=== PATIENT | male | born 1970 | race Caucasian/White ===

== ENCOUNTER 2016-05-03 09:39 | Emergency (ER) | payer MEDICARE, MEDICAID ==
[2016-05-03] MEDS ORDERED: PERCOCET 5MG/325MG TAB As Ordered ONE (10:23)
--- NOTE | 2016-05-03 11:33 | REP ---
Lumbar spine series: Five views. History: Trauma. Findings: Five views of the lumbar spine are compared with prior study from October 16, 2014 done at [facility]. There is a bilateral L5 spondylolysis and a grade 1, 9 mm L5-S1 spondylolisthesis again seen unchanged. There is degenerative disc disease at L5-S1 and osteoarthritic facet sclerosis is seen bilaterally at L5-S1. There is a spina bifida occulta at the L5 level unchanged. Pedicles and posterior elements are otherwise intact. No traumatic fracture or collapse is seen. There is discogenic spurring anteriorly at L3-4 and L4-5 unchanged. Impression: 1. No fracture or acute traumatic abnormality seen. 2. Degenerative disc and osteoarthritic facet changes most pronounced at L5-S1. 3. Bilateral L5 spondylolysis and a grade 1, 9 mm L5-S1 spondylolisthesis again noted. No acute bony abnormality. Signed by Stanislav Cartagena MD 05/03/2016 01:42 P
--- NOTE | 2016-05-03 11:34 | REP ---
PELVIS LEFT HIP: Three views. HISTORY: Trauma. FINDINGS: Bony pelvic ring is intact. No pelvic or sacral fracture is seen. Femoral heads are smooth and rounded and hip joint spaces are preserved. No hip fracture is seen. AP and frog-leg views of the left hip demonstrate smooth intact hip joint space. Periarticular soft tissues are unremarkable. IMPRESSION: No fracture seen. Signed by Stanislav Cartagena MD 05/03/2016 01:42 P
--- NOTE | 2016-05-03 11:57 | EDDOCDS ---
Physician Documentation [facility] Name: Ever Sloan Age: 45 yrs Sex: Male : 1970 Arrival Date: 05/03/2016 Time: 09:39 Bed TR2 Private MD: Juan M Lema Disposition: 05/03/16 11:44 Discharged to Home/Self Care. Impression: Low back pain - Acute, Pain in left hip, Spondylolisthesis - L5-S1, Spondylolysis - Bilateral, Other intervertebral disc disorders, lumbosacral region, Osteoarthritis, unspecified site - L5-S1. - Condition is Stable. - Discharge Instructions: Degenerative Disk Disease, Back Pain, Adult, Nnxc-zk-Jmny, Arthritis, Nonspecific, Qtfj-vj-Iwvf. - Prescriptions for Mobic 7.5 mg Oral Tablet - take 1 tablet by ORAL route once daily take with food; 20 tablet. Percocet 5- 325 mg Oral Tablet - take 1 tablet by ORAL route every 6 hours As needed MDD: 4 tabs; 10 tablet. Zanaflex 4 mg Oral Tablet - take 1 tablet by ORAL route At bedtime As needed Will cause drowsiness, do not take while driving/operating heavy machinery.; 20 tablet. - Medication Reconciliation, Local Pharmacy Hours form. - Follow up: Juan M Lema; When: 1 - 2 days; Reason: Recheck today's complaints, Continuance of care. Follow up: Emergency Department; Reason: Worsening of conditions. Follow up: [facility]; When: Call to arrange an appointment; Reason: Further diagnostic work-up, Recheck today's complaints, Continuance of care. - Problem is new. - Symptoms have improved. Historical: - Allergies: no known allergies; - Home Meds: 1. lisinopril 20 mg Oral tab 1 tab once daily 2. bupropion HCl 150 mg Oral TbER 1 tab 2 times per day 3. omeprazole 40 mg Oral cpDR 1 cap once daily - PMHx: GERD; Hypertension; Anxiety; Depression; - PSHx: Vasectomy; - Social history: Smoking status: Chewing Tobacco No barriers to communication noted, The patient speaks fluent Mongolian, Speaks appropriately for age. - Family history: Not pertinent. - : The pt / caregiver states he / she is not on anticoagulants. Home medication list is obtained from the patient. - Exposure Risk Screening:: None identified. Vital Signs: 05/03 09:41 BP 147 / 90; Pulse 81; Resp 18; Temp 97.7(O); Pulse Ox 99% on R/A; Weight 107.5 kg / jrd 237 lbs (R); Height 5 ft. 7 in. (170.18 cm) (R); Pain 8/; 11:44 BP 141 / 77 RA Sitting (auto/lg); Pulse 68; Resp 22; Temp 98.5; Pulse Ox 97% on R/A; ar3 Pain 04/20; 11:52 Pain 04/20; js13 09:41 Body Mass Index 37.12 (107.50 kg, 170.18 cm) jrd MDM: 10:02 Ice Pack ordered. ef1 10:02 oxyCODONE-acetaminophen 5 mg-325 mg 1 tabs PO once ordered. ef1 10:03 Spine. Lumbosacral, Complete Ordered. EDMS 10:03 Hip,AP,LAT to include Pelvis Ordered. EDMS 10:56 Financial registration complete. lg Administered Medications: 10:24 Drug: oxyCODONE-acetaminophen 1 tabs [oxycodone-acetaminophen 5 mg-325 mg tablet (1 hs1 tabs)] Route: PO; 11:52 Follow up: Pain 04/20 Adult; Response: Confirmed pt not driving.; Pain is decreased js13 Signatures: Dispatcher [employer] EDJosephine Monae, Reg Reg lg Xiomara Cosme PA-C PA-C ef1 Ashlie Rutherford RN RN hs1 Abbey Mulligan RN RN js13 MTDD
--- NOTE | 2016-05-03 11:57 | EDDOCDS ---
Nurse's Notes [facility] Name: Ever Sloan Age: 45 yrs Sex: Male : 1970 Arrival Date: 05/03/2016 Time: 09:39 Bed TR2 Private MD: Juan M Lema Diagnosis: Low back pain-Acute;Pain in left hip;[id number];Spondylolysis-Bilateral;Other intervertebral disc disorders, lumbosacral region;Osteoarthritis, unspecified site-L5-S1 Presentation: 05/03 09:44 Presenting complaint: Patient states: left hip started last night hurting around 830pm hs1 due to holding having heavy bags in left hand. Patient felt uneven and feels shifted. Patient states pain started to then creep towards back and across lumbar area. Patient reports previous injury (fell in shower) approx 3 weeks ago. Acute neurological deficits are not present. Mechanism of Injury: No Mechanism of Injury. Adult Sepsis Screening: The patient does not have new or worsening altered mentation. Patient's respiratory rate is less than 22. Systolic blood pressure is greater than 100. Patient has a qSOFA score of 0- Negative Sepsis Screen. Suicide/Homicide risk assessment- the patient denies having any suicidal and/or homicidal ideations and does not present with any other emotional, behavioral or mental health complaints. Status: Patient is not a ancillary services manager therapy or dependent. Transition of care: patient was not received from another setting of care. 09:44 Acuity: REX Level 4 hs1 09:44 Method Of Arrival: Walkin/Carried/Asstd hs1 Triage Assessment: 09:48 General: Appears uncomfortable, Behavior is appropriate for age, cooperative. Pain: hs1 Location: back Pain currently is 9 out of 10 on a pain scale. Pt Declines HIV testing. Musculoskeletal: No deficits noted. Reports Pain is 9 out of 10 on a pain scale. Historical: - Allergies: no known allergies; - Home Meds: 1. lisinopril 20 mg Oral tab 1 tab once daily 2. bupropion HCl 150 mg Oral TbER 1 tab 2 times per day 3. omeprazole 40 mg Oral cpDR 1 cap once daily - PMHx: GERD; Hypertension; Anxiety; Depression; - PSHx: Vasectomy; - Social history: Smoking status: Chewing Tobacco No barriers to communication noted, The patient speaks fluent Rwandan, Speaks appropriately for age. - Family history: Not pertinent. - : The pt / caregiver states he / she is not on anticoagulants. Home medication list is obtained from the patient. - Exposure Risk Screening:: None identified. Screenin:50 Screening information is obtained from the patient. Fall risk: No risks identified. js13 Assistance ADL's: requires no assistance with activities of daily living. Abuse/DV Screen: The patient / caregiver reports he/she is: not in a situation that causes fear, pain or injury. Nutritional screening: No deficits noted. Advance Directives: There is no active DNR order. home support is adequate. Assessment: 11:50 General: Appears in no apparent distress, Behavior is appropriate for age, cooperative. js13 Pain: Pain currently is 3 out of 10 on a pain scale. Neurological: Level of Consciousness is awake, alert. Respiratory: Airway is patent Respiratory effort is even, unlabored, Respiratory pattern is regular, symmetrical. Derm: Skin is pink, warm & dry. Vital Signs: 09:41 BP 147 / 90; Pulse 81; Resp 18; Temp 97.7(O); Pulse Ox 99% on R/A; Weight 107.5 kg (R); jrd Height 5 ft. 7 in. (170.18 cm) (R); Pain 8/10; 11:44 BP 141 / 77 RA Sitting (auto/lg); Pulse 68; Resp 22; Temp 98.5; Pulse Ox 97% on R/A; ar3 Pain 1/10; 11:52 Pain 1/10; js13 09:41 Body Mass Index 37.12 (107.50 kg, 170.18 cm) [facility] Vitals: 09:41 Log In Time: May 03, 2016 at 09:30. [facility] ED Course: 09:41 Patient visited by Trell Kam PCA. jrd 09:41 Juan M Lema is Private Physician. jrd 09:41 Patient moved to Waiting jrd 09:42 Patient visited by Trell Kam PCA. jrd 09:42 Patient moved to Pre RCE jrd 09:46 Xiomara Cosme PA-C is PHCP. ef1 09:46 Akin Villagomez MD is Attending Physician. ef1 09:46 Triage Initiated hs1 09:49 Patient moved to Triage 2 hs1 09:53 Patient visited by Xiomara Cosme PA-C. ef1 10:24 Patient moved to TR2 hs1 10:29 Patient name changed from Ever\S\\S\Nathalia\S\ to Ever\S\ \S\Sloan. EDMS 10:44 Patient visited by Xiomara Cosme PA-C. ef1 11:25 Patient visited by Xiomara Cosme PA-C. ef1 11:43 Juan M Lema is Referral Physician. ef1 11:[facility]. ef1 11:44 Patient visited by Meghan Nobles PCA. ar3 11:50 The patient / caregiver is instructed regarding the plan of care and ED course. js13 11:50 No IV's were initiated during this patient's visit. No procedures done that require js13 assistance. 11:52 Spine. Lumbosacral, Complete Returned. EDMS 11:52 Hip,AP,LAT to include Pelvis Returned. EDMS Administered Medications: 10:24 Drug: oxyCODONE-acetaminophen 1 tabs [oxycodone-acetaminophen 5 mg-325 mg tablet (1 hs1 tabs)] Route: PO; 11:52 Follow up: Pain 1/10 Adult; Response: Confirmed pt not driving.; Pain is decreased js13 Order Results: Radiology Order: Spine. Lumbosacral, Complete Test: Spine. Lumbosacral, Complete REASON FOR EXAMINATION: Trauma; Lumbar spine series: Five views.; ; History: Trauma.; ; Findings: Five views of the lumbar spine are compared with prior study from [address] [facility]. There is a bilateral L5 spondylolysis; and a grade 1, 9 mm L5-S1 spondylolisthesis again seen unchanged. There is; degenerative disc disease at L5-S1 and osteoarthritic facet sclerosis is seen; bilaterally at L5-S1. There is a spina bifida occulta at the L5 level unchanged.; Pedicles and posterior elements are otherwise intact. No traumatic fracture or; collapse is seen. There is discogenic spurring anteriorly at L3-4 and L4-5; unchanged.; ; Impression:; ; 1. No fracture or acute traumatic abnormality seen.; 2. Degenerative disc and osteoarthritic facet changes most pronounced at L5-S1.; 3. Bilateral L5 spondylolysis and a grade 1, 9 mm L5-S1 spondylolisthesis again; noted. No acute bony abnormality.; ; Unreviewed; Radiology Order: Hip,AP,LAT to include Pelvis Test: Hip,AP,LAT to include Pelvis REASON FOR EXAMINATION: Trauma; PELVIS LEFT HIP:; ; Three views.; ; HISTORY: Trauma.; ; FINDINGS: Bony pelvic ring is intact. No pelvic or sacral fracture is seen.; Femoral heads are smooth and rounded and hip joint spaces are preserved. No hip; fracture is seen. AP and frog-leg views of the left hip demonstrate smooth; intact hip joint space. Periarticular soft tissues are unremarkable.; ; IMPRESSION:; No fracture seen.; ; ; ; ; Unreviewed; Outcome: 11:44 Discharge ordered by Provider. ef1 11:50 Discharge Assessment: Patient awake, alert and oriented x 3. No cognitive and/or js13 functional deficits noted. Patient verbalized understanding of disposition instructions. patient administered narcotics - yes. Pt provided with safe discharge. The following High Risk Discharge criteria are identified: None. Discharged to home ambulatory, with friend. Condition: stable. Discharge instructions given to patient, Instructed on discharge instructions, follow up and referral plans. medication usage, Demonstrated understanding of instructions, medications, Pt was receptive of discharge instructions/ teaching. Prescriptions given X 3. No special radiology studies were completed. Property :Personal belongings accompany Pt. 11:56 Patient left the ED. js13 Signatures: Dispatcher [employer] EDMS Xiomara Cosme, SUMIT ARANA ef1 Meghan Nobles, APPLICATIONS INTERN APPLICATIONS INTERN ar3 Ashlie Rutherford RN RN hs1 Abbey Mulligan RN RN js13 Trell Kam, APPLICATIONS INTERN APPLICATIONS INTERN jrd [facility]
--- NOTE | 2016-05-05 12:57 | EDDOCDS ---
Physician Documentation [facility] Name: Ever Sloan Age: 45 yrs Sex: Male : 1970 Arrival Date: 05/03/2016 Time: 09:39 Bed TR2 Private MD: Juan M Lema Disposition: 05/03/16 11:44 Discharged to Home/Self Care. Impression: Low back pain - Acute, Pain in left hip, Spondylolisthesis - L5-S1, Spondylolysis - Bilateral, Other intervertebral disc disorders, lumbosacral region, Osteoarthritis, unspecified site - L5-S1. - Condition is Stable. - Discharge Instructions: Degenerative Disk Disease, Back Pain, Adult, Sirt-cp-Zkgp, Arthritis, Nonspecific, Gpld-wp-Oeug. - Prescriptions for Mobic 7.5 mg Oral Tablet - take 1 tablet by ORAL route once daily take with food; 20 tablet. Percocet 5- 325 mg Oral Tablet - take 1 tablet by ORAL route every 6 hours As needed MDD: 4 tabs; 10 tablet. Zanaflex 4 mg Oral Tablet - take 1 tablet by ORAL route At bedtime As needed Will cause drowsiness, do not take while driving/operating heavy machinery.; 20 tablet. - Medication Reconciliation, Local Pharmacy Hours form. - Follow up: Juan M Lema; When: 1 - 2 days; Reason: Recheck today's complaints, Continuance of care. Follow up: Emergency Department; Reason: Worsening of conditions. Follow up: [facility]; When: Call to arrange an appointment; Reason: Further diagnostic work-up, Recheck today's complaints, Continuance of care. - Problem is new. - Symptoms have improved. Historical: - Allergies: no known allergies; - Home Meds: 1. lisinopril 20 mg Oral tab 1 tab once daily 2. bupropion HCl 150 mg Oral TbER 1 tab 2 times per day 3. omeprazole 40 mg Oral cpDR 1 cap once daily - PMHx: GERD; Hypertension; Anxiety; Depression; - PSHx: Vasectomy; - Social history: Smoking status: Chewing Tobacco No barriers to communication noted, The patient speaks fluent Grenadian, Speaks appropriately for age. - Family history: Not pertinent. - : The pt / caregiver states he / she is not on anticoagulants. Home medication list is obtained from the patient. - Exposure Risk Screening:: None identified. Vital Signs: 05/03 09:41 BP 147 / 90; Pulse 81; Resp 18; Temp 97.7(O); Pulse Ox 99% on R/A; Weight 107.5 kg / jrd 237 lbs (R); Height 5 ft. 7 in. (170.18 cm) (R); Pain 8/10; 11:44 BP 141 / 77 RA Sitting (auto/lg); Pulse 68; Resp 22; Temp 98.5; Pulse Ox 97% on R/A; ar3 Pain 1/10; 11:52 Pain 1/10; js13 09:41 Body Mass Index 37.12 (107.50 kg, 170.18 cm) jrd MDM: 10:02 Ice Pack ordered. ef1 10:02 oxyCODONE-acetaminophen 5 mg-325 mg 1 tabs PO once ordered. ef1 10:03 Spine. Lumbosacral, Complete Ordered. EDMS 10:03 Hip,AP,LAT to include Pelvis Ordered. EDMS 10:56 Financial registration complete. lg 12:56 [facility] Payment Agreement was scanned into [employer] and attached to record. lg 14:15 T-Sheet-- Draft Copy was scanned into [employer] and attached to record. gb 14:15 Radiology Report was scanned into [employer] and attached to record. gb Administered Medications: 10:24 Drug: oxyCODONE-acetaminophen 1 tabs [oxycodone-acetaminophen 5 mg-325 mg tablet (1 hs1 tabs)] Route: PO; 11:52 Follow up: Pain 04/20 Adult; Response: Confirmed pt not driving.; Pain is decreased js13 Signatures: Dispatcher [employer] EDMS Olimpia Merino, Reg Reg gb Josephine Spicer, Reg Reg lg Xiomara Cosme, PA-C PASelinaC ef1 Ashlie Rutherford, RN RN hs1 Abbey Mulligan RN RN js13 The chart was reviewed and I authenticate all verbal orders and agree with the evaluation and treatment provided.Attachments: 12:56 [facility] Payment Agreement lg 14:15 T-Sheet-- Draft Copy gb Chart Complete MTDD
--- NOTE | 2016-05-05 12:57 | EDDOCDS ---
Physician Documentation [facility] Name: Ever Sloan Age: 45 yrs Sex: Male : 1970 Arrival Date: 05/03/2016 Time: 09:39 Bed TR2 Private MD: Juan M Lema Disposition: 05/03/16 11:44 Discharged to Home/Self Care. Impression: Low back pain - Acute, Pain in left hip, Spondylolisthesis - L5-S1, Spondylolysis - Bilateral, Other intervertebral disc disorders, lumbosacral region, Osteoarthritis, unspecified site - L5-S1. - Condition is Stable. - Discharge Instructions: Degenerative Disk Disease, Back Pain, Adult, Czas-ep-Xjdx, Arthritis, Nonspecific, Ozah-qg-Envz. - Prescriptions for Mobic 7.5 mg Oral Tablet - take 1 tablet by ORAL route once daily take with food; 20 tablet. Percocet 5- 325 mg Oral Tablet - take 1 tablet by ORAL route every 6 hours As needed MDD: 4 tabs; 10 tablet. Zanaflex 4 mg Oral Tablet - take 1 tablet by ORAL route At bedtime As needed Will cause drowsiness, do not take while driving/operating heavy machinery.; 20 tablet. - Medication Reconciliation, Local Pharmacy Hours form. - Follow up: Juan M Lema; When: 1 - 2 days; Reason: Recheck today's complaints, Continuance of care. Follow up: Emergency Department; Reason: Worsening of conditions. Follow up: [facility]; When: Call to arrange an appointment; Reason: Further diagnostic work-up, Recheck today's complaints, Continuance of care. - Problem is new. - Symptoms have improved. Historical: - Allergies: no known allergies; - Home Meds: 1. lisinopril 20 mg Oral tab 1 tab once daily 2. bupropion HCl 150 mg Oral TbER 1 tab 2 times per day 3. omeprazole 40 mg Oral cpDR 1 cap once daily - PMHx: GERD; Hypertension; Anxiety; Depression; - PSHx: Vasectomy; - Social history: Smoking status: Chewing Tobacco No barriers to communication noted, The patient speaks fluent Emirati, Speaks appropriately for age. - Family history: Not pertinent. - : The pt / caregiver states he / she is not on anticoagulants. Home medication list is obtained from the patient. - Exposure Risk Screening:: None identified. Vital Signs: 05/03 09:41 BP 147 / 90; Pulse 81; Resp 18; Temp 97.7(O); Pulse Ox 99% on R/A; Weight 107.5 kg / jrd 237 lbs (R); Height 5 ft. 7 in. (170.18 cm) (R); Pain 8/10; 11:44 BP 141 / 77 RA Sitting (auto/lg); Pulse 68; Resp 22; Temp 98.5; Pulse Ox 97% on R/A; ar3 Pain 1/10; 11:52 Pain 1/10; js13 09:41 Body Mass Index 37.12 (107.50 kg, 170.18 cm) jrd MDM: 10:02 Ice Pack ordered. ef1 10:02 oxyCODONE-acetaminophen 5 mg-325 mg 1 tabs PO once ordered. ef1 10:03 Spine. Lumbosacral, Complete Ordered. EDMS 10:03 Hip,AP,LAT to include Pelvis Ordered. EDMS 10:56 Financial registration complete. lg 12:56 [facility] Payment Agreement was scanned into [employer] and attached to record. lg 14:15 T-Sheet-- Draft Copy was scanned into [employer] and attached to record. gb 14:15 Radiology Report was scanned into [employer] and attached to record. gb Administered Medications: 10:24 Drug: oxyCODONE-acetaminophen 1 tabs [oxycodone-acetaminophen 5 mg-325 mg tablet (1 hs1 tabs)] Route: PO; 11:52 Follow up: Pain 04/20 Adult; Response: Confirmed pt not driving.; Pain is decreased js13 Signatures: Dispatcher [employer] EDMS Olimpia Merino, Reg Reg gb Josephine Spicer, Reg Reg lg Xiomara Cosme, PA-C PASelinaC ef1 Ashlie Rutherford, RN RN hs1 Abbey Mulligan RN RN js13 The chart was reviewed and I authenticate all verbal orders and agree with the evaluation and treatment provided.Attachments: 12:56 [facility] Payment Agreement lg 14:15 T-Sheet-- Draft Copy gb Chart Complete MTDD
--- NOTE | 2016-05-05 12:57 | EDDOCDS ---
Nurse's Notes [facility] Name: Ever Sloan Age: 45 yrs Sex: Male : 1970 Arrival Date: 05/03/2016 Time: 09:39 Bed TR2 Private MD: Juan M Lema Diagnosis: Low back pain-Acute;Pain in left hip;[id number];Spondylolysis-Bilateral;Other intervertebral disc disorders, lumbosacral region;Osteoarthritis, unspecified site-L5-S1 Presentation: 05/03 09:44 Presenting complaint: Patient states: left hip started last night hurting around 830pm hs1 due to holding having heavy bags in left hand. Patient felt uneven and feels shifted. Patient states pain started to then creep towards back and across lumbar area. Patient reports previous injury (fell in shower) approx 3 weeks ago. Acute neurological deficits are not present. Mechanism of Injury: No Mechanism of Injury. Adult Sepsis Screening: The patient does not have new or worsening altered mentation. Patient's respiratory rate is less than 22. Systolic blood pressure is greater than 100. Patient has a qSOFA score of 0- Negative Sepsis Screen. Suicide/Homicide risk assessment- the patient denies having any suicidal and/or homicidal ideations and does not present with any other emotional, behavioral or mental health complaints. Status: Patient is not a business services manager or dependent. Transition of care: patient was not received from another setting of care. 09:44 Acuity: REX Level 4 hs1 09:44 Method Of Arrival: Walkin/Carried/Asstd hs1 Triage Assessment: 09:48 General: Appears uncomfortable, Behavior is appropriate for age, cooperative. Pain: hs1 Location: back Pain currently is 9 out of 10 on a pain scale. Pt Declines HIV testing. Musculoskeletal: No deficits noted. Reports Pain is 9 out of 10 on a pain scale. Historical: - Allergies: no known allergies; - Home Meds: 1. lisinopril 20 mg Oral tab 1 tab once daily 2. bupropion HCl 150 mg Oral TbER 1 tab 2 times per day 3. omeprazole 40 mg Oral cpDR 1 cap once daily - PMHx: GERD; Hypertension; Anxiety; Depression; - PSHx: Vasectomy; - Social history: Smoking status: Chewing Tobacco No barriers to communication noted, The patient speaks fluent Greek, Speaks appropriately for age. - Family history: Not pertinent. - : The pt / caregiver states he / she is not on anticoagulants. Home medication list is obtained from the patient. - Exposure Risk Screening:: None identified. Screenin:50 Screening information is obtained from the patient. Fall risk: No risks identified. js13 Assistance ADL's: requires no assistance with activities of daily living. Abuse/DV Screen: The patient / caregiver reports he/she is: not in a situation that causes fear, pain or injury. Nutritional screening: No deficits noted. Advance Directives: There is no active DNR order. home support is adequate. Assessment: 11:50 General: Appears in no apparent distress, Behavior is appropriate for age, cooperative. js13 Pain: Pain currently is 3 out of 10 on a pain scale. Neurological: Level of Consciousness is awake, alert. Respiratory: Airway is patent Respiratory effort is even, unlabored, Respiratory pattern is regular, symmetrical. Derm: Skin is pink, warm & dry. Vital Signs: 09:41 BP 147 / 90; Pulse 81; Resp 18; Temp 97.7(O); Pulse Ox 99% on R/A; Weight 107.5 kg (R); jrd Height 5 ft. 7 in. (170.18 cm) (R); Pain 8/10; 11:44 BP 141 / 77 RA Sitting (auto/lg); Pulse 68; Resp 22; Temp 98.5; Pulse Ox 97% on R/A; ar3 Pain 1/10; 11:52 Pain 1/10; js13 09:41 Body Mass Index 37.12 (107.50 kg, 170.18 cm) [facility] Vitals: 09:41 Log In Time: May 03, 2016 at 09:30. [facility] ED Course: 09:41 Patient visited by Trell Kam PCA. jrd 09:41 Juan M Lema is Private Physician. jrd 09:41 Patient moved to Waiting jrd 09:42 Patient visited by Trell Kam PCA. jrd 09:42 Patient moved to Pre RCE jrd 09:46 Xiomara Cosme PA-C is PHCP. ef1 09:46 Akin Villagomez MD is Attending Physician. ef1 09:46 Triage Initiated hs1 09:49 Patient moved to Triage 2 hs1 09:53 Patient visited by Xiomara Cosme PA-C. ef1 10:24 Patient moved to TR2 hs1 10:29 Patient name changed from Ever\S\\S\Nathalia\S\ to Ever\S\ \S\Nathalia. EDMS 10:44 Patient visited by Xiomara Cosme PA-C. ef1 11:25 Patient visited by Xiomara Cosme PA-C. ef1 11:43 Juan M Lema is Referral Physician. ef1 11:43 [facility]. ef1 11:44 Patient visited by Meghan Nobles PCA. ar3 11:50 The patient / caregiver is instructed regarding the plan of care and ED course. js13 11:50 No IV's were initiated during this patient's visit. No procedures done that require js13 assistance. 11:52 Spine. Lumbosacral, Complete Returned. EDMS 11:52 Hip,AP,LAT to include Pelvis Returned. EDMS 12:56 [facility] was scanned into [employer] and attached to record. lg 14:15 T-Sheet-- Draft Copy was scanned into [employer] and attached to record. gb 14:15 Radiology Report was scanned into [employer] and attached to record. gb Administered Medications: 10:24 Drug: oxyCODONE-acetaminophen 1 tabs [oxycodone-acetaminophen 5 mg-325 mg tablet (1 hs1 tabs)] Route: PO; 11:52 Follow up: Pain 1/10 Adult; Response: Confirmed pt not driving.; Pain is decreased js13 Order Results: Radiology Order: Spine. Lumbosacral, Complete Test: Spine. Lumbosacral, Complete REASON FOR EXAMINATION: Trauma; Lumbar spine series: Five views.; ; History: Trauma.; ; Findings: Five views of the lumbar spine are compared with prior study from 2014 done at [facility]. There is a bilateral L5 spondylolysis; and a grade 1, 9 mm L5-S1 spondylolisthesis again seen unchanged. There is; degenerative disc disease at L5-S1 and osteoarthritic facet sclerosis is seen; bilaterally at L5-S1. There is a spina bifida occulta at the L5 level unchanged.; Pedicles and posterior elements are otherwise intact. No traumatic fracture or; collapse is seen. There is discogenic spurring anteriorly at L3-4 and L4-5; unchanged.; ; Impression:; ; 1. No fracture or acute traumatic abnormality seen.; ; 2. Degenerative disc and osteoarthritic facet changes most pronounced at L5-S1.; ; 3. Bilateral L5 spondylolysis and a grade 1, 9 mm L5-S1 spondylolisthesis again; noted. No acute bony abnormality.; ; ; Signed by; Stanislav Cartagena MD 05/03/2016 01:42 P; Radiology Order: Hip,AP,LAT to include Pelvis Test: Hip,AP,LAT to include Pelvis REASON FOR EXAMINATION: Trauma; PELVIS LEFT HIP:; ; Three views.; ; HISTORY: Trauma.; ; FINDINGS: Bony pelvic ring is intact. No pelvic or sacral fracture is seen.; Femoral heads are smooth and rounded and hip joint spaces are preserved. No hip; fracture is seen. AP and frog-leg views of the left hip demonstrate smooth; intact hip joint space. Periarticular soft tissues are unremarkable.; ; IMPRESSION: No fracture seen.; ; ; Signed by; Stanislav Cartagena MD 05/03/2016 01:42 P; Outcome: 11:44 Discharge ordered by Provider. ef1 11:50 Discharge Assessment: Patient awake, alert and oriented x 3. No cognitive and/or js13 functional deficits noted. Patient verbalized understanding of disposition instructions. patient administered narcotics - yes. Pt provided with safe discharge. The following High Risk Discharge criteria are identified: None. Discharged to home ambulatory, with friend. Condition: stable. Discharge instructions given to patient, Instructed on discharge instructions, follow up and referral plans. medication usage, Demonstrated understanding of instructions, medications, Pt was receptive of discharge instructions/ teaching. Prescriptions given X 3. No special radiology studies were completed. Property :Personal belongings accompany Pt. 11:56 Patient left the ED. js13 Signatures: Dispatcher [employer] EDMS Olimpia Merino, Reg Reg gb Josephine Spicer, Reg Reg lg Xiomara Cosme, SUMIT PAArminda ef1 Meghan Nobles, VACUUM SYSTEM TESTER VACUUM SYSTEM TESTER ar3 Ashlie Rutherford RN RN hs1 Abbey Mulligan RN RN js13 Trell Kam, VACUUM SYSTEM TESTER VACUUM SYSTEM TESTER jrd Chart Complete MTDD
== END 2016-05-03 11:56 | disposition home or self-care (01) ==
LOC: M ED 09:39
DX: M25.552 Pain in left hip (principal); M47.816 Spondylosis without myelopathy or radiculopathy, lumbar region; M51.36 Other intervertebral disc degeneration, lumbar region; M43.17 Spondylolisthesis, lumbosacral region; I10 Essential (primary) hypertension; K21.9 Gastro-esophageal reflux disease without esophagitis; F41.9 Anxiety disorder, unspecified; F32.9 Major depressive disorder, single episode, unspecified; F17.228 Nicotine dependence, chewing tobacco, with other nicotine-induced disorders; Z79.899 Other long term (current) drug therapy

== ENCOUNTER 2016-05-07 12:29 | Emergency (ER) | payer MEDICARE, MEDICAID ==
[2016-05-07] MEDS ORDERED: KETOROLAC 30 MG/ML VIAL (J1885) As Ordered ONE (13:22)
--- NOTE | 2016-05-07 14:15 | EDDOCDS ---
Physician Documentation [facility] Name: Ever Sloan Age: 45 yrs Sex: Male : 1970 Arrival Date: 05/07/2016 Time: 12:29 Bed PD Private MD: Juan M Lema Disposition: 05/07/16 14:03 Discharged to Home/Self Care. Impression: Low back pain, Radiculopathy, lumbar region. - Condition is Stable. - Discharge Instructions: Back Pain, Adult. - Prescriptions for Valium 5 mg Oral Tablet - take 1 tablet by ORAL route at bedtime As needed; 15 tablet. Naprosyn 500 mg Oral Tablet - take 1 tablet by ORAL route every 12 hours As needed take with food; 30 tablet. - Medication Reconciliation, Local Pharmacy Hours form. - Follow up: Emergency Department; When: As needed; Reason: Worsening of conditions. Follow up: [facility]; When: Call to arrange an appointment; Reason: Wound/Symptom Recheck, Recheck today's complaints, Continuance of care, To establish care. - Problem is new. - Symptoms have improved. Historical: - Allergies: No known drug Allergies; - Home Meds: 1. bupropion HCl 150 mg Oral TbER 1 tab 2 times per day 2. lisinopril 20 mg Oral tab 1 tab once daily 3. omeprazole 40 mg Oral cpDR 1 cap once daily - PMHx: Anxiety; Depression; GERD; Hypertension; - PSHx: Vasectomy; - Social history: Smoking status: Chewing Tobacco No barriers to communication noted, The patient speaks fluent Solomon Islander, Speaks appropriately for age. - Family history: Not pertinent. - : The pt / caregiver states he / she is not on anticoagulants. Home medication list is obtained from the patient. - Exposure Risk Screening:: None identified. Vital Signs: 05/07 12:31 BP 153 / 99; Pulse 68; Resp 18 S; Temp 96.5(O); Pulse Ox 99% on R/A; Weight 121.11 kg / dd6 267 lbs (R); Height 5 ft. 7 in. (170.18 cm) (R); 14:06 BP 130 / 91; Pulse 67; Resp 18; Temp 97.0(O); Pulse Ox 97% on R/A; Pain 2/10; jb5 12:31 Body Mass Index 41.82 (121.11 kg, 170.18 cm) dd6 MDM: 13:18 Financial registration complete. lg 13:20 Diazepam 5 mg IM once ordered. dt4 13:20 ketorolac 60 mg IM once ordered. dt4 13:21 Hip,AP,LAT to include Pelvis Ordered. EDMS 13:36 [facility] Payment Agreement was scanned into [employer] and attached to record. lg Administered Medications: 13:27 Drug: Diazepam 5 mg [diazepam 5 mg/mL injection syringe (1 mL)] Route: IM; Site: left ttb gluteus; 14:00 Follow up: Response: Confirmed pt not driving.; No Adverse Reaction; Pain is decreased ttb 13:27 Drug: ketorolac 60 mg [ketorolac 30 mg/mL (1 mL) injection solution (2 mL)] Route: IM; ttb Site: right gluteus; 14:00 Follow up: Response: Confirmed pt not driving.; No Adverse Reaction; Pain is decreased ttb Signatures: Dispatcher [employer] EDWY Josephine Spicer, Reg Reg lg Abbey Torres,RN RN Kate Bradley RN RN ttb Lula Alas PA-C PA-C dt4 The chart was reviewed and I authenticate all verbal orders and agree with the evaluation and treatment provided.Attachments: 13:36 [facility] Payment Agreement lg MTDD
--- NOTE | 2016-05-07 14:15 | EDDOCDS ---
Nurse's Notes [facility] Name: Ever Sloan Age: 45 yrs Sex: Male : 1970 Arrival Date: 05/07/2016 Time: 12:29 Bed PD Private MD: Juan M Lema Diagnosis: Low back pain;Radiculopathy, lumbar region Presentation: 05/07 12:34 Presenting complaint: Patient states: History of right hip pain. "Been getting worse jo3 and worse and worse". Has had pain for 4-5 years. No definitive point of injury. Adult Sepsis Screening: The patient does not have new or worsening altered mentation. Patient's respiratory rate is less than 22. Systolic blood pressure is greater than 100. Patient has a qSOFA score of 0- Negative Sepsis Screen. Suicide/Homicide risk assessment- the patient denies having any suicidal and/or homicidal ideations and does not present with any other emotional, behavioral or mental health complaints. Status: Patient is not a director of medical staff services or dependent. Transition of care: patient was not received from another setting of care. 12:34 Acuity: REX Level 4 jo3 12:34 Method Of Arrival: Walkin/Carried/Asstd jo3 12:37 Presenting complaint: Patient states: Pt adds that he was given Percocet on last visit jo3 and still has some left and "So I won't be needing any more of those today". Triage Assessment: 12:36 General: Appears in no apparent distress, Behavior is appropriate for age, cooperative. jo3 HIV screening NA for this visit Offered previously. Neurological: Level of Consciousness is awake, alert, Oriented to person, place, time. Derm: Skin is pink, warm & dry. Historical: - Allergies: No known drug Allergies; - Home Meds: 1. bupropion HCl 150 mg Oral TbER 1 tab 2 times per day 2. lisinopril 20 mg Oral tab 1 tab once daily 3. omeprazole 40 mg Oral cpDR 1 cap once daily - PMHx: Anxiety; Depression; GERD; Hypertension; - PSHx: Vasectomy; - Social history: Smoking status: Chewing Tobacco No barriers to communication noted, The patient speaks fluent Kyrgyz, Speaks appropriately for age. - Family history: Not pertinent. - : The pt / caregiver states he / she is not on anticoagulants. Home medication list is obtained from the patient. - Exposure Risk Screening:: None identified. Screenin:27 Screening information is obtained from the patient. Fall risk: No risks identified. ttb Assistance ADL's: requires no assistance with activities of daily living. Abuse/DV Screen: The patient / caregiver reports he/she is: not in a situation that causes fear, pain or injury. Nutritional screening: No deficits noted. Advance Directives: Currently, there is no health care proxy. home support is adequate. Assessment: 13:27 General: Appears in no apparent distress, uncomfortable, well nourished, well groomed, ttb Behavior is appropriate for age, cooperative, pleasant. Pain: Location: right hip pain 9/10. Neurological: Level of Consciousness is awake, alert. Cardiovascular: Chest pain is denied. Respiratory: No deficits noted. Derm: Skin is normal. Musculoskeletal: Range of motion intact in all extremities. 14:12 Reassessment: Patient appears in no apparent distress at this time. Patient states ttb feeling better. Patient states symptoms have improved. pt ready for DC after meds. . Neurological: Level of Consciousness is awake, alert. Respiratory: No deficits noted. 14:13 General: medicaid cab requested and secured. ttb Vital Signs: 12:31 BP 153 / 99; Pulse 68; Resp 18 S; Temp 96.5(O); Pulse Ox 99% on R/A; Weight 121.11 kg dd6 (R); Height 5 ft. 7 in. (170.18 cm) (R); 14:06 BP 130 / 91; Pulse 67; Resp 18; Temp 97.0(O); Pulse Ox 97% on R/A; Pain 2/10; jb5 12:31 Body Mass Index 41.82 (121.11 kg, 170.18 cm) dd6 Vitals: 12:31 Log In Time: May 07, 2016 at 12:29. dd6 ED Course: 12:31 Patient visited by Eddie Gabriel PCA. dd6 12:31 Juan M Lema is Private Physician. dd6 12:31 Patient moved to Waiting dd6 12:32 Patient moved to Pre RCE dd6 12:36 Triage Initiated jo3 12:38 Patient visited by Abbey Torres RN. jo3 12:44 Patient moved to Triage 3 jo3 13:08 [facility] dt4 13:08 Justina Pinto MD is Attending Physician. dt4 13:08 Patient visited by Lula Alas PA-C. dt4 13:19 Patient moved to PD jb5 13:27 The patient / caregiver is instructed regarding the plan of care and ED course. ttb Accompanied by Significant Other, Patient has correct armband on for positive identification. 13:28 Patient visited by Kate Bird RN. ttb 13:35 Patient name changed from Ever\\S\\\\S\\Sloan\\S\\ to Ever\\S\\ \\S\\Sloan. EDMS 13:36 [facility] Payment Agreement was scanned into [employer] and attached to record. lg 14:00 Patient visited by Lula Alas PA-C. dt4 14:02 [facility] is Referral Physician. dt4 14:07 Patient visited by Paula Page PCA. jb5 14:12 No IV's were initiated during this patient's visit. No procedures done that require ttb assistance. Administered Medications: 13:27 Drug: Diazepam 5 mg [diazepam 5 mg/mL injection syringe (1 mL)] Route: IM; Site: left ttb gluteus; 14:00 Follow up: Response: Confirmed pt not driving.; No Adverse Reaction; Pain is decreased ttb 13:27 Drug: ketorolac 60 mg [ketorolac 30 mg/mL (1 mL) injection solution (2 mL)] Route: IM; ttb Site: right gluteus; 14:00 Follow up: Response: Confirmed pt not driving.; No Adverse Reaction; Pain is decreased ttb Order Results: There are currently no results for this order. Outcome: 14:03 Discharge ordered by Provider. dt4 14:12 Discharge Assessment: Patient awake, alert and oriented x 3. No cognitive and/or ttb functional deficits noted. Patient verbalized understanding of disposition instructions. Patient awake and alert. patient administered narcotics - yes. Pt provided with safe discharge. The following High Risk Discharge criteria are identified: None. Discharged to home ambulatory, with significant other. Condition: good Condition: stable Condition: improved. Discharge instructions given to patient, significant other, Instructed on discharge instructions, follow up and referral plans. medication usage, no driving heavy equipment, Rest, Ice, Compression and Elevation. no drinking with medication, Demonstrated understanding of instructions, medications, RICE, no d/d with meds Pt was receptive of discharge instructions/ teaching. Prescriptions given X 1, 2. No special radiology studies were completed. Property :Personal belongings accompany Pt. 14:14 Patient left the ED. ttb Signatures: Dispatcher [employer] EDMS Josephine Spicer, Reg Reg lg Paula Page, RN OUTPATIENT SURGERY RN OUTPATIENT SURGERY jb5 Abbey Torres RN RN jo3 Eddie Gabriel, RN OUTPATIENT SURGERY RN OUTPATIENT SURGERY dd6 Kate Bird RN RN ttb Lula Alas, SUMIT PAArminda dt4 MTDD
--- NOTE | 2016-05-09 15:15 | EDDOCDS ---
Physician Documentation [facility] Name: Ever Sloan Age: 45 yrs Sex: Male : 1970 Arrival Date: 05/07/2016 Time: 12:29 Bed PD Private MD: Juan M Lema Disposition: 05/07/16 14:03 Discharged to Home/Self Care. Impression: Low back pain, Radiculopathy, lumbar region. - Condition is Stable. - Discharge Instructions: Back Pain, Adult. - Prescriptions for Valium 5 mg Oral Tablet - take 1 tablet by ORAL route at bedtime As needed; 15 tablet. Naprosyn 500 mg Oral Tablet - take 1 tablet by ORAL route every 12 hours As needed take with food; 30 tablet. - Medication Reconciliation, Local Pharmacy Hours form. - Follow up: Emergency Department; When: As needed; Reason: Worsening of conditions. Follow up: [facility]; When: Call to arrange an appointment; Reason: Wound/Symptom Recheck, Recheck today's complaints, Continuance of care, To establish care. - Problem is new. - Symptoms have improved. Historical: - Allergies: No known drug Allergies; - Home Meds: 1. bupropion HCl 150 mg Oral TbER 1 tab 2 times per day 2. lisinopril 20 mg Oral tab 1 tab once daily 3. omeprazole 40 mg Oral cpDR 1 cap once daily - PMHx: Anxiety; Depression; GERD; Hypertension; - PSHx: Vasectomy; - Social history: Smoking status: Chewing Tobacco No barriers to communication noted, The patient speaks fluent Ukrainian, Speaks appropriately for age. - Family history: Not pertinent. - : The pt / caregiver states he / she is not on anticoagulants. Home medication list is obtained from the patient. - Exposure Risk Screening:: None identified. Vital Signs: 05/07 12:31 BP 153 / 99; Pulse 68; Resp 18 S; Temp 96.5(O); Pulse Ox 99% on R/A; Weight 121.11 kg / dd6 267 lbs (R); Height 5 ft. 7 in. (170.18 cm) (R); 14:06 BP 130 / 91; Pulse 67; Resp 18; Temp 97.0(O); Pulse Ox 97% on R/A; Pain 2/10; jb5 12:31 Body Mass Index 41.82 (121.11 kg, 170.18 cm) dd6 MDM: 13:18 Financial registration complete. lg 13:20 Diazepam 5 mg IM once ordered. dt4 13:20 ketorolac 60 mg IM once ordered. dt4 13:21 Hip,AP,LAT to include Pelvis Ordered. EDMS 13:36 [facility] Payment Agreement was scanned into [employer] and attached to record. lg 05/08 07:48 Radiology Report was scanned into [employer] and attached to record. gb 08:10 T-Sheet-- Draft Copy was scanned into [employer] and attached to record. seh Administered Medications: 05/07 13:27 Drug: Diazepam 5 mg [diazepam 5 mg/mL injection syringe (1 mL)] Route: IM; Site: left ttb gluteus; 14:00 Follow up: Response: Confirmed pt not driving.; No Adverse Reaction; Pain is decreased ttb 13:27 Drug: ketorolac 60 mg [ketorolac 30 mg/mL (1 mL) injection solution (2 mL)] Route: IM; ttb Site: right gluteus; 14:00 Follow up: Response: Confirmed pt not driving.; No Adverse Reaction; Pain is decreased ttb Signatures: Dispatcher [employer] EDMS Olimpia Merino, Reg Reg gb Josephine Spicer, Reg Reg lg Abbey Torres,RN RN Kate Bradley RN RN ttb Lula Alas PA-C PA-C dt4 Justina Lomeli [facility] The chart was reviewed and I authenticate all verbal orders and agree with the evaluation and treatment provided.Attachments: 13:36 [facility] Payment Agreement lg 08:10 T-Sheet-- Draft Copy [facility] Chart Complete MTDD
--- NOTE | 2016-05-09 15:15 | EDDOCDS ---
Nurse's Notes [facility] Name: Ever Sloan Age: 45 yrs Sex: Male : 1970 Arrival Date: 05/07/2016 Time: 12:29 Bed PD Private MD: Juan M Lema Diagnosis: Low back pain;Radiculopathy, lumbar region Presentation: 05/07 12:34 Presenting complaint: Patient states: History of right hip pain. "Been getting worse jo3 and worse and worse". Has had pain for 4-5 years. No definitive point of injury. Adult Sepsis Screening: The patient does not have new or worsening altered mentation. Patient's respiratory rate is less than 22. Systolic blood pressure is greater than 100. Patient has a qSOFA score of 0- Negative Sepsis Screen. Suicide/Homicide risk assessment- the patient denies having any suicidal and/or homicidal ideations and does not present with any other emotional, behavioral or mental health complaints. Status: Patient is not a supervisor cooler service or dependent. Transition of care: patient was not received from another setting of care. 12:34 Acuity: REX Level 4 jo3 12:34 Method Of Arrival: Walkin/Carried/Asstd jo3 12:37 Presenting complaint: Patient states: Pt adds that he was given Percocet on last visit jo3 and still has some left and "So I won't be needing any more of those today". Triage Assessment: 12:36 General: Appears in no apparent distress, Behavior is appropriate for age, cooperative. jo3 HIV screening NA for this visit Offered previously. Neurological: Level of Consciousness is awake, alert, Oriented to person, place, time. Derm: Skin is pink, warm & dry. Historical: - Allergies: No known drug Allergies; - Home Meds: 1. bupropion HCl 150 mg Oral TbER 1 tab 2 times per day 2. lisinopril 20 mg Oral tab 1 tab once daily 3. omeprazole 40 mg Oral cpDR 1 cap once daily - PMHx: Anxiety; Depression; GERD; Hypertension; - PSHx: Vasectomy; - Social history: Smoking status: Chewing Tobacco No barriers to communication noted, The patient speaks fluent Kiswahili, Speaks appropriately for age. - Family history: Not pertinent. - : The pt / caregiver states he / she is not on anticoagulants. Home medication list is obtained from the patient. - Exposure Risk Screening:: None identified. Screenin:27 Screening information is obtained from the patient. Fall risk: No risks identified. ttb Assistance ADL's: requires no assistance with activities of daily living. Abuse/DV Screen: The patient / caregiver reports he/she is: not in a situation that causes fear, pain or injury. Nutritional screening: No deficits noted. Advance Directives: Currently, there is no health care proxy. home support is adequate. Assessment: 13:27 General: Appears in no apparent distress, uncomfortable, well nourished, well groomed, ttb Behavior is appropriate for age, cooperative, pleasant. Pain: Location: right hip pain 9/10. Neurological: Level of Consciousness is awake, alert. Cardiovascular: Chest pain is denied. Respiratory: No deficits noted. Derm: Skin is normal. Musculoskeletal: Range of motion intact in all extremities. 14:12 Reassessment: Patient appears in no apparent distress at this time. Patient states ttb feeling better. Patient states symptoms have improved. pt ready for DC after meds. . Neurological: Level of Consciousness is awake, alert. Respiratory: No deficits noted. 14:13 General: medicaid cab requested and secured. ttb Vital Signs: 12:31 BP 153 / 99; Pulse 68; Resp 18 S; Temp 96.5(O); Pulse Ox 99% on R/A; Weight 121.11 kg dd6 (R); Height 5 ft. 7 in. (170.18 cm) (R); 14:06 BP 130 / 91; Pulse 67; Resp 18; Temp 97.0(O); Pulse Ox 97% on R/A; Pain 2/10; jb5 12:31 Body Mass Index 41.82 (121.11 kg, 170.18 cm) dd6 Vitals: 12:31 Log In Time: May 07, 2016 at 12:29. dd6 ED Course: 12:31 Patient visited by Eddie Gabriel PCA. dd6 12:31 Juan M Lema is Private Physician. dd6 12:31 Patient moved to Waiting dd6 12:32 Patient moved to Pre RCE dd6 12:36 Triage Initiated jo3 12:38 Patient visited by Abbey Torres RN. jo3 12:44 Patient moved to Triage 3 jo3 13:08 uLla Alas PA-C is PHCP. dt4 13:08 Justina Pinto MD is Attending Physician. dt4 13:08 Patient visited by Lula Alas PA-C. dt4 13:19 Patient moved to PD jb5 13:27 The patient / caregiver is instructed regarding the plan of care and ED course. ttb Accompanied by Significant Other, Patient has correct armband on for positive identification. 13:28 Patient visited by Kate Bird RN. ttb 13:35 Patient name changed from Ever\\S\\\\S\\Sloan\\S\\ to Ever\\S\\ \\S\\Sloan. EDMS 13:36 [facility] [place] was scanned into [employer] and attached to record. lg 14:00 Patient visited by Lula Alas PA-C. dt4 14:02 [facility] is Referral Physician. dt4 14:07 Patient visited by Paula Page PCA. jb5 14:12 No IV's were initiated during this patient's visit. No procedures done that require ttb assistance. 05/08 07:48 Radiology Report was scanned into [employer] and attached to record. gb 08:10 T-Sheet-- Draft Copy was scanned into [employer] and attached to record. seh Administered Medications: 05/07 13:27 Drug: Diazepam 5 mg [diazepam 5 mg/mL injection syringe (1 mL)] Route: IM; Site: left ttb gluteus; 14:00 Follow up: Response: Confirmed pt not driving.; No Adverse Reaction; Pain is decreased ttb 13:27 Drug: ketorolac 60 mg [ketorolac 30 mg/mL (1 mL) injection solution (2 mL)] Route: IM; ttb Site: right gluteus; 14:00 Follow up: Response: Confirmed pt not driving.; No Adverse Reaction; Pain is decreased ttb Order Results: There are currently no results for this order. Outcome: 14:03 Discharge ordered by Provider. dt4 14:12 Discharge Assessment: Patient awake, alert and oriented x 3. No cognitive and/or ttb functional deficits noted. Patient verbalized understanding of disposition instructions. Patient awake and alert. patient administered narcotics - yes. Pt provided with safe discharge. The following High Risk Discharge criteria are identified: None. Discharged to home ambulatory, with significant other. Condition: good Condition: stable Condition: improved. Discharge instructions given to patient, significant other, Instructed on discharge instructions, follow up and referral plans. medication usage, no driving heavy equipment, Rest, Ice, Compression and Elevation. no drinking with medication, Demonstrated understanding of instructions, medications, RICE, no d/d with meds Pt was receptive of discharge instructions/ teaching. Prescriptions given X 1, 2. No special radiology studies were completed. Property :Personal belongings accompany Pt. 14:14 Patient left the ED. ttb Signatures: Dispatcher [employer] EDMS Olimpia Merino, Reg Reg gb Josephine Spicer, Reg Reg lg Paula Page, JUSTICE COURT DEPUTY CLERK JUSTICE COURT DEPUTY CLERK jb5 Abbey Torres RN RN jo3 Eddie Gabriel, JUSTICE COURT DEPUTY CLERK JUSTICE COURT DEPUTY CLERK dd6 Kate Bird RN RN ttb Lula Alas PA-C PA-C dt4 Justina Lomeli Chart Complete GARO
--- NOTE | 2016-05-09 15:15 | EDDOCDS ---
Physician Documentation [facility] Name: Ever Sloan Age: 45 yrs Sex: Male : 1970 Arrival Date: 05/07/2016 Time: 12:29 Bed PD Private MD: Juan M Lema Disposition: 05/07/16 14:03 Discharged to Home/Self Care. Impression: Low back pain, Radiculopathy, lumbar region. - Condition is Stable. - Discharge Instructions: Back Pain, Adult. - Prescriptions for Valium 5 mg Oral Tablet - take 1 tablet by ORAL route at bedtime As needed; 15 tablet. Naprosyn 500 mg Oral Tablet - take 1 tablet by ORAL route every 12 hours As needed take with food; 30 tablet. - Medication Reconciliation, Local Pharmacy Hours form. - Follow up: Emergency Department; When: As needed; Reason: Worsening of conditions. Follow up: [facility]; When: Call to arrange an appointment; Reason: Wound/Symptom Recheck, Recheck today's complaints, Continuance of care, To establish care. - Problem is new. - Symptoms have improved. Historical: - Allergies: No known drug Allergies; - Home Meds: 1. bupropion HCl 150 mg Oral TbER 1 tab 2 times per day 2. lisinopril 20 mg Oral tab 1 tab once daily 3. omeprazole 40 mg Oral cpDR 1 cap once daily - PMHx: Anxiety; Depression; GERD; Hypertension; - PSHx: Vasectomy; - Social history: Smoking status: Chewing Tobacco No barriers to communication noted, The patient speaks fluent [place], Speaks appropriately for age. - Family history: Not pertinent. - : The pt / caregiver states he / she is not on anticoagulants. Home medication list is obtained from the patient. - Exposure Risk Screening:: None identified. Vital Signs: 05/07 12:31 BP 153 / 99; Pulse 68; Resp 18 S; Temp 96.5(O); Pulse Ox 99% on R/A; Weight 121.11 kg / dd6 267 lbs (R); Height 5 ft. 7 in. (170.18 cm) (R); 14:06 BP 130 / 91; Pulse 67; Resp 18; Temp 97.0(O); Pulse Ox 97% on R/A; Pain 2/10; jb5 12:31 Body Mass Index 41.82 (121.11 kg, 170.18 cm) dd6 MDM: 13:18 Financial registration complete. lg 13:20 Diazepam 5 mg IM once ordered. dt4 13:20 ketorolac 60 mg IM once ordered. dt4 13:21 Hip,AP,LAT to include Pelvis Ordered. EDMS 13:36 [facility] Payment Agreement was scanned into [employer] and attached to record. lg 05/08 07:48 Radiology Report was scanned into [employer] and attached to record. gb 08:10 T-Sheet-- Draft Copy was scanned into [employer] and attached to record. seh Administered Medications: 05/07 13:27 Drug: Diazepam 5 mg [diazepam 5 mg/mL injection syringe (1 mL)] Route: IM; Site: left ttb gluteus; 14:00 Follow up: Response: Confirmed pt not driving.; No Adverse Reaction; Pain is decreased ttb 13:27 Drug: ketorolac 60 mg [ketorolac 30 mg/mL (1 mL) injection solution (2 mL)] Route: IM; ttb Site: right gluteus; 14:00 Follow up: Response: Confirmed pt not driving.; No Adverse Reaction; Pain is decreased ttb Signatures: Dispatcher [employer] EDMS Olimpia Merino, Reg Reg gb Josephine Spicer, Reg Reg lg Abbey Torres,RN RN Kate Bradley RN RN ttb Lula Alas PA-C PA-C dt4 Justina Lomeli [facility] The chart was reviewed and I authenticate all verbal orders and agree with the evaluation and treatment provided.Attachments: 13:36 [facility] Payment Agreement lg 08:10 T-Sheet-- Draft Copy [facility] Chart Complete MTDD
== END 2016-05-07 14:14 | disposition home or self-care (01) ==
LOC: M ED 12:29
DX: M54.16 Radiculopathy, lumbar region (principal); F41.9 Anxiety disorder, unspecified; F32.9 Major depressive disorder, single episode, unspecified; K21.9 Gastro-esophageal reflux disease without esophagitis; I10 Essential (primary) hypertension; F17.290 Nicotine dependence, other tobacco product, uncomplicated; Z79.899 Other long term (current) drug therapy
CPT/HCPCS: 96372; 99283; J1885; J3360

== ENCOUNTER 2016-05-24 21:56 | Emergency (ER) | payer MEDICARE, MEDICAID ==
--- NOTE | 2016-05-25 00:40 | EDDOCDS ---
Physician Documentation [facility] Name: Ever Sloan Age: 45 yrs Sex: Male : 1970 Arrival Date: 05/24/2016 Time: 21:56 Bed TR7 Private MD: Juan M Lema Disposition: 05/25/16 00:00 Discharged to Home/Self Care. Impression: Low back pain, Pain in left hip. - Condition is Stable. - Discharge Instructions: Back Pain, Adult, [id number], Hip Pain. - Prescriptions for Robaxin- 750 750 mg Oral Tablet - take 1 tablet by ORAL route every 6 hours As needed; 40 tablet. etodolac 200 mg Oral Capsule - take 1 capsule by ORAL route 3 times per day; 30 capsule. - Medication Reconciliation, Local Pharmacy Hours form. - Follow up: Juan M Lema; When: Call to arrange an appointment; Reason: Further diagnostic work-up, Recheck today's complaints, Continuance of care. - Problem is new. - Symptoms are unchanged. Historical: - Allergies: no known allergies; - Home Meds: 1. bupropion HCl 150 mg Oral TbER 1 tab 2 times per day 2. lisinopril 20 mg Oral tab 1 tab once daily 3. omeprazole 40 mg Oral cpDR 1 cap once daily - PMHx: Anxiety; Hypertension; Depression; GERD; - PSHx: Vasectomy; - Social history: Smoking status: Chewing Tobacco No barriers to communication noted, The patient speaks fluent Bolivian. - Family history: Not pertinent. - : The pt / caregiver states he / she is not on anticoagulants. Home medication list is obtained from the patient. - Exposure Risk Screening:: None identified. Vital Signs: 05/24 21:58 BP 153 / 95; Pulse 84; Resp 18 S; Temp 97.4(O); Pulse Ox 97% on R/A; Weight 121.11 kg / gr2 267 lbs (R); Height 5 ft. 7 in. (170.18 cm) (R); Pain 7/10; 05/25 00:09 BP 145 / 78; Pulse 86; Resp 18; Temp 97.6; Pulse Ox 98% ; Pain 8/10; ko2 05/24 21:58 Body Mass Index 41.82 (121.11 kg, 170.18 cm) gr2 MDM: 00:11 Financial registration complete. hs2 Signatures: Florentino Deutsch LPN HADOOP ADMIN rw1 Omayra Wallace, RN RN jjr Tomsá Jimenes PA PA btw Ogden, Kari, RN RN ko2 Kriss Khoury, Reg Reg hs2 MTDD
--- NOTE | 2016-05-25 00:40 | EDDOCDS ---
Nurse's Notes [facility] Name: Ever Sloan Age: 45 yrs Sex: Male : 1970 Arrival Date: 05/24/2016 Time: 21:56 Bed TR7 Private MD: Juan M Lema Diagnosis: Low back pain;Pain in left hip Presentation: 05/24 22:01 Presenting complaint: Patient states: left hip pain since last night, aggravated by jjr walking with radiation to spine. Acute neurological deficits are not present. Mechanism of Injury: No Mechanism of Injury. Adult Sepsis Screening: The patient does not have new or worsening altered mentation. Patient's respiratory rate is less than 22. Systolic blood pressure is greater than 100. Patient has a qSOFA score of 0- Negative Sepsis Screen. Suicide/Homicide risk assessment- the patient denies having any suicidal and/or homicidal ideations and does not present with any other emotional, behavioral or mental health complaints. Status: Patient is not a slitter service and setter or dependent. Transition of care: patient was not received from another setting of care. 22:01 Acuity: REX Level 4 jjr 22:01 Method Of Arrival: Walkin/Carried/Asstd jjr Triage Assessment: 22:04 General: Appears in no apparent distress. Pain: Location: left hip. HIV screening NA r for this visit Offered previously. Musculoskeletal: Reports pain in left hip. Historical: - Allergies: no known allergies; - Home Meds: 1. bupropion HCl 150 mg Oral TbER 1 tab 2 times per day 2. lisinopril 20 mg Oral tab 1 tab once daily 3. omeprazole 40 mg Oral cpDR 1 cap once daily - PMHx: Anxiety; Hypertension; Depression; GERD; - PSHx: Vasectomy; - Social history: Smoking status: Chewing Tobacco No barriers to communication noted, The patient speaks fluent Bengali. - Family history: Not pertinent. - : The pt / caregiver states he / she is not on anticoagulants. Home medication list is obtained from the patient. - Exposure Risk Screening:: None identified. Screenin/14 00:09 Screening information is obtained from the patient. Fall risk: No risks identified. ko2 Assistance ADL's: requires no assistance with activities of daily living. Abuse/DV Screen: The patient / caregiver reports he/she is: not in a situation that causes fear, pain or injury. Nutritional screening: No deficits noted. Advance Directives: Currently, there is no health care proxy. There is no active DNR order. There is no living will. There is no Power of Crystal Lapper. home support is adequate. Assessment: 00:09 General: Appears uncomfortable, Behavior is appropriate for age, cooperative. Pain: ko2 Location: left hip. Neurological: Level of Consciousness is awake, alert. Respiratory: Airway is patent Respiratory effort is even, unlabored. Derm: Skin is normal. Vital Signs: 05/24 21:58 BP 153 / 95; Pulse 84; Resp 18 S; Temp 97.4(O); Pulse Ox 97% on R/A; Weight 121.11 kg gr2 (R); Height 5 ft. 7 in. (170.18 cm) (R); Pain 7/10; 05/25 00:09 BP 145 / 78; Pulse 86; Resp 18; Temp 97.6; Pulse Ox 98% ; Pain 8/10; ko2 05/24 21:58 Body Mass Index 41.82 (121.11 kg, 170.18 cm) gr2 Vitals: 05/24 21:58 Log In Time: May 24, 2016 at 21:58. gr2 ED Course: 21:58 Patient visited by Fadi Wallace. gr2 21:58 Juan M Lema is Private Physician. gr2 21:58 Patient moved to Waiting gr2 21:59 Patient visited by Fadi Wallace. gr2 21:59 Patient moved to Pre RCE gr2 22:03 Triage Initiated jjr 23:34 Patient moved to Triage 1 ko2 23:37 Patient visited by Liliana Dubose RN. ko2 23:49 Tomás Jimenes PA is PHCP. btw 23:49 Bhanu Olivarez DO is Attending Physician. btw 23:49 Patient visited by Tomás Jimenes PA. btw 23:59 Juan M Lema is Referral Physician. btw 05/25 00:11 The patient / caregiver is instructed regarding the plan of care and ED course. ko2 00:11 No IV's were initiated during this patient's visit. No procedures done that require ko2 assistance. 00:12 Patient moved to TR7 ko2 00:36 Patient name changed from Giovanna\\S\Nathalia\S\ to Ever\S\ \S\Nathalia. EDMS Order Results: There are currently no results for this order. Outcome: 00:00 Discharge ordered by Provider. btw 00:11 Discharge Assessment: Patient awake, alert and oriented x 3. No cognitive and/or ko2 functional deficits noted. Patient verbalized understanding of disposition instructions. patient administered narcotics - no. The following High Risk Discharge criteria are identified: None. Discharged to home ambulatory. Condition: stable. Discharge instructions given to patient, Instructed on discharge instructions, follow up and referral plans. medication usage, Demonstrated understanding of instructions, medications, Pt was receptive of discharge instructions/ teaching. Prescriptions given X 2. No special radiology studies were completed. Property sent home with patient. 00:40 Patient left the ED. rw1 Signatures: Dispatcher [employer] EDUT Florentino Deutsch LPN LPN rw1 Omayra Wallace RN RN Tomás Marshall PA PA btw Fadi Wallace gr2 Liliana Dubose RN RN ko2 GARO
--- NOTE | 2016-05-27 01:43 | EDDOCDS ---
Physician Documentation [facility] Name: Ever Sloan Age: 45 yrs Sex: Male : 1970 Arrival Date: 05/24/2016 Time: 21:56 Bed TR7 Private MD: Juan M Lema Disposition: 05/25/16 00:00 Discharged to Home/Self Care. Impression: Low back pain, Pain in left hip. - Condition is Stable. - Discharge Instructions: Back Pain, Adult, [id number], Hip Pain. - Prescriptions for Robaxin- 750 750 mg Oral Tablet - take 1 tablet by ORAL route every 6 hours As needed; 40 tablet. etodolac 200 mg Oral Capsule - take 1 capsule by ORAL route 3 times per day; 30 capsule. - Medication Reconciliation, Local Pharmacy Hours form. - Follow up: Juan M Lema; When: Call to arrange an appointment; Reason: Further diagnostic work-up, Recheck today's complaints, Continuance of care. - Problem is new. - Symptoms are unchanged. Historical: - Allergies: no known allergies; - Home Meds: 1. bupropion HCl 150 mg Oral TbER 1 tab 2 times per day 2. lisinopril 20 mg Oral tab 1 tab once daily 3. omeprazole 40 mg Oral cpDR 1 cap once daily - PMHx: Anxiety; Hypertension; Depression; GERD; - PSHx: Vasectomy; - Social history: Smoking status: Chewing Tobacco No barriers to communication noted, The patient speaks fluent Sierra Leonean. - Family history: Not pertinent. - : The pt / caregiver states he / she is not on anticoagulants. Home medication list is obtained from the patient. - Exposure Risk Screening:: None identified. Vital Signs: 05/24 21:58 BP 153 / 95; Pulse 84; Resp 18 S; Temp 97.4(O); Pulse Ox 97% on R/A; Weight 121.11 kg / gr2 267 lbs (R); Height 5 ft. 7 in. (170.18 cm) (R); Pain 7/10; 05/25 00:09 BP 145 / 78; Pulse 86; Resp 18; Temp 97.6; Pulse Ox 98% ; Pain 8/10; ko2 05/24 21:58 Body Mass Index 41.82 (121.11 kg, 170.18 cm) gr2 MDM: 00:11 Financial registration complete. hs2 01:00 [facility] Payment Agreement was scanned into [employer] and attached to record. pm4 09:42 T-Sheet-- Draft Copy was scanned into [employer] and attached to record. gb Signatures: Olimpia Merino, Reg Reg gb Florentino Deutsch,SHIFT SUPERVISOR RN SHIFT SUPERVISOR RN rw1 Omayra Wallace RN RN Tomás Marshall PA PA btw Ogden, Kari, RN RN ko2 Kriss Khoury, Reg Reg hs2 Camilo Carlisle, Reg Reg pm4 The chart was reviewed and I authenticate all verbal orders and agree with the evaluation and treatment provided.Attachments: 01:00 [facility] Payment Agreement pm4 09:42 T-Sheet-- Draft Copy gb Chart Complete MTDD
--- NOTE | 2016-05-27 01:43 | EDDOCDS ---
Nurse's Notes [facility] Name: Ever Sloan Age: 45 yrs Sex: Male : 1970 Arrival Date: 05/24/2016 Time: 21:56 Bed TR7 Private MD: Juan M Lema Diagnosis: Low back pain;Pain in left hip Presentation: 05/24 22:01 Presenting complaint: Patient states: left hip pain since last night, aggravated by jjr walking with radiation to spine. Acute neurological deficits are not present. Mechanism of Injury: No Mechanism of Injury. Adult Sepsis Screening: The patient does not have new or worsening altered mentation. Patient's respiratory rate is less than 22. Systolic blood pressure is greater than 100. Patient has a qSOFA score of 0- Negative Sepsis Screen. Suicide/Homicide risk assessment- the patient denies having any suicidal and/or homicidal ideations and does not present with any other emotional, behavioral or mental health complaints. Status: Patient is not a representative personal service or dependent. Transition of care: patient was not received from another setting of care. 22:01 Acuity: REX Level 4 jjr 22:01 Method Of Arrival: Walkin/Carried/Asstd jjr Triage Assessment: 22:04 General: Appears in no apparent distress. Pain: Location: left hip. HIV screening NA r for this visit Offered previously. Musculoskeletal: Reports pain in left hip. Historical: - Allergies: no known allergies; - Home Meds: 1. bupropion HCl 150 mg Oral TbER 1 tab 2 times per day 2. lisinopril 20 mg Oral tab 1 tab once daily 3. omeprazole 40 mg Oral cpDR 1 cap once daily - PMHx: Anxiety; Hypertension; Depression; GERD; - PSHx: Vasectomy; - Social history: Smoking status: Chewing Tobacco No barriers to communication noted, The patient speaks fluent Pashto. - Family history: Not pertinent. - : The pt / caregiver states he / she is not on anticoagulants. Home medication list is obtained from the patient. - Exposure Risk Screening:: None identified. Screenin/14 00:09 Screening information is obtained from the patient. Fall risk: No risks identified. ko2 Assistance ADL's: requires no assistance with activities of daily living. Abuse/DV Screen: The patient / caregiver reports he/she is: not in a situation that causes fear, pain or injury. Nutritional screening: No deficits noted. Advance Directives: Currently, there is no health care proxy. There is no active DNR order. There is no living will. There is no Power of Take Up Operator. home support is adequate. Assessment: 00:09 General: Appears uncomfortable, Behavior is appropriate for age, cooperative. Pain: ko2 Location: left hip. Neurological: Level of Consciousness is awake, alert. Respiratory: Airway is patent Respiratory effort is even, unlabored. Derm: Skin is normal. Vital Signs: 05/24 21:58 BP 153 / 95; Pulse 84; Resp 18 S; Temp 97.4(O); Pulse Ox 97% on R/A; Weight 121.11 kg gr2 (R); Height 5 ft. 7 in. (170.18 cm) (R); Pain 7/10; 05/25 00:09 BP 145 / 78; Pulse 86; Resp 18; Temp 97.6; Pulse Ox 98% ; Pain 8/10; ko2 05/24 21:58 Body Mass Index 41.82 (121.11 kg, 170.18 cm) gr2 Vitals: 05/24 21:58 Log In Time: May 24, 2016 at 21:58. gr2 ED Course: 21:58 Patient visited by Fadi Wallace. gr2 21:58 Juan M Lema is Private Physician. gr2 21:58 Patient moved to Waiting gr2 21:59 Patient visited by Fadi Wallace. gr2 21:59 Patient moved to Pre RCE gr2 22:03 Triage Initiated jjr 23:34 Patient moved to Triage 1 ko2 23:37 Patient visited by Liliana Dubose RN. ko2 23:49 Tomás Jimenes PA is PHCP. btw 23:49 Bhanu Olivarez DO is Attending Physician. btw 23:49 Patient visited by Tomás Jimenes PA. btw 23:59 Juan M Lema is Referral Physician. btw 05/25 00:11 The patient / caregiver is instructed regarding the plan of care and ED course. ko2 00:11 No IV's were initiated during this patient's visit. No procedures done that require ko2 assistance. 00:12 Patient moved to TR7 ko2 00:36 Patient name changed from Ever\S\\S\Sloan\S\ to Ever\S\ \S\Sloan. EDMS 01:00 [facility] [place] Payment Agreement was scanned into [employer] and attached to record. pm4 09:42 T-Sheet-- Draft Copy was scanned into [employer] and attached to record. gb Order Results: There are currently no results for this order. Outcome: 00:00 Discharge ordered by Provider. btw 00:11 Discharge Assessment: Patient awake, alert and oriented x 3. No cognitive and/or ko2 functional deficits noted. Patient verbalized understanding of disposition instructions. patient administered narcotics - no. The following High Risk Discharge criteria are identified: None. Discharged to home ambulatory. Condition: stable. Discharge instructions given to patient, Instructed on discharge instructions, follow up and referral plans. medication usage, Demonstrated understanding of instructions, medications, Pt was receptive of discharge instructions/ teaching. Prescriptions given X 2. No special radiology studies were completed. Property sent home with patient. 00:40 Patient left the ED. rw1 Signatures: Dispatcher Med[employer] EDMS Olimpia Merino, Reg Reg gb Florentino Deutsch,SHAREPOINT APPLICATION ARCHITECT SHAREPOINT APPLICATION ARCHITECT rw1 Omayra Wallace, RN RN Tomás Marshall PA PA btw Fadi Wallace gr2 Liliana Dubose RN RN ko2 Camilo Carlisle, Reg Reg pm4 Chart Complete MTDD
--- NOTE | 2016-05-27 01:43 | EDDOCDS ---
Physician Documentation [facility] Name: Ever Sloan Age: 45 yrs Sex: Male : 1970 Arrival Date: 05/24/2016 Time: 21:56 Bed TR7 Private MD: Juan M Lema Disposition: 05/25/16 00:00 Discharged to Home/Self Care. Impression: Low back pain, Pain in left hip. - Condition is Stable. - Discharge Instructions: Back Pain, Adult, [id number], Hip Pain. - Prescriptions for Robaxin- 750 750 mg Oral Tablet - take 1 tablet by ORAL route every 6 hours As needed; 40 tablet. etodolac 200 mg Oral Capsule - take 1 capsule by ORAL route 3 times per day; 30 capsule. - Medication Reconciliation, Local Pharmacy Hours form. - Follow up: Juan M Lema; When: Call to arrange an appointment; Reason: Further diagnostic work-up, Recheck today's complaints, Continuance of care. - Problem is new. - Symptoms are unchanged. Historical: - Allergies: no known allergies; - Home Meds: 1. bupropion HCl 150 mg Oral TbER 1 tab 2 times per day 2. lisinopril 20 mg Oral tab 1 tab once daily 3. omeprazole 40 mg Oral cpDR 1 cap once daily - PMHx: Anxiety; Hypertension; Depression; GERD; - PSHx: Vasectomy; - Social history: Smoking status: Chewing Tobacco No barriers to communication noted, The patient speaks fluent Japanese. - Family history: Not pertinent. - : The pt / caregiver states he / she is not on anticoagulants. Home medication list is obtained from the patient. - Exposure Risk Screening:: None identified. Vital Signs: 05/24 21:58 BP 153 / 95; Pulse 84; Resp 18 S; Temp 97.4(O); Pulse Ox 97% on R/A; Weight 121.11 kg / gr2 267 lbs (R); Height 5 ft. 7 in. (170.18 cm) (R); Pain 7/10; 05/25 00:09 BP 145 / 78; Pulse 86; Resp 18; Temp 97.6; Pulse Ox 98% ; Pain 8/10; ko2 05/24 21:58 Body Mass Index 41.82 (121.11 kg, 170.18 cm) gr2 MDM: 00:11 Financial registration complete. hs2 01:00 [facility] Payment Agreement was scanned into Are [employer] and attached to record. pm4 09:42 T-Sheet-- Draft Copy was scanned into [employer] and attached to record. gb Signatures: Olimpia Merino, Reg Reg gb Florentino Deutsch,CONTACT CENTER DIRECTOR CONTACT CENTER DIRECTOR rw1 Omayra Wallace RN RN Tomás Marshall PA PA btw Ogden, Kari, RN RN ko2 Kriss Khoury, Reg Reg hs2 Camilo Carlisle, Reg Reg pm4 The chart was reviewed and I authenticate all verbal orders and agree with the evaluation and treatment provided.Attachments: 01:00 [facility] Payment Agreement pm4 09:42 T-Sheet-- Draft Copy gb Chart Complete MTDD
== END 2016-05-25 00:40 | disposition home or self-care (01) ==
LOC: M ED 21:56
DX: M54.5 Low back pain (principal); M25.552 Pain in left hip; F41.9 Anxiety disorder, unspecified; I10 Essential (primary) hypertension; F32.9 Major depressive disorder, single episode, unspecified; K21.9 Gastro-esophageal reflux disease without esophagitis; Z79.899 Other long term (current) drug therapy; F17.220 Nicotine dependence, chewing tobacco, uncomplicated

== ENCOUNTER 2017-04-21 14:16 | Emergency (ER) | payer MEDICARE, MEDICAID ==
[2017-04-21] MEDS: CYCLOBENZAPRINE 10 MG TAB PO (15:05)
[2017-04-21] MEDS: NORCO, ANEXSIA 5/325MG TABLET (HYDROcodone/ACETAMINOPHEN) PO (15:06)
== END 2017-04-21 15:13 | disposition home or self-care (01) ==
LOC: M ED 14:16
DX: M51.26 Other intervertebral disc displacement, lumbar region (principal); M51.36 Other intervertebral disc degeneration, lumbar region; E11.9 Type 2 diabetes mellitus without complications; I10 Essential (primary) hypertension; E78.00 Pure hypercholesterolemia, unspecified; K21.9 Gastro-esophageal reflux disease without esophagitis; F17.220 Nicotine dependence, chewing tobacco, uncomplicated; Z79.899 Other long term (current) drug therapy
CPT/HCPCS: 99282

== ENCOUNTER 2017-05-14 20:14 | Emergency (ER) | payer MEDICARE, MEDICAID ==
[2017-05-14] MEDS: NS 1,000 ML IV (20:51)
[2017-05-14 21:01] LABS: BASO % 0.4 % (0.0-1.0); EOS # 0.2 10^3/uL (0.0-0.50); EOS % 1.9 % (0.0-3.0); HEMATOCRIT 45.5 % (42.0-52.0); HEMOGLOBIN 15.3 g/dl (14.0-18.0); IMMATURE GRANULOCYTE % 0.2 % (0-0); LYMPH # 2.3 10^3/uL (1.5-4.5); LYMPH % 27.8 % (24.0-44.0); MEAN CORPUSCULAR HEMOGLOBIN 30.1 pg (27.0-33.0); MEAN CORPUSCULAR HGB CONC 33.6 g/dl (32.0-36.5); MEAN CORPUSCULAR VOLUME 89.4 fl (80.0-96.0); MONO # 0.6 10^3/uL (0.0-0.8); MONO % 6.9 % (0.0-5.0); NEUTROPHILS # 5.2 10^3/uL (1.8-7.7); NEUTROPHILS % 62.8 % (36.0-66.0); PLATELET COUNT, AUTOMATED 270 10^3/uL (150-450); RED BLOOD COUNT 5.09 10^6/uL (4.30-6.10); RED CELL DISTRIBUTION WIDTH 12.3 % (11.5-14.5); WHITE BLOOD COUNT 8.3 10^3/uL (4.0-10.0)
[2017-05-14] MEDS: ONDANSETRON 4MG/2ML VIAL (J2405) IV (21:04)
[2017-05-14] MEDS: KETOROLAC 30 MG/ML VIAL (J1885) IV (21:04)
[2017-05-14] MEDS: MORPHINE 2 MG/ML 1ML SYRINGE IV (21:05)
[2017-05-14 21:11] LABS: INR 0.91; PROTHROMBIN TIME 12.3 SECONDS (12.4-14.5)
[2017-05-14 21:28] LABS: ALBUMIN 4.4 GM/DL (3.2-5.2); ALBUMIN/GLOBULIN RATIO 1.22 (1.00-1.93); ALKALINE PHOSPHATASE 67 U/L (45-117); ALT/SGPT 40 U/L (12-78); ANION GAP 5 MEQ/L (8-16); AST/SGOT 24 U/L (7-37); BILIRUBIN,DIRECT < 0.1 MG/DL (0.0-0.2); BILIRUBIN,TOTAL 0.3 MG/DL (0.2-1.0); BLOOD UREA NITROGEN 17 MG/DL (7-18); CALCIUM LEVEL 8.7 MG/DL (8.5-10.1); CARBON DIOXIDE LEVEL 29 MEQ/L (21-32); CHLORIDE LEVEL 103 MEQ/L (98-107); CREATININE FOR GFR 1.19 MG/DL (0.70-1.30); GLOMERULAR FILTRATION RATE > 60.0 (>60); GLUCOSE, FASTING 140 MG/DL (70-100); LIPASE 241 U/L (73-393); POTASSIUM SERUM 4.1 MEQ/L (3.5-5.1); SODIUM LEVEL 137 MEQ/L (136-145)
[2017-05-14 22:26] LABS: KETONE, URINE AUTO RFX NEGATIVE (NEGATIVE); LEUKOCYTE ESTERASE UR AUTO RFX 2+ (NEGATIVE); MUCUS, URINE RFX SMALL (NEGATIVE); NITRITE, URINE AUTO RFX NEGATIVE (NEGATIVE); RBC, URINE AUTO RFX 6 /HPF (0-3); SPECIFIC GRAVITY UR AUTO RFX 1.015 (1.002-1.035); SQUAM EPITHELIAL CELL UR AURFX 0 /HPF (0-6); WBC, URINE AUTO RFX 20 /HPF (0-3)
[2017-05-14] MEDS: CIPROFLOXACIN 500 MG TAB PO (22:54)
== END 2017-05-14 23:08 | disposition home or self-care (01) ==
LOC: M ED 20:14
DX: N39.0 Urinary tract infection, site not specified (principal); E11.9 Type 2 diabetes mellitus without complications; I10 Essential (primary) hypertension; K21.9 Gastro-esophageal reflux disease without esophagitis; Z79.899 Other long term (current) drug therapy
CPT/HCPCS: J2405

== ENCOUNTER 2021-02-08 02:07 | Emergency (ER) | payer MEDICARE, MEDICAID ==
[~2021-02-08] VITALS: Ht 170.2 cm; Wt 121.1 kg
[~2021-02-08 02:07] MED LIST: ATOR1TAB19; BUPR1TAB53; CIPR-249 PO; CYCL-707; CYCL-707 PO; HYDR-3715 PO; JANU100T; LISI40TA4; NAPR-837 PO; OMEP40CA4
[2021-02-08 02:08] VITALS: BP 138/98
--- OUTSIDE RECORDS SUMMARY | 2021-02-08 02:18 | CCD | Continuity of Care Document ---
Author Author Ever [facility] Organization Unknown Address [address] [facility] [address] [place] [address] Phone [phone] Care Team Providers Care Motion Picture Director Name Role Phone [facility] [phone] Problems Active Problems Provider Date Essential hypertension Onset: 05/27/2015 Type 2 diabetes mellitus [place] Onset: 05/21/19 20 Social History Type Date Description Comments Sex Unknown ETOH Use Denies alcohol use Tobacco Use Start: Unknown End: Unknown Patient is a former smoker Allergies, Adverse Reactions, Alerts Description No Known Drug Allergies Medications Active Medications SIG Qnty Indications Ordering Provide r Date Methocarbamol 500mg Tablets 1-2 by mouth three times a day as needed for spasm 180tabs M51.37 Mathieu Ross MD 11/21/2019 Nabumetone 500mg Tablets 1 by mouth twice a day with meals, may increase to 2 tabs by mouth twice a day as needed 120tabs M51.37 Mathieu Ross MD 11/21/2019 Lisinopril 40mg Tablets 1 by mouth every day Unknown Omeprazole 20mg Capsules DR i by mouth every day Unknown Metformin HCL 500mg Tablets take two tablets by mouth twice a day Unknown Atorvastatin Calcium 10mg Tablets 1 by mouth every day Unknown Levocetirizine Dihydrochloride 5mg Tablets 1 by mouth every day Unknown 000 Immunizations Description No Information Available Vital Signs Date Vital Result Comment 11/21/2019 8:58am Body Temperature 96.0 F Height 67 inches 5'7" Weight 243.00 lb BMI (Body Mass Index) 38.1 kg/m2 05/18/2019 9:33am Height 65 inches 5'5" Weight 270.00 lb BMI (Body Mass Index) 44.9 kg/m2 Results Description No Information Available Procedures Date Code Description Status 12/19/2020 29297 Manual Therapy Each 15 Minutes C ompleted 12/19/2020 52828 Therapeutic Procedure, Each 15 M inutes Completed 12/10/2020 55001 Therapeutic Procedure, Each 15 M inutes Completed 12/04/2020 03106 Manual Therapy Each 15 Minutes C ompleted 12/04/2020 35806 Therapeutic Procedure, Each 15 M inutes Completed 11/18/2020 37437 Physical Therapy Eval - Low Comp lexity Completed 11/04/2020 35810 Office/Outpatient Established Mo d MDM 30-39 Min Completed 09/04/2020 04063 Phone Evaluation/Management By Arabella marte 5-10 Mins Completed Medical Devices Description No Information Available Encounters Type Date Location Provider Dx Diagnosis Office Visit 11/04/2020 1:45p John Barrientos, P.A. 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, lumbosacr region M51.37 Other intervertebral disc de generation, lumbosacral region Assessments Date Code Description Provider 12/19/2020 M17.12 Unilateral primary osteoarthriti s, left knee Kate Mirna Norris, ETL MANAGER 12/19/2020 M51.36 Other intervertebral disc degene ration, lumbar region Kate Mirna Norris, ETL MANAGER 12/10/2020 M17.12 Unilateral primary osteoarthriti s, left knee Kate Mirna Norris, ETL MANAGER 12/10/2020 M51.36 Other intervertebral disc degene ration, lumbar region Kate Mirna Norris, ETL MANAGER 12/04/2020 M17.12 Unilateral primary osteoarthriti s, left knee Kate Mirna Norris, ETL MANAGER 12/04/2020 M51.36 Other intervertebral disc degene ration, lumbar region Kate Mirna Norris, ETL MANAGER 11/18/2020 M17.12 Unilateral primary osteoarthriti s, left knee Jose Guadalupe Flynn, PT, DPT 11/18/2020 M51.36 Other intervertebral disc degene ration, lumbar region Jose Guadalupe Flynn, PT, DPT 11/04/2020 M17.12 Unilateral primary osteoarthriti s, left knee Shay Barrientos, P.A. 11/04/2020 M51.36 Other intervertebral disc degene ration, lumbar region Shay Barrientos, P.A. 09/04/2020 M43.17 Spondylolisthesis, lumbosacral r egion [place] 09/04/2020 M51.27 Other intervertebral disc displa cement, lumbosacral region [place] 09/04/2020 M47.817 Spondylosis without myelopathy or radiculopathy, lumbosacral region [place] 09/04/2020 M51.37 Other intervertebral disc degene ration, lumbosacral region [place] Plan of Treatment Future Appointment(s):* 12/26/2020 2:30 pm - Emre Swanson PTA at Physical Therapy Functional Status Description No Information Available Mental Status Description No Information Available Referrals Refer to Dr Reason for Referral Status Appt Date Shay Barrientos PA PT - UNL VISITS OK'D FOR LS/ L KNEE FROM 11/18-05/21/21, RES# [id number]. SS Created [address] [place] [address] [address] [place] [address] [phone]
--- OUTSIDE RECORDS SUMMARY | 2021-02-08 02:18 | CCD | Continuity of Care Document ---
Author Author Ever [facility] Organization Unknown Address [address] [facility] [address] [place] [address] Phone [phone] Care Team Providers Care Retail Visual Merchandiser Name Role Phone [facility] [phone] Problems Active Problems Provider Date Essential hypertension [...] Available Procedures Date Code Description Status 12/19/2020 67843 Manual Therapy Each 15 Minutes C ompleted 12/19/2020 02163 Therapeutic Procedure, Each 15 M inutes Completed 12/10/2020 02287 Therapeutic Procedure, Each 15 M inutes Completed 12/04/2020 51061 Manual Therapy Each 15 Minutes C ompleted 12/04/2020 18235 Therapeutic Procedure, Each 15 M inutes Completed 11/18/2020 16571 Physical Therapy Eval - Low Comp lexity Completed 11/04/2020 25809 Office/Outpatient Established Mo d MDM 30-39 Min Completed 09/04/2020 97172 Phone Evaluation/Management By Arabella marte 5-10 Mins [...] osteoarthriti s, left knee Kate Mirna Norris, CAREERS COUNSELLOR 12/19/2020 M51.36 Other intervertebral disc degene ration, lumbar region Kate Mirna Norris, CAREERS COUNSELLOR 12/10/2020 M17.12 Unilateral primary osteoarthriti s, left knee Kate Mirna Norris, CAREERS COUNSELLOR 12/10/2020 M51.36 Other intervertebral disc degene ration, lumbar region Kate Mirna Norris, CAREERS COUNSELLOR 12/04/2020 M17.12 Unilateral primary osteoarthriti s, left knee Kate Mirna Norris, CAREERS COUNSELLOR 12/04/2020 M51.36 Other intervertebral disc degene ration, lumbar region Kate Mirna Norris, CAREERS COUNSELLOR 11/18/2020 M17.12 Unilateral primary osteoarthriti s, left [...] FOR LS/ L KNEE FROM 11/18-05/21/21, RES# [id number]. SS Created [address] [place] [address] [address] [place] [address] [phone]
--- OUTSIDE RECORDS SUMMARY | 2021-02-08 02:18 | CCD | Continuity of Care Document ---
Author Author Ever [facility] Organization Unknown Address [address] [facility] [address] [place] [address] Phone [phone] Care Team Providers Care Cake Wringer Name Role Phone [facility] [phone] Problems Active Problems Provider Date Essential hypertension [...] Available Procedures Date Code Description Status 12/19/2020 47791 Manual Therapy Each 15 Minutes C ompleted 12/19/2020 11011 Therapeutic Procedure, Each 15 M inutes Completed 12/10/2020 79971 Therapeutic Procedure, Each 15 M inutes Completed 12/04/2020 84331 Manual Therapy Each 15 Minutes C ompleted 12/04/2020 53264 Therapeutic Procedure, Each 15 M inutes Completed 11/18/2020 90145 Physical Therapy Eval - Low Comp lexity Completed 11/04/2020 23155 Office/Outpatient Established Mo d MDM 30-39 Min Completed 09/04/2020 38068 Phone Evaluation/Management By Arabella marte 5-10 Mins [...] osteoarthriti s, left knee Kate Mirna Norris, PRESS SET UP 12/19/2020 M51.36 Other intervertebral disc degene ration, lumbar region Kate Mirna Norris, PRESS SET UP 12/10/2020 M17.12 Unilateral primary osteoarthriti s, left knee Kate Mirna Norris, PRESS SET UP 12/10/2020 M51.36 Other intervertebral disc degene ration, lumbar region Kate Mirna Norris, PRESS SET UP 12/04/2020 M17.12 Unilateral primary osteoarthriti s, left knee Kate Mirna Norris, PRESS SET UP 12/04/2020 M51.36 Other intervertebral disc degene ration, lumbar region Kate Mirna Norris, PRESS SET UP 11/18/2020 M17.12 Unilateral primary osteoarthriti s, left [...] FOR LS/ L KNEE FROM 11/18-05/21/21, RES# [id number]. SS Created [address] [place] [address] [address] [place] [address] [phone]
--- OUTSIDE RECORDS SUMMARY | 2021-02-08 02:19 | CCD | Continuity of Care Document ---
Author Author Ever [facility] Organization Unknown Address [address] [facility] [address] [place] [address] Phone [phone] Care Team Providers Care Assistant Manager Of Operations Name Role Phone [facility] [phone] Problems Active Problems Provider Date Essential hypertension [...] Information Available Procedures Date Code Description Status 12/04/2020 52271 Manual Therapy Each 15 Minutes C ompleted 12/04/2020 69398 Therapeutic Procedure, Each 15 M inutes Completed 11/18/2020 67426 Physical Therapy Eval - Low Comp lexity Completed 11/04/2020 76426 Office/Outpatient Established Mo d MDM 30-39 Min Completed 09/04/2020 03541 Phone Evaluation/Management By Arabella marte 5-10 Mins Completed Medical Devices Description No Information Available Encounters Type Date Location Provider Dx Diagnosis Office Visit 11/04/2020 1:45p John Barrientos PRadhaARadha M17.12 Unilateral primary osteoarthritis, left knee M51.36 Other intervertebral disc de generation, lumbar region Office Visit 09/04/2020 10:00a [place] M43.17 Spondylolisthesis, lumbosacral region M51.27 Other intervertebral disc di splacement, lumbosacral region M47.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 w/o myelopathy or r adiculopathy, lumbosacr region M51.37 Other intervertebral disc de generation, lumbosacral region Assessments Date Code Description Provider 12/04/2020 M17.12 Unilateral primary osteoarthriti s, left knee Kate Norris, WET END SUPERVISOR 12/04/2020 M51.36 Other intervertebral disc degene ration, lumbar region Kate Norris, WET END SUPERVISOR 11/18/2020 M17.12 Unilateral primary osteoarthriti s, left [...] intervertebral disc displa cement, lumbosacral region [place] 09/04/2020 M47.817 Spondylosis without myelopathy or radiculopathy, lumbosacral region [place] 09/04/2020 M51.37 Other intervertebral disc degene ration, lumbosacral region [place] Plan of Treatment Future Appointment(s):* 12/19/2020 2:30 pm - Kate Norris PTA at Physical Therapy * 12/17/2020 2:00 pm - Emre Swanson PTA at Physical Therapy * 12/12/2020 1:00 pm - Kate Norris PTA at Physical Therapy Functional Status Description No Information Available Mental Status Description No Information Available Referrals Refer to Dr Reason for Referral Status Appt Date Shay Barrientos PA PT - UNL VISITS OK'D FOR LS/ L KNEE FROM 11/18-05/21/21, RES# [id number]. SS Created [address] [place] [address] [address] [place] [address] [phone]
--- OUTSIDE RECORDS SUMMARY | 2021-02-08 02:19 | CCD | Continuity of Care Document ---
Author Author Ever QUESADA DPT Organization Unknown Address [address] [facility] [address] [place] [address] Phone [phone] Care Team Providers Care Senior Storage Administrator Name Role Phone [facility] [phone] Problems Active Problems Provider Date Essential hypertension [...] Information Available Procedures Date Code Description Status 11/18/2020 38646 Physical Therapy Eval - Low Comp lexity Completed 11/04/2020 98477 Office/Outpatient Established Mo d MDM 30-39 Min Completed 09/04/2020 56836 Phone Evaluation/Management By Arabella marte 5-10 Mins Completed Medical Devices Description No Information Available Encounters Type Date Location Provider Dx Diagnosis Office Visit 11/04/2020 1:45p [place] Shay Barrientos, P.A. M17.12 Unilateral primary osteoarthritis, left knee M51.36 Other intervertebral disc de generation, lumbar region Office Visit 09/04/2020 10:00a [place] M43.17 Spondylolisthesis, lumbosacral region M51.27 Other intervertebral disc di splacement, lumbosacral region M47.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 w/o myelopathy or r adiculopathy, lumbosacr region M51.37 Other intervertebral disc de generation, lumbosacral region Assessments Date Code Description Provider 11/18/2020 M17.12 Unilateral primary osteoarthriti s, left knee Jose Guadalupe Quesada, PT, DPT 11/18/2020 M51.36 Other intervertebral disc degene ration, lumbar region Jose Guadalupe Quesada, PT, DPT 11/04/2020 M17.12 Unilateral primary osteoarthriti [...] [place] Plan of Treatment Future Appointment(s):* 12/04/2020 1:30 pm - Barbara Woods P.T.A. at Physical Therapy * 12/01/2020 1:30 pm - Barbara Woods P.T.A. at Physical Therapy Functional Status Description No Information Available Mental Status Description No Information Available Referrals Refer to Dr Reason for Referral Status Appt Date Shay Barrientos PA PT - UNL VISITS OK'D FOR LS/ L KNEE FROM 11/18-05/21/21, RES# [id number]. SS Created [address] [facility] [address] [place] [address] [phone]
--- OUTSIDE RECORDS SUMMARY | 2021-02-08 02:19 | CCD | Continuity of Care Document ---
Author Author Ever [facility] Organization Unknown Address [address] [facility] [address] [place] [address] Phone [phone] Care Team Providers Care Corporate Learning Consultant Name Role Phone [place] [phone] Problems Active Problems Provider Date Essential hypertension [...] Available Procedures Date Code Description Status 11/18/2020 22912 Physical Therapy Eval - Low Comp lexity Completed 11/04/2020 11707 Office/Outpatient Established Mo d MDM 30-39 Min Completed 09/04/2020 68446 Phone Evaluation/Management By Arabella marte 5-10 Mins Completed Medical Devices Description No Information Available Encounters Type Date Location Provider Dx Diagnosis Office Visit 11/04/2020 1:45p [place] Shay Barrientos, P.A. M17.12 Unilateral primary osteoarthritis, [...] [place] Plan of Treatment Future Appointment(s):* 12/12/2020 1:00 pm - Kate Norris, WAITER/WAITRESS FIRST CLASS at Physical Therapy * 12/10/2020 1:00 pm - Kate Norris, WAITER/WAITRESS FIRST CLASS at Physical Therapy Functional Status Description No Information Available Mental Status Description No Information Available Referrals Refer to Dr Reason for Referral Status Appt Date Shay Barrientos PA PT - UNL VISITS OK'D FOR LS/ L KNEE FROM 11/18-05/21/21, RES# [id number]. SS Created [address] [place] [address] [address] [place] [address] [phone]
--- OUTSIDE RECORDS SUMMARY | 2021-02-08 02:19 | CCD | Continuity of Care Document ---
Author Author Ever [facility] Organization Unknown Address [address] [facility] [address] [place] [address] Phone [phone] Care Team Providers Care Director Of Sleep Name Role Phone [facility] [phone] Problems Active Problems Provider Date Essential hypertension [...] Information Available Procedures Date Code Description Status 12/10/2020 85411 Therapeutic Procedure, Each 15 M inutes Completed 12/04/2020 15064 Manual Therapy Each 15 Minutes C ompleted 12/04/2020 34970 Therapeutic Procedure, Each 15 M inutes Completed 11/18/2020 63468 Physical Therapy Eval - Low Comp lexity Completed 11/04/2020 27417 Office/Outpatient Established Mo d MDM 30-39 Min Completed 09/04/2020 56876 Phone Evaluation/Management By Arabella marte 5-10 Mins Completed Medical Devices Description No Information Available Encounters Type Date Location Provider Dx Diagnosis Office Visit 11/04/2020 1:45p John Barrientos, PRadhaA. 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, lumbosacr region M51.37 Other intervertebral disc de generation, lumbosacral region Assessments Date Code Description Provider 12/10/2020 M17.12 Unilateral primary osteoarthriti s, left knee Kate Norris, [employer] SALES REPRESENTATIVE 12/10/2020 M51.36 Other intervertebral disc degene ration, lumbar region Kate Norris, [employer] UTIL[employer] SALES REPRESENTATIVE 12/04/2020 M17.12 Unilateral primary osteoarthriti s, left knee Kate Norris, PUBLIC UTIL[employer]IES SALES REPRESENTATIVE 12/04/2020 M51.36 Other intervertebral disc degene ration, lumbar region Kate Norris, PUBLIC [employer]IL[employer]IES SALES REPRESENTATIVE 11/18/2020 M17.12 Unilateral primary osteoarthriti s, left knee Jose Guadalupe Flynn, PT, DPT 11/18/2020 M51.36 Other intervertebral disc degene ration, lumbar region Jose Guadalupe Flynn, PT, DPT 11/04/2020 M17.12 Unilateral primary osteoarthriti s, left knee Mitali Velazquez 11/04/2020 M51.36 Other intervertebral disc degene ration, lumbar region Mitali Velazquez 09/04/2020 M43.17 Spondylolisthesis, lumbosacral r egion [place] 09/04/2020 M51.27 Other intervertebral disc displa cement, lumbosacral region [place] 09/04/2020 M47.817 Spondylosis without myelopathy or radiculopathy, lumbosacral region [place] 09/04/2020 M51.37 Other intervertebral disc degene ration, lumbosacral region [place] Plan of Treatment Future Appointment(s):* 12/23/2020 4:00 pm - Emre Swanson PTA at Physical Therapy * 12/26/2020 2:30 pm - Emre Swanson PTA at Physical Therapy Functional Status Description No Information Available Mental Status Description No Information Available Referrals Refer to Dr Reason for Referral Status Appt Date Shay Barrientos PA PT - UNL VISITS OK'D FOR LS/ L KNEE FROM 11/18-05/21/21, RES# [id number]. SS Created [address] [place] [address] [address] [place] [address] [phone]
--- OUTSIDE RECORDS SUMMARY | 2021-02-08 02:19 | CCD | Continuity of Care Document ---
Author Author [facility] Organization Unknown Address [address] [place] [address] Phone [phone] Problems Active Problems Provider Date Essential hypertension [...] Information Available Procedures Date Code Description Status 11/04/2020 21729 Office/Outpatient Established Mo d MDM 30-39 Min Completed 09/04/2020 73564 Phone Evaluation/Management By Arabella marte 5-10 Mins Completed Medical Devices Description No Information Available Encounters Type Date Location Provider Dx Diagnosis Office Visit 11/04/2020 1:45p [place] Mitali Velazquez M17.12 Unilateral primary osteoarthritis, left knee M51.36 Other intervertebral disc de generation, lumbar region Office Visit 09/04/2020 10:00a [place] M43.17 Spondylolisthesis, lumbosacral region M51.27 Other intervertebral disc di splacement, lumbosacral region M47.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 w/o myelopathy or r adiculopathy, lumbosacr region M51.37 Other intervertebral disc de generation, lumbosacral region Assessments Date Code Description Provider 11/04/2020 M17.12 Unilateral primary osteoarthriti s, left knee Shay Barrientos, Mitali 11/04/2020 M51.36 Other intervertebral disc degene ration, lumbar region Mitali Velazquez 09/04/2020 M43.17 Spondylolisthesis, lumbosacral r egion [place] 09/04/2020 M51.27 Other intervertebral disc displa cement, lumbosacral region [place] 09/04/2020 M47.817 Spondylosis without myelopathy or radiculopathy, lumbosacral region [place] 09/04/2020 M51.37 Other intervertebral disc degene ration, lumbosacral region [place] Plan of Treatment Future Appointment(s):* 11/18/2020 11:30 am - Jose Guadalupe Flynn, PT, DPT at Physical Therapy 11/04/2020 - Shay Barrientos, PRadhaA.* M17.12 Unilateral primary osteoarthritis, left knee* Follow up:* 6-8 weeks with [facility] lt leg/ back re-check * M51.36 Other intervertebral disc degeneration, lumbar region Functional Status Description No Information Available Mental Status Description No Information Available Referrals Refer to Reason for Referral Status Appt Date Shay Barrientos, [place] [facility] Lumbar and Left Knee, per adolfo at [facility] ref [id number] [place] for [id number], [place] dept [place] to [place] [id number],patient is going to [facility], passed to PT dept . Created [address] [place] [address] [address] [place] [id number] [phone]
[2021-02-08] MEDS ORDERED: TRUL0.5I SC (02:20)
[2021-02-08] MEDS ORDERED: METF500T13 PO (02:20)
--- OUTSIDE RECORDS SUMMARY | 2021-02-08 02:20 | CCD ---
Author Author [facility] Organization [facility] Address Unknown Phone Unavailable Support Name Relationship Address Phone LINDA SLOAN Next Of Kin Unknown [place] [address] Chema [place] [address] Chema SLOAN Next Of Kin [address] [place] [address] ATILIO HERNANDEZ Next Of Kin Unknown DISABLED Next Of Kin Unknown Unavailable UE Next Of Kin Unknown Unavailable EDUARDO KIM Next Of Kin [address] [place] [address] Chema FELIX Next Of Kin [address] [place] [address] JULY SLOAN Next Of Kin [address] [place] [address] [address]ELIX [place] [address] Chema NUÑEZ Next Of Kin [address] [place] [address] Unavailable ЕКАТЕРИНА SLOAN Next Of Kin [address] [facility] [address] [place] [address] Aime SLOAN Next Of Kin [address] [place] [address] - SAMMY WEAVER Next Of Kin [address] [place] [address] CHRISTINA SANCHEZ Next Of Kin [address] [place] [address] NONE, PT PER Next Of Kin - -, - - - EDUARDO SLOAN Next Of Kin [address] [address] UN Next Of Kin - -, - - - AMY SLOAN Next Of Kin Unknown EDUARDO PURVIS Next Of Kin [address] [address] SAMMY WEAVER Next Of Kin [address] [place] [address] SloanJuly ECON Unknown Care Team Providers Care Automatic Seamer Name Role Phone Brannon BALTAZAR MD Unavailable Unavailable Brannon BALTAZAR MD Unavailable Unavailable Brannon BALTAZAR MD Unavailable Unavailable Brannon BALTAZAR MD Unavailable Unavailable Brannon BALTAZAR MD Unavailable Unavailable Freeport, L Lynne INK MAKER Unavailable Unavailable Freeport, L Lynne INK MAKER Unavailable Unavailable Freeport, L Lynne INK MAKER Unavailable Unavailable Freeport, L Lynne INK MAKER Unavailable Unavailable Freeport, L Lynne INK MAKER Unavailable Unavailable Freeport, L Lynne INK MAKER Unavailable Unavailable Freeport, L Lynne INK MAKER Unavailable Unavailable Freeport, L Lynne INK MAKER Unavailable Unavailable Freeport, L Lynne INK MAKER Unavailable Unavailable Freeport, L Lynne INK MAKER Unavailable Unavailable Freeport, L Lynne INK MAKER Unavailable Unavailable Freeport, L Lynne INK MAKER Unavailable Unavailable Freeport, L Lynne INK MAKER Unavailable Unavailable Aldo Pan MD Unavailable Unavailable Holley Knox MD Unavailable Unavailable Holley Knox MD Unavailable Unavailable Holley Knox MD Unavailable Unavailable Valle, L Alma INK MAKER Unavailable Unavailable Valle, L Alma INK MAKER Unavailable Unavailable Valle, L Alma INK MAKER Unavailable Unavailable Valle, L Alma INK MAKER Unavailable Unavailable Valle, L Alma INK MAKER Unavailable Unavailable Valle, L Alma INK MAKER Unavailable Unavailable Valle, L Alma INK MAKER Unavailable Unavailable Valle, L Alma INK MAKER Unavailable Unavailable Valle, L Alma INK MAKER Unavailable Unavailable Valle, L Alma INK MAKER Unavailable Unavailable Valle, L Alma INK MAKER Unavailable Unavailable Valle, L Alma INK MAKER Unavailable Unavailable Valle, L Alma INK MAKER Unavailable Unavailable Valle, L Alma INK MAKER Unavailable Unavailable Valle, L Alma INK MAKER Unavailable Unavailable Valle, L Alma INK MAKER Unavailable Unavailable Valle, L Alma INK MAKER Unavailable Unavailable Valle, L Alma INK MAKER Unavailable Unavailable Valle, L Alma INK MAKER Unavailable Unavailable Valle, L Alma INK MAKER Unavailable Unavailable Valle, L Alma INK MAKER Unavailable Unavailable Valle, L Alma INK MAKER Unavailable Unavailable Valle, L Alma INK MAKER Unavailable Unavailable Valle, L Alma INK MAKER Unavailable Unavailable Valle, L Alma INK MAKER Unavailable Unavailable Valle, L Alma INK MAKER Unavailable Unavailable Valle, L Alma INK MAKER Unavailable Unavailable Valle, L Alma INK MAKER Unavailable Unavailable Valle, L Alma INK MAKER Unavailable Unavailable Valle, L Amla INK MAKER Unavailable Unavailable Valle, L Alma INK MAKER Unavailable Unavailable Valle, L Alma INK MAKER Unavailable Unavailable Valle, L Alma INK MAKER Unavailable Unavailable Valle, L Alma INK MAKER Unavailable Unavailable Valle, L Alma INK MAKER Unavailable Unavailable Valle, L Alma INK MAKER Unavailable Unavailable Valle, L Alma INK MAKER Unavailable Unavailable Valle, L Alma INK MAKER Unavailable Unavailable Avlle, L Alma INK MAKER Unavailable Unavailable Valle, L Alma INK MAKER Unavailable Unavailable Valle, L Alma INK MAKER Unavailable Unavailable Valle, L Alma INK MAKER Unavailable Unavailable JarvisMela vides MD Unavailable Unavailable JarvisMela vides MD Unavailable Unavailable JarvisMela vides MD Unavailable Unavailable JarvisMela vides MD Unavailable Unavailable JarvisMela MD Unavailable Unavailable JarvisMela vides MD Unavailable Unavailable JarvisMela vides MD Unavailable Unavailable JarvisMela vides MD Unavailable Unavailable JarvisMela vides MD Unavailable Unavailable Jarvis, Mela Aldridge MD Unavailable Unavailable JarvisMela MD Unavailable Unavailable JarvisMela vides MD Unavailable Unavailable JarvisMela vides MD Unavailable Unavailable JarvisMela vides MD Unavailable Unavailable JarvisMela MD Unavailable Unavailable JarvisMela MD Unavailable Unavailable JarvisMela MD Unavailable Unavailable JarvisMela vides MD Unavailable Unavailable JarvisMela vides MD Unavailable Unavailable JarvisMela vides MD Unavailable Unavailable JarvisMela vides MD Unavailable Unavailable JarvisMela MD Unavailable Unavailable JarvisMela MD Unavailable Unavailable JarvisMela MD Unavailable Unavailable JarvisMela vides MD Unavailable Unavailable JarvisMela vides MD Unavailable Unavailable JarvisMela vides MD Unavailable Unavailable JarvisMela vides MD Unavailable Unavailable JarvisMela MD Unavailable Unavailable Jarvis, R Silverio MD Unavailable Unavailable Jarvis, R Silverio MD Unavailable Unavailable Jarvis, R Silverio MD Unavailable Unavailable Jarvis, R Silverio MD Unavailable Unavailable Jarvis, R Silverio MD Unavailable Unavailable Jarvis, R Silverio MD Unavailable Unavailable Jarvis, R Silverio MD Unavailable Unavailable Jarvis, R Silverio MD Unavailable Unavailable Jarvis, R Silverio MD Unavailable Unavailable Jarvis, R Silverio MD Unavailable Unavailable Jarvis, R Silverio MD Unavailable Unavailable Jarvis, R Silverio MD Unavailable Unavailable Jarvis, R Silverio MD Unavailable Unavailable Jarvis, R Silverio MD Unavailable Unavailable Jarvis, R Silverio MD Unavailable Unavailable Jarvis, R Silverio MD Unavailable Unavailable Jarvis, R Silverio MD Unavailable Unavailable Jarvis, R Silverio MD Unavailable Unavailable Jarvis, R Silverio MD Unavailable Unavailable Jarvis, R Silverio MD Unavailable Unavailable Jarvis, R Silverio MD Unavailable Unavailable Jarvis, R Silverio MD Unavailable Unavailable Jarvis, R Silverio MD Unavailable Unavailable Jarvis, R Silverio MD Unavailable Unavailable Jarvis, R Silverio MD Unavailable Unavailable Jarvis, R Silverio MD Unavailable Unavailable Jarvis, R Silverio MD Unavailable Unavailable Jarvis, R Silverio MD Unavailable Unavailable Jarvis, R Silverio MD Unavailable Unavailable Jarvis, R Silverio MD Unavailable Unavailable Jarvis, R Silverio MD Unavailable Unavailable Jarvis, R Silverio MD Unavailable Unavailable Jarvis, R Silverio MD Unavailable Unavailable Jarvis, R Silverio MD Unavailable Unavailable Jarvis, R Silverio MD Unavailable Unavailable Jarvis, R Silverio MD Unavailable Unavailable Jarvis, R Silverio MD Unavailable Unavailable Jarvis, R Silverio MD Unavailable Unavailable Jarvis, R Silverio MD Unavailable Unavailable Jarvis, R Silverio MD Unavailable Unavailable Jarvis, R Silverio MD Unavailable Unavailable Jarvis, R Silverio MD Unavailable Unavailable Jarvis, R Silverio MD Unavailable Unavailable Jarvis, R Silverio MD Unavailable Unavailable Jarvis, R Silverio MD Unavailable Unavailable Jarvis, R Silverio MD Unavailable Unavailable Jarvis, R Silverio MD Unavailable Unavailable Jarvis, R Silverio MD Unavailable Unavailable Jarvis, R Silverio MD Unavailable Unavailable Jarvis, Mela Silverio MD Unavailable Unavailable Freeport, L Lynne INK MAKER Unavailable Unavailable Freeport, L Lynne INK MAKER Unavailable Unavailable Freeport, L Lynne INK MAKER Unavailable Unavailable Freeport, L Lynne INK MAKER Unavailable Unavailable Freeport, L Lynne INK MAKER Unavailable Unavailable Freeport, L Lynne INK MAKER Unavailable Unavailable Freeport, L Lynne INK MAKER Unavailable Unavailable Freeport, L Lynne INK MAKER Unavailable Unavailable Freeport, L Lynne INK MAKER Unavailable Unavailable Freeport, L Lynne INK MAKER Unavailable Unavailable Freeport, L Lynne INK MAKER Unavailable Unavailable Freeport, L Lynne INK MAKER Unavailable Unavailable Freeport, L Lynne INK MAKER Unavailable Unavailable Pisaniello, Arabella Arriola MD Unavailable Unavailable Pisaniello, Arabella Arroila MD Unavailable Unavailable Pisaniello, Arabella Arriola MD Unavailable Unavailable Pisaniello, Arabella Arriola MD Unavailable Unavailable Pisaniello, Arabella Arriola MD Unavailable Unavailable Pisaniello, Arabella Arriola MD Unavailable Unavailable Pisaniello, Arabella Arriola MD Unavailable Unavailable Pisaniello, Arabella Arriola MD Unavailable Unavailable Pisaniello, Arabella Arriola MD Unavailable Unavailable Pisaniello, Arabella Arriola MD Unavailable Unavailable Pisaniello, Arabella Arriola MD Unavailable Unavailable Pisaniello, Arabella Arriola MD Unavailable Unavailable Pisaniello, Arabella Arriola MD Unavailable Unavailable Pisaniello, Arabella Arriola MD Unavailable Unavailable Pisaniello, Arabella Arriola MD Unavailable Unavailable Pisaniello, Arabella Arriola MD Unavailable Unavailable Pisaniello, Arabella Arriola MD Unavailable Unavailable Pisaniello, Arabella Arriola MD Unavailable Unavailable Pisaniello, Arabella Arriola MD Unavailable Unavailable Pisaniello, Arabella Arriola MD Unavailable Unavailable Pisaniello, Arabella Arriola MD Unavailable Unavailable Pisaniello, Arabella Arriola MD Unavailable Unavailable Pisaniello, Arabella Arriola MD Unavailable Unavailable Pisaniello, Arabella Arriola MD Unavailable Unavailable Pisaniello, Arabella Arriola MD Unavailable Unavailable Pisaniello, Arabella Arriola MD Unavailable Unavailable Pisaniello, Arabella Arriola MD Unavailable Unavailable Pisaniello, Arabella Arriola MD Unavailable Unavailable Pisaniello, Arabella Arriola MD Unavailable Unavailable Pisaniello, Arabella Arriola MD Unavailable Unavailable Pisaniello, Arabella Arriola MD Unavailable Unavailable Pisaniello, Arabella Arriola MD Unavailable Unavailable Pisaniello, Arabella Arriola MD Unavailable Unavailable Pisaniello, Arabella Arriola MD Unavailable Unavailable Pisaniello, Arabella Arriola MD Unavailable Unavailable Pisaniello, Arabella Arriola MD Unavailable Unavailable Pisaniello, Arabella Arriola MD Unavailable Unavailable Pisaniello, Arabella Arriola MD Unavailable Unavailable Pisaniello, Arabella Arriola MD Unavailable Unavailable Pisaniello, Arabella Arriola MD Unavailable Unavailable Pisaniello, Arabella Arriola MD Unavailable Unavailable Pisaniello, Arabella Arriola MD Unavailable Unavailable Pisaniello, Arabella Arriola MD Unavailable Unavailable Pisaniello, Arabella Arriola MD Unavailable Unavailable Pisaniello, Arabella Arriola MD Unavailable Unavailable Pisaniello, Arabella Arriola MD Unavailable Unavailable Pisaniello, Arabella Arriola MD Unavailable Unavailable Pisaniello, Arabella Arriola MD Unavailable Unavailable Pisaniello, Arabella Arriola MD Unavailable Unavailable Pisaniello, Arabella Arriola MD Unavailable Unavailable Pisaniello, Arabella Arriola MD Unavailable Unavailable Pisaniello, Arabella Arriola MD Unavailable Unavailable TAMRA, M CLAUDE PA Unavailable Unavailable TAMRA, M CLAUDE PA Unavailable Unavailable TAMRA, M CLAUDE PA Unavailable Unavailable TAMRA, M CLAUDE PA Unavailable Unavailable TAMRA, M CLAUDE PA Unavailable Unavailable TAMRA, M CLAUDE PA Unavailable Unavailable TAMRA, M CLAUDE PA Unavailable Unavailable TAMRA, M CLAUDE PA Unavailable Unavailable TAMRA, M CLAUDE PA Unavailable Unavailable TAMRA, M CLAUDE PA Unavailable Unavailable TAMRA, M CLAUDE PA Unavailable Unavailable TAMRA, M CLAUDE PA Unavailable Unavailable TAMRA, M CLAUDE PA Unavailable Unavailable TAMRA, M CLAUDE PA Unavailable Unavailable TAMRA, M CLAUDE PA Unavailable Unavailable TAMRA, M CLAUDE PA Unavailable Unavailable TAMRA, M CLAUDE PA Unavailable Unavailable TAMRA, M CLAUDE PA Unavailable Unavailable TAMRA, M CLAUDE PA Unavailable Unavailable TAMRA, M CLAUDE PA Unavailable Unavailable TAMRA, M CLAUDE PA Unavailable Unavailable TAMRA, M CLAUDE PA Unavailable Unavailable TAMRA, M CLAUDE PA Unavailable Unavailable TAMRA, M CLAUDE PA Unavailable Unavailable PARSHALL, A GIN FONTENOT Unavailable Unavailable PARSHALL, A GIN FONTENOT Unavailable Unavailable PARSHALL, Aime GREENFIELD MD Unavailable Unavailable PARSHALL, A GIN FONTENOT Unavailable Unavailable PARSHALL, A GIN FONTENOT Unavailable Unavailable PARSHALL, A GIN FONTENOT Unavailable Unavailable PARSHALL, A GIN FONTENOT Unavailable Unavailable PARSHALL, A GIN FONTENOT Unavailable Unavailable PARSHALL, A GIN FONTENOT Unavailable Unavailable PARSHALL, A GIN FONTENOT Unavailable Unavailable PARSHALL, A GIN FONTENOT Unavailable Unavailable PARSHALL, A GIN FONTENOT Unavailable Unavailable PARSHALL, A GIN FONTENOT Unavailable Unavailable PARSHALL, A GIN FONTENOT Unavailable Unavailable PARSHALL, A GIN FONTENOT Unavailable Unavailable PARSHALL, A GIN FONTENOT Unavailable Unavailable PARSHALL, A GIN MD Unavailable Unavailable PARSHALL, A GIN MD Unavailable Unavailable PARSHALL, A GIN MD Unavailable Unavailable PARSHALL, A GIN MD Unavailable Unavailable PARSHALL, A GIN MD Unavailable Unavailable PARSHALL, A GIN MD Unavailable Unavailable PARSHALL, A GIN MD Unavailable Unavailable PARSHALL, A GIN MD Unavailable Unavailable PARSHALL, A GIN MD Unavailable Unavailable PARSHALL, A GIN MD Unavailable Unavailable PARSHALL, A GIN MD Unavailable Unavailable PARSHALL, A GIN MD Unavailable Unavailable PARSHALL, A GIN MD Unavailable Unavailable PARSHALL, A GIN MD Unavailable Unavailable PARSHALL, A GIN MD Unavailable Unavailable PARSHALL, A GIN MD Unavailable Unavailable Jarvis, R Silverio MD Unavailable Unavailable Jarvis, R Silverio MD Unavailable Unavailable Jarvis, R Silverio MD Unavailable Unavailable Jarvis, R Silverio MD Unavailable Unavailable Jarvis, R Silverio MD Unavailable Unavailable Jarvis, R Silverio MD Unavailable Unavailable Jarvis, R Silverio MD Unavailable Unavailable Jarvis, R Silverio MD Unavailable Unavailable Jarvis, R Silverio MD Unavailable Unavailable Jarvis, R Silverio MD Unavailable Unavailable Jarvis, R Silverio MD Unavailable Unavailable Jarvis, R Silverio MD Unavailable Unavailable Jarvis, R Silverio MD Unavailable Unavailable Jarvis, R Silverio MD Unavailable Unavailable Jarvis, R Silverio MD Unavailable Unavailable Jarvis, R Silverio MD Unavailable Unavailable Jarvis, R Silverio MD Unavailable Unavailable Jarvis, R Silverio MD Unavailable Unavailable Jarvis, R Silverio MD Unavailable Unavailable Jarvis, R Silverio MD Unavailable Unavailable Jarvis, R Silverio MD Unavailable Unavailable Jarvis, R Silverio MD Unavailable Unavailable Jarvis, R Silverio MD Unavailable Unavailable Jarvis, R Silveroi MD Unavailable Unavailable Jarvis, R Silverio MD Unavailable Unavailable Jarvis, R Silverio MD Unavailable Unavailable Jarvis, R Silverio MD Unavailable Unavailable Jarvis, R Silverio MD Unavailable Unavailable Jarvis, R Silverio MD Unavailable Unavailable Jarvis, R Silverio MD Unavailable Unavailable Jarvis, R Silverio MD Unavailable Unavailable Jarvis, R Silverio MD Unavailable Unavailable Jarvis, R Silverio MD Unavailable Unavailable Jarvis, R Silverio MD Unavailable Unavailable Jarvis, R Silverio MD Unavailable Unavailable Jarvis, R Silverio MD Unavailable Unavailable Jarvis, R Silverio MD Unavailable Unavailable Jarvis, R Silverio MD Unavailable Unavailable Jarvis, R Silverio MD Unavailable Unavailable Jarvis, R Silverio MD Unavailable Unavailable Jarvis, R Silverio MD Unavailable Unavailable Jarvis, R Silverio MD Unavailable Unavailable Jarvis, R Silverio MD Unavailable Unavailable Jarvis, R Silverio MD Unavailable Unavailable Jarvis, R Silverio MD Unavailable Unavailable Jarvis, R Silverio MD Unavailable Unavailable Jarvis, R Silverio MD Unavailable Unavailable Jarvis, R Silverio MD Unavailable Unavailable Jarvis, R Silverio MD Unavailable Unavailable Jarvis, R Silverio MD Unavailable Unavailable Jarvis, R Silverio MD Unavailable Unavailable Jarvis, R Silverio MD Unavailable Unavailable Jarvis, R Silverio MD Unavailable Unavailable Jarvis, R Silverio MD Unavailable Unavailable Jarvis, R Silverio MD Unavailable Unavailable Jarvis, R Silverio MD Unavailable Unavailable Jarvis, R Silverio MD Unavailable Unavailable Jarvis, R Silverio MD Unavailable Unavailable Jarvis, R Silverio MD Unavailable Unavailable Jarvis, R Silverio MD Unavailable Unavailable Jarvis, R Silverio MD Unavailable Unavailable Jarvis, R Silverio MD Unavailable Unavailable Jarvis, R Silverio MD Unavailable Unavailable Jarvis, R Silverio MD Unavailable Unavailable Jarvis, R Silverio MD Unavailable Unavailable Jarvis, R Silverio MD Unavailable Unavailable Jarvis, R Silverio MD Unavailable Unavailable Jarivs, R Silverio MD Unavailable Unavailable Jarvis, R Silverio MD Unavailable Unavailable Jarvis, R Silverio MD Unavailable Unavailable Jarvis, R Silverio MD Unavailable Unavailable Jarvis, R Silverio MD Unavailable Unavailable Jarvis, R Silverio MD Unavailable Unavailable Jarvis, R Silverio MD Unavailable Unavailable Jarvis, R Silverio MD Unavailable Unavailable Jarvis, R Silverio MD Unavailable Unavailable Jarvis, R Silverio MD Unavailable Unavailable Jarvis, R Silverio MD Unavailable Unavailable Jarvis, R Silverio MD Unavailable Unavailable KP CERNA PA Unavailable Unavailable MCEKP BOWERS PA Unavailable Unavailable MCEKP BOWERS PA Unavailable Unavailable KP CERNA PA Unavailable Unavailable KP CERNA PA Unavailable Unavailable KP CERNA PA Unavailable Unavailable MCEKP BOWERS PA Unavailable Unavailable MCEKP BOWERS PA Unavailable Unavailable MCELHERAN, KP PA Unavailable Unavailable MCELHERAN, KP PA Unavailable Unavailable MCELHERAN, KP PA Unavailable Unavailable MCELHERAN, KP PA Unavailable Unavailable MCELHERAN, KP PA Unavailable Unavailable MCELHERAN, KP PA Unavailable Unavailable MCELHERAN, KP PA Unavailable Unavailable MCELHERAN, KP PA Unavailable Unavailable MCELHERAN, KP PA Unavailable Unavailable MCELHERAN, KP PA Unavailable Unavailable MCELHERAN, KP PA Unavailable Unavailable MCELHERAN, KP PA Unavailable Unavailable MCELHERAN, KP PA Unavailable Unavailable MCELHERAN, KP PA Unavailable Unavailable MCELHERAN, KP PA Unavailable Unavailable MCELHERAN, KP PA Unavailable Unavailable MCELHERAN, KP PA Unavailable Unavailable MCELHERAN, KP PA Unavailable Unavailable MCELHERAN, KP PA Unavailable Unavailable MCELHERAN, KP PA Unavailable Unavailable MCELHERAN, KP PA Unavailable Unavailable ADAN, B EARL INK MAKER Unavailable Unavailable ADAN, B EARL INK MAKER Unavailable Unavailable ADAN, B EARL INK MAKER Unavailable Unavailable ADAN, B EARL INK MAKER Unavailable Unavailable ADAN, B EARL INK MAKER Unavailable Unavailable ADAN, B EARL INK MAKER Unavailable Unavailable ADAN, B EARL INK MAKER Unavailable Unavailable ADAN, B EARL INK MAKER Unavailable Unavailable ADAN, B EARL INK MAKER Unavailable Unavailable ADAN, B EARL INK MAKER Unavailable Unavailable ADAN, B EARL INK MAKER Unavailable Unavailable ADAN, B EARL INK MAKER Unavailable Unavailable ADAN, B EARL INK MAKER Unavailable Unavailable ADAN, B EARL INK MAKER Unavailable Unavailable ADAN, B EARL INK MAKER Unavailable Unavailable ADAN, B EARL INK MAKER Unavailable Unavailable ADAN, B EARL INK MAKER Unavailable Unavailable ADAN, B EARL INK MAKER Unavailable Unavailable ADAN, B EARL INK MAKER Unavailable Unavailable ADAN, B EARL INK MAKER Unavailable Unavailable ADAN, B EARL INK MAKER Unavailable Unavailable ADAN, B EARL INK MAKER Unavailable Unavailable ADAN, B EARL INK MAKER Unavailable Unavailable ADAN, B EARL INK MAKER Unavailable Unavailable ADAN, B EARL INK MAKER Unavailable Unavailable ADAN, B EARL INK MAKER Unavailable Unavailable ADAN, B EARL INK MAKER Unavailable Unavailable ADAN, B EARL INK MAKER Unavailable Unavailable ADAN, B EARL INK MAKER Unavailable Unavailable ADAN, B EARL INK MAKER Unavailable Unavailable ADAN, B EARL INK MAKER Unavailable Unavailable ADAN, B EARL INK MAKER Unavailable Unavailable ADAN, B EARL INK MAKER Unavailable Unavailable ADAN, B EARL INK MAKER Unavailable Unavailable ADAN, B EARL INK MAKER Unavailable Unavailable ADAN, B EARL INK MAKER Unavailable Unavailable ADAN, B EARL INK MAKER Unavailable Unavailable ADAN, B EARL INK MAKER Unavailable Unavailable ADAN, B EARL INK MAKER Unavailable Unavailable ADAN, B EARL INK MAKER Unavailable Unavailable ADAN, B EARL INK MAKER Unavailable Unavailable ADAN, B EARL INK MAKER Unavailable Unavailable ADAN, B EARL INK MAKER Unavailable Unavailable ADAN, B EARL INK MAKER Unavailable Unavailable ADAN, B EARL INK MAKER Unavailable Unavailable ADAN, B EARL INK MAKER Unavailable Unavailable ADAN, B EARL INK MAKER Unavailable Unavailable ADAN, B EARL INK MAKER Unavailable Unavailable ADAN, B EARL INK MAKER Unavailable Unavailable ADAN, B EARL INK MAKER Unavailable Unavailable ADAN, B EARL INK MAKER Unavailable Unavailable ADAN, B EARL INK MAKER Unavailable Unavailable ADAN, B EARL INK MAKER Unavailable Unavailable ADAN, B EARL INK MAKER Unavailable Unavailable ADAN, B EARL INK MAKER Unavailable Unavailable ADAN, B EARL INK MAKER Unavailable Unavailable ADAN, B EARL INK MAKER Unavailable Unavailable ADAN, B EARL INK MAKER Unavailable Unavailable ADAN, B EARL INK MAKER Unavailable Unavailable ADAN, B EARL INK MAKER Unavailable Unavailable ADAN, B EARL INK MAKER Unavailable Unavailable ADAN, B EARL INK MAKER Unavailable Unavailable TURRIN, DOMINICK Unavailable Unavailable TURRIN, DOMINICK Unavailable Unavailable TURRIN, DOMINICK Unavailable Unavailable TURRIN, DOMINICK Unavailable Unavailable Marga Bradley MD Unavailable Unavailable Marga Bradley MD Unavailable Unavailable Marga Bradley MD Unavailable Unavailable Marga Bradley MD Unavailable Unavailable Marga Bradley MD Unavailable Unavailable Marga Bradley MD Unavailable Unavailable Marga Bradley MD Unavailable Unavailable Marga Bradley MD Unavailable Unavailable Marga Bradley MD Unavailable Unavailable Marga Bradley MD Unavailable Unavailable Marga Bradley MD Unavailable Unavailable Marga Bradley MD Unavailable Unavailable Marga Bradley MD Unavailable Unavailable Marga Bradley MD Unavailable Unavailable Marga Bradley MD Unavailable Unavailable Marga Bradley MD Unavailable Unavailable Marga Bradley MD Unavailable Unavailable Marga Bradley MD Unavailable Unavailable Marga Bradley MD Unavailable Unavailable Marga Bradley MD Unavailable Unavailable Marga Bradley MD Unavailable Unavailable Marga Bradley MD Unavailable Unavailable Marga Bradley MD Unavailable Unavailable Marga Bradley MD Unavailable Unavailable Marga Bradley MD Unavailable Unavailable Marga Bradley MD Unavailable Unavailable Marga Bradley MD Unavailable Unavailable Marga Bradley MD Unavailable Unavailable Marga Bradley MD Unavailable Unavailable Marga Bradley MD Unavailable Unavailable Marga Bradley MD Unavailable Unavailable Marga Bradley MD Unavailable Unavailable Marga Bradley MD Unavailable Unavailable Marga Bradley MD Unavailable Unavailable Marga Bradley MD Unavailable Unavailable Marga Bradley MD Unavailable Unavailable Marga Bradley MD Unavailable Unavailable Marga Bradley MD Unavailable Unavailable Marga Bradley MD Unavailable Unavailable Marga Bradley MD Unavailable Unavailable Marga Bradley MD Unavailable Unavailable Marga Bradley MD Unavailable Unavailable Marga Bradley MD Unavailable Unavailable Marga Bradley MD Unavailable Unavailable DRAZEK, I GE PA Unavailable Unavailable DRAZEK, I GE PA Unavailable Unavailable DRAZEK, I GE PA Unavailable Unavailable DRAZEK, I GE PA Unavailable Unavailable DRAZEK, I GE PA Unavailable Unavailable DRAZEK, I GE PA Unavailable Unavailable DRAZEK, I GE PA Unavailable Unavailable DRAZEK, I GE PA Unavailable Unavailable DRAZEK, I GE PA Unavailable Unavailable DRAZEK, I GE PA Unavailable Unavailable DRAZEK, I GE PA Unavailable Unavailable DRAZEK, I GE PA Unavailable Unavailable DRAZEK, I GE PA Unavailable Unavailable DRAZEK, I GE PA Unavailable Unavailable DRAZEK, I GE PA Unavailable Unavailable DRAZEK, I GE PA Unavailable Unavailable DRAZEK, I GE PA Unavailable Unavailable DRAZEK, I GE PA Unavailable Unavailable DRAZEK, I GE PA Unavailable Unavailable DRAZEK, I GE PA Unavailable Unavailable DRAZEK, I GE PA Unavailable Unavailable DRAZEK, I GE PA Unavailable Unavailable DRAZEK, I GE PA Unavailable Unavailable DRAZEK, I GE PA Unavailable Unavailable DRAZEK, I GE PA Unavailable Unavailable DRAZEK, I GE PA Unavailable Unavailable DRAZEK, I GE PA Unavailable Unavailable DRAZEK, I GE PA Unavailable Unavailable DRAZEK, I GE PA Unavailable Unavailable DRAZEK, I EG PA Unavailable Unavailable CHANLIECCO, C JOSE MD Unavailable Unavailable CHANLIECCO, C JOSE MD Unavailable Unavailable CHANLIECCO, C JOSE MD Unavailable Unavailable CHANLIECCO, C JOSE MD Unavailable Unavailable CHANLIECCO, C JOSE MD Unavailable Unavailable CHANLIECCO, C JOSE MD Unavailable Unavailable CHANLIECCO, C JOSE MD Unavailable Unavailable CHANLIECCO, C JOSE MD Unavailable Unavailable CHANLIECCO, C JOSE MD Unavailable Unavailable CHANLIECCO, C JOSE MD Unavailable Unavailable CHANLIECCO, C JOSE MD Unavailable Unavailable Re-disclosure Warning The records that you are about to access may contain information from federally-assisted alcohol or drug abuse programs. If such information is present, then the following federally mandated warning applies: This information has been disclosed to you from records protected by federal confidentiality rules (42 CFR part 2). The federal rules prohibit you from making any further disclosure of this information unless further disclosure is expressly permitted by the written consent of the person to whom it pertains or as otherwise permitted by 42 CFR part 2. A general authorization for the release of medical or other information is NOT sufficient for this purpose. The Federal rules restrict any use of the information to criminally investigate or prosecute any alcohol or drug abuse patient.The records that you are about to access may contain highly sensitive health information, the redisclosure of which is protected by Article 27-F of the [facility] Public Health law. If you continue you may have access to information: Regarding HIV / AIDS; Provided by facilities licensed or operated by the [facility] Office of Mental Health; or Provided by the [facility] Office for People With Developmental Disabilities. If such information is present, then the following [facility] mandated warning applies: This information has been disclosed to you from confidential records which are protected by state law. State law prohibits you from making any further disclosure of this information without the specific written consent of the person to whom it pertains, or as otherwise permitted by law. Any unauthorized further disclosure in violation of state law may result in a fine or prison sentence or both. A general authorization for the release of medical or other information is NOT sufficient authorization for further disc losure. Allergies and Adverse Reactions Type Description Substance Reaction Status Data Source(s ) Drug allergy No Known Drug Allergies No Known Drug Allergies [facility] Food allergy No Known Food Allergies No Known Food Allergies [facility] Family History Family Member Name Family Member Gender Family Member Status Date o f Status Description Data Source(s) Unknown Condition [facility] Unknown Condition [facility] Hospital Unknown Condition [facility] Unknown Condition [facility] Unknown Condition [facility] Unknown Condition [facility] Unknown Condition [facility] Unknown Condition [facility] Unknown Condition [facility] Unknown Condition [facility] Unknown Condition [facility] Unknown Condition [facility] Unknown Condition [facility] Hospital Unknown Condition [facility] Hospital Unknown Condition [facility] Hospital Unknown Condition [facility] Hospital Unknown Condition [facility] Hospital Unknown Condition [facility] Hospital Unknown Condition [facility] Unknown Condition [facility] Encounters Encounter Providers Location Date Indications Data Source(s ) Emergency Attender: GIN MOONEY MD 02/07 01:25:00 PM EDT - 02/07/2021 04:37:00 PM EDT SORE THROAT [facility] SORE THROAT Patient discharged. Emergency Attender: JOSE MESSER MDConsultant: Kristin Nunez NP 02/01/2021 03:23:00 AM EDT - 02/01/2021 06:37:00 AM EDT [facility] Patient discharged. Emergency Attender: DOMINICK Vinsonsultant: Lynne Nunez NP 01/29/2021 02:14:00 AM EDT - 01/29/2021 03:23:00 AM EDT [facility] Patient discharged. Emergency Attender: JOSE MESSER MDConsultant: Kristin Nunez NP 01/27/2021 09:46:00 PM EDT - 01/28/2021 01:40:00 AM EDT [facility] Patient discharged. Emergency Attender: KP BALTAZAR MD 01/09 11:10:00 PM EDT - 01/27/2021 12:50:00 AM EDT BACK PAIN [facility] BACK PAIN Patient discharged. Emergency Attender: KP BALTAZAR MD 01/09 12:02:00 AM EDT - 01/26/2021 01:15:00 AM EDT BACK PAIN [facility] BACK PAIN Patient discharged. Outpatient Attender: Lynne Nunez NPReferrer: Silverio Batista MD 12/30/2020 01:53:00 PM EDT - 12/30/2020 02:32:00 PM EDT [facility] Outpatient Attender: KP QUINN Physical Therapy 11/04/2020 01:45:00 PM EDT [facility] ([facility] Outpatient Attender: Lynne Nunez NPReferrer: Lynne Nunez NP 10/31/2020 08:01:00 AM EDT [facility] Office Visit Attender: GE QUINN Physical Therapy 2020 10:00:00 AM EDT [facility] ([facility]) Emergency Attender: GIN MOONEY MDAttender: Aldo reese MD 09/03/2020 06:42:00 AM EDT - 09/03/2020 09:00:00 AM EDT LEFT LEG/KNEE PAIN [facility] LEFT LEG/KNEE PAIN Patient discharged. Emergency Attender: DOMINICK Vinsonsultant: Silverio Batista MD 08/27/2020 06:50:00 PM EDT - 08/27/2020 08:10:00 PM EDT [facility] Patient admitted. Emergency Attender: DOMINICK Vinson sultant: Silverio Batista MDConsultant: Flako Steele MD 08/18/2020 01:36:00 PM EDT - 08/18/2020 03:35:00 PM EDT [facility] Patient discharged. Emergency Attender: KP BALTAZAR MD 11/2020 04:25:00 AM EDT - 08/16/2020 05:25:00 AM EDT [facility] BL[facility] AND BLUE [facility]OVE [facility] Patient discharged. Outpatient Attender: Silverio Batista MD 08/15/2020 11:06:[address] [facility] M54.5 Emergency Attender: Holley Knox MD 08/12 11:08:00 PM EDT - 08/13/2020 01:40:00 AM EDT [facility] Patient discharged. Outpatient Attender: Alma Valle NP 07/02/2020 01:42:[address] [facility] M25.562 Outpatient Attender: Alma Valle NPReferrer: Silverio Batista MD 07/02/2020 01:16:00 PM EDT - 07/02/2020 01:38:00 PM EDT [facility] Outpatient Attender: Silverio Batista MDReferrer: Silverio Batista MD 06/26/2020 11:11:00 AM EDT - 06/26/2020 01:15:00 PM EDT [facility] Outpatient Attender: Silverio Batista MD 06/17/2020 10:22:00 AM EST E11.9,I10 [facility] E11.9,I10 Outpatient Attender: Silverio Batista MDReferrer: Silverio Batista MD 03/17/2020 02:07:00 PM EST - 03/17/2020 02:48:00 PM EST [facility] Outpatient Attender: Silverio Batista MD 03/11/2020 03:00:[address] [facility] E11.9 Outpatient Attender: Alma Valle NPReferrer: Silverio Batista MD 02/29/2020 11:45:00 AM EST - 02/29/2020 12:05:00 PM EST [facility] Outpatient Attender: Maty Bradley MD 02/06/2020 12:56:[address] [facility] Outpatient Attender: EARL ARELLANO NP Physical Therapy 03:45:00 PM EDT [facility] ([facility]) Outpatient Attender: CLAUDE QUINN Physical Therapy 12/11 02:45:00 PM EDT [facility] ([facility]) Immunizations Vaccine Date Status Description Data Source(s) COVID-19 Moderna 07/04/2020 12:00:[address] [facility] COVID-19 VACCINE Moderna 07/04/2020 12:00:00 AM EDT completed [facility] Vaccine Series Complete: YESThis Data wa s Submitted to [facility] Via [employer]. COVID-19 Moderna 06/06/2020 12:00:[address] [facility] COVID-19 Moderna 06/06/2020 12:00:00 AM EST completed COVID-[address] [facility] COVID-19 VACCINE Moderna 06/06/2020 12:00:00 AM EST completed [facility] Vaccine Series Complete: NOThis Data was Submitted to [facility] Via [employer]. Tdap 02/02/2020 12:00:00 AM EDT completed [facility] Tdap 02/02/2020 12:00:00 AM EDT completed tetan us, diphtheria, acell pertussis [address]yrs &[address] [facility] Tdap 02/02/2020 12:00:00 AM EDT completed tetan us, diphtheria, acell pertussis 7yrs &[address] [facility] Tdap 02/02/2020 12:00:00 AM EDT completed tetan us, diphtheria, acell pertussis 7yrs &[address] [facility] DIPHTHERIA,PERTUSSIS(ACELLULAR),TETANUS VACCINE 02/02/2020 1 2:00:00 AM EDT completed [facility] pneumococcal polysaccharide PPV23 01/19/2020 12:00:00 AM EDT comple reg[address]do [facility] IIV3. This is one of two codes replacing CVX 15, which is being retired. 01/19/2020 12:00:[address] [facility] pneumococcal polysaccharide PPV23 01/19/2020 12:00:00 AM EDT com pleted pneumococcal polysaccharide PPV[address] [facility] IIV3. This is one of two codes replacing CVX 15, which is being retired. 01/19/2020 12:00:00 AM EDT completed influenza vaccine, inactivated [facility] pneumococcal polysaccharide PPV23 01/19/2020 12:00:00 AM EDT com pleted pneumococcal polysaccharide PPV[address] [facility] IIV3. This is one of two codes replacing CVX 15, which is being retired. 01/19/2020 12:00:00 AM EDT completed influenza vaccine, inactivated [facility] pneumococcal polysaccharide PPV23 01/19/2020 12:00:00 AM EDT com pleted pneumococcal polysaccharide PPV[address] [facility] IIV3. This is one of two codes replacing CVX 15, which is being retired. 01/19/2020 12:00:00 AM EDT completed influenza vaccine, inactivated [facility] pneumococcal polysaccharide PPV23 01/19/2020 12:00:00 AM EDT com pleted pneumococcal polysaccharide PPV[address] [facility] IIV3. This is one of two codes replacing CVX 15, which is being retired. 01/19/2020 12:00:00 AM EDT completed influenza vaccine, inactivated [facility] Medications Medication Brand Name Start Date Product Form Dose Route Admi nistrative Instructions Pharmacy Instructions Status Indications Reaction Description Data Source(s) Diclofenac Sodium 75 MG Delayed Release Oral Tablet Diclofen ac Sodium 10/31/2020 08:26:10 AM EDT 75 MG active [facility] Methylprednisolone Methylprednisolone 10/31/2020 08:25:12 AM EDT 0 active [facility] 0.5 ML dulaglutide 3 MG/ML Auto-Injector Dulaglutide (Trulicity) 1.5 mg/0.5 mL pen injector Dulaglutide (Trulicity) 1.5 mg/0.5 mL pen injector 11:41:04 AM EDT 1.5 MG active [facility] Blood Sugar Diagnostic (Accu-Chek Tabby Plus Test Strp) stri p 08/11/2020 10:27:54 AM EDT 0 active [facility] 0.5 ML dulaglutide 3 MG/ML Auto-Injector Dulaglutide (Trulicity) 1.5 mg/0.5 mL pen injector Dulaglutide (Trulicity) 1.5 mg/0.5 mL pen injector 07:44:41 AM EDT 1.[address] [facility] Naproxen 500 MG Oral Tablet Naproxen 07/02/2020 02:31:52 PM EDT 500 MG active [facility] 500 mg 07/02/2020 12:00:00 AM EDT tablet 60 TAKE ONE TABLET BY MOUTH TWICE A DAY TAKE ONE TABLET BY MOUTH TWICE A DAY SOLD: 07/02/2020 [facility] Lancing Device With Lancets (Accu-Chek Soft Dev Lancets) kit 01/28/2020 03:53:24 PM EDT 0 active [facility] Lancing Device With Lancets (Accu-Chek Soft Dev Lancets) kit 01/28/2020 03:53:24 PM EDT 0 active [facility] Lancing Device With Lancets (Accu-Chek Soft Dev Lancets) kit 01/28/2020 03:53:24 PM EDT 0 active [facility] Lancing Device With Lancets (Accu-Chek Soft Dev Lancets) kit 01/28/2020 03:53:24 PM EDT 0 active [facility] Lancing Device With Lancets (Accu-Chek Soft Dev Lancets) kit 01/28/2020 03:53:24 PM EDT 0 active [facility] Lancets (Accu-Chek Softclix Lancets) [facility] [place] 01/28/2020 03:52:00 PM EDT 0 active [facility] Lancets (Accu-Chek Softclix Lancets) [facility] [place] 01/28/2020 03:52:00 PM EDT 0 active [facility] Lancets (Accu-Chek Softclix Lancets) [facility] [place] 01/28/2020 03:52:00 PM EDT 0 active [facility] Lancets (Accu-Chek Softclix Lancets) [facility] [place] 01/28/2020 03:52:00 PM EDT 0 active [facility] Lancets (Accu-Chek Softclix Lancets) [facility] [place] 01/28/2020 03:52:00 PM EDT 0 active [facility] Blood Glucose Control High,Low (Accu-Chek Tabby Control Soln ) solution 01/28/2020 03:50:[address] [facility] Blood Glucose Control High,Low (Accu-Chek Tabby Control Soln ) solution 01/28/2020 03:50:57 [address]T [address] [facility] Blood Glucose Control High,Low (Accu-Chek Tabby Control Soln ) solution 01/28/2020 03:50:57 PM EDT [address] [facility] Blood Glucose Control High,Low (Accu-Chek Tabby Control Soln ) solution 01/28/2020 03:50:57 [address]T [address] [facility] Blood Glucose Control High,Low (Accu-Chek Tabby Control Soln ) solution 01/28/2020 03:50:57 [address]T [address] [facility] Blood Sugar Diagnostic (Accu-Chek Tabby Plus Test Strp) stri p 01/28/2020 03:50:12 PM EDT 0 active [facility] Blood Sugar Diagnostic (Accu-Chek Tabby Plus Test Strp) stri p 01/28/2020 03:50:12 PM EDT 0 active [facility] Blood Sugar Diagnostic (Accu-Chek Tabby Plus Test Strp) stri p 01/28/2020 03:50:12 PM EDT [address] [facility] Blood Sugar Diagnostic (Accu-Chek Tabby Plus Test Strp) stri p 01/28/2020 03:50:12 PM EDT 0 active [facility] Blood Sugar Diagnostic (Accu-Chek Tabby Plus Test Strp) stri p 01/28/2020 03:50:12 PM EDT 0 active [facility] Blood-Glucose Meter (Accu-Chek Tabby Plus Meter) [facility] [place] 01/28/2020 03:48:53 PM EDT 0 active [facility] Blood-Glucose Meter (Accu-Chek Tabby Plus Meter) [facility] [place] 01/28/2020 03:48:53 PM EDT 0 active [facility] Blood-Glucose Meter (Accu-Chek Tabby Plus Meter) [facility] [place] 01/28/2020 03:48:53 PM EDT 0 active [facility] Blood-Glucose Meter (Accu-Chek Tabby Plus Meter) [facility] [place] 01/28/2020 03:48:53 PM EDT 0 active [facility] Blood-Glucose Meter (Accu-Chek Tabby Plus Meter) [facility] [place] 01/28/2020 03:48:53 PM EDT 0 active [facility] levocetirizine dihydrochloride 5 MG Oral Tablet Levocetirizine (Xyzal) 5 mg tablet Levocetirizine (Xyzal) 5 mg tablet 01/07/2020 01:24:53 PM EDT 5 MG active [facility] levocetirizine dihydrochloride 5 MG Oral Tablet Levocetirizine (Xyzal) 5 mg tablet Levocetirizine (Xyzal) 5 mg tablet 01/07/2020 01:24:53 PM EDT 5 MG active [facility] levocetirizine dihydrochloride 5 MG Oral Tablet Levocetirizine (Xyzal) 5 mg tablet Levocetirizine (Xyzal) 5 mg tablet 01/07/2020 01:24:53 PM EDT 5 MG active [facility] levocetirizine dihydrochloride 5 MG Oral Tablet Levocetirizine (Xyzal) 5 mg tablet Levocetirizine (Xyzal) 5 mg tablet 01/07/2020 01:24:53 PM EDT 5 MG active [facility] levocetirizine dihydrochloride 5 MG Oral Tablet Levocetirizine (Xyzal) 5 mg tablet Levocetirizine (Xyzal) 5 mg tablet 01/07/2020 01:24:53 PM EDT 5 MG completed [facility] Lisinopril 40 MG Oral Tablet Lisinopril 01/07/2020 01:24:48 PM EDT 40 MG active [facility] Lisinopril 40 MG Oral Tablet Lisinopril 01/07/2020 01:24:48 PM EDT 40 MG active [facility] Lisinopril 40 MG Oral Tablet Lisinopril 01/07/2020 01:24:48 PM EDT 40 MG completed [facility] Lisinopril 40 MG Oral Tablet Lisinopril 01/07/2020 01:24:48 PM EDT 40 MG active [facility] Lisinopril 40 MG Oral Tablet Lisinopril 01/07/2020 01:24:48 PM EDT 40 MG active [facility] Tamsulosin hydrochloride 0.4 MG Oral Capsule Tamsulosin 01/07/2020 01:24:38 PM EDT 0.4 MG active [facility] Tamsulosin hydrochloride 0.4 MG Oral Capsule Tamsulosin 01/07/2020 01:24:38 PM EDT 0.4 MG active [facility] Tamsulosin hydrochloride 0.4 MG Oral Capsule Tamsulosin 01/07/2020 01:24:38 PM EDT 0.4 MG active [facility] Tamsulosin hydrochloride 0.4 MG Oral Capsule Tamsulosin 01/07/2020 01:24:38 PM EDT 0.4 MG active [facility] Tamsulosin hydrochloride 0.4 MG Oral Capsule Tamsulosin 01/07/2020 01:24:38 PM EDT 0.4 MG completed [facility] atorvastatin 10 MG Oral Tablet Atorvastatin Atorvastatin 01/07/2020 01:24:27 PM EDT 10 MG active [facility] atorvastatin 10 MG Oral Tablet Atorvastatin Atorvastatin 01/07/2020 01:24:27 PM EDT 10 MG active [facility] atorvastatin 10 MG Oral Tablet Atorvastatin Atorvastatin 01/07/2020 01:24:27 PM EDT 10 MG active [facility] atorvastatin 10 MG Oral Tablet Atorvastatin Atorvastatin 01/07/2020 01:24:27 PM EDT 10 MG active [facility] atorvastatin 10 MG Oral Tablet Atorvastatin Atorvastatin 01/07/2020 01:24:27 PM EDT 10 MG completed [facility] Omeprazole 40 MG Delayed Release Oral Capsule Omeprazole 01/07/2020 01:24:22 PM EDT 40 MG active [facility] Omeprazole 40 MG Delayed Release Oral Capsule Omeprazole 01/07/2020 01:24:22 PM EDT 40 MG active [facility] Omeprazole 40 MG Delayed Release Oral Capsule Omeprazole 01/07/2020 01:24:22 PM EDT 40 MG completed [facility] Omeprazole 40 MG Delayed Release Oral Capsule Omeprazole 01/07/2020 01:24:22 PM EDT 40 MG active [facility] Omeprazole 40 MG Delayed Release Oral Capsule Omeprazole 01/07/2020 01:24:22 PM EDT 40 MG active [facility] 24 HR Metformin hydrochloride 500 MG Extended Release Oral T ablet Metformin 01/07/2020 01:24:15 PM EDT [address] [facility] 24 HR Metformin hydrochloride 500 MG Extended Release Oral T ablet Metformin 01/07/2020 01:24:15 PM EDT [address] [facility] 24 HR Metformin hydrochloride 500 MG Extended Release Oral T ablet Metformin 01/07/2020 01:24:15 PM EDT [address] [facility] 24 HR Metformin hydrochloride 500 MG Extended Release Oral T ablet Metformin 01/07/2020 01:24:15 PM EDT [address] [facility] 24 HR Metformin hydrochloride 500 MG Extended Release Oral T ablet Metformin 01/07/2020 01:24:15 PM EDT [address] [facility] 24 HR Metformin hydrochloride 500 MG Extended Release Oral T ablet Metformin 12/03/2019 01:51:13 PM EDT [address] [facility] 24 HR Metformin hydrochloride 500 MG Extended Release Oral T ablet Metformin 12/03/2019 01:51:13 PM EDT [address] [facility] 24 HR Metformin hydrochloride 500 MG Extended Release Oral T ablet Metformin 12/03/2019 01:51:13 PM EDT [address] [facility] 24 HR Metformin hydrochloride 500 MG Extended Release Oral T ablet Metformin 12/03/2019 01:51:13 PM EDT [address] [facility] 24 HR Metformin hydrochloride 500 MG Extended Release Oral T ablet Metformin 12/03/2019 01:51:13 PM EDT [address] [facility] Omeprazole 40 MG Delayed Release Oral Capsule Omeprazole 08/16/2019 12:30:02 PM EDT 40 MG completed [facility] Omeprazole 40 MG Delayed Release Oral Capsule Omeprazole 08/16/2019 12:30:02 PM EDT 40 MG completed [facility] Omeprazole 40 MG Delayed Release Oral Capsule Omeprazole 08/16/2019 12:30:02 PM EDT 40 MG completed [facility] Omeprazole 40 MG Delayed Release Oral Capsule Omeprazole 08/16/2019 12:30:02 PM EDT 40 MG completed [facility] Omeprazole 40 MG Delayed Release Oral Capsule Omeprazole 08/16/2019 12:30:02 PM EDT 40 MG completed [facility] doxycycline hyclate 100 MG Oral Capsule Doxycycline Hyclate Doxycycline Hyclate 2019 01:37:01 PM EDT [address] [facility] doxycycline hyclate 100 MG Oral Capsule Doxycycline Hyclate Doxycycline Hyclate 2019 01:37:01 PM EDT [address] [facility] doxycycline hyclate 100 MG Oral Capsule Doxycycline Hyclate Doxycycline Hyclate 2019 01:37:01 PM EDT [address] [facility] 0.5 ML dulaglutide 3 MG/ML Auto-Injector Dulaglutide (Trulicity) 1.5 mg/0.5 mL pen injector Dulaglutide (Trulicity) 1.5 mg/0.5 mL pen injector 11:11:25 AM EDT 1.[address] [facility] Cyclobenzaprine hydrochloride 10 MG Oral Tablet Cyclobenzapr ine 05/09/2019 12:56:19 PM EST [address] [facility] Cyclobenzaprine hydrochloride 10 MG Oral Tablet Cyclobenzapr ine 05/09/2019 12:56:19 PM EST [address] [facility] Cyclobenzaprine hydrochloride 10 MG Oral Tablet Cyclobenzapr ine 05/09/2019 12:56:19 PM EST [address] [facility] Tamsulosin hydrochloride 0.4 MG Oral Capsule Tamsulosin 04/13/2019 08:45:26 AM EST 0.4 MG completed [facility] Tamsulosin hydrochloride 0.4 MG Oral Capsule Tamsulosin 04/13/2019 08:45:26 AM EST 0.4 MG completed [facility] Tamsulosin hydrochloride 0.4 MG Oral Capsule Tamsulosin 04/13/2019 08:45:26 AM EST 0.4 MG completed [facility] Tamsulosin hydrochloride 0.4 MG Oral Capsule Tamsulosin 04/13/2019 08:45:26 AM EST 0.4 MG completed [facility] Tamsulosin hydrochloride 0.4 MG Oral Capsule Tamsulosin 04/13/2019 08:45:26 AM EST 0.4 MG completed [facility] atorvastatin 10 MG Oral Tablet Atorvastatin Atorvastatin 04/13/2019 08:12:56 AM EST 10 MG completed [facility] atorvastatin 10 MG Oral Tablet Atorvastatin Atorvastatin 04/13/2019 08:12:56 AM EST 10 MG completed [facility] [facility] atorvastatin 10 MG Oral Tablet Atorvastatin Atorvastatin 04/13/2019 08:12:56 AM EST 10 MG completed [facility] atorvastatin 10 MG Oral Tablet Atorvastatin Atorvastatin 04/13/2019 08:12:56 AM EST 10 MG completed [facility] atorvastatin 10 MG Oral Tablet Atorvastatin Atorvastatin 04/13/2019 08:12:56 AM EST 10 MG completed [facility] Lisinopril 40 MG Oral Tablet Lisinopril 04/02/2019 03:24:40 PM EST 40 MG completed [facility] Lisinopril 40 MG Oral Tablet Lisinopril 04/02/2019 03:24:40 PM EST 40 MG completed [facility] Lisinopril 40 MG Oral Tablet Lisinopril 04/02/2019 03:24:40 PM EST 40 MG completed [facility] Lisinopril 40 MG Oral Tablet Lisinopril 04/02/2019 03:24:40 PM EST 40 MG completed [facility] Lisinopril 40 MG Oral Tablet Lisinopril 04/02/2019 03:24:40 PM EST 40 MG completed [facility] levocetirizine dihydrochloride 5 MG Oral Tablet Levocetirizine (Xyzal) 5 mg tablet Levocetirizine (Xyzal) 5 mg tablet 04/02/2019 03:24:21 PM EST 5 MG completed [facility] levocetirizine dihydrochloride 5 MG Oral Tablet Levocetirizine (Xyzal) 5 mg tablet Levocetirizine (Xyzal) 5 mg tablet 04/02/2019 03:24:21 PM EST 5 MG completed [facility] levocetirizine dihydrochloride 5 MG Oral Tablet Levocetirizine (Xyzal) 5 mg tablet Levocetirizine (Xyzal) 5 mg tablet 04/02/2019 03:24:21 PM EST 5 MG completed [facility] levocetirizine dihydrochloride 5 MG Oral Tablet Levocetirizine (Xyzal) 5 mg tablet Levocetirizine (Xyzal) 5 mg tablet 04/02/2019 03:24:21 PM EST 5 MG completed [facility] levocetirizine dihydrochloride 5 MG Oral Tablet Levocetirizine (Xyzal) 5 mg tablet Levocetirizine (Xyzal) 5 mg tablet 04/02/2019 03:24:21 PM EST 5 MG completed [facility] Insurance Providers Payer name Policy type / Coverage type Policy ID Covered libertarian ID Covered libertarian's relationship to huber Policy Huber Plan Information UHC UNITED MEDICARE COMPLETE G [id number] Self [id number] MEDICARE [id number] Michelle [id number] A MEDICARE A [id number] Self [id number] A ASSIGNED MEDICARE (81) [id number] [place] Med[place] Part [place] [id number] Self [id number] [place] [id number] Self [id number] Medicare [facility] Medicare Primary [id number] Self [id number] [place] Primary [id number] Self [id number] [place] [id number] Self [id number] [place] [id number] Self [id number] [place] [id number] Self [id number] [place] [id number] Self [id number] Medicare [facility] Medicare Primary [id number] Self [id number] Medicare [facility] Medicare Primary [id number] Self [id number] [place] [id number] Self [id number] MEDICAID [id number] Michelle [id number] MEDICAID M [id number] Self [id number] MEDICAID -O/P [id number] [facility] MED[facility]ID [id number] SP [id number] MEDICARE -O/P [id number] 18 [id number] MEDICARE [id number] SP [id number] A MEDICAID -O/P EMERGENCY ROOM [id number] [employer] GOLD PLUS -O/P [id number] 18 [id number] MEDICARE PART A -O/P [id number] 18 [id number] MEDICAID -O/P [id number] MEDICAID -PHYSICIAN [id number] 1 8 [id number] [employer] G[employer] PLUS -PHYSICIAN [id number] 1 8 [id number] MEDICAID - O/P EMERGENCY ROOM [id number] 18 [id number] MEDICARE PART A-O/P [id number] [id number] [facility] Medicare Dual Complet Commercial [id number] Self [id number] MEDICAID (101) [id number] MEDICAID [id number] SP [id number] MEDICAID M [id number] S [id number] MEDICARE C [id number] S [id number] A Medicaid [facility] Other 0 [id number] Self 0 Medicare Part B [facility] Other 0 [id number] S elf [id number] Problems, Conditions, and Diagnoses Code Display Name Description Problem Type Effective Dates Data Source(s) Y929 [address] or not applicable Unspecified place or not applicable Diagnosis 02/01/2021 03:23:00 AM EDT [facility] [id number] Exposure to other specified factors, ini tial encounter Exposure to other specified factors, initial encounter Diagnosis 02/01/2021 03:23:00 AM EDT [facility] C16639 Personal history of other (healed) physi leonides injury and trauma Personal history of other (healed) physical injury and trauma Diagnosis 1 03:23:00 AM [facility] 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 alf (current) use of oral hypoglycemic drugs Diagnosis 02/01/2021 03:23:00 AM [facility] Z7982 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) use of aspirin alf (cu rrent) use of aspirin Diagnosis 02/01/2021 03:23:00 AM [facility] E119 Type 2 diabetes mellitus without complic ations Type 2 diabetes mellitus without complications Diagnosis 02/01/2021 03:23:00 AM [facility] I10 Essential (primary) hypertension Essential (primary) h ypertension Diagnosis 02/01/2021 03:23:00 AM [facility] [id number] Strain of muscle, fascia and tendon of l ower back, initial encounter Strain of muscle, fascia and tendon of lower back, initial encounter Diagnosis 02/01/2021 03:23:00 AM [facility] M5450 Low back pain, unspecified Low back pain, unspecified Diagnosis 02/01/2021 03:23:00 AM [facility] G91776 Personal history of nicotine dependence Personal history of nicotine dependence Diagnosis 01/29/2021 02:14:00 AM [facility] Z6836 Body mass index [BMI] 36.0-36.9, adult B mandeep mass index [BMI] 36.0-36.9, adult Diagnosis 01/29/2021 02:14:00 AM [facility] E669 Obesity, unspecified Obesity, unspecified Diagnosis 01/29/2021 02:14:00 AM [facility] K122 Cellulitis and abscess of mouth Cellulitis and abscess of mouth Diagnosis 01/29/2021 02:14:00 AM [facility] J029 Acute pharyngitis, unspecified Acute pharyngitis, unsp ecified Diagnosis 01/29/2021 02:14:00 AM [facility] 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, lumbar region Intervertebral disc disorders with radiculopathy, lumbar region Diagnosis 01/27/2021 09:46:00 PM [facility] [id number] Overexertion from prolonged static or awkward postures, initial encounter Overexertion from prolonged static or aw kward postures, initial encounter Diagnosis 08/27/2020 06:50:00 PM [facility] J66070 Unspecified place in unspeci fied non-institutional (private) residence as the place of occurrence of the external cause Unspecified place in unspecified non-institutional (private) residence as the place of occurrence of the external cause Diagnosis 08/18/2020 01:36:00 PM [facility] [id number] Fall from other furniture, initial encou nter Fall from other furniture, initial encounter Diagnosis 08/18/2020 01:36:00 PM [facility] [id number] Strain of muscle and tendon of back wall of thorax, initial encounter Strain of muscle and tendon of back wall of thorax, initial encounter Diagnosis 08/18/2020 01:36:00 PM [facility] [id number] Unspecified injury of lower back, initia l encounter Unspecified injury of lower back, initial encounter Diagnosis 08/18/2020 01:36:00 PM [facility] Surgeries/Procedures Procedure Description Date Indications Data Source(s) THERAPEUTIC PX 1/> AREAS EACH 15 MIN EXERCISES 021 12:00:00 AM EDT [facility] ([facility]) MANUAL THERAPY TQS 1/> REGIONS EACH 15 MINUTES 021 12:00:00 AM EDT [facility] ([facility] ) THERAPEUTIC PX 1/> AREAS EACH 15 MIN EXERCISES 021 12:00:00 AM EDT [facility] ([facility] ) THERAPEUTIC PX 1/> AREAS EACH 15 MIN EXERCISES 12:00:00 AM EDT [facility] ([facility]) MANUAL THERAPY TQS 1/> REGIONS EACH 15 MINUTES 021 12:00:00 AM EDT [facility] ([facility] ) Physical Therapy Eval - Low Complexity 11/18/2020 12:0 0:00 AM EDT [facility] ([facility] ) OFFICE OUTPATIENT VISIT 25 MINUTES 11/04/2020 12:00:00 AM EDT [facility] PHYSICIAN TELEPHONE EVALUATION 5-10 MIN 09/04/2020 12: 00:00 AM EDT [facility] ([facility]) X-ray of left knee (procedure) 09/03/2020 07:28:00 AM [facility] Xray Lumbar spine complete 08/15/2020 11:10:[address] [facility] [address] Abd/pel w/o contrast 08/13/2020 12:04:00 AM [facility] X-ray of left knee (procedure) 07/02/2020 02:00:00 PM [facility] Viral antigen assay (procedure) 02/06/2020 12:00:00 AM [facility] Viral antigen assay (procedure) 02/06/2020 12:00:00 AM [facility] Viral antigen assay (procedure) 02/06/2020 12:00:00 AM [facility] Severe acute respiratory syndrome coronavirus 2 (SARS-CoV-2) antigen assay 02/06/2020 [facility] syndrome coronavirus 2 (SARS-CoV-2) antigen assay 02/06/2020 12:00:00 AM [facility] al Results ID Date Data Source [id number] 02/07/2021 04:00:00 PM [facility] [address] [place] [address] [phone] NAME SEX PT STATUS ACCOUNT NUMBER [facility] [id number] ORDERING PHYSICIAN LOCATION MEDICAL RECORD NO. Gin Mooney MD ER [id number] ATTENDING PHYSICIAN DATE OF DATE OF EXAM/TIME Lynne Nunez NP 1970 02/07/211508 TYPE / EXAM Xray Chest One View REASON FOR EXAM cough/sob Clinical History/Indication for Exam: cough/sob RADIOGRAPH OF THE CHEST 1 VIEW INDICATION: cough/sob COMPARISON: 06/27/2019. FINDINGS: Lungs: Unremarkable. No consolidation. Pleural space: Unremarkable. No pneumothorax. Heart: Unremarkable. No cardiomegaly. Mediastinum: Unremarkable. Bones/joints: Unremarkable. IMPRESSION: No acute cardiopulmonary disease. REPORT SIGNATURE ON FILE 02/07/2021 (16:00 Eastern Time ) Signed by: Sebastian Tolentino M.D. Reported By Sebastian Tolentino MD on 02/07/211599 Signed By Sebastian Tolentino MD on 02/07/211599 Date Time CC: Sebastian Tolentino MD; Lynne Nunez Techn: CUMME Trans Dt/Tm: Trans by: DT Prt Dt/Tm: [id number]: Total DLP = 0.00 mGy-cm Fluoroscopy Time (in secs): Name Value Range Interpretation Code Description Data Radha rce(s) Supporting Document(s) ID Date Data Source [id number] 02/07/2021 03:43:[address] [facility] ED Physician Documentation NAME: BRANDI SLOAN : 1970 AGE: 50 MR#: [id number] SERVICE DATE: 02/07/[address]: Gin Mooney MD PRIMARY CARE DR: Lynne Nunez NP ROOM#: HPI HEENT [facility] Chief Complaint: HEENT Stated Complaint: SORE THROAT Time Seen by Provider: 02/07/21 14:10 Source: patient Nurse screening for coronavirus: Recent Travel outside the country (where) Has patient experienced No coronavirus symptoms HEENT Problem Narrative:: This is a 50-year-old morbidly obese white male who has been seen in the ED multiple times for multiple complaints who comes in today complaining of having fatigue decreased taste generalized malaise but denies high fevers or cough. Denies shortness of breath. He believes that possibly there is mold in the building which he lives and he wants to be sure that it has not affected him insome way. Patient also has a history of anxiety disorder as well as diabetes. He denies any episodes of severe hyper or hypoglycemia. Head Neck, Mouth ENT Comment: States he feels like his taste buds are "off" Allergies/Home Meds Allergies Allergy/AdvReac Type Severity Reaction Status Date / Time No Known Drug Allergies Allergy Verified 01/27/21 00:33 No Known Food Allergies Allergy Verified 01/27/21 00:33 Home Medications Medication Instructions Recorded Confirmed Last Taken Type aspirin 81 mg tablet,delayed 1 tab PO DAILY #30 tab 08/02/16 01/27/21 01/26/21 History release zonisamide 50 mg capsule 50 mg PO BID 06/04/19 01/27/21 01/26/21 History blood glucose control high and low #1 ea 01/28/20 01/27/21 01/26/21 Rx solution (Accu-Chek Tabby Control Soln) blood-glucose meter (Accu-Chek #1 ea 01/28/20 01/27/21 01/26/21 Rx Tabby Plus Meter) lancets (Accu-Chek Softclix #100 ea 01/28/20 01/27/21 01/26/21 Rx Lancets) lancing device with lancets kit #100 ea 01/28/20 01/27/21 01/26/21 Rx (Accu-Chek Soft Dev Lancets) dulaglutide 1.5 mg/0.5 mL 1.5 mg (0.5 mL) SQ WEEKLY #2 ml 10/23/20 01/27/21 01/26/21 Rx subcutaneous pen injector ([facility]) blood sugar diagnostic (Accu-Chek #100 ea 11/12/20 01/27/21 01/26/21 Rx Tabby Plus test strp) atorvastatin 10 mg tablet 10 mg PO DAILY #90 tab 12/30/20 01/27/21 01/26/21 Rx diclofenac sodium 75 mg 75 mg PO BID #30 tab 12/30/20 01/27/21 01/26/21 Rx tablet,delayed release levocetirizine 5 mg tablet (Xyzal) 5 mg PO DAILY #90 tab 12/30/20 01/27/21 01/26/21 Rx lisinopril 40 mg tablet 40 mg PO DAILY #90 tab 12/30/20 01/27/21 01/26/21 Rx metformin 500 mg tablet,extended 1,000 mg PO BID #360 tab 12/30/20 01/27/21 01/26/21 Rx release 24 hr omeprazole 40 mg capsule,delayed 40 mg PO DAILY #90 cap 12/30/20 01/27/21 01/26/21 Rx release tamsulosin 0.4 mg capsule 0.4 mg PO QDAY #90 cap 12/30/20 01/27/21 01/26/21 Rx Vital Signs Vital Signs: Vital Signs 02/07/21 13:26 Temperature 97.7 F Pulse Rate 86 Respiratory Rate 16 Blood Pressure 148/83 O2 Sat by Pulse Oximetry 97 PMH (from Triage) Patient Medical History PMH Reviewed/Updated as Needed: Yes PMH/PSH from Triage: Medical History (Updated 02/07/21 @ 15:51 by Gin Mooney) Allergic rhinitis due to pollen (Medical) Anxiety disorder (Medical 01/01/11) F41.9 Congenital hydrocele (Medical) Continuous chewing tobacco dependence (Medical 09/20/14) F17.220 Diabetes mellitus (Medic al) Essential hypertension (Medical 01/01/11) I10 Learning disability (Medical) Left knee pain (Medical) M25.562 he was offered a wheelchair to be escorted to x-ray, he declined Morbid obesity (Medical) Obesity (Medical) Morbidly obese Tobacco use disorder, continuous (Medical) Type 2 diabetes mellitus without complication, without long-term current use of insulin (Medical 03/16/16) E11.9 Surgical History History of vasectomy (Surgical 12/25/12) Hx Drug Resistant Infections Hx MRSA: (Methicillin-resistant Staphylococcus aureus): No Hx VRE (Vancomycin-resistant enterococci): No Hx C.Diff: No Hx CRKP: No Hx Other Resistant Infection?: No Isolation: Standard precautions Hx Recent Travel Out of the country within 10 days (where): No Hx Fever: No Hx Fever with a rash?: No Nurse screening for coronavirus: Recent Travel outside the No country (where) Has patient experienced No coronavirus symptoms Social History Does patient have suicidal/homicidal thoughts or ideation?: No Are you in a relationship with/Does anyone hit you, yell/swear at you, steal from you?: No Substance Use Hx Alcohol Use: No Hx Substance Use: No Hx Substance Use Treatment: No Second Hand Smoke Exposure: No Smoking Status: Never smoker Tobacco Use Years smoked:: 29 Hx Chewing Tobacco Use: Yes Vaccination History Hx/Date of Tetanus, Diphtheria Vaccination: Yes Hx/Date of Influenza Vaccination: Yes Hx/Date of Pneumococcal Vaccination: Yes Immunizations Up to Date: Yes PFSH Medical History Allergic rhinitis due to pollen Anxiety disorder (01/01/11) Congenital hydrocele Continuous chewing tobacco dependence (09/20/14) Diabetes mellitus Essential hypertension (01/01/11) Learning disability Left knee pain Morbid obesity Obesity Tobacco use disorder, continuous Type 2 diabetes mellitus without complication, without long-term current use of insulin (03/16/16) Surgical History History of vasectomy (12/25/12) Family History Mother Chronic low back pain Father Chronic low back pain Sister Mental retardation Brother No problems noted. Social History Does the Patient have a Healthcare Proxy: No Does Patient have a DNR?: No Does Patient have a Living Will?: No Does the Patient have a MOLST?: No Advance Directives on File or in chart?: No household members: spouse housing: apartment marital status: highest education level completed: high school graduate current occupational status: unemployed pets and animals: Yes leisure activities: other Hx Recent Travel (where): No well-balanced diet: about half the time caffeine: Yes high-fat food intake: 2 times daily daily servings fruits/ve-4 daily servings of milk/calcium: 2-4 eating out: rarely or never reads food labels: usually or always during the past year weight has: remained stable what type of physical activity do you participate in?: walking Smoking Status: Never smoker alcohol intake: former details: 06/16/2013 last substance use type: does not use seatbelt use: always water heater temp set < 120 deg: Yes working smoke detector in home: Yes fire extinguisher in home: No carbon monox detector in home: No firearms in home: No victim of physical abuse: No victim of emotional abuse: No ROS Review of Systems Constitutional: Reports weakness and malaise Eyes: Denies vision change, eye discharge/drng, redness, eye pain, descr of pain, conjunctiva inflammation, eyelid inflammation, eyelid issues, floaters, foreign body, r/t accident, contact lens user, wears glasses or other ENT: Reports other (Decrease sense of taste); Denies mouth pain, mouth swelling, dental pain, dry mouth, bleeding gums, ear pain, hearing loss, tinnitis, ear discharge, nasal pain, nasal discharge, nasal congestion, post nasal drip, epistaxis, throat pain, throat swelling, hoarseness, constant throat clearing, pain upon swallowing, recent head trauma, recent airplane travel, recent swimming/diving, uses hearing aid/ear plugs, pain worse with motion or prolonged use of topical meds Respiratory: Denies cough, sputum, orthopnea, SOB w/exertion rest, SOB with excertion, SOB at rest, SOB, stridor, wheezing, hemoptysis, pleuritic pain, exposures or other Cardiovascular: Denies chest pain, palpitations, orthopnea, hypertension, paroxysmal noc dyspnea, edema, light headedness, dyspnea on exertion, syncope, known heart murmurs, leg cramps w/walking, pain in feet/toes at night, varicose veins or other Gastrointestinal: Denies No Symptoms/Complaints, nausea, vomiting, abdominal pain, diarrhea, constipation, heartburn, reflux/regurg, frequent belching, hemorrhoids, hematemesis, black tarry stools, melena, hematochezia, coffee grounds emesis, stomach pain relieved by food, hx of jaundice or other Genitourinary-Male: Denies dysuria, frequency, incontinence, hematuria, retention, cloudy or smoky urine, nocturia, kidney stones, urgency, prostate issue, penile discharge, rash or ulcers, impotence, erectile dysfunction, testicular issue, h/o STDs or other Musculoskeletal: Reports other (Generalized myalgias and arthralgias feeling of fatigue) Skin/Breasts: Denies rash, lesions, hives, pruritus, bruising, change in color, color changes w/cold, sensitivity to sun, change in hair/nails, breast pain, breast lump, nipple discharge, other,tightness, nodules or bumps or hair loss Neurologic: Denies weakness, numbness, headache, incoordination, change in speech, confusion, dizziness, vertigo, lightheadedness, seizures, muscle spasm, tremors, loss of consciousness, memory loss, sensitivity/pain in hands, sensitivity/pain in feet, abnormal gait, paresthesias or other Physical Exam General Physical Exam Narrative: There is a well-developed morbidly obese 50-year-old male who is awake alert oriented x3 and in no acute distress but certainly anxious about his health. Limitations: no limitations General appearance: alert and in no apparent distress Head Head exam: Present atraumatic, normocephalic and normal inspection Eye Eye exam: Present normal apperance, PERRL and EOMI; Absent scleral icterus or conjunctival injection Pupils: Present normal accommodation ENT ENT exam: Present normal exam, normal orophraynx and mucous membranes moist Neck Neck exam: Present normal inspection, full ROM and supple; Absent tenderness, meningismus or lymphadenopathy Respiratory Respiratory exam: Present normal lung sounds bilaterally; Absent respiratory distress, rhonchi, stridor or chest wall tenderness Cardiovascular Cardiovascular Exam: Present regular rate and normal rhythm GI/Abdominal GI/Abdominal exam: Present Abd soft, bowel sounds present all quadrents; Absent tenderness or guarding Rectal Rectal exam: Present deferred Extremities Exam Extremities exam: Present normal inspection and Full ROM without tenderness, capillary refill brisk;Absent pedal edema Back Exam Back exam: Present normal inspection and full ROM; Absent tenderness Neurological Exam Neurological exam: Present alert, oriented X3, CN II-XII intact and normal gait Psychiatric Psychiatric exam: Present no rmal affect and anxious Skin Skin exam: Present warm, dry, intact and normal color; Absent rash, cyanosis, diaphoretic, erythema or urticaria Vital Signs Vital Signs: Vital Signs 02/07/21 13:26 Temperature 97.7 F Pulse Rate 86 Respiratory Rate 16 Blood Pressure 148/83 O2 Sat by Pulse Oximetry 97 MDM (comprehensive) Lab Data Labs: 02/07/21 15:02 02/07/21 15:02 Laboratory Results Last 24 hours 02/07/21 15:02: WBC 8.3, RBC 4.73, Hgb 14.4, Hct 42.8, MCV 91, MCH 30, MCHC 34, RDW 13, Plt Count 201, MPV 9.7, Immature Gran % (Auto) 0.4, Neut % (Auto) 67.9, Lymph % (Auto) 22.3, [place] % (Auto) 7.4, Eos % (Auto) 1.8, Baso % (Auto) 0.2 L, Lymph # (Auto) 1.9, Abs Immat Gran (auto) 0.0, Add Manual Diff No, Absolute Neutrophils 5.7, Monocytes # 0.6, Absolute Eosinophils 0.2, Absolute Basophils 0.0 02/07/21 15:02: Sodium 142, Potassium 4.0, Chloride 110 H, Carbon Dioxide 27, Anion Gap 9, BUN 14, Creatinine 1.1, GFR Calculation Greater than 60, Glucose 177 H, Calcium 8.8, Total Bilirubin 0.4, AST 18, ALT 29, Alkaline Phosphatase 62, Serum Total Protein 6.7, Albumin 3.7 Radiology Data Radiology results: report reviewed Radiology impressions: Chest x-ray IMPRESSION: No acute cardiopulmonary disease. Medical Decision Making Free Text/Narative:: I discussed results of laboratories as well as chest x-ray with the patient. At this point time we will discharge him home with follow-up to be with his primary care provider. His working diagnosis is that of URI, rule out Covid. Discharge Plan Admission/Discharge Dx Primary DC Diagnosis: Fatigue, malaise, suspected URI ED Provider: Gin Mooney ED Status: Ready for Discharge Time Seen by Provider: 02/07/21 14:10 Triaged At: 02/07/21 13:26 C ondition Condition: Good Discharge Detail Disposition: Home, Self-Care Med Rec New Prescriptions: No Action atorvastatin 10 mg tablet 10 mg PO DAILY Qty: 90 3RF levocetirizine [Xyzal] 5 mg tablet 5 mg PO DAILY Qty: 90 3RF lisinopril 40 mg tablet 40 mg PO DAILY Qty: 90 3RF metformin 500 mg tablet extended release 24 hr 1,000 mg PO BID Qty: 360 3RF omeprazole 40 mg capsule,delayed release(DR/EC) 40 mg PO DAILY Qty: 90 3RF tamsulosin 0.4 mg capsule 0.4 mg PO QDAY Qty: 90 3RF aspirin 81 MG tablet,delayed release (DR/EC) 1 tab PO DAILY Qty: 30 11RF zonisamide 50 mg capsule 50 mg PO BID 0RF (DME) blood-glucose meter [Accu-Chek Tabby Plus Meter] Misc See Rx Instructions .ROUTE .MEDSUPPLY Qty: 1 0RF Rx Instructions: Test 3X Daily (DME) Accu-Chek Tabby Control Soln Solution See Rx Instructions .ROUTE .MEDSUPPLY Qty: 1 3RF Rx Instructions: Use As Directed (DME) lancets [Accu-Chek Softclix Lancets] Misc See Rx Instructions .ROUTE .MEDSUPPLY Qty: 100 5RF Rx Instructions: Use 3X Daily (DME) lancing device with lancets [Accu-Chek Soft Dev Lancets] Kit See Rx Instructions .ROUTE .MEDSUPPLY Qty: 100 5RF Rx Instructions: Use 3X Daily Trulicity 1.5 mg/0.5 mL pen injector 1.5 mg SQ WEEKLY Qty: 2 5RF (DME) Accu-Chek Tabby Plus test strp Strip See Rx Instructions .ROUTE .MEDSUPPLY Qty: 100 5RF Rx Instructions: Use 3X Daily diclofenac sodium 75 mg tablet,delayed release (DR/EC) 75 mg PO BID Qty: 30 0RF Rx Instructions: Do not take with naproxen Follow Up Visit/Referrals: Lynne Nunez NP [Primary Care Provider] - (Call on Tuesday for follow-up appointment for follow-up) Discharge Problem: Fatigue, URI, acute Medications Medication reconciliation performed by provider at discharge: Yes Follow Up Care/Instructions Diet/Activity/Wound Care..: As we discussed your CBC as well as your comprehensive medical profile are both essentially within normal limits other than your nonfasting glucose was 177. Chest x-ray shows no sign of acute infection. As we also discussed your Covid test will take 24 to 48 hours to return. With all this being said it does appear that you very likely have some type of a mild upper respiratory infection causing your fatigue and generalized malaise. The fact that you believe that there is possibly a mold issue in your apartment complex is something that will need to be evaluatedby your landlord or the housing authorities for the area where you live. At this point time we only recommend rest at home and push fluids. If the Covid test comes back negative and your symptoms do not improve over the next 3 to 4 days we recommend follow-up with your primary care provider for reevaluation. It would not appear that your diabetes and or medications are causing you any issues as you have been on all those for a significant amount of time. *Discharge Patient* Discharge Orders: Discharge Order (Routine); Ordered 02/07/21 Ordered By: Gin Mooney Interventions Interventions: Head,Neck,Ears,Eyes Throat Assessment Last Done: 02/07/21 13:49 Report Signers: <Electronically signed by Gin Mooney > Gin Aime Vinicio 02/07/21 1616 Gin Mooney SIGNATURE DA Report Cosigners: D: PARMA 02/07/211542 T: PARMA 02/07/211542 CC: Lynne Nunez Name Value Range Interpretation Code Description Data Radha rce(s) Supporting Document(s) ID Date Data Source [id number] 02/07/2021 03:07:[address] [facility] Name Value Range Interpretation Code Description Data Radha rce(s) Supporting Document(s) Leukocytes [#/volume] in Blood by Automated count 8.3 10*3/uL 4.45-[address] [facility] Erythrocytes [#/volume] in Blood by Automated count 4.73 10*6/uL 4.3- 6.[address] [facility] Hemoglobin [Moles/volume] in Blood 14.4 g/dL 13-[address] [facility] Hematocrit [Volume Fraction] of Blood by Automated count 42.8 % 4 2-[address] [facility] Erythrocyte mean corpuscular volume [Ent itic volume] in Cord blood by Automated count 91 fL 80-96 N [facility] ital Erythrocyte mean corpuscular hemoglobin [Entitic mass] by Au tomated count 30 pg 27-[address] [facility] Erythrocyte mean corpuscular hemoglobin concentration [Mass/volume] in Cord blood 34 g/dL 33-37 N [facility] ital Erythrocyte distribution width [Entitic volume] by Automated count 13 % 11-[address] [facility] Platelets [#/volume] in Blood by Automated count 201 10*3/uL 130-[address] [facility] Platelet mean volume [Entitic volume] in Blood 9.7 fL 9.1-13.[address] [facility] Neutrophils/100 leukocytes in Blood by Automated count 67.9 % 41- [address] [facility] Neutrophils [#/volume] in Blood by Automated count 5.7 U 1.7-7.[address] [facility] Lymphocytes/100 leukocytes in Blood by Automated count 22.3 % 14- [address] [facility] Lymphocytes [#/volume] in Blood by Automated count 1.9 U 0.6-4.[address] [facility] Monocytes/100 leukocytes in Blood by Automated count 7.4 % 4-[address] [facility] Monocytes [#/volume] in Blood by Automated count 0.6 U 0.2-1.[address] [facility] Eosinophils/100 leukocytes in Blood by Automated count 1.8 % 0-[address] [facility] Eosinophils [#/volume] in Blood by Automated count 0.2 U 0.0-0.[address] [facility] Basophils/100 leukocytes in Blood by Automated count 0.2 % 0.4-1.[address] [facility] Basophils [#/volume] in Blood by Automated count 0.0 U 0.0-0.[address] [facility] NUCLEATED RED BLOOD CELL 0 % [facility] NUCLEATED RED BLOOD CELL# 0 U [facility] Immature granulocytes [Presence] in Blood by Automated count 0-[address] [facility] Immature granulocytes [#/volume] in Blood by Automated count 0.0 U 0-0.[address] [facility] Manual Differential panel - Blood NO [facility] ID Date Data Source [id number] 02/07/2021 03:26:[address] [facility] Name Value Range Interpretation Code Description Data Radha rce(s) Supporting Document(s) Urea nitrogen [Mass/volume] in Serum or Plasma 14 mg/dL 9-[address] [facility] Sodium [Moles/volume] in Serum or Plasma 142 mmol/L 132-[address] [facility] Potassium [Moles/volume] in Serum or Plasma 4.0 mmol/L 3.5-5.[address] [facility] Chloride [Moles/volume] in Serum or Plasma 110 mmol/L 99-[address] [facility] Carbon dioxide, total [Moles/volume] in Serum or Plasma 27 mmol/L 20 -[address] [facility] Anion gap in Serum or Plasma 9 mmol/L 8-16 N L [facility] Glucose [Mass/volume] in Serum or Plasma 177 mg/dL 74-[address] [facility] Creatinine 1.1 mg/dL 0.5-1.1 N [facility] Glomerular filtration rate/1.73 sq M.pre dicted [Volume Rate/Area] in Serum or Plasma Greater Than [address] [facility] Alanine aminotransferase [Enzymatic acti vity/volume] in Serum or Plasma by With P-5'-P 29 U/L 10-49 N [facility] ital Aspartate aminotransferase [Enzymatic ac tivity/volume] in Serum or Plasma by With P-5'-P 18 U/L 0-33 N [facility] pital Alkaline phosphatase [Enzymatic activity/volume] in Serum or Plasma 62 U/L 45-[address] [facility] Calcium [Mass/volume] in Serum or Plasma 8.8 mg/dL 8.5-10.[address] [facility] Bilirubin.total [Mass/volume] in Serum or Plasma 0.4 mg/dL 0.3-1.[address] [facility] Albumin [Mass/volume] in Serum or Plasma by Bromocresol purple (BCP) dye binding method 3.7 g/dL 3.2-4.8 N [facility] ital Protein [Mass/volume] in Serum or Plasma 6.7 g/dL 5.7-8.[address] [facility] ID Date Data Source [id number] 02/01/2021 11:35:00 AM EDT [facility] [address] [place] [address] PHONE: [phone] FAX: [phone] Name .................. : KYLIE PAZ Acct Number.................. : [id number] ROOM. ................. : VT-03 Number ................... : [id number] Stay type ............. : E/R Discharge Date......... ... : 02/01/21 Admit Date ......... : 02/01/21 Admit Phys .................... : JUWAN Date of ....... : 1970 Family Phys ................... : ARMANDO AMAYA Phone . ................. : [phone] Age ................................ : 50 Film# .................. .:[id number] Sex ................................. : M Unsigned transcriptions are preliminary reports and do not represent a medical or legal document SPINE LS COMPLETE [id number] COMPLETE:02/01/21 07:30 AML [id number] Reason(s): Lower Back Pain LUMBOSACRAL SPINE 5 VIEWS INDICATION: Low back pain. COMPARISON: 10/16/2014 x-rays, 01/27/2021 CT FINDINGS: The vertebral bodies are normal height. No fracture or destructive bone lesion. Bilateral spondylolysis L5. 9 mm anterolisthesis L5-S1. Moderate hypertrophic changes are seen around the spondylolysis defects. Moderate disc space narrowing and endplate sclerosis L5- S1. Spina bifida occulta L5. Other disc spaces are well-preserved. There are small anterior endplate osteophytes throughout the lumbar spine. IMPRESSION: L5-S1 spondylolysis and grade 1 spondylolisthesis. Moderate degenerative disc disease. These findings are unchanged compared to previous study. Electronically Reviewed and Signed By Iain Sanchez MD , 02/01/21 11:35, JWS Transcribe Initials: DENISE , Transcribe Date: 02/01/21 11:12, Dictation Date: Copy for: EMERGENCY DEPT via modem Copy for: 710 MED REC DISCHARGED Page 1 of 1 Name Value Range Interpretation Code Description Data Radha rce(s) Supporting Document(s) ID Date Data Source [id number] 02/01/2021 03:23:00 AM EDT [facility] 1 OrderSheet [facility] Emergency Department [address] [place] [address] Phone #: ext- [phone] 02/01/2021 03:21 Patient: BRANDI SLOAN Sex: M : 1970 Age: 50yWEIGHT:104.3 kg (S) HEIGHT:67 inches (S) BMI:36.0ALLERGIES: No Known Drug AllergyCHIEF COMPLAINT: back painDIAGNOSIS: Lumbar sprainLAB ORDERSOrder Description Priority Entered Acknowledged InitialedDIAGNOSTIC STUDY ORDERSOrder Description Priority Entered Acknowledged InitialedSpine Lumbar STAT 05:25 02/01/2021 05:26 Eevtte Eugene Victoria Katelyn(Oxygen?(No)) ; Reason for Study: Lower Back PainMEDICATION/IV/DRIP/FLUID ORDERSOrder Description Priority Entered Acknowledged InitialedGENERAL ORDERSOrder Description Priority Entered Acknowledged Initialed[Electronically signed by Marlene Peters R.N. (06:37 02/01/2021)][Electronically signed by Jose Messer (06:42 02/01/2021)][Electronically locked by Marlene Peters R.N. (06:37 02/01/2021)] Name Value Range Interpretation Code Description Data Radha rce(s) Supporting Document(s) ID Date Data Source [id number] 02/01/2021 03:23:00 AM EDT [facility] 1 Medication Reconciliation Report [facility] Emergency Department [address] [place] [address] Phone #: ext- [phone] 02/01/2021 03:21 Patient: BRANDI SLOAN Sex: M : 1970 Age: 50yWeight: 104.3 kgHeight/Length: 67 in.BMI: 36.0ALLERGIES: No Known Drug AllergyThe patient's Home Medications are listed below:CONTINUE TAKING THE FOLLOWING MEDICATIONS: Aspirin Oral (81 mg), daily Ibuprofen Oral Lisinopril Oral (20 mg), daily metFORMIN HCl Oral (500 mg), 2x a day Omeprazole Oral 20 mg, daily Trulicity Subcutaneous, once a weekThe source(s) of the original Home Medication information:Not obtained.The following Medications were given to the patient in the Emergency Department:None.The following Medications were prescribed to the patient:None. Name Value Range Interpretation Code Description Data Radha e(s) Supporting Document(s) ID Date Data Source [id number] 02/01/2021 03:23:00 AM EDT [place] [address] Medication Administration Record [facility] Emergency Department [address] [place] [address] Phone #: ext- [phone] 02/01/2021 03:21 Patient: BRANDI SLOAN Sex: M : 1970 Age: 50yWeight: 104.3 kgHeight/Length: 67 inBMI: 36ALLERGIES: No Known Drug AllergyDate/Time Medication Administered Medication Ordered Name Value Range Interpretation Code Description Data Radha rce(s) Supporting Document(s) ID Date Data Source [id number] 02/01/2021 03:23:00 AM EDT [facility] 1 General Instructions [facility] Emergency Department [address] [place] [address] Phone #: ext- [phone] 02/01/2021 03:21 [id number] Sex: M : 1970 Age: 50yAcute lumbar strain.INSTRUCTIONS(the xray of your lower back is unchanged from the Ct scan done on 01/27/21. take the medicationsprescribed to you for pain and follow up with physical therapy).Your Current Medications: Your current home medications have been reviewed.CONTINUE TAKING THE FOLLOWING MEDICATIONS:Aspirin Oral : Tablet Chewable 81 mg, daily.Ibuprofen Oral.Lisinopril Oral : Tablet 20 mg, daily.metFORMIN HCl Oral : Tablet 500 mg, 2x a day.Omeprazole Oral : 20 mg daily.Trulicity Subcutaneous : once a week.Follow-up:Follow up with your healthcare provider Tuesday if not better. Reason for referral: evaluation. Summaryof care provided to patient via paper. Blood pressure screening was not performed during this visitbecause the patient has an active diagnosis of hypertension. The patient should follow up with a primarycare provider for blood pressure management. ADDITIONAL INFORMATIONSciatica 2 General Instructions [facility] Emergency Department [address] [place] [address] Phone #: ext- [phone] 02/01/2021 03:21 [id number] Sex: M : 1970 Age: 50ySciatica is a condition that causes pain in the lower back that spreads down into the buttock, hip, andleg. Sometimes the leg pain can happen without any back pain. Sciatica happens when a spinalnerve is irritated or has pressure put on it as it comes out of the spinal canal in the lower back. Thismost often happens when a bulge or rupture of a nearby spinal disk presses on the nerve. Sciaticacan also be caused by a narrowing of the spinal canal (spinal stenosis) or spasm of the muscle in thebuttocks that the sciatic nerve passes through (piriformis muscle). Sciatica may also be called lumbarradiculopathy.Sciatica may start after a sudden twisting or bending force, such as in a car accident. Or it canhappen after a simple awkward movement. In either case, muscle spasm often also happens. Musclespasm makes the pain worse.A healthcare provider makes a diagnosis of sciatica from your symptoms and a physical exam.Unless you had an injury from a car accident or fall, you usually won't have X-rays taken at this time.This is because the nerves and disks in your back can't be seen on an X- ray. If the provider seessigns of a compressed nerve, you will need to schedule an MRI scan. Nerve conductions studies andelectromyography are nerve tests that can also help find the cause of nerve pain. Signs of acompressed nerve include loss of strength in a leg.Most sciatica gets better with medicine, exercise, and physical therapy. If your symptoms continueafter medical treatment, you may need surgery or injections to your lower back, depending on howsevere your symptoms are.Home careFollow these tips when caring for yourself at home: 3 General Instructions [facility] Emergency Department [address] [place] [address] Phone #: ext- [phone] 02/01/2021 03:21 Patient: BRANDI SLOAN Sex: M : 1970 Age: 50y As soon as possible, start sitting up or walking. This will help you prevent problems that come from staying in bed for long periods. When in bed, try to find a position that is comfortable. A firm mattress is best. Try lying flat on your back with pillows under your knees. You can also try lying on your side with your knees bent up toward your chest and a pillow between your knees. Don't sit for long periods. This puts more stress on your lower back than standing or walking. Use heat from a hot shower, hot bath, or heating pad to help ease pain. Massage can also help. You can also try using an ice pack. You can make your own ice pack by putting ice cubes in a plastic bag. Wrap the bag in a thin towel. Try both heat and cold to see which works best. Use the method that feels best for 20 minutes several times a day. You may use acetaminophen or ibuprofen to ease pain, unless another pain medicine was prescribed. Note: If you have chronic liver or kidney disease, talk with your healthcare provider before taking these medicines. Also talk with your provider if you've had a stomach ulcer or gastrointestinal bleeding. Use safe lifting methods. Don't lift anything heavier than 15 pounds until all of the pain is gone.Follow-up careFollow up with your healthcare provider, or as advised. You may need physical therapy or more tests.If X-rays were taken, a radiologist will look at them. You will be told of any new findings that mayaffect your care.When to seek medical adviceCall your healthcare provider right away if any of these occur: Pain gets worse even after taking prescribed medicine Weakness or numbness in 1 or both legs or hips Numbness in your groin or genital area You can't control your bowel or bladder Fever (100.4 F or 38 C) Redness or swelling over your back or spine [id number] The [employer]. [address] [place] [address]. All rights reserved. This information is not intended as asubstitute for professional medical care. Always follow your healthcare professional's instructions. 4 General Instructions [facility] Emergency Department [address] [place] [address] Phone #: ext- [phone] 02/01/2021 03:21 Patient: BRANDI SLOAN Sex: M : 1970 Age: 50yYou have been given the following additional information:Sciatica(Electronically signed by Jose Messer 02/01/2021 06:42) Name Value Range Interpretation Code Description Data Radha rce(s) Supporting Document(s) ID Date Data Source [id number] 02/01/2021 03:23:00 AM EDT [facility] 1 Clinical Report - Nurses [facility] Emergency Department [address] [place] [address] Phone #: ext- [phone] 02/01/2021 03:21 Patient: BRANDI SLOAN Sex: M : 1970 Age: 50yTRIAGEArrived by private vehicle. Historian: patient. Unaccompanied.Acuity: LEVEL 4.Chief Complaint: BACK PAIN.Alert. No acute distress.Onset. (weeks). ( Patient arrives c/o tailbone pain. Pt states he has had this problem for weeks now andwas seen in this ER recently for same. Pt states he did not get results from MRI but was told to f/u withortho. Pt states he has not f/u with ortho yet or pcp. Pt states he just wants to make sure his tailbone is notany worse. Pt able to ambulate with cane to stretcher with steady gait.).Treatment [employer]:(IBU and flexiril last dose 2300 01/31/21). --05:21 02/01/21 Marlene Peters R.N.05:16 02/01/21. BP: 175/106. MAP: 129. HR: 84. RR: 18. O2 saturation: 97%. Temp: 98.2 F. Pain levelnow: 09/18. --05:21 02/01/21 Marlene Peters R.N.Weight: 104.3 kg stated. Height/Length: 67 inches Per Patient. BMI: 36. --05:15 02/01/21 Torchia, Marlene,R.N.MedicationsAspirin Oral (Tablet Chewable 81 mg), daily. Lisinopril Oral (Tablet 20 mg), daily. metFORMIN HCl Oral (Tablet 500 mg), 2x a day. Omeprazole Oral 20 mg, daily. Trulicity Subcutaneous, once a week. --05:02/01/21 Marlene Peters R.N. Ibuprofen Oral. --05:02/01/21 Marlene Peters R.N.AllergiesNo Known Drug Allergy. --05:02/01/21 Marlene Peters R.N.PROBLEMS:GERD.GI Disease.Diabetes Mellitus.Back Injury.Back Pain.Other Disease.Sacroiliitis. 2 Clinical Report - Nurses [facility] Emergency Department [address] [place] [address] Phone #: ext- [phone] 02/01/2021 03:21 Patient: BRANDI SLOAN Sex: M : 1970 Age: 50y Lumbar Strain. Herniated Disk. Hypertension. --05:02/01/21 Marlene Peters R.N. History PAST MEDICAL HX: Immunizations: up-to-date. SOCIAL HX: Never smoker. No alcohol use or drug use. He has not traveled outside the [place] Infectious disease exposure: No infectious disease exposure. The patient was not exposed to Coronavirus. Patient is not a known carrier of tuberculosis, hepatitis, HIV, MRSA or VRE. Patient is not a known carrier of CRE. SELF HARM ASSESSMENT: Self harm assessment was performed. The patient answered "no" to the question(s) "Have you recently felt down, depressed, or hopeless?", "Do you have thoughts of harming or killing yourself?", "Do you have a plan for harming or killing yourself?", "Have you recently had thoughts about harming or killing others?", "Do you have any dangerous items in your possession?", "Have you noticed less interest or pleasure in doing things?", "Are you here because you tried to hurt yourself?" and "Have you ever tried to hurt yourself before today?". ABUSE ASSESSMENT: Abuse assessment. The patient had positive responses to the question(s) "Do you feel safe in your home?", "Are you afraid to go home?", "Has anyone hurt you or threatened to hurt you?", "Are you afraid of your partner?" and "Have children witnessed violence in the home?". Abuse denied. No suspicion of abuse. NUTRITIONAL RISK ASSESSMENT: The nutritional risk assessment revealed no deficiencies. FUNCTIONAL ASSESSMENT: Functional assessment: no impairments noted. LEARNING NEEDS ASSESSMENT: The learning needs assessment revealed no barriers. FALL RISK ASSESSMENT: Fall risk assessment completed. No risk factors identified. SKIN INTEGRITY ASSESSMENT: Skin integrity risk assessment completed. No skin integrity risk identified. --0502/01/21 Marlene Peters R.N. Interventions Identification band on patient. To treatment room. --05:02/01/21 Marlene Peters R.N.PHYSICAL ASSESSMENTAmbulatory to room. Patient gowned.GENERAL / NEURO / PSYCH: Alert. Oriented X 4. Appears in no acute distress.RESPIRATORY: Respirations not labored. Chest nontender. Breath sounds within normal limits.CVS: Normal heart rate and rhythm. Capillary refill less than 2 seconds.GI / : Abdomen soft and nontender. Bowel sounds within normal limits.EXTREMITIES: Sensation intact in extremities. ROM of extremities within normal limits. 3 Clinical Report - Nurses [facility] Emergency Department [address] [place] [address] Phone #: ext- [phone] 02/01/2021 03:21 Patient: BRANDI SLOAN Sex: M : 1970 Age: 50y BACK: ( Pt reports increased back pain last night). Normal inspection of the neck and back. No neck or back tenderness. ROM of neck and back within normal limits. --05:22 02/01/21 Marlene Peters R.N.NURSING PROGRESS NOTESPatient gowned. Head of bed elevated. Reassurance given. Two patient identifiers checked. Call lightplaced in reach. Side rails up x 2. Bed placed in lowest position. Brakes of bed on. --05:21 02/01/21Marlene Peters R.N.DISPOSITION / DISCHARGE Condition at departure: stable. No learning barriers present. Discharge instructions provided and reviewed with the patient. Reviewed warnings. Reviewed medication(s). Treatments reviewed. Reviewed referrals. Patient verbalized understanding. Written instructions provided in Egyptian. The patient was discharged by the physician. He was discharged home. He left ambulatory and via private vehicle. Patient driving. --06:36 02/01/21 Marlene Peters R.N. 06:35 02/01/21. BP: 142/104. MAP: 116. HR: 92. RR: 17. O2 saturation: 96% on room air. Temp: 98.2 F. Pain level now: 10. Additional comments: MD Messer aware of d/c vs and okay with plan to d/c. --06:36 02/01/21 Marlene Peters R.N.Locked/Released at 02/01/2021 06:37 by Marlene Peters R.N. Name Value Range Interpretation Code Description Data Radha rce(s) Supporting Document(s) ID Date Data Source [id number] 02/01/2021 03:23:00 AM EDT [facility] 1 Clinical Report - Physicians/Mid Levels [facility] Emergency Department [address] [place] [address] Phone #: ext- [phone] 02/01/2021 03:21 Patient: BRANDI SLOAN Sex: M : 1970 Age: 50y Time Seen: 05:06 02/01/2021; initial patient contact, initial documentation. Arrived- By private vehicle. Historian- patient. Disposition decision: 06:27 02/01/2021.HISTORY OF PRESENT ILLNESS Chief Complaint: BACK PAIN. It is described as being moderate in degree and in the area of the lower lumbar spine and radiating to the left hip and thigh. The quality is noted to be aching. Onset- several weeks and it is still present (worse). It was gradual in onset. Additional history - Patient was seen in the ER 3 days ago and had a CT scan of the LS spine and read as L5-S1 bilateral spondylolysis and grade spondylolisthesis. moderate disc disease. moderate bilateral foraminal stenosis. he denies any new injury. no urinary or bowel disturbance. no saddle paresthesia. Patient denies an injury. Patient also notes injury to the head and neck.REVIEW OF SYSTEMSNo fever, chills, eye irritation, difficulty with urination or urinary frequency. No hematuria, skin rash,headache, depression or sore throat. No cough, difficulty breathing, chest pain, abdominal pain ornausea. No vomiting, diarrhea or bloody stools. All other systems reviewed and are negative.PAST HISTORYSee nurses notes. Problems: GERD. GI Disease. Diabetes Mellitus. Back Injury. Back Pain. Other Disease. Sacroiliitis. Lumbar Strain. Herniated Disk. Hypertension. Additional Surgeries: no known surgeries. Medications: Ibuprofen Oral. Aspirin Oral (Tablet Chewable 81 mg), daily. Lisinopril Oral (Tablet 20 mg), daily. metFORMIN HCl Oral (Tablet 500 mg), 2x a day. 2 Clinical Report - Physicians/Mid Levels [facility] Emergency Department [address] [place] [address] Phone #: ext- [phone] 02/01/2021 03:21 Patient: BRANDI SLOAN Sex: M : 1970 Age: 50y Omeprazole Oral 20 mg, daily. Trulicity Subcutaneous, once a week. Allergies: No Known Drug Allergy.SOCIAL HISTORYNever smoker. No alcohol use or drug use.ADDITIONAL NOTESThe nursing notes have been reviewed.PHYSICAL EXAMVital Signs: 02/01/2021 05:16 BP: 175/106. MAP: 129. HR: 84. RR: 18. O2 saturation: 97%. Temp: 98.2F. Pain level now: 6/10. Have been reviewed. Oxygen saturation not normal.Appearance: Alert. No acute distress.HEENT: Normal external inspection.Eyes: Pupils equal, round and reactive to light.ENT: Ears normal. Pharynx normal.Neck: Neck nontender. Painless ROM.CVS: Heart sounds normal. Pulses normal.Respiratory: No respiratory distress. Painless inspiration. Breath sounds normal.Abdomen: No visible injury. Soft and nontender. Bowel sounds normal. No organomegaly. No mass.Back: Normal inspection. Moderate vertebral point tenderness over the lower lumbar spine. No musclespasm in the back.Skin: Skin warm and dry. Normal skin color. No rash. Normal skin turgor.Extremities: Extremities exhibit normal ROM. Extremities nontender.Neuro: Oriented X 3. Mood/affect normal. No motor deficit. No sensory deficit. Straight leg raising:negative on the right and positive on the left at 45 degrees. Reflexes normal.PROGRESS AND PROCEDURESCourse of Care: 06:28 02/01/21. 50 y/o male presented to the ER with complaint of low back pain xseveral weeks he was seen i the ER on 01/27/[address] scan of the LS spine which showedspondylesthisis as well as spondylosis and spinal stenosis. he states that he has jose l resting but he stillhas pain . Xray was unchanged, he was advised to go for physical therapy and follow up with his regularand orthopedic doctor 06:32 02/01/21. BP went down to 142/104. he is due to take his BP Medication this morning. Patient counseled in person regarding the patient's stable condition, test results, diagnosis and need for follow-up. Patient agrees with plan of care. 06:27. Disposition: Discharged home in good and improved condition (06:27). Condition: good and stable. Discharge decision based on the following: patient's condition is stable; patient is ambulatory; stable condition on repeat evaluation; social support is adequate; transportation is available; follow-up is 3 Clinical Report - Physicians/Mid Levels [facility] Emergency Department [address] [place] [address] Phone #: [phone]- [phone] 02/01/2021 03:21 Patient: BRANDI SLOAN [facility]#: [id number] Sex: M : 1970 Age: 50y available; clinical impression is consistent with outpatient treatment.CLINICAL IMPRESSION Acute lumbar strain.INSTRUCTIONS (the xray of your lower back is unchanged from the Ct scan done on 01/27/21. take the medications prescribed to you for pain and follow up with physical therapy). Your Current Medications: Your current home medications have been reviewed. CONTINUE TAKING THE FOLLOWING MEDICATIONS: Aspirin Oral : Tablet Chewable 81 mg, daily. Ibuprofen Oral. Lisinopril Oral : Tablet 20 mg, daily. metFORMIN HCl Oral : Tablet 500 mg, 2x a day. Omeprazole Oral : 20 mg daily. Trulicity Subcutaneous : once a week. Follow-up: Follow up with your healthcare provider Tuesday if not better. Reason for referral: evaluation. Summary of care provided to patient via paper. Blood pressure screening was not performed during this visit because the patient has an active diagnosis of hypertension. The patient should follow up with a primary care provider for blood pressure management.(Electronically signed by Jose Messer 02/01/2021 06:42) Name Value Range Interpretation Code Description Data Radha rce(s) Supporting Document(s) ID Date Data Source [id number] 01/29/2021 02:14:00 AM EDT [facility] 1 OrderSheet [facility] Emergency Department [address] [place], [place] [id number] Phone #: [phone]- [phone] 01/29/2021 02:14 Patient: BRANDI SLOAN Sex: M : 1970 Age: 50yWEIGHT:104.3 kg (S) HEIGHT:67 inches (S) BMI:36.0ALLERGIES: No Known Drug AllergyCHIEF COMPLAINT: sore throatLAB ORDERSOrder Description Priority Entered Acknowledged InitialedRapid Strep Screen STAT 02:35 01/29/2021 02:38 Madeleine Sherwin Salamanca R.N. RPuja; Verbal order per; Dominick Uriarte M.D.DIAGNOSTIC STUDY ORDERSOrder Description Priority Entered Acknowledged InitialedMEDICATION/IV/DRIP/FLUID ORDERSOrder Description Priority Entered Acknowledged InitialedDexamethasone 03:06 01/29/2021 Ack'd: 03:08 Madeleine 03:15 Madeleine BlairPO 8 mg Jaime, Dominick Salamanca R.N., M.D.;Amoxicillin 03:06 01/29/2021 Ack'd: 03:08 Madeleine 03:15 Madeleine BlairCapsules PO 1000 Jaime, Dominick Sanchez M.DRadha;GENERAL ORDERSOrder Description Priority Entered Acknowledged Initialed[Electronically signed by Madeleine Mccray R.N. (03:24 01/29/2021)][Electronically signed by Dominick Uriarte M.D. (03:36 01/29/2021)][Electronically locked by Madeleine Mccray R.N. (03:24 01/29/2021)] Name Value Range Interpretation Code Description Data Radha rce(s) Supporting Document(s) ID Date Data Source [id number] 01/29/2021 02:14:00 AM EDT [facility] 1 Medication Reconciliation Report [facility] Emergency Department [address] [place] [address] Phone #: [phone]- [phone] 01/29/2021 02:14 Patient: BRANDI SLOAN Sex: M : 1970 Age: 50yWeight: 104.3 kgHeight/Length: 67 in.BMI: 36.0ALLERGIES: No Known Drug AllergyThe patient's Home Medications are listed below:CONTINUE TAKING THE FOLLOWING MEDICATIONS: Aspirin Oral (81 mg), daily Lisinopril Oral (20 mg), daily metFORMIN HCl Oral (500 mg), 2x a day Omeprazole Oral 20 mg, daily Trulicity Subcutaneous, once a weekThe source(s) of the original Home Medication information:Not obtained.The following Medications were given to the patient in the Emergency Department:Dexamethasone [PO] PO 8 mg, administered: 03:15 01/29/2021MOXICILLIN CAPSULES [PO] PO 1000 mg, administered: 03:15 01/29/2021The following Medications were prescribed to the patient:amoxicillin 875 mg tablet Take 1 tablet twice a day for 7 days -- Dispense 14 tablet. Refills: 0.Substitution permitted.Pharmacy - [facility] [id number] [place] [address]. [phone] .prednisone 20 mg tablet Take 2 tablet once a day for 5 days -- Dispense 10 tablet. Refills: 0.Substitution permitted.Pharmacy - [facility] [address] [place] [address]. Phone: 2 Medication Reconciliation Report [facility] Emergency Department [address] [place] [address] Phone #: [phone]- [phone] 01/29/2021 02:14 Patient: BRANDI SLOAN Sex: M : 1970 Age: [phone] . -- Dominick Uriarte M.D. Name Value Range Interpretation Code Description Data [facility] ID Date Data Source [id number] 01/29/2021 02:14:00 AM EDT [facility] 1 Medication Administration Record [facility] Emergency Department [address] [place] [address] Phone #: ext- [phone] 01/29/2021 02:14 Patient: BRANDI SLOAN Sex: M : 1970 Age: 50yWeight: 104.3 kgHeight/Length: 67 inBMI: 36ALLERGIES: No Known Drug Allergy Date/Time Medication Administered Medication OrderedGiven DEXAMETHASONE [PO] Dexamethasone PO 8 mg03:15 01/29/2021 Dose: 8 mg Solution/Elixir Caity Salamanca R.N.Given AMOXICILLIN CAPSULES [PO] Amoxicillin Capsules PO 1000 mg03:15 01/29/2021 Dose: 1000 mg Capsules Caity Salamanca R.N. Name Value Range Interpretation Code Description Data [facility](s) Supporting Document(s) ID Date Data Source [id number] 01/29/2021 02:14:00 AM EDT [facility] 1 General Instructions [facility] Emergency Department [address] [place] [address] Phone #: ext- [phone] 01/29/2021 02:14 Patient: BRANDI SLOAN Sex: M : 1970 Age: 50yAcute Uvulitis.INSTRUCTIONSDrink plenty of fluids. Do not smoke. Lose weight. No alcohol.Warnings: Further evaluation is necessary. It is very important to follow up with a healthcare provider.GENERAL WARNINGS: Return or contact your physician immediately if your condition worsens orchanges unexpectedly, if not improving as expected, or if other problems arise. Specifically return if pain,vomiting, bleeding, breathing difficulty or fever greater than 102 degrees F and not controlled byacetaminophen or ibuprofen.Your Current Medications: Your current home medications have been reviewed.CONTINUE TAKING THE FOLLOWING MEDICATIONS:Aspirin Oral : Tablet Chewable 81 mg, daily.Lisinopril Oral : Tablet 20 mg, daily.metFORMIN HCl Oral : Tablet 500 mg, 2x a day.Omeprazole Oral : 20 mg daily.Trulicity Subcutaneous : once a week.Prescription Medications:amoxicillin 875 mg tablet Take 1 tablet twice a day for 7 days -- Dispense 14 tablet. Refills: 0.Substitution permitted.[facility] - [facility] [address] [place] [address]. Phone: .prednisone 20 mg tablet Take 2 tablet once a day for 5 days -- Dispense 10 tablet. Refills: 0.Substitution permitted.[facility] [address] [place] [address]. .Follow-up:Return to the emergency department as needed. Follow up with your healthcare provider in three dayseven if well. Call for an appointment. Reason for referral: evaluation and treatment. Summary of careprovided to patient via paper.Understanding of the discharge instructions verbalized by patient. Expected course of illness, dischargeinstructions, activity level, diet, prescriptions x2, follow-up appointment and risks and benefits of treatment 2 General Instructions [facility] Emergency Department [address] [place] [address] Phone #: ext- [phone] 01/29/2021 02:14 -------- Patient: BRANDI SLOAN Sex: M : 1970 Age: 50yreviewed with patient and understanding verbalized. Agrees to plan of care.(Electronically signed by Dominick Uriarte M.D. 01/29/2021 03:36) Name Value Range Interpretation Code Description Data Radha rce(s) Supporting Document(s) ID Date Data Source [id number] 01/29/2021 02:14:00 AM EDT [facility] 1 Clinical Report - Nurses [facility] Emergency Department [address] [place] [address] Phone #: ext- [phone] 01/29/2021 02:14 Patient: BRANDI SLOAN Sex: M : 1970 Age: 50yTRIAGEArrived by private vehicle. Historian: patient.Triage time: 02:12 01/29/2021.Chief Complaint: SORE THROAT.Onset. (1 1/2 hours ago). ( states that his "made him come in" that he thinks that it is his acid reflux.States that he "coughed a little bit of blood once" ate some spicy meatballs 4-5 hrs ago).Treatment [employer]NA[employer]:(mouthwash gargle). --02:01/29/21 Madeleine Salamanca R.N.Acuity: LEVEL 5.SEPSIS SCREEN: SEPSIS SCREEN NEGATIVE. No suspected or confirmed signs of infection present.--02:01/29/21 Madeleine Salamanca R.N.02:01/29/21. BP: 164/88. MAP: 113. HR: 69. RR: 16. O2 saturation: 98%. Temp: 98.2 F. Pain levelnow: 05/21. --02:26 01/29/21 Madeleine Salamanca R.N.Acuity: LEVEL 5. --02:01/29/21 Madeleine Salamanca R.N.Weight: 104.3 kg stated. Height/Length: 67 inches Per Patient. BMI: 36. --02:26 01/29/21 Madeleine Pop R.N.MedicationsAspirin Oral (Tablet Chewable 81 mg), daily. Lisinopril Oral (Tablet 20 mg), daily. metFORMIN HCl Oral (Tablet 500 mg), 2x a day. Omeprazole Oral 20 mg, daily. Trulicity Subcutaneous, once a week. --0201/29/21 Madeleine Salamanca R.N.AllergiesNo Known Drug Allergy. --:01/29/21 Madeleine Salamanca R.N.PROBLEMS:GERD.Lumbar Strain.Hypertension.Sacroiliitis. 2 Clinical Report - Nurses [facility] Emergency Department [address] [place] [address] Phone #: ext- [phone] 01/29/2021 02:14 Patient: BRANDI SLOAN Sex: M : 1970 Age: 50y Herniated Disk. Back Injury. GI Disease. Diabetes Mellitus. --02:01/29/21 Madeleine Salamanca R.N. ADDITIONAL SURGERIES: no known surgeries. History PAST MEDICAL HX: No history of strep throat or mononucleosis. Immunizations: (had COVID vaccines Moderna). SOCIAL HX: Former smoker, end date 2016 (chews tobacco). No alcohol use or drug use. He was offered HIV testing but declined and hepatitis C testing but declined. He has not traveled outside the [place] Infectious disease exposure: No infectious disease exposure. SELF HARM ASSESSMENT: Self harm assessment was performed. The patient answered "no" to the question(s) "Do you have thoughts of harming or killing yourself?" and "Have you recently had thoughts about harming or killing others?". ABUSE ASSESSMENT: No report of abuse. FALL RISK ASSESSMENT: Fall risk assessment completed. No risk factors identified. --02:01/29/21 Madeleine Salamanca R.N.PHYSICAL ASSESSMENTAmbulatory to room.GENERAL / NEURO / PSYCH: Alert. Oriented X 4. Appears in no acute distress.RESPIRATORY: Respirations not labored.SKIN: Skin is warm and dry. --02:30 01/29/21 Madeleine Salamanca R.N.NURSING PROGRESS NOTESCall light placed in reach. Bed placed in lowest position. Brakes of bed on. --02:29 01/29/21 Madeleine Pop R.N. Patient ID band checked for patient name and birthdate. Throat swab obtained for rapid strep; labeled in the presence of the patient and sent to lab. --02:38 01/29/21 Madeleine Salamanca R.N. 03:15 01/29/2021 Dexamethasone PO Solution/Elixir 8 mg given. Allergies verified and confirmed 5 rights. Information reviewed with patient including reason for taking this medication. Verbalizes understanding. --03:15 01/29/21 Madeleine Salamanca R.N. 03:15 01/29/2021 AMOXICILLIN CAPSULES PO Capsules 1000 mg given. Allergies verified and confirmed 5 rights. Information reviewed with patient including reason for taking this medication. Verbalizes understanding. --03:15 01/29/21 Madeleine Saalmanca R.N. 3 Clinical Report - Nurses [facility] Emergency Department [address] [place] [address] Phone #: ext- [phone] 01/29/2021 02:14 Patient: BRANDI SLOAN Sex: M : 1970 Age: 50yDISPOSITION / DISCHARGE Departure time: 03:22 01/29/2021. Condition at departure: stable. Reviewed medication(s) information. Prescription(s) sent electronically to pharmacy. Patient verbalized understanding. The patient was discharged by the physician. He was discharged home. He left ambulatory and via private vehicle. --03:23 01/29/21 Madeleine Salamanca R.N. 03:22 01/29/21. BP: 149/89. MAP: 109. HR: 73. RR: 16. O2 saturation: 99%. Temp: 98.7 F. Pain level now: 0. --03:23 01/29/21 Madeleine Salamanca R.N.Locked/Released at 01/29/2021 03:24 by Madeleine Salamanca R.N. Name Value Range Interpretation Code Description Data Radha rce(s) Supporting Document(s) ID Date Data Source [id number] 01/29/2021 02:14:00 AM EDT [facility] 1 Clinical Report - Physicians/Mid Levels [facility] Emergency Department [address] [place] [address] Phone #: ext- [phone] 01/29/2021 02:14 Patient: BRANDI SLOAN Sex: M : 1970 Age: 50y Time Seen: 03:01 01/29/2021; initial patient contact. Arrived- By private vehicle. Historian- patient. Disposition decision: 03:11 01/29/2021.HISTORY OF PRESENT ILLNESS Chief Complaint: SORE THROAT. This started just prior to arrival and is still present. It was gradual in onset and has been constant. Pain described as mild. The patient has had a mild sore throat with pain upon swallowing. No mouth sores, nasal discharge or congestion, ear p ain or toothache. No swollen jaw or face, jaw pain or facial pain. Similar symptoms previously. Patient has had similar symptoms occasionally. Recent medical care: The patient was seen recently at this facility. ( 2 days ago for back pain).REVIEW OF SYSTEMSNo fever, eye discomfort, cough, difficulty breathing or chest pain. No nausea, diarrhea, abdominal pain,difficulty with urination or headache. No joint pain, skin rash, enlarged lymph nodes or vomiting. All othersystems reviewed and are negative.PAST HISTORYSee nurses notes. Problems: GERD. Lumbar Strain. Hypertension. Sacroiliitis. Herniated Dis k. Back Injury. Diabetes Mellitus. Additional Surgeries: no known surgeries. Medications: Aspirin Oral (Tablet Chewable 81 mg), daily. Lisinopril Oral (Tablet 20 mg), daily. metFORMIN HCl Oral (Tablet 500 mg), 2x a day. Omeprazole Oral 20 mg, daily. Trulicity Subcutaneous, once a week. 2 Clinical Report - Physicians/Mid Levels [facility] Emergency Department [address] [place] [address] Phone #: ext- [phone] 01/29/2021 02:14 Patient: BRANDI SLOAN Sex: M : 1970 Age: 50y Allergies: No Known Drug Allergy.SOCIAL HISTORYFormer smoker, end date 2016. No alcohol use or drug use. No recent travel.ADDITIONAL NOTESThe nursing notes have been reviewed with agreement regarding the chief complaint, HPI, ROS, PMH andpatient medications and allergies.PHYSICAL EXAMVital Signs: 01/29/2021 02:25 BP: 164/88. MAP: 113. HR: 69. RR: 16. O2 saturation: 98%. Temp: 98.2 F.Pain level now: 2/10. Have been reviewed. Oxygen saturation normal.Appearance: Alert. No acute distress.Head: Normal external inspection.Eyes: Pupils equal, round and reactive to light. Conjunctivae and eyelids normal.ENT: Ears normal. Nose normal. Lips normal. Gums normal. No trismus present. Uvula midline.No tonsillar exudate, muffled or hoarse voice or drooling. (mildly swollen uvula, slightly erythematous).Neck: Normal inspection. Trachea midline. No adenopathy. Thyroid normal. Neck supple.CVS: Normal heart rhythm and rate. Heart sounds normal. Pulses normal.Respiratory: No respiratory distress. Painless inspiration. Breath sounds normal. Chest nontender.Abdomen: Soft and nontender. No organomegaly. Mildly obese.Skin: Normal skin color. No rash. Normal skin turgor.Extremities: Extremities exhibit normal ROM. Extremities nontender.Neuro: Oriented X 3. No motor deficit. No sensory deficit.LABS, X-RAYS, AND EKGLaboratory Tests: Laboratory tests have been order ed, with results reviewed and considered in themedical decision making process. Rapid Strep Screen: (ANGI: 01/29/2021 02:35) ( MsgRcvd 01/29/2021 02:50) Final results Test Result Flag Units (Reference) RAPID STREP NEGATIVE (NORMAL: NEGAT RAPID STREP REENTER NEGATIVE (NORMAL: NEGAT { PROCEDURAL CONTROL VALID ){ KIT LOT # [id number] ){ KIT EXP DATE 05-08-22 )The Strep A 2 assay utilizes isothermal nucleic acid amplification technology fothe qualitative detection of Group A Strep bacterial nucleic acid in throat swabspecimens.All negative test results no longer need to be confirmed with a culture. Follow-up testing requiring a culture is necessary if clinical symptoms persist, or inthe event of an acute rheumatic fever outbreak. A culture will need to beordered by the Qualified Medical Provider.Negative results do not preclude infection with Group A Strep and should not beused as the sole basis for treatment..PROGRESS AND PROCEDURESCourse of Care: 03:11 01/29/21. pt has clinical uvulitis, rapid strep neg., will treat accordingly; d/cinstructions given, pt understands and agrees. 3 Clinical Report - Physicians/Mid Levels [facility] Emergency Department [address] [place] [address] Phone #: ext- [phone] 01/29/2021 02:14 Patient: BRANDI SLOAN Sex: M : [birth year] Age: 50y Patient counseled in person regarding the patient's stable condition, test results, diagnosis and need for follow-up. Patient agrees with plan of care. Disposition: Condition: good and stable. Discharge decision based on the following: patient's condition is stable; patient's condition is improved; patient is ambulatory; patient is active; patient drinking fluids; patient eating; patient's pain is controlled; patient's exam is improved; no abnormal test results; improving condition on multiple repeat evaluations; social support is good; transportation is available; follow-up is available; clinical impression is consistent with outpatient treatment.CLINICAL IMPRESSION Acute Uvulitis.INSTRUCTIONS Drink plenty of fluids. Do not smoke. Lose weight. No alcohol. Warnings: Further evaluation is necessary. It is very important to follow up with a healthcare provider. GENERAL WARNINGS: Return or contact your physician immediately if your condition worsens or changes unexpectedly, if not improving as expected, or if other problems arise. Specifically return if pain, vomiting, bleeding, breathing difficulty or fever greater than 102 degrees F and not controlled by acetaminophen or ibuprofen. Your Current Medications: Your current home medications have been reviewed. CONTINUE TAKING THE FOLLOWING MEDICATIONS: Aspirin Oral : Tablet Chewable 81 mg, daily. Lisinopril Oral : Tablet 20 mg, daily. metFORMIN HCl Oral : Tablet 500 mg, 2x a day. Omeprazole Oral : 20 mg daily. Trulicity Subcutaneous : once a week. Prescription Medications: amoxicillin 875 mg tablet Take 1 tablet twice a day for 7 days -- Dispense 14 tablet. Refills: 0. Substitution permitted. Pharmacy - [facility] [address] [place] [address]. . prednisone 20 mg tablet Take 2 tablet once a day for 5 days -- Dispense 10 tablet. Refills: 0. Substitution permitted. Pharmacy - [facility] [address] [place] [address]. Phone: 4 Clinical Report - Physicians/Mid Levels [facility] Emergency Department [address] [place] [address] Phone #: ext- [phone] 01/29/2021 02:14 Patient: BRANDI SLOAN Sex: M : 1970 Age: 50y . Follow-up: Return to the emergency department as needed. Follow up with your healthcare provider in three days even if well. Call for an appointment. Reason for referral: evaluation and treatment. Summary of care provided to patient via paper. Understanding of the discharge instructions verbalized by patient. Expected course of illness, discharge instructions, activity level, diet, prescriptions x2, follow-up appointment and risks and benefits of treatment reviewed with patient and understanding verbalized. Agrees to plan of care.(Electronically signed by Dominick Uriarte M.D. 01/29/2021 03:36) Name Value Range Interpretation Code Description Data Radha rce(s) Supporting Document(s) ID Date Data Source [id number] 01/29/2021 02:50:00 AM EDT [facility] Name Value Range Interpretation Code Description Data [facility] Supporting Document(s) RAPID STREP NEGATIVE NORMAL: NEGATIVE [facility] RAPID STREP REENTER NEGATIVE NORMAL: NEGATIVE [facility] { PROCEDURAL CONTROL VALID ){ KIT LOT # [id number] ){ KIT EXP DATE 05-08-22 )The Strep A 2 assay utilizes isothermal nucleic acid amplification technology fothe qualitative detection of Group A Strep bacterial nucleic acid in throat swabspecimens.All negative test results no longer need to be confirmed with a culture. Follow-up testing requiring a culture is necessary if clinical symptoms persist, or inthe event of an acute rheumatic fever outbreak. A culture will need to beordered by the Qualified Medical Provider.Negative results do not preclude infection with Group A Strep and should not beused as the sole basis for treatment. ID Date Data Source [id number] 01/28/2021 10:28:00 AM EDT [facility] [address] [place] [address] PHONE: [phone] FAX: [phone] Name .................. : KYLIE PAZ Acct Number.................. : [id number] ROOM. ................. : VT-31 MR Number ................... : [id number] Stay type ............. : E/R Discharge Date......... ... : 01/28/21 Admit Date ......... : 01/27/21 Admit Phys .................... : JUWAN Date of ....... : 1970 Family Phys ................... : ARMANDO [employer] Phone .................. : [phone] Age ................................ : 50 Film# .................. .:[id number] Sex ................................. : M Unsigned transcriptions are preliminary reports and do not represent a medical or legal document CT LUMBAR SP W/O CONT 88060 COMPLETE:01/28/21 03:13 MWB [id number] Reason(s): low back pain to both lower extremities CT LUMBAR SPINE WITHOUT IV CONTRAST INDICATION: Low back pain to both lower extremities COMPARISON: X-rays 10/16/2014 CONTRAST: None PROCEDURE: The patient is scanned axially from T12 to the sacrum. Multiplanar reconstructions are performed. One or more of the following dose reduction techniques were utilized in effectively lowering the radiation dose for this examination: Automated Exposure Control, Adjustment of the mA and/or kV according to patient size, or Iterative reconstruction. FINDINGS: The lumbar vertebral bodies are normal height No fracture or significant bone lesion. L1- 2, L2-3, L3-4 unremarkable. L4-5: Mild disc degeneration with small amount of gas in the disc space. Mild disc bulge. No disc herniation or stenosis. L5-S1: Bilateral spondylolysis L5. 6 mm anterolisthesis. Mild disc space narrowing. Moderate amount of gas in the disc space indicating disc degeneration. Disc is uncovered and bulging. Mild to moderate hypertrophic changes around the spondyl olysis defects. No canal stenosis. Moderate bilateral foraminal stenosis. IMPRESSION: L5-S1 bilateral spondylolysis and grade 1 spondylolisthesis. Moderate degenerative disc disease. Moderate bilateral foraminal stenosis. Page 1 of 2 [facility] [address] [place] [address] PHONE: [phone] FAX: [phone] Name .................. : KYLIE PAZ Acct Number.................. : [id number] [facility] ................. [facility] Number ................... : [id number] Stay type ............. : E/R Discharge Date......... ... : 01/28/21 Admit Date ......... : 01/27/21 Admit Phys .................... : JUWAN Date of ....... : 1970 Family Phys ................... : ARMANDO AMAYA Phone .................. : [phone] Age ................................ : 50 Film# .................. .:[id number] Sex ................................. : M Unsigned transcriptions are preliminary reports and do not represent a medical or legal document CT LUMBAR SP W/O CONT 50503 COMPLETE:01/28/21 03:13 MWB 35171 Reason(s): low back pain to both lower extremities Electronically Reviewed and Signed By Iain Sanchez MD , 01/28/21 10:28, GRAEME Transcribe Initials: SSR, Transcribe Date: 01/28/21 10:06, Dictation Date: Copy for: EMERGENCY DEPT via modem Copy for: 710 MED REC DISCHARGED Page 2 of 2 Name Value Range Interpretation Code Description Data Radha rce(s) Supporting Document(s) ID Date Data Source [id number] 01/27/2021 09:46:00 PM EDT [facility] 1 OrderSheet [facility] Emergency Department [address] [place] [address] Phone #: ext- [phone] 01/27/2021 21:45 Patient: BRANDI SLOAN Sex: M : 1970 Age: 50yWEIGHT:104.3 kg HEIGHT:67 inches BMI:36.0ALLERGIES: No Known Drug AllergyCHIEF COMPLAINT: back pain, back injuryDIAGNOSIS: Intervertebral disc prolapseLAB ORDERSOrder Description Priority Entered Acknowledged InitialedDIAGNOSTIC STUDY ORDERSOrder Description Priority Entered Acknowledged InitialedCT LUMBAR SP STAT 23:26 01/27/2021 23:30 Valorie,W/O CONT Jose Messer(Oxygen?(No)) ;(IV?(No)) Reason for Study: low back pain to both lower extremitiesMEDICATION/IV/DRIP/FLUID ORDERSOrder Description Priority Entered Acknowledged InitialedToradol IM 60 mg 23:26 01/27/2021 23:30 Valorie,(NOW) Jose Messer ;predniSONE PO 40 23:26 01/27/2021 23:30 Valorie,mg (NOW) Jose Messer ;GENERAL ORDERSOrder Description Priority Entered Acknowledged Initialed[Electronically signed by Marlene Peters R.N. (01:40 01/28/2021)][Electronically signed by Jose Messer (02:48 01/28/2021)][Electronically locked by Marlene Peters R.N. (01:40 01/28/2021)] Name Value Range Interpretation Code Description Data Ardha rce(s) Supporting Document(s) ID Date Data Source [id number] 01/27/2021 09:46:00 PM EDT [facility] 1 Medication Reconciliation Report [facility] Emergency Department [address] [place] [address] Phone #: [phone]- [phone] 01/27/2021 21:45 Patient: BRANDI SLOAN Sex: M : 1970 Age: 50yWeight: 104.3 kgHeight/Length: 67 in.BMI: 36.0ALLERGIES: No Known Drug AllergyThe patient's Home Medications are listed below:CONTINUE TAKING THE FOLLOWING MEDICATIONS: Aspirin Oral (81 mg), daily Lisinopril Oral (20 mg), daily metFORMIN HCl Oral (500 mg), 2x a day Omeprazole Oral 20 mg, daily Trulicity Subcutaneous, once a weekThe source(s) of the original Home Medication information:Not obtained.The following Medications were given to the patient in the Emergency Department:Toradol [IM] IM 60 mg, administered: 23:30 01/27/2021rednisone [PO] PO 40 mg, administered: 23:30 01/27/2021The following Medications were prescribed to the patient:IBU 800 mg tablet Take 1 tablet three times a day as needed for pain for 15 days -- Dispense 45 tablet.Refills: 0. Substitution permitted.Pharmacy - [facility] [address] [place] [address]. Phone: .cyclobenzaprine 10 mg tablet Take 1 tablet three times a day for 7 days -- prn muscle spasms. Kddzhaio54 tablet. Refills: 0. Substitution permitted.Pharmacy - [facility] [address] [place] [address]. Phone: 2 Medication Reconciliation Report [facility] Emergency Department [address] [place] [address] Phone #: ext- [phone] 01/27/2021 21:45 Patient: BRANDI SLOAN Sex: M : 1970 Age: [phone] .prednisone 10 mg tablet Take 4 tablet once a day -- for 2 days then 3 tabs daily x 2 days then 2 tabsdaily x 2 days then 1 tab daily x 2 days. Dispense 20 tablet. Refills: 0. Substitution pe rmitted.Pharmacy - [facility] [address] [place] [address]. . -- Jose Messer Name Value Range Interpretation Code Description Data Radha rce(s) Supporting Document(s) ID Date Data Source [id number] 01/27/2021 09:46:00 PM EDT [facility] 1 Medication Administration Record [facility] Emergency Department [address] [place] [address] Phone #: ext- [phone] 01/27/2021 21:45 Patient: BRANDI SLOAN Sex: M : 1970 Age: 50yWeight: 104.3 kgHeight/Length: 67 inBMI: 36ALLERGIES: No Known Drug Allergy Date/Time Medication Administered Medication OrderedGiven TORADOL [IM] (KETOROLAC Toradol IM 60 mg (NOW)23:30 01/27/2021 TROMETHAMINE)Peggy Eugene, Dose: 60 mg IMGiven PREDNISONE [PO] predniSONE PO 40 mg (NOW)23:30 01/27/2021 Dose: 40 mg Peggy Estrada, Name Value Range Interpretation Code Description Data Radha rce(s) Supporting Document(s) ID Date Data Source [id number] 01/27/2021 09:46:00 PM EDT [facility] 1 General Instructions [facility] Emergency Department [address] [place] [address] Phone #: ext- [phone] 01/27/2021 21:45 Patient: BRANDI SLOAN Sex: M : 1970 Age: 50yHerniated disc (nontraumatic) at the lower lumbar level with sciatica.INSTRUCTIONSNo strenuous activity.(the Ct scan of the lumbar spine showed spondilisthesis of Le on S1. take the prednisone,motrin andflexeril as prescribed. avoid bending , lifting heavy objects. follow up with orthopedics in 2 to 3 days. takethe otrin every 8 hours only as needed for pain.).Your Current Medications: Your current home medications have been reviewed.CONTINUE TAKING THE FOLLOWING MEDICATIONS:Aspirin Oral : Tablet Chewable 81 mg, daily.Lisinopril Oral : Tablet 20 mg, daily.metFORMIN HCl Oral : Tablet 500 mg, 2x a day.Omeprazole Oral : 20 mg daily.Trulicity Subcutaneous : once a week.Prescription Medications:IBU 800 mg tablet Take 1 tablet three times a day as needed for pain for 15 days -- Dispense 45 tablet.Refills: 0. Substitution permitted.Pharmacy - [facility] [id number] [place] [address]. FaxNumber: [phone].cyclobenzaprine 10 mg tablet Take 1 tablet three times a day for 7 days -- prn muscle spasms. Edpqjhhx45 tablet. Refills: 0. Substitution permitted.[facility] [address] [place] [address]. .prednisone 10 mg tablet Take 4 tablet once a day -- for 2 days then 3 tabs daily x 2 days then 2 tabsdaily x 2 days then 1 tab daily x 2 days. Dispense 20 tablet. Refills: 0. Substitution permitted.[facility] [address] [place] [address]. .Follow-up:Follow up with your healthcare provider in two days. Reason for referral: evaluation. Summary of careprovided to patient.Follow-up with: [facility], , , [address] [place] [address] 201, , 2 General [facility] Emergency Department [address] [place] [address] Phone #: ext- [phone] 01/27/2021 21:45 Patient: BRANDI SLOAN Sex: M : 1970 [place]: [place], [address] Follow up in two days. Call for an appointment. Reason for referral: evaluation. Summary of careprovided to patient via paper. ADDITIONAL INFORMATIONBack Pain (Acute or Chronic)Back pain is one of the most common problems. The good news is that most people feel better in 1 to2 weeks, and most of the rest in 1 to 2 months. Most people can remain active.People who have pain describe it differently--not everyone is the same. The pain can be sharp, stabbing, shooting, aching, cramping or burning. Movement, standing, bending, lifting, sitting, or walking may worsen pain. 3 General Instructions [facility] Emergency Department [address] [place] [address] Phone #: ext- [phone] 01/27/2021 21:45 [id number] Sex[facility] M : 1970 Age: 50y It can be limited to one spot or area, or it can be more generalized. It can spread upwards, to the front, or go down your arms or legs (sciatica). It can cause muscle spasm.Most of the time, mechanical problems with the muscles or spine cause the pain. Mechanicalproblems are usually caused by an injury to the muscles or ligaments. Illness can cause back pain,but it's usually not caused by a serious illness. Mechanical problems include: Physical activity such as sports, exercise, work, or normal activity Overexertion, lifting, pushing, pulling incorrectly or too aggressively Sudden twisting, bending, or stretching from an accident, or accidental movement Poor posture Stretching or moving wrong, without noticing pain at the time Poor coordination, lack of regular exercise (check with your doctor about this) Spinal disc disease or arthritis StressPain can also be related to , or illness like appendicitis, bladder or kidney infections, pelvicinfections, and many other things.Acute back pain usually gets better in 1 to 2 weeks. Back pain related to disk disease, arthritis in thespinal joints, or narrowing of the spinal canal (spinal stenosis) can become chronic and last formonths or years.Unless you had a physical injury such as a car accident or fall, X-rays are usually not needed for thefirst assessment of back pain. If pain continues and does not respond to medical treatment, you mayneed X-rays and other tests.Home careTry this home care advice: When in bed, try to find a position of comfort. A firm mattress is best. Try lying flat on your back with pi llows under your knees. You can also try lying on your side with your knees bent up toward your chest and a pillow between your knees. At first, don't try to stretch out the sore spots. If there is a strain, it's not like the good soreness you get after exercising without an injury. In this case, stretching may make it worse. Don't sit for long periods, as in a long car ride or during other travel. This puts more stress on 4 General Instructions [facility] Emergency Department [address] [place] [address] Phone #: ext- [phone] 01/27/2021 21:45 Patient: BRANDI SLOAN Sex: M : 1970 Age: 50y the lower back than standing or walking. During the first 24 to 72 hours after an acute injury or flare up of chronic back pain, apply an ice pack to the painful area for 20 minutes and then remove it for 20 minutes. Do this over a period of 60 to 90 minutes or several times a day. This will reduce swelling and pain. Wrap the ice pack in a thin towel or plastic to protect your skin. You can start with ice, then switch to heat. Heat (hot shower, hot bath, or heating pad) reduces pain and works well for muscle spasms. Heat can be applied to the painful area for 20 minutes then remove it for 20 minutes. Do this over a period of 60 to 90 minutes or several times a day. Don't sleep on a heating pad. It can lead to skin lamar or tissue damage. You can alternate ice and heat therapy. Talk with your doctor about the best treatment for your back pain. Therapeutic massage can help relax the back muscles without stretching them. Be aware of safe lifting methods and don't lift anything without stretching first.MedicinesTalk to your doctor before using medicine, especially if you have other medical problems or are takingother medicines. You may use sheq-deb-qthxknf medicine as directed on the bottle to control pain, unless another pain medicine was prescribed. If you have chronic conditions like diabetes, liver or kidney disease, stomach ulcers, or gastrointestinal bleeding, or are taking blood thinners, talk to your doctor before taking any medicine. Be careful if you are given a prescription medicines, narcotics, or medicine for muscle spasms. They can cause drowsiness, affect your coordination, reflexes, and judgement. Don't drive or operate heavy machinery.Follow-up careFollow up with your healthcare provider, or as advised.If X-rays were taken, you will be told of any new findings that may affect your careCall all 911 if any of the following occur: Trouble breathing Confusion 5 General Instructions [facility] Emergency Department [address] [place] [address] Phone #: ext- [phone] 01/27/2021 21:45 Patient: BRANDI SLOAN Sex: M : 1970 Age: 50y Very drowsy or trouble awakening Fainting or loss of consciousness Rapid or very slow heart rate Loss of bowel or bladder controlWhen to seek medical adviceCall your healthcare provider right away if any of these occur: Pain becomes worse or spreads to your legs Weakness or numbness in one or both legs Numbness in the groin or genital area [phone] [employer]. [address] [place] [address]. All rights reserved. This information is not intended as asubstitute for professional medical care. Always follow your healthcare professional's instructions. You have been given the following additional information: Back Pain (Acute or Chronic) No strenuous activity.(Electronically signed by Jose Messer 01/28/2021 02:48) Name Value Range Interpretation Code Description Data Radha rce(s) Supporting Document(s) ID Date Data Source [id number] 01/27/2021 09:46:00 PM EDT [facility] 1 Clinical Report - Nurses [facility] Emergency Department [address] [place] [address] Phone #: ext- [phone] 01/27/2021 21:45 Patient: BRANDI SLOAN Sex: M : 1970 Age: 50yTRIAGEArrived by private vehicle. Historian: patient.Acuity: LEVEL 4.Chief Complaint: BACK PAIN and NUMBNESS (L lower x3 days, seen at [facility] recently for same.Numbness to LLE. Ambulates w/cane.).Alert. No acute distress.The patient has had numbness (LLE). 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 SEPSIS SCREEN NEGATIVE. No suspected or confirmedsigns of infection present. --22:05 01/27/21 Rita Sanchez R.N.21:59 01/27/21. BP: 136/87. MAP: 103. HR: 77. RR: 18. O2 saturation: 94%. Temp: 97.5 F. Pain levelnow: 4/10. (stabbing). --22:05 01/27/21 Rita Sanchez R.N.Weight: 104.3 kg. Height/Length: 67 inches. BMI: 36. --22:02 01/27/21 Rita Sanchez R.N.MedicationsTrulicity Subcutaneous, once a week. --22:08 01/27/21 Rita Sanchez R.N. Aspirin Oral (Tablet Chewable 81 mg), daily. --22:08 01/27/21 Rita Sanchez R.N. Lisinopril Oral (Tablet 20 mg), daily. --22:08 01/27/21 Rita Sanchez R.N. metFORMIN HCl Oral (Tablet 500 mg), 2x a day. --22:08 01/27/21 Rita Sanchez R.N. Omeprazole Oral 20 mg, daily. --22:08 01/27/21 Rita Sanchez R.N.The following entry was struck by Rita Sanchez R.N., 22:07 (01/27/21) Reason - other. Unknown. --22:05 01/27/21 Rita Sanchez R.N. .AllergiesNo Known Drug Allergy. --22:04 01/27/21 Rita Sanchez R.N.PROBLEMS:GI Disease.Back Injury.Lumbar Strain.Diabetes Mellitus. 2 Clinical Report - Nurses [facility] Emergency Department [address] [place] [address] Phone #: ext- [phone] 01/27/2021 21:45 Patient: BRANDI SLOAN Sex: M : 1970 Age: 50y Sacroiliitis. Back Pain. Hypertension. --22:01/27/21 Rita Sanchez R.N. ADDITIONAL SURGERIES: no known surgeries. History SOCIAL HX: Former smoker. No alcohol use or drug use. He was offered HIV testing but declined and hepatitis C testing but declined. He has not traveled outside the [place] Infectious disease exposure: No infectious disease exposure. The patient was not exposed to Coronavirus. SELF HARM ASSESSMENT: Self harm assessment was performed. The patient answered "no" to the question(s) "Have you recently felt down, depressed, or hopeless?" and "Have you recently had thoughts about harming or killing others?". ABUSE ASSESSMENT: No report of abuse. NUTRITIONAL RISK ASSESSMENT: The nutritional risk assessment revealed no deficiencies. FUNCTIONAL ASSESSMENT: Functional assessment: no impairments noted. LEARNING NEEDS ASSESSMENT: The learning needs assessment revealed no barriers. FALL RISK ASSESSMENT: Fall risk assessment completed. No risk factors identified. SKIN INTEGRITY ASSESSMENT: Skin integrity risk assessment completed. No skin integrity risk identified. --22:05 01/27/21 Wood, Rita, R.N. Interventions Identification band on patient. To waiting room. --22:05 01/27/21 Rita Sanchez R.N.PHYSICAL ASSESSMENTlate entry - 22:35 01/27/21. Ambulatory to room.GENERAL / NEURO / PSYCH: Alert. Oriented X 4. Appears in no acute distress.RESPIRATORY: Respirations not labored. Chest nontender. Breath sounds within normal limits.CVS: Normal heart rate and rhythm. Capillary refill less than 2 seconds.GI / : Abdomen soft and nontender. Bowel sounds within normal limits.EXTREMITIES: Sensation intact in extremities. ROM of extremities within normal limits.BACK: Normal inspection of the neck and back. Limited ROM of the back (due to pain). Soft tissuetenderness. --23:36 01/27/21 Peggy Eugene.NURSING PROGRESS NOTESTwo patient identifiers checked. Patient ready for evaluation- chart flagged and ED physician notified. 3 Clinical Report - Nurses [facility] Emergency Department [address] [place] [address] Phone #: ext- [phone] 01/27/2021 21:45 Patient: BRANDI SLOAN Sex: M : 1970 Age: 50y --22:05 01/27/21 Rita Sanchez R.N. late entry - 22:20 01/27/21. Patient gowned. Reassurance given. Two patient identifiers checked. Call light placed in reach. Side rails up x 2. Bed placed in lowest position. Brakes of bed on. --23:35 01/27/21 Peggy Eugene 23:30 01/27/2021 Toradol (Ketorolac Tromethamine) IM 60 mg given. Given in the right deltoid. Allergies verified and confirmed 5 rights. Information reviewed with patient including reason for taking this medication, signs of allergic reaction and precautions. Verbalizes understanding. --23:30 01/27/21 Peggy Eugene 23:30 01/27/2021 Prednisone PO 40 mg given. Allergies verified and confirmed 5 rights. Information reviewed with patient including reason for taking this medication, signs of allergic reaction and precautions. Verbalizes understanding. --23:30 01/27/21 ValorieElvira moyerelyn.DISPOSITION / DISCHARGE 01:14 01/28/21. BP: 156/91. HR: 73. RR: 18. O2 saturation: 98%. Temp: 98.4 F. Pain level now 06/18. --01:14 01/28/21 Peggy Eugene Condition at departure: stable. No learning barriers present. Discharge instructions provided and reviewed with the patient. Reviewed warnings. Reviewed medication(s) side effects, precautions, dosing and course information. Prescription(s) given to the patient and sent electronically to pharmacy. Medication(s) for home use given to the patient per protocol. Treatments reviewed. Reviewed referral to an orthopedic surgeon for followup. Activity restrictions reviewed. Patient verbalized understanding. Written instructions provided in Egyptian. The patient was discharged by the physician. He was discharged home. He left ambulatory and via private vehicle. Patient driving. --01:38 01/28/21 Marlene Peters R.N.Locked/Released at 01/28/2021 01:40 by Marlene Peters R.N. Name Value Range Interpretation Code Description Data Radha rce(s) Supporting Document(s) ID Date Data Source [id number] 01/27/2021 09:46:00 PM EDT [facility] 1 Clinical Report - Physicians/Mid Levels [facility] Emergency Department [address] [place] [address] Phone #: ext- [phone] 01/27/2021 21:45 [id number] Sex: M : 1970 Age: 50y Time Seen: 22:58 01/27/2021; initial patient contact, initial documentation. Arrived- By private vehicle. Historian- patient. Disposition decision: 01:10 01/28/2021.HISTORY OF PRESENT ILLNESS Chief Complaint: BACK INJURY and BACK PAIN. It is described as being severe and in the area of the lower lumbar spine. The quality is noted to be aching. No radiation. Onset- 3 days ago and it is still present (persistent). It was gradual in onset and has been constant. No bladder dysfunction, bowel dysfunction, sensory loss or motor loss. Additional history - Patient states that he was dismantled a bed and was bending and had severe pain on the lower back. was seen at [facility] 2 days ago and was given 2 shots of pain medication and discharged home no imaging done. denies saddle paresthesia. urinary or bowel disturbance. he has pain on movement. Patient notes the possibility of an injury. Mechanism of injury- he was lifting and bending. Occurred at home. No injury to the head or neck.REVIEW OF SYSTEMSNo fever, chills, eye irritation, difficulty with urination or urinary frequency. No hematuria, skin rash,headache, depression or sore throat. No cough, difficulty breathing, abdominal pain, nausea or vomiting.No diarrhea, black stools or bloody stools. All other systems reviewed and are negative.PAST HISTORYSee nurses notes. Problems: GI Disease. Back Injury. Lumbar Strain. Diabetes Mellitus. Sacroiliitis. Back Pain. Hypertension. Additional Surgeries: no known surgeries. Medications: Omeprazole Oral 20 mg, daily. metFORMIN HCl Oral (Tablet 500 mg), 2x a day. Lisinopril Oral (Tablet 20 mg), daily. Aspirin Oral (Tablet Chewable 81 mg), daily. 2 Clinical Report - Physicians/Mid Levels [facility] Emergency Department [address] [place] [address] Phone #: ext- [phone] 01/27/2021 21:45 Patient: BRANDI SLOAN Sex: M : 1970 Age: 50y Trulicity Subcutaneous, once a week. Allergies: No Known Drug Allergy.SOCIAL HISTORYFormer smoker. No alcohol use or drug use.ADDITIONAL NOTESThe nursing notes have been reviewed.PHYSICAL EXAMVital Signs: 01/27/2021 21:59 BP: 136/87. MAP: 103. HR: 77. RR: 18. O2 saturation: 94%. Temp: 97.5 F.Pain level now: 07/19. Have been reviewed.Appearance: Alert. No acute distress.HEENT: Normal external inspection.Eyes: Pupils equal, round and reactive to light.ENT: Ears normal. Pharynx normal.Neck: Normal inspection. Neck nontender. Painless ROM.CVS: Pulses normal.Respiratory: No respiratory distress. Painless inspiration. Breath sounds normal.Abdomen: No visible injury. Soft and nontender. Bowel sounds normal. No organomegaly. No mass.Back: Normal inspection. Severe vertebral point tenderness over the lower lumbar spine. Limited ROMin the back. No soft tissue tenderness or CVA tenderness.Skin: Skin warm. Normal skin color. No rash. Normal skin turgor.Extremities: Extremities exhibit normal ROM. Extremities nontender.Neuro: Oriented X 3. Mood/affect davin l. No cranial nerve deficit. No motor deficit. No sensorydeficit. No sensory deficit. Straight leg raising: negative on the right and negative on the left. Normalgait.LABS, X-RAYS, AND EKGCT L-Spine: Note- FINDINGS:Vertebrae: No acute fracture. 6.6 mm of anterolisthesis of L5 over S1 secondary to bilateral parsdefects. The remaining lumbar vertebra are in anatomic alignment.Discs/Spinal canal/Neural foramina: There is severe disc desiccation is pseudo bulge at L5-S1. Nosignificant disc protrusion. No severe spinal canal stenosis. No significant neural foraminal narrowing.Soft tissues: Unremarkable.I MPRESSION:1. 6.6 mm of anterolisthesis of L5 over S1 secondary to bilateral pars defects.2. Severe disc desiccation is pseudo bulge at L5-S1 associated with bilateral foraminal narrowing.3. No evidence of central canal stenosis.PROGRESS AND PROCEDURESCourse of Care: 01:10 01/28/21. 50 y/o male with herniated disc presented to the ER with low back painx 3 days after he tried to dismantle a bed by himself. he has been having pain x 3 days . he went to 3 Clinical Report - Physicians/Mid Levels [facility] Emergency Department [address] [place] [address] Phone #: ext- [phone] 01/27/2021 21:45 [id number] Sex: M : 1970 Age: 50y [facility] and given 2 shots for pain and nothing else was done. he denies any urinary or bowel disturbance. no saddle paresthesia. he had tenderness on the lower lumbar spine. no straight leg test noted. Given Toradol and Prednisone. he felt better and was able to walk. CT of the LS spine showed 6 mm anterolisthisis of L5 to S1 . he was discharged home with Flexeril , prednisone taper and motrin and advised follow up with PMD in 2 days. Patient counseled in person regarding the patient's stable condition, test results, diagnosis and need for follow-up. Patient agrees with plan of care. 01:10. Disposition: Discharged home in good and improved condition. Condition: good and stable. Discharge decision based on the following: patient's condition is improved; patient is ambulatory; patient's pain is controlled; patient's exam is improved; stable condition on multiple repeat evaluations; social support is adequate; transportation is available; follow-up is available; clinical impression is consistent with outpatient treatment.CLINICAL IMPRESSION Herniated disc (nontraumatic) at the lower lumbar level with sciatica.INSTRUCTIONS No strenuous activity. (the Ct scan of the lumbar spine showed spondilisthesis of Le on S1. take the prednisone,motrin and flexeril as prescribed. avoid bending , lifting heavy objects. follow up with orthopedics in 2 to 3 days. take the otrin every 8 hours only as needed for pain.). Your Current Medications: Your current home medications have been reviewed. CONTINUE TAKING THE FOLLOWING MEDICATIONS: Aspirin Oral : Tablet Chewable 81 mg, daily. Lisinopril Oral : Tablet 20 mg, daily. metFORMIN HCl Oral : Tablet 500 mg, 2x a day. Omeprazole Oral : 20 mg daily. Trulicity Subcutaneous : once a week. Prescription Medications: IBU 800 mg tablet Take 1 tablet three times a day as needed for pain for 15 days -- Dispense 45 tablet. Refills: 0. Substitution permitted. [facility] [address] [place] [address]. . cyclobenzaprine 10 mg tablet Take 1 tablet three times a day for 7 days -- prn muscle spasms. Dispense 21 tablet. Refills: 0. Substitution permitted. 4 Clinical Report - Physicians/Mid Levels [facility] Emergency Department [address] [place] [address] Phone #: ext- [phone] 01/27/2021 21:45 Patient: BRANDI SLOAN Sex: M : 1970 Age: 50y Pharmacy [facility] [address] [place] [address]. . prednisone 10 mg tablet Take 4 tablet once a day -- for 2 days then 3 tabs daily x 2 days then 2 tabs daily x 2 days then 1 tab daily x 2 days. Dispense 20 tablet. Refills: 0. Substitution permitted. [facility] [address] [place] [address]. . Follow-up: Follow up with your healthcare provider in two days. Reason for referral: evaluation. Summary of care provided to patient. Follow-up with: [facility], , , [address], [address] Follow up in two days. Call for an appointment. Reason for referral: evaluation. Summary of care provided to patient via paper.(Electronically signed by Jose Messer 01/28/2021 02:48) Name Value Range Interpretation Code Description Data Radha rce(s) Supporting Document(s) ID Date Data Source [id number] 01/27/2021 12:45:[address] [facility] ED Physician Documentation NAME: BRANDI SLOAN : 1970 AGE: 50 MR#: [id number] SERVICE DATE: 01/26/[address]: Kp Baltazar MD PRIMARY CARE DR: Lynne Nunez NP ROOM#: HPI (Adult, General) General Chief Complaint: Musculoskeletal Stated Complaint: BACK PAIN Resident [facility], travel outisde home, exposure to hot tubs:: No Time Seen by Provider: 01/27/21 00:40 Source: patient Exam Limitations: no limitations History of Present Illness Narrative: 50 yo man with multiple medical problems, and chronic back pain, seen in the ER last night for increased pain after moving furniture, treated and released, returns tonight requesting an MRI. Allergies/Home Meds Allergies Allergy/AdvReac Type Severity Reaction Status Date / Time No Known Drug Allergies Allergy Verified 01/27/21 00:33 No Known Food Allergies Allergy Verified 01/27/21 00:33 Home Medications Medication Instructions Recorded Confirmed Last Taken Type aspirin 81 mg tablet,delayed 1 tab PO DAILY #30 tab 08/02/16 01/27/21 01/26/21 History release zonisamide 50 mg capsule 50 mg PO BID 06/04/19 01/27/21 01/26/21 History blood glucose control high and low #1 ea 01/28/20 01/27/21 01/26/21 Rx solution (Accu-Chek Tabby Control Soln) blood-glucose meter (Accu-Chek #1 ea 01/28/20 01/27/21 01/26/21 Rx Tabby Plus Meter) lancets (Accu-Chek Softclix #100 ea 01/28/20 01/27/21 01/26/21 Rx Lancets) lancing device with lancets kit #100 ea 01/28/20 01/27/21 01/26/21 Rx (Accu-Chek Soft Dev Lancets) dulaglutide 1.5 mg/0.5 mL 1.5 mg (0.5 mL) SQ WEEKLY #2 ml 10/23/20 01/27/21 01/26/21 Rx subcutaneous pen injector (Trulicity) blood sugar diagnostic (Accu-Chek #100 ea 11/12/20 01/27/21 01/26/21 Rx Tabby Plus test strp) atorvastatin 10 mg tablet 10 mg PO DAILY #90 tab 12/30/20 01/27/21 01/26/21 Rx diclofenac sodium 75 mg 75 mg PO BID #30 tab 12/30/20 01/27/21 01/26/21 Rx tablet,delayed release levocetirizine 5 mg tablet (Xyzal) 5 mg PO DAILY #90 tab 12/30/20 01/27/21 01/26/21 Rx lisinopril 40 mg tablet 40 mg PO DAILY #90 tab 12/30/20 01/27/21 01/26/21 Rx metformin 500 mg tablet,extended 1,000 mg PO BID #360 tab 12/30/20 01/27/21 01/26/21 Rx release 24 hr omeprazole 40 mg capsule,delayed 40 mg PO DAILY #90 cap 12/30/20 01/27/21 01/26/21 Rx release tamsulosin 0.4 mg capsule 0.4 mg PO QDAY #90 cap 12/30/20 01/27/21 01/26/21 Rx PMH (from Triage) Patient Medical History PMH Reviewed/Updated as Needed: Yes PMH/PSH from Triage: Medical History (Updated 09/03/20 @ 08:41 by Gin Mooney) Allergic rhinitis due to pollen (Medical) Anxiety disorder (Medical 01/01/11) F41.9 Congenital hydrocele (Medical) Continuous chewing tobacco dependence (Medical 09/20/14) F17.220 Diabetes mellitus (Medical) Essential hypertension (Medical 01/01/11) I10 Learning disability (Medical) Left knee pain (Medical) M25.562 he was offered a wheelchair to be escorted to x-ray, he declined Morbid obesity (Medical) Obesity (Medical) Morbidly obese Tobacco use disorder, continuous (Medical) Type 2 diabetes mellitus without complication, without long-term current use of insulin (Medical 03/16/16) E11.9 Surgical History History of vasectomy (Surgical 12/25/12) Hx Drug Resistant Infections Hx MRSA: (Methicillin-resistant Staphylococcus aureus): No Hx VRE (Vancomycin-resistant enterococci): No Hx C.Diff: No Hx CRKP: No Hx Other Resistant Infection?: No Isolation: Standard precautions Hx Recent Travel Out of the country within 10 days (where): No Hx Fever: No Hx Fever with a rash?: No Nurse screening for coronavirus: Recent Travel outside the No country (where) Social History Does patient have suicidal/homicidal thoughts or ideation?: No Are you in a relationship with/Does anyone hit you, yell/swear at you, steal from you?: No Substance Use Hx Alcohol Use: No Hx Substance Use: No Hx Substance Use Treatment: No Smoking Status: Former smoker Tobacco Use Years smoked:: 29 Hx Chewing Tobacco Use: Yes Vaccination History Hx/Date of Tetanus, Diphtheria Vaccination: No Hx/Date of Influenza Vaccination: Yes Hx/Date of Pneumococcal Vaccination: No ROS Review of Systems Constitutional: Denies fever or chills Respiratory: Denies cough or SO B Cardiovascular: Denies chest pain Gastrointestinal: Denies abdominal pain Genitourinary-Male: Denies dysuria Musculoskeletal: Reports back pain Skin/Breasts: Denies rash Neurologic: Denies weakness, numbness or paresthesias Endocrine: Denies Loss of appetite Allergic/Immunologic: Denies rash Physical Exam General Physical Exam Narrative: obese man, awake and alert, NAD Limitations: no limitations General appearance: alert and in no apparent distress Head Head exam: Present atraumatic, normocephalic and normal inspection Eye Eye exam: Present normal apperance and EOMI; Absent scleral icterus or conjunctival injection ENT ENT exam: Present normal exam, normal orophraynx and mucous membranes moist Neck Neck exam: Present normal inspection and full ROM; Absent tenderness Respiratory Respiratory exam: Present normal lung sounds bilaterally; Absent respiratory distress Cardiovascular Cardiovascular Exam: Present regular rate and normal rhythm GI/Abdominal GI/Abdominal exam: Present Abd soft, bowel sounds present all quadrents and distended; Absent tenderness Extremities Exam Extremities exam: Present normal inspection and full ROM; Absent tenderness Back Exam Back exam: Present normal inspection, full ROM, tenderness (L lower lumbar) and muscle spasm Neurological Exam Neurological exam: Present alert, oriented X3 and normal gait; Absent motor sensory deficit Psychiatric Psychiatric exam: Present normal affect and normal mood Skin Skin exam: Present warm, dry, intact and normal color Vital Signs Vital Signs: Vital Signs 01/27/21 00:32 Temperature 98.2 F Pulse Rate 63 Respiratory Rate 16 Blood Pressure 142/86 O2 Sat by Pulse Oximetry 97 MDM (comprehensive) Medical Decision Making Free Text/Narative:: The patient was evaluated for acute on chronic back pain. The PE was significant for L sided lower back tenderness on palpation with normal gait noted. He was informed that MRI is unavailable in theearly morning and he can follow-up with his primary care to schedule one as an outpatient. [facility] Medical History Allergic rhinitis due to pollen Anxiety disorder (01/01/11) Congenital hydrocele Continuous chewing tobacco dependence (09/20/14) Diabetes mellitus Essential hypertension (01/01/11) Learning disability Left knee pain Morbid obesity Obesity Tobacco use disorder, continuous Type 2 diabetes mellitus without complication, without long-term current use of insulin (03/16/16) Surgical History History of vasectomy (12/25/12) Family History Mother Chronic low back pain Father Chronic low back pain Sister Mental retardation Brother No problems noted. Social History Does the Patient have a Healthcare Proxy: No Does Patient have a DNR?: No Does Patient have a Living Will?: No Does the Patient have a MOLST?: No Advance Directives on File or in chart?: No household members: spouse housing: apartment marital status: highest education level completed: high school graduate current occupational status: unemployed pets and animals: Yes leisure activities: other Hx Recent Travel (where): No well-balanced diet: about half the time caffeine: Yes high-fat food intake: 2 times daily daily servings fruits/ve-4 daily servings of milk/calcium: 2-4 eating out: rarely or never reads food labels: usually or always during the past year weight has: remained stable what type of physical activity do you participate in?: walking Smoking Status: Former smoker alcohol intake: former details: 06/16/2013 last substance use type: does not use seatbelt use: always water heater temp set < 120 deg: Yes working smoke detector in home: Yes fire extinguisher in home: No carbon monox detector in home: No firearms in home: No victim of physical abuse: No victim of emotional abuse: No Plan Plan Plan: d/c home Plan of care: Follow up appointments discussed, Plan of care discussed with patient and or family, Patient encouraged to ask questions about plan and Patient agrees with plan of care Discharge Plan Admission/Discharge Dx Primary DC Diagnosis: Chronic Back Pain ED Provider: Kp Baltazar ED Status: Discharged Time Seen by Provider: 01/27/21 00:40 Triaged At: 01/26/21 23:11 Condition Condition: Stable Discharge Detail Disposition: Home, Self-Care Med Rec New Prescriptions: No Action atorvastatin 10 mg tablet 10 mg PO DAILY Qty: 90 3RF levocetirizine [Xyzal] 5 mg tablet 5 mg PO DAILY Qty: 90 3RF lisinopril 40 mg tablet 40 mg PO DAILY Qty: 90 3RF metformin 500 mg tablet extended release 24 hr 1,000 mg PO BID Qty: 360 3RF omeprazole 40 mg capsule,delayed release(DR/EC) 40 mg PO DAILY Qty: 90 3RF tamsulosin 0.4 mg capsule 0.4 mg PO QDAY Qty: 90 3RF aspirin 81 MG tablet,delayed release (DR/EC) 1 tab PO DAILY Qty: 30 11RF zonisamide 50 mg capsule 50 mg PO BID 0RF (DME) blood-glucose meter [Accu-Chek Tabby Plus Meter] Misc See Rx Instructions .ROUTE .MEDSUPPLY Qty: 1 0RF Rx Instructions: Test 3X Daily (DME) Accu-Chek Tabby Control Soln Solution See Rx Instructions .ROUTE .MEDSUPPLY Qty: 1 3RF Rx Instructions: Use As Directed (DME) lancets [Accu-Chek Softclix Lancets] Misc See Rx Instructions .ROUTE .MEDSUPPLY Qty: 100 5RF Rx Instructions: Use 3X Daily (DME) lancing device with lancets [Accu-Chek Soft Dev Lancets] Kit See Rx Instructions .ROUTE .MEDSUPPLY Qty: 100 5RF Rx Instructions: Use 3X Daily Trulicity 1.5 mg/0.5 mL pen injector 1.5 mg SQ WEEKLY Qty: 2 5RF (DME) Accu-Chek Tabby Plus test strp Strip See Rx Instructions .ROUTE .MEDSUPPLY Qty: 100 5RF Rx Instructions: Use 3X Daily diclofenac sodium 75 mg tablet,delayed release (DR/EC) 75 mg PO BID Qty: 30 0RF Rx Instructions: Do not take with naproxen Medications Medication reconciliation performed by provider at discharge: Yes Follow Up Care/Instructions Diet/Activity/Wound Care..: Primary Care follow-up as dis cussed *Discharge Patient* Discharge Orders: Discharge Order (Routine); Ordered 01/27/21 Ordered By: Kp Baltazar Discharge Date/Time: 01/27/21 00:50 Interventions Interventions: ED Discharge Instructions Last Done: 01/27/21 00:51 Report Signers: <Electronically signed by Kp Baltazar MD> Kp Baltazar MD 01/27/21 030 Kp Baltazar MD SIGNATURE DA Report Cosigners: D: ARACELIS 01/27/2144 T: ARACELIS 01/27/2144 CC: Lynne Nunez Name Value Range Interpretation Code Description Data Radha rce(s) Supporting Document(s) ID Date Data Source [id number] 01/26/2021 12:27:[address] [facility] ED Physician Documentation NAME: BRANDI SLOAN : 1970 AGE: 50 MR#: [id number] SERVICE DATE: 01/26/[address]: Kp Baltazar MD PRIMARY CARE DR: Lynne Nunez NP ROOM#: HPI (Adult, General) General Chief Complaint: Musculoskeletal Stated Complaint: BACK PAIN Resident LT, travel outisde home, exposure to hot tubs:: No Time Seen by Provider: 01/26/21 00:19 Source: patient Exam Limitations: no limitations History of Present Illness Narrative: 50 yo man with PMHX significant for HTN, HLD, DM, chronic back pain, c/o increased L sided low back pain since earlier this afternoon. He notes that he was moving furniture today. He has no radiation to the pain and no leg weakness or numbness. His blood sugars have been controlled recently with levels always below 150 noted. No ETOH, + chewing tobacco. Allergies/Home Meds Allergies Allergy/AdvReac Type Severity Reaction Status Date / Time No Known Drug Allergies Allergy Verified 01/26/21 00:56 No Known Food Allergies Allergy Verified 01/26/21 00:56 Home Medications Medication Instructions Recorded Confirmed Last Taken Type aspirin 81 mg tablet,delayed 1 tab PO DAILY #30 tab 08/02/16 12/30/20 09/03/20 History release zonisamide 50 mg capsule 50 mg PO BID 06/04/19 12/30/20 09/03/20 History blood glucose control high and low #1 ea 01/28/20 12/30/20 09/03/20 Rx solution (Accu-Chek Tabby Control Soln) blood-glucose meter (Accu-Chek #1 ea 01/28/20 12/30/20 09/03/20 Rx Tabby Plus Meter) lancets (Accu-Chek Softclix #100 ea 01/28/20 12/30/20 09/03/20 Rx Lancets) lancing device with lancets kit #100 ea 01/28/20 12/30/20 09/03/20 Rx (Accu-Chek Soft Dev Lancets) dulaglutide 1.5 mg/0.5 mL 1.5 mg (0.5 mL) SQ WEEKLY #2 ml 10/23/20 12/30/20 Unknown [facility] blood sugar diagnostic (Accu-Chek #100 ea 11/12/20 12/30/20 Unknown Rx Tabby Plus test strp) atorvastatin 10 mg tablet 10 mg PO DAILY #90 tab 12/30/20 12/30/20 Unknown Rx diclofenac sodium 75 mg 75 mg PO BID #30 tab 12/30/20 Unknown Rx tablet,delayed release levocetirizine 5 mg tablet (Xyzal) 5 mg PO DAILY #90 tab 12/30/20 12/30/20 Unknown Rx lisinopril 40 mg tablet 40 mg PO DAILY #90 tab 12/30/20 12/30/20 Unknown Rx metformin 500 mg tablet,extended 1,000 mg PO BID #360 tab 12/30/20 12/30/20 Unknown Rx release 24 hr omeprazole 40 mg capsule,delayed 40 mg PO DAILY #90 cap 12/30/20 12/30/20 Unknown Rx release tamsulosin 0.4 mg capsule 0.4 mg PO QDAY #90 cap 12/30/20 12/30/20 Unknown Rx PMH (from Triage) Patient Medical History PMH Reviewed/Updated as Needed: Yes PMH/PSH from Triage: Medical History (Updated 09/03/20 @ 08:41 by Gin Mooney) Allergic rhinitis due to pollen (Medical) Anxiety disorder (Medical 01/01/11) F41.9 Congenital hydrocele (Medical) Continuous chewing tobacco dependence (Medical 09/20/14) F17.220 Diabetes mellitus (Medical) Essential hypertension (Medical 01/01/11) I10 Learning disability (Medical) Left knee pain (Medical) M25.562 he was offered a wheelchair to be escorted to x-ray, he declined Morbid obesity (Medical) Obesity (Medical) Morbidly obese Tobacco use disorder, continuous (Medical) Type 2 diabetes mellitus without complication, without long-term current use of insulin (Medical 03/16/16) E11.9 Surgical History History of vasectomy (Surgical 12/25/12) Hx Drug Resistant Infections Hx MRSA: (Methicillin-resistant Staphylococcus aureus): No Hx VRE (Vancomycin- resistant enterococci): No Hx C.Diff: No Hx CRKP: No Hx Other Resistant Infection?: No Isolation: Standard precautions Hx Recent Travel Out of the country within 10 days (where): No Hx Fever: No Hx Fever with a rash?: No Nurse screening for coronavirus: Recent Travel outside the No country (where) Has patient experienced No coronavirus symptoms Social History Does patient have suicidal/homicidal thoughts or ideation?: No Are you in a relationship with/Does anyone hit you, yell/swear at you, steal from you?: No Substance Use Hx Alcohol Use: No Hx Substance Use: No Hx Substance Use Treatment: No Smoking Status: Former smoker Tobacco Use Years smoked:: 29 Hx Chewing Tobacco Use: Yes Vaccination History Hx/Date of Tetanus, Diphtheria Vaccination: Yes Hx/Date of Influenza Vaccination: Yes Hx/Date of Pneumococcal Vaccination: Yes ROS Review of Systems C onstitutional: Denies fever Respiratory: Denies SOB Cardiovascular: Denies chest pain Gastrointestinal: Denies abdominal pain Genitourinary-Male: Denies dysuria or frequency Musculoskeletal: Reports back pain; Denies leg pain Skin/Breasts: Denies rash Neurologic: Denies weakness, numbness or paresthesias Endocrine: Denies Loss of appetite Allergic/Immunologic: Denies rash Physical Exam General Physical Exam Narrative: obese man, awake and alert, no acute distress noted Limitations: no limitations General appearance: alert, in no apparent distress and obese Head Head exam: Present atraumatic, normocephalic and normal inspection Eye Eye exam: Present normal apperance and EOMI; Absent scleral icterus or conjunctival injection ENT ENT exam: Present normal exam, normal orophraynx and mucous membranes moist Neck Neck exam: Present normal inspection and full ROM; Absent tenderness Respiratory Respiratory exam: Present normal lung sounds bilaterally; Absent respiratory distress Cardiovascular Cardiovascular Exam: Present regular rate and normal rhythm GI/Abdominal GI/Abdominal exam: Present Abd soft, bowel sounds present all quadrents and distended; Absent tenderness Extremities Exam Extremities exam: Present normal inspection and full ROM; Absent tenderness Back Exam Back exam: Present normal inspection, tenderness (L lower lumbar) and muscle spasm; Absent full ROM Neurological Exam Neurological exam: Present alert and oriented X3; Absent motor sensory deficit Psychiatric Psychiatric exam: Present normal affect and normal mood Skin Skin exam: Present warm, dry, intact and normal color Vital Signs Vital Signs: Vital Signs 01/26/21 00:03 Temperature 98.5 F Pulse Rate 72 Respiratory Rate 16 Blood Pressure 132/79 MDM (comprehensive) Medical Decision Making Free Text/Narative:: The patient was evaluated for acute on chronic low back pain. The PE was significant for L lower lumbar discomfort on palpation with spasm noted. He was treated with toradol and Decadron with imrpovement. [facility] Medical History Allergic rhinitis due to pollen Anxiety disorder (01/01/11) Congenital hydrocele Continuous chewing tobacco dependence (09/20/14) Diabetes mellitus Essential hypertension (01/01/11) Learning disability Left knee pain Morbid obesity Obesity Tobacco use disorder, continuous Type 2 diabetes mellitus without complication, without long-term current use of insulin (03/16/16) Surgical History History of vasectomy (12/25/12) Family History Mother Chronic low back pain Father Chronic low back pain Sister Mental retardation Brother No problems noted. Social History Does the Patient have a Healthcare Proxy: No Does Patient have a DNR?: No Does Patient have a Living Will?: No Does the Patient have a MOLST?: No Advance Directives on File or in chart?: No household members: spouse housing: apartment marital status: highest education level completed: high school graduate current occupational status: unemployed pets and animals: Yes leisure activities: other Hx Recent Travel (where): No well-balanced diet: about half the time caffeine: Yes high-fat food intake: 2 times daily daily servings fruits/ve-4 daily servings of milk/calcium: 2-4 eating out: rarely or never reads food labels: usually or always during the past year weight has: remained stable what type of physical activity do you participate in?: walking Smoking Status: Former smoker alcohol intake: former details: 06/16/2013 last substance use type: does not use seatbelt use: always water heater temp set < 120 deg: Yes working smoke detector in home: Yes fire extinguisher in home: No carbon monox detector in home: No firearms in home: No victim of physical abuse: No victim of emotional abuse: No Plan Plan Plan: d/c home Plan of care: Plan of care discussed with patient and or family, Patient encouraged to ask questionsabout plan and Patient agrees with plan of care Visit Medications Administered ED medications:: Medications Discontinued Medications Generic Name Dose Route Start Last Admin Trade Name Pretty PRN Reason Stop Dose Admin Dexamethasone Sodium Phosphate 10 mg 01/26/21 00:25 01/26/21 00:46 Dexamethasone Sod Phos 10 Mg/Ml Sdv IM 01/26/21 00:26 10 mg 1T ONE Administration Ketorolac Tromethamine 60 mg 01/26/21 00:25 01/26/21 00:46 Ketorolac Tromethamine 60 Mg/2 Ml Sdv IM 01/26/21 00:26 60 mg 1T ONE Administration Discharge Plan Admission/Discharge Dx Primary DC Diagnosis: Low Back pain ED Provider: Kp Baltazar ED Status: Discharged Time Seen by Provider: 01/26/21 00:19 Triaged At: 01/26/21 00:03 Condition Condition: Improved Discharge Detail Disposition: Home, Self-Care Med Rec New Prescriptions: No Action atorvastatin 10 mg tablet 10 mg PO DAILY Qty: 90 3RF levocetirizine [Xyzal] 5 mg tablet 5 mg PO DAILY Qty: 90 3RF lisinopril 40 mg tablet 40 mg PO DAILY Qty: 90 3RF metformin 500 mg tablet extended release 24 hr 1,000 mg PO BID Qty: 360 3RF omeprazole 40 mg capsule,delayed release(DR/EC) 40 mg PO DAILY Qty: 90 3RF tamsulosin 0.4 mg capsule 0.4 mg PO QDAY Qty: 90 3RF aspirin 81 MG tablet,delayed release (DR/EC) 1 tab PO DAILY Qty: 30 11RF zonisamide 50 mg capsule 50 mg PO BID 0RF (DME) blood-glucose meter [Accu-Chek Tabby Plus Meter] Misc See Rx Instructions .ROUTE .MEDSUPPLY Qty: 1 0RF Rx Instructions: Test 3X Daily (DME) Accu-Chek Tabby Control Soln Solution See Rx Instructions .ROUTE .MEDSUPPLY Qty: 1 3RF Rx Instructions: Use As Directed (DME) lancets [Accu-Chek Softclix Lancets] Misc See Rx Instructions .ROUTE .MEDSUPPLY Qty: 100 5RF Rx Instructions: Use 3X Daily (DME) lancing device with lancets [Accu-Chek Soft Dev Lancets] Kit See Rx Instructions .ROUTE .MEDSUPPLY Qty: 100 5RF Rx Instructions: Use 3X Daily Trulicity 1.5 mg/0.5 mL pen injector 1.5 mg SQ WEEKLY Qty: 2 5RF (DME) Accu-Chek Tabby Plus test strp Strip See Rx Instructions .ROUTE .MEDSUPPLY Qty: 100 5RF Rx Instructions: Use 3X Daily diclofenac sodium 75 mg tablet,delayed release (DR/EC) 75 mg PO BID Qty: 30 0RF Rx Instructions: Do not take with naproxen Medications Medication reconciliation performed by provider at discharge: Yes Follow Up Care/Instructions Diet/Activity/Wound Care..: Continue with current outpatient pain medications, primary care follow-up *Discharge Patient* Discharge Orders: Discharge Order (Routine); Ordered 01/26/21 Ordered By: Kp Baltazar Discharge Date/Time: 01/26/21 01:15 Interventions Interventions: ED Discharge Instructions Last Done: 01/26/21 02:57 ED Musculoskeletal Last Done: 01/26/21 00:32 Report Signers: <Electronically signed by Kp Baltazar MD> Kp Baltazar MD 01/26/21 0620 Kp Baltazar MD SIGNATURE DA Report Cosigners: D: SKEMI 01/26/2126 T: SKEMI 01/26/2126 CC: Lynne Nunez Name Value Range Interpretation Code Description Data Radha rce(s) Supporting Document(s) ID Date Data Source [id number] 12/30/2020 01:57:[address] [facility] Patient Name: BRADNI SLOAN : 1970 Sex: M Pt Unit #: [id number] Location:[facility] Provider: Visit Date/Time: 12/30/20 Primary Insurance: HU[employer]NA MEDICARE Secondary Insurance: MEDICAID [facility] 2ND R Intake Vital Signs 12/30/20 13:58 Current Height 5 ft 4 in Current Weight 268 lb Weight Measurement Method Standing Scale BMI 46.0 BP 118/84 Blood Pressure Location Lt brachial Position Sitting Respiration 20 Pulse 103 H Pulse Strength Normal Pulse Source Pulse Oximeter Pulse Oximetry (%) 94 Oxygen Delivery Method room air Intake Visit Reasons: Diabetes Nurse Note: 50 year old here today for a recheck on his diabetes. Is patient in pain?: Yes (lower leg into the right hip. ) Pain scale (1-10): 8 Allergies No Known Drug Allergies Allergy (Verified 12/30/20 14:07) No Known Food Allergies Allergy (Verified 12/30/20 14:07) Medications - Last Reconciled 12/30/20 by Lynne Nunez NP aspirin 1 tab PO DAILY atorvastatin 10 mg PO DAILY blood glucose control high,low (Accu-Chek Tabby Control Soln) Use As Directed blood sugar diagnostic (Accu-Chek Tabby Plus test strp) Use 3X Daily blood-glucose meter (Accu-Chek Tabby Plus Meter) Test 3X Daily diclofenac sodium 75 mg PO BID dulaglutide (Trulicity) 1.5 mg (0.5 mL) subcut WEEKLY lancets (Accu-Chek Softclix Lancets) Use 3X Daily lancing device with lancets (Accu-Chek Soft Dev Lancets) Use 3X Daily levocetirizine (Xyzal) 5 mg PO DAILY lisinopril 40 mg PO DAILY metformin ER 1,000 mg (2 x 500 mg) PO BID methylprednisolone PO PER PKG DIR naproxen 500 mg PO BID omeprazole 40 mg PO DAILY tamsulosin 0.4 mg PO QDAY zonisamide 50 mg PO BID Vision Wearing glasses?: Yes Fall Risk History of falls: No Ambulatory Aid:: None Gait/Transferring:: Impaired PHQ-2/9 Over the last 2 weeks, how often have you been bothered by any of the following problems? 1. Little interest or pleasure in doing things: not at all 2. Feeling down, depressed, or hopeless: not at all Total score: 0 HIV Testing Offer - ages 13-64 HIV testing Offer: No Requirement for HIV testing offer been met?: Patient reports past refusal SBIRT Annual Questionnaire Are you currently in recovery for alcohol or substance use?: No How many times in the past year have you had 5 or more drinks in a day?: None How many times in the past year have you used a recreational drug or used a prescription medication for nonmedical reasons?: None Coronavirus Screening Screening Are you currently positive or on isolation for COVID ?: No Do you have any NEW signs of one or more of the following?: no symptoms Do you have NEW signs of at least two of the following?: no symptoms HPI Adult Diabetic Follow-Up Pt presents for DM follow up. Denies any problems or concerns associated with this. Doing well on medication. Are you having any pain?: Yes (back/hip) Pain scale (0-10): 8 Type: type 2 Glucose control symptoms: Denies high fasting glucose, high post-meal glucose, polydipsia, polyuria,nocturia, hypoglycemic with activity, daytime hypoglycemia, nocturnal hypoglycemia, confusion at night, recent nightmares or loss of consciousness Weight and fatigue symptoms: Denies weight gain, weight loss, not sleeping well, wakes up feeling tired, tired all the time, daytime sleepiness or snoring Cardiopulmonary symptoms: Denies chest pain with activity, chest pain at rest, dyspnea, dyspnea on exertion, dyspnea at rest, claudication, myalgias, postural hypotension, lightheadedness or dizziness GI symptoms: Denies increased hunger, early satiety, nausea/dyspepsia, vomiting, diarrhea or constipation Skin and extremity symptoms: Denies tingling/numbness/burning, erectile dysfunction, foot ulcers, poorly healing wound, recurrent infections or claudication Other symptoms: Denies blurry vision, change in vision, recurrent infections, dep ression or other Pertinent visit history: Denies recent visit to ER, recent hospital admission, recent DKA, recent 911 calls, recent severe lows, recent glucagon injection or other Home monitoring: verbal report Time of day: AM fasting Frequency (per day): once daily Frequency (per week): 1-2 times per week Fasting BG range: 110-125 Dietary compliance: good Last diet/nutrition education: carb counting Diabetic diet reviewed: Yes Diabetic counseling given: Yes Frequency of exercise: never Risk factor: 1. Do you have diabetes?: yes, 2. Do you have (or have you ever had) any of the following: CHD, CAD, heart attack, noncoronary atherosclerosis, abdominal aneurysm, peripheral artery disease, carotid artery stenosis?: no, 3. Do you have a close male relative who had cardiovascular disease (such as a heart attack) before the age of 50 or a female relative who had itbefore age 60?: no, 4. Do you use tobacco in any form (cigarettes, e-cigarettes, cigars, etc.)?: no,5. Do you have hypertension (high blood pressure)?: yes and 6. Is your body mass index (BMI) 30 kg/m2 or greater?: yes History of nephropathy: Yes Date of last renal evaluation: 08/13/20 Date of last urinary microalbumin measurement: 06/17/20 Date of last serum creatinine: 08/13/20 Nephropathy details: Reports on EMILY-I/ARB; Denies microalbuminuria, proteinuria, on dialysis, INK MAKER is controlled at home, followed by primer expeditor and drier or other History of retinopathy: No History of neuropathy: No Date of last foot exam: 12/30/20 Checks feet nightly?: Yes Foot care education given: Yes Visual/sensory: normal Monofilament exam: L 1st metatarsals: normal, Left 3rd metatarsals monofilament exam: normal, L 5th metatarsals: normal, L great toe: normal, L 3rd toe: normal, L 5th toe: normal, Left medial mid foot: normal, Left lateral mid-foot: normal, Left mid-heel: normal, Left mid-dorsum foot: normal, R 1st metatarsals: normal, R 3rd metatarsals: normal, R 5th metatarsals: normal, R great toe: normal, R 3rd toe: normal, R 5th toe: normal, Right medial mid foot: normal, Right lateral mid-foot: normal,Right mid- heel: normal and Right mid-dorsum foot: normal Monofilament foot exam results: Left foot: normal and Right foot: normal [facility] Medical History Allergic rhinitis due to pollen Anxiety disorder (01/01/11) Congenital hydrocele Continuous chewing tobacco dependence (09/20/14) Diabetes mellitus Essential hypertension (01/01/11) Learning disability Left knee pain Morbid obesity Obesity Tobacco use disorder, continuous Type 2 diabetes mellitus without complication, without long-term current use of insulin (03/16/16) Surgical History History of vasectomy (12/25/12) Family History Mother Chronic low back pain Father Chronic low back pain Sister Mental retardation Brother No problems noted. Social History Does the Patient have a Healthcare Proxy: No Does Patient have a DNR?: No Does Patient have a Living Will?: No Does the Patient have a MOLST?: No Advance Directives on File or in chart?: No household members: spouse housing: apartment marital status: highest education level completed: high school graduate current oc cupational status: unemployed pets and animals: Yes leisure activities: other Hx Recent Travel (where): No well-balanced diet: about half the time caffeine: Yes high-fat food intake: 2 times daily daily servings fruits/ve-4 daily servings of milk/calcium: 2-4 eating out: rarely or never reads food labels: usually or always during the past year weight has: remained stable what type of physical activity do you participate in?: walking Smoking Status: Former smoker alcohol intake: former details: 06/16/2013 last substance use type: does not use seatbelt use: always water heater temp set < 120 deg: Yes working smoke detector in home: Yes fire extinguisher in home: No carbon monox detector in home: No firearms in home: No victim of physical abuse: No victim of emotional abuse: No Review of Systems Const Denies daytime sleepiness, Denies snoring, Denies weight gain and Denies weight loss Eyes Denies blurry vision and Denies change in vision ENT Denies dizziness Card Denies chest pain at rest, Denies chest pain with activity, Denies claudication, Denies lightheadedness, Denies dyspnea and Denies dyspnea on exertion Resp Denies dyspnea, Denies dyspnea on exertion and Denies snoring GI Denies constipation, Denies early satiety, Denies diarrhea and Denies vomiting Denies erectile dysfunction and Denies nocturia Musc Denies myalgias Neuro Denies dizziness Psych Denies depression Endo Denies polydipsia and Denies polyuria Exam Const General: cooperative and healthy appearing Nutritional Appearance: well nourished Orientation: alert, awake and oriented x3 Eyes General: appearance normal, both eyes and all related structures Pupils: PERRL EOM: EOM intact bilaterally Neck Neck: normal visual inspection and full ROM Resp Effort Inspection: normal respiratory effort Auscultation: clear to auscultation bilaterally Cardio Rate: regular rate Rhythm: regular rhythm Heart Sounds: S1 normal and S2 normal Bruits: no carotid bruits Skin Lesions: no lesions Rashes: no rashes Hair: normal Nails: normal Neuro General: patient alert, patient oriented x3 and moves all extremities Cognition: normal cognition Speech: speech normal Gait: normal gait Diabetic Foot Date of last foot exam: 12/30/20 Inspection: No foot deformity, No nail disorder, No calluses/corns, No skin breaks, No infection, Noulceration and No other Pulses: Left dorsalis pedis peripheral pulse: normal, Right dorsalis pedis peripheral pulse: normal,L posterior tibial pulse: normal and Right posterior tibial pulse foot exam: normal Monofilament exam: L 1st metatarsals: normal, Left 3rd metatarsals monofilament exam: normal, L 5th metatarsals: normal, L great toe: normal, L 3rd toe: normal, L 5th toe: normal, Left medial mid foot: normal, Left lateral mid- foot: normal, Left mid-heel: normal, Left mid-dorsum foot: normal, R 1st metatarsals: normal, R 3rd metatarsals: normal, R 5th metatarsals: normal, R great toe: normal, R 3rd toe: normal, R 5th toe: normal, Right medial mid foot: normal, Right lateral mid-foot: normal,Right mid-heel: normal and Right mid- dorsum foot: normal Monofilament foot exam results: Left foot: normal and Right foot: normal Pinprick: L great toe: normal and R great toe: normal Ankle reflex: Left: normal and Right: normal Foot Ulcer Grade Classification:: Grade 0 : Intact Skin Assessment Plan Assessment Plan (1) Diabetes mellitus: SNOMED Code(s): 42881293 Category: Medical Qualifiers: Diabetes mellitus complication status: without complication Diabetes mellitus terminal operations manager insulin use: without fdc use Diabetes mellitus type: type 2 Qualified Code(s): E11.9 - Type 2 diabetes mellitus without complications (2) Essential hypertension: Status: Chronic Onset Date: 01/01/11 Code(s): I10 - Essential (primary) hypertension SNOMED Code(s): 22279565 Category: Medical Plan: Stable. Refill sent. Labs ordered (3) Type 2 diabetes mellitus without complication, without long-term current use of insulin: Status: Chronic Onset Date: 03/16/16 Code(s): E11.9 - Type 2 diabetes mellitus without complications SNOMED Code(s): 255974772 Category: Medical Plan: Labs ordered. Refill sent. Has been stable for a long time and home BG readings are good. (4) Chronic low back pain: Status: Acute Code(s): M54.5 - Low back pain; G89.29 - Other chronic pain SNOMED Code(s): 479972593 Category: Medical Qualifiers: Back pain laterality: midline Sciatica presence: without sciatica Qualified Code(s): M54.5- Low back pain; G89.29 - Other chronic pain Plan: He is having trouble getting PT through insurance. Asking for different medications. He has not informed ortho about these difficulties. I recommend he call them to discuss options-he agrees to the plan. Orders: Orders CMP 1 Month E11.9 - Type 2 diabetes mellitus without complications, I10 - Essential (primary) hypertension LIPID PANEL 1 Month E11.9 - Type 2 diabetes mellitus without complications, I10 - Essential (primary) hypertension Microalbumin/Creat Ratio - ACR 1 Month E11.9 - Type 2 diabetes mellitus without complications, I10 -Essential (primary) hypertension HGBA1C + EAG 1 Month E11.9 - Type 2 diabetes mellitus without complications, I10 - Essential (primary) hypertension Medications: Refilled atorvastatin 10 mg PO DAILY 90 tabs 3RF levocetirizine (Xyzal) 5 mg PO DAILY 90 tabs 3RF lisinopril 40 mg PO DAILY 90 tabs 3RF metformin ER 1,000 mg (2 x 500 mg) PO BID 360 tabs 3RF omeprazole 40 mg PO DAILY 90 caps 3RF K21.0 - Gastro-esophageal reflux disease with esophagitis tamsulosin 0.4 mg PO QDAY 90 caps 3RF Discontinued naproxen Discontinued Reason: Order already completed 500 mg PO BID 60 tabs 0RF M25.562 - Pain in left knee methylprednisolone Discontinued Reason: Order already completed PO PER PKG DIR 21 ea 0RF M54.9 - Dorsalgia, unspecified Coding Level of Care Code 34195 Est Pt Intermediate Comp Diagnoses Diabetes mellitus E11.9 Diabetes mellitus complication status: without complication Diabetes mellitus terminal operations manager insulin use: without terminal operations manager use Diabetes mellitus type: type 2 Essential hypertension I10 Type 2 diabetes mellitus without complication, without long-term current use of insulin E11.9 Chronic low back pain M54.5; G89.29 Back pain laterality: midline Sciatica presence: without sciatica Additional Codes Intake - Is patient in pain?: Yes (1125F) <Electronically signed by Lynne Nunez NP> 12/30/20 1435 Name Value Range Interpretation Code Description Data Radha rce(s) Supporting Document(s) ID Date Data Source [id number] 10/31/2020 08:03:[address] [facility] Patient Name: BRANDI SLOAN : 1970 Sex: M Pt Unit #: [id number] Location:[facility] Provider: Visit Date/Time: 10/31/20 Primary Insurance: HUMANA MEDICARE Secondary Insurance: [facility]ICAID [facility] 2[facility] R Intake Vital Signs 10/31/20 08:04 Current Height 5 ft 4 in Current Weight 263 lb Weight Measurement Method Standing Scale BMI 45.1 BP 142/84 Blood Pressure Location Rt brachial Position Sitting Respiration 20 Pulse 74 Pulse Strength Normal Pulse Source Pulse Oximeter Pulse Oximetry (%) 97 Oxygen Delivery Method room air Intake Visit Reasons: Back pain Nurse Note: 50 nyear old here today for c/o low back pain. He would also like a handicap parking sticker. Is patient in pain?: Yes (low back pain) Pain scale (1-10): 8 Allergies No Known Drug Allergies Allergy (Verified 10/31/20 08:13) No Known Food Allergies Allergy (Verified 10/31/20 08:13) Medications - Last Reconciled 10/31/20 by Lynne uNnez NP aspirin 1 tab PO DAILY atorvastatin 10 mg PO DAILY blood glucose control high,low (Accu-Chek Tabby Control Soln) Use As Directed blood sugar diagnostic (Accu-Chek Tabby Plus test strp) Use 3X Daily blood-glucose meter (Accu-Chek Tabby Plus Meter) Test 3X Daily dulaglutide (Trulicity) 1.5 mg (0.5 mL) subcut WEEKLY lancets (Accu-Chek Softclix Lancets) Use 3X Daily lancing device with lancets (Accu-Chek Soft Dev Lancets) Use 3X Daily levocetirizine (Xyzal) 5 mg PO DAILY lisinopril 40 mg PO DAILY metformin ER 1,000 mg (2 x 500 mg) PO BID naproxen 500 mg PO BID omeprazole 40 mg PO DAILY tamsulosin 0.4 mg PO QDAY zonisamide 50 mg PO BID Vision Wearing glasses?: Yes Fall Risk History of falls: No Ambulatory Aid:: None Gait/Transferring:: Impaired PHQ-2/9 Over the last 2 weeks, how often have you been bothered by any of the following problems? 1. Little interest or pleasure in doing things: not at all 2. Feeling down, depressed, or hopeless: not at all Total score: 0 HIV Testing Offer - ages 13-64 HIV testing Offer: No SBIRT Annual Questionnaire Are you currently in recovery for alcohol or substance use?: No How many times in the past year have you had 5 or more drinks in a day?: None How many times in the past year have you used a r ecreational drug or used a prescription medication for nonmedical reasons?: None Coronavirus Screening Screening Are you currently positive or on isolation for COVID ?: No Do you have any NEW signs of one or more of the following?: no symptoms Do you have NEW signs of at least two of the following?: no symptoms HPI Back Pain Has chronic back issues. Has been seeing someone in [place] for PT. Has had previous cortisone shots and imaging. Current flare started about 2 weeks ago. Was moving furniture. Pain radiates down legs. Denies numbness/tingling in his feet, change in bowel/bladder habits. Associated symptoms: Denies abdominal pain, fecal incontinence, change in bowel habits, chills, dysuria, fatigue, fever(s), heel pain, arthralgias, myalgias, muscle stiffness, nausea, urinary incontinence, vomiting, muscle weakness, loss of sensation in lower extremity, tingling of leg or other [facility] Medical History Allergic rhinitis due to pollen Anxiety disorder (01/01/11) Congenital hydrocele Continuous chewing tobacco dependence (09/20/14) Diabetes mellitus Essential hypertension (01/01/11) Learning disability Left knee pain Morbid obesity Obesity Tobacco use disorder, continuous Type 2 diabetes mellitus without complication, without long-term current use of insulin (03/16/16) Surgical History History of vasectomy (12/25/12) Family History Mother Chronic low back pain Father Chronic low back pain Sister Mental retardation Brother No problems noted. Social History Does the Patient have a Healthcare Proxy: No Does Patient have a DNR?: No Does Patient have a Living Will?: No Does the Patient have a MOLST?: No Advance Directives on File or in chart?: No household members: spouse housing: a partment marital status: highest education level completed: high school graduate current occupational status: unemployed pets and animals: Yes leisure activities: other Hx Recent Travel (where): No well-balanced diet: about half the time caffeine: Yes high-fat food intake: 2 times daily daily servings fruits/ve-4 daily servings of milk/calcium: 2-4 eating out: rarely or never reads food labels: usually or always during the past year weight has: remained stable what type of physical activity do you participate in?: walking Smoking Status: Former smoker alcohol intake: former details: 06/16/2013 last substance use type: does not use seatbelt use: always water heater temp set < 120 deg: Yes working smoke detector in home: Yes fire extinguisher in home: No carbon monox detector in home: No firearms in home: No victim of physical abuse: No victim of emotional abuse: No Review of Systems Const Denies chills, Denies fatigue and Denies fever(s) GI Denies abdominal pain, Denies change in bowel habits, Denies fecal incontinence, Denies nausea and Denies vomiting Denies dysuria and Denies urinary incontinence Musc Denies myalgias, Denies arthralgias and Denies muscle weakness Endo Denies fatigue Exam Const General: cooperative and healthy appearing Nutritional Appearance: well nourished and obese Orientation: alert, awake and oriented x3 Eyes General: appearance normal, both eyes and all related structures Pupils: PERRL EOM: EOM intact bilaterally Neck Neck: normal visual inspection and full ROM Resp Effort Inspection: normal respiratory effort Auscultation: clear to auscultation bilaterally Cardio Rate: regular rate Rhythm: regular rhythm Heart Sounds: S1 normal and S2 normal Musc Thoracic/Lumbar Spine: pain with thoraco-lumbar ROM, lumbar spinal tenderness and straight leg raisepositive Skin Lesions: no lesions Rashes: no rashes Hair: normal Nails: normal Neuro General: patient alert, patient oriented x3 and moves all extremities Cognition: normal cognition Speech: speech normal Gait: normal gait Assessment Plan Assessment Plan (1) Back pain: Status: Acute Code(s): M54.9 - Dorsalgia, unspecified SNOMED Code(s): 970151038 Category: Medical Plan: Will send in steroids for acute flare-sugars have been good. For 2 weeks stop naproxen and start diclofenac. Continue with PT. If no improvement with finishing PT we will refer to back specialist. Completed temporary handicap form for 3 months. Will reevaluate at that time. Medications: New methylprednisolone PO PER PKG DIR 21 ea 0RF M54.9 - Dorsalgia, unspecified diclofenac sodium Do not take with naproxen 75 mg PO BID 30 tabs 0RF Coding Level of Care Code 03910 Est Pt Intermediate Comp Diagnoses Back pain M54.9 <Electronically signed by Lynne Nunez INK MAKER> 10/31/20 0833 Name Value Range Interpretation Code Description Data Radha rce(s) Supporting Document(s) ID Date Data Source [id number] 09/03/2020 08:45:00 AM EDT [facility] [address] [place] [id number] [phone] NAME SEX PT STATUS ACCOUNT NUMBER BRANDI SLOAN [facility] ER [id number] ORDERING PHYSICIAN LOCATION MEDICAL RECORD NO. Gin Mooney MD ER [id number] ATTENDING PHYSICIAN DATE OF DATE OF EXAM/TIME Silverio Batista MD 1970 09/03/20727 TYPE / EXAM Xray Knee comp 4 or more LT REASON FOR EXAM knee pain CLINICAL HISTORY: [facility] knee pain TECHNIQUE: Weightbearing frontal views of both knees, tunnel, lateral, and sunrise views of the left knee were obtained. COMPARISON: 07/02/2020 FINDINGS: There is no x-ray evidence of an acute fracture or dislocation. There is no significant osteoarthritis. No significant joint effusion. IMPRESSION: No significant osteoarthritis. Reported By Mary Ching MD on 09/03/2045 Signed By Mary Ching MD on 09/03/2055 Date Time CC: Silverio Batista MD; Mary Ching MD Techn: FROSA Trans Dt/Tm: Trans by: DT Prt Dt/Tm: 2284-2824: Total DLP = 0.00 mGy-cm Fluoroscopy Time (in secs): Name Value Range Interpretation Code Description Data Radha rce(s) Supporting Document(s) ID Date Data Source [id number] 09/03/2020 07:04:[address] [facility] ED Physician Documentation NAME: BRANDI SLOAN : 1970 AGE: 50 MR#: [id number] SERVICE DATE: 09/03/[address]: Gin Mooney MD PRIMARY CARE DR: Silverio Batista MD ROOM#: Musculoskeletal General Chief Complaint: Musculoskeletal Stated Complaint: LEFT LEG/KNEE PAIN Time Seen by Provider: 09/03/20 06:56 History of present illness HPI Narrative:: This is a 50-year-old morbidly obese white male comes in complaining of chronic kneepain. He has been seen by other ERs has been seen by his primary care provider. He states his kneeprimarily left knee hurts when he goes up and down stairs. When he is not doing anything he has no knee pain. He has been prescribed naproxen but only states he takes it once a day. He denies any recent injuries. He states he feels like he has [id number] as he feels a grinding motion sometimes when he goes up and down stairs. Location of complaint:: LEFT LEG AND KNEE Redness?: No Deformity?: No Swelling?: No Ecchymosis?: No Shortening of limb?: No Distal Rotation:: No rotation Distal CMS intact?: Yes Open Fracture?: No Ambulation Assistive Devices: None Gait steady?: Yes Ambulation Comments: PT IS LIMPING, AND MOVING SLOWLY, Weight Bearing Status: Full Weight Bearing Limited ROM?: Yes Numbness or tingling?: No Allergies/Home Meds Allergies Allergy/AdvReac Type Severity Reaction Status Date / Time No Known Drug Allergies Allergy Verified 08/16/20 04:46 No Known Food Allergies Allergy Verified 08/16/20 04:46 Home Medications Medication Instructions Recorded Confirmed Last Taken Type aspirin 1 tab PO DAILY #30 tab 08/02/16 09/03/20 09/03/20 History zonisamide 50 mg capsule 50 mg PO BID 06/04/19 09/03/20 09/03/20 History atorvastatin 10 mg tablet 10 mg PO DAILY #90 tab 01/07/20 09/03/20 09/03/20 Rx levocetirizine 5 mg tablet 5 mg PO DAILY #90 tab 01/07/20 09/03/20 09/03/20 Rx lisinopril 40 mg tablet 40 mg PO DAILY #90 tab 01/07/20 09/03/20 09/03/20 Rx metformin 500 mg tablet,extended 1,000 mg PO BID #360 tab 0909/03/20 09/03/20 Rx release 24 hr omeprazole 40 mg capsule,delayed 40 mg PO DAILY #90 cap 01/07/20 09/03/20 09/03/20 Rx release tamsulosin 0.4 mg capsule 0.4 mg PO QDAY #90 cap 01/07/20 09/03/20 09/03/20 Rx blood glucose control high and low #1 ea 01/28/20 09/03/20 09/03/20 Rx solution blood-glucose meter #1 ea 01/28/20 09/03/20 09/03/20 Rx lancets #100 ea 01/28/20 09/03/20 09/03/20 Rx lancing device with lancets kit #100 ea 01/28/20 09/03/20 09/03/20 Rx naproxen 500 mg tablet 500 mg PO BID #60 tab 07/02/20 09/03/20 09/03/20 Rx dulaglutide 1.5 mg/0.5 mL 1.5 mg SQ WEEKLY #2 ml 07/28/20 09/03/20 Unknown Rx subcutaneous pen injector blood sugar diagnostic #100 ea 08/11/20 09/03/20 09/03/20 Rx PMH (from Triage) Patient Medical History PMH Reviewed/Updated as Needed: Yes PMH/PSH from Triage: Medical History (Updated 09/03/20 @ 08:41 by Gin Mooney) Allergic rhinitis due to pollen (Medical) Anxiety disorder (Medical 01/01/11) F41.9 Congenital hydrocele (Medical) Continuous chewing tobacco dependence (Medical 09/20/14) F17.220 Diabetes mellitus (Medical) Essential hypertension (Medical 01/01/11) I10 Learning disability (Medical) Left knee pain (Medical) M25.562 he was offered a wheelchair to be escorted to x-ray, he declined Morbid obesity (Medical) Obesity (Medical) Morbidly obese Tobacco use disorder, continuous (Medical) Type 2 diabetes mellitus without complication, without long-term current use of insulin (Medical 03/16/16) E11.9 Surgical History History of vasectomy (Surgical 12/25/12) Hx Drug Resistant Infections Hx MRSA: (Methicillin-resistant Staphylococcus aureus): No Hx VRE (Vancomycin- resistant enterococci): No Hx C.Diff: No Hx CRKP: No Hx Other Resistant Infection?: No Isolation: Standard precautions Hx Recent Travel Out of the country within 10 days (where): No Hx Fever: No Hx Fever with a rash?: No Nurse screening for coronavirus: Recent Travel outside the No country (where) Has patient experienced No coronavirus symptoms Social History Does patient have suicidal/homicidal thoughts or ideation?: No Are you in a relationship with/Does anyone hit you, yell/swear at you, steal from you?: No Substance Use Hx Alcohol Use: No Hx Substance Use: No Hx Substance Use Treatment: No Second Hand Smoke Exposure: No Smoking Status: Current every day smoker Tobacco Use Years smoked:: 29 Hx Chewing Tobacco Use: Yes Tins Per Day Chewed: 1 Vaccination History Hx/Date of Tetanus, Diphtheria Vaccination: Yes Hx/Date of Influenza Vaccination: Yes Hx/Date of Pneumococcal Vaccination: Yes Immunizations Up to Date: Yes ROS Review of Systems Constitutional: Denies fever, chills, sweats, weakness, malaise, weight loss, weight gain or other Eyes: Denies vision change, eye discharge/drng, redness, eye pain, descr of pain, conjunctiva inflammation, eyelid inflammation, eyelid issues, floaters, foreign body, r/t accident, contact lensuser, wears glasses or other ENT: Denies mouth pain, mouth swelling, dental pain, dry mouth, bleeding gums, ear pain, hearing loss, tinnitis, ear discharge, nasal pain, nasal discharge, nasal congestion, post nasal drip, epistaxis, throat pain, throat swelling, hoarseness, constant throat clearing, pain upon swallowing,recent head trauma, recent airplane travel, recent swimming/diving, uses hearing aid/ear plugs, painworse with motion, prolonged use of topical meds or other Respiratory: Dave es cough, sputum, orthopnea, SOB w/exertion rest, SOB with excertion, SOB at rest, SOB, stridor, wheezing, hemoptysis, pleuritic pain, exposures or other Cardiovascular: Denies chest pain, palpitations, orthopnea, hypertension, paroxysmal noc dyspnea, edema, light headedness, dyspnea on exertion, syncope, known heart murmurs, leg cramps w/walking, pain in feet/toes at night, varicose veins or other Gastrointestinal: Denies No Symptoms/Complaints, nausea, vomiting, abdominal pain, diarrhea, constipation, heartburn, reflux/regurg, frequent belching, hemorrhoids, hematemesis, black tarry stools, melena, hematochezia, coffee grounds emesis, stomach pain relieved by food, hx of jaundice or other Genitourinary-Male: Denies dysuria, frequency, incontinence, hematuria, retention, cloudy or smoky urine, nocturia, kidney stones, urgency, prostate issue, penile discharge, rash or ulcers, impotence, erectile dysfunction, testicular issue, h/o STDs or other Musculoskeletal: Reports leg pain (Chronic left knee pain); Denies neck pain, shoulder pain, arm pain, back pain, hand pain, foot pain, thigh or calf cramps, muscle weakness, muscle tenderness, joint swelling, sciatica, muscle pain, joint pain or other Psychiatric: Denies No Symptoms/Complaints, anxiety, depression, auditory hallucinations, visual hallucinations, suicidal thoughts, homicidal thoughts, hopelessness, helplessness, change in energy,change in sleep patterns, change in motivation, change in concentration, change in sexual urges, feelings of guilt, anhedonia or other Endocrine: Denies No Symptoms/Complaints, Excessive sweating, Loss of appetite, Increased appetite, Intolerance to cold, Intolerance to heat, Flushing, Polydipsia, Polyuria, Increased salt intake, Fingernail changes, Unexplained weight gain, Unexplained weight loss, Decreased sexual desire or Other [facility] Medical History Allergic rhinitis due to pollen Anxiety disorder (01/01/11) Congenital hydrocele Continuous chewing tobacco dependence (09/20/14) Diabetes mellitus Essential hypertension (01/01/11) Learning disability Left knee pain Morbid obesity Obesity Tobacco use disorder, continuous Type 2 diabetes mellitus without complication, without long-term current use of insulin (03/16/16) Surgical History History of vasectomy (12/25/12) Family History Mother Chronic low back pain Father Chronic low back pain Sister Mental retardation Brother No problems noted. Social History Does the Patient have a Healthcare Proxy: No Does Patient have a DNR?: No Does Patient have a Living Will?: No Does the Patient have a MOLST?: No Advance Directives on File or in chart?: No household members: spouse housing: apartment marital status: highest education level completed: high school graduate current occupational status: unemployed pets and animals: Yes leisure activities: other Hx Recent Travel (where): No well-balanced diet: about half the time caffeine: Yes high-fat food intake: 2 times daily daily servings fruits/ve-4 daily servings of milk/calcium: 2-4 eating out: rarely or never reads food labels: usually or always during the past year weight has: remained stable what type of physical activity do you participate in?: walking Smoking Status: Current every day smoker alcohol intake: former details: 06/16/2013 last substance use type: does not use seatbelt use: always water heater temp set < 120 deg: Yes working smoke detector in home: Yes fire extinguisher in home: No carbon monox detector in home: No firearms in home: No victim of physical abuse: No victim of emotional abuse: No Sickle cell Sickle Cell Screening:: Not indicated Sickle cell susceptibility: N/A Physical Exam General Physical Exam Narrative: This is a well-developed morbidly obese 50-year-old male who is awake alertOrient x3 no acute distress. Limitations: no limitations General appearance: alert Head Head exam: Present atraumatic, normocephalic and normal inspection Eye Eye exam: Present normal apperance, PERRL and EOMI; Absent scleral icterus or conjunctival injection ENT ENT exam: Present normal exam and normal orophraynx Neck Neck exam: Present normal inspection and full ROM; Absent tenderness or meningismus Respiratory Respiratory exam: Present normal lung sounds bilaterally Extremities Exam Extremities exam: Present normal inspection, Full ROM without tenderness, capillary refill brisk andother (Examination left knee negative anterior posterior drawer. Negative tenderness with stressingthe medial collateral ligaments. Full range of motion. Mild discomfort when ambulating); Absent tenderness or pedal edema Back Exam Back exam: Present normal inspection Neurological Exam Neurological exam: Present alert, oriented X3, CN II-XII intact and normal gait (With only minimal signs of discomfort when ambulating); Absent motor sensory deficit Psychiatric Psychiatric exam: Present normal affect and normal mood Skin Skin exam: Present warm, dry, intact and normal color; Absent rash, cyanosis, diaphoretic, erythema or urticaria Vital Signs Vital Signs: Vital Signs 09/03/20 06:43 Temperature 97.3 F L Pulse Rate 67 Respiratory Rate 16 Blood Pressure 144/87 O2 Sat by Pulse Oximetry 95 MDM (comprehensive) Ra diology Data interpreted by me: No acute fracture dislocation minimal DJD Medical Decision Making Free Text/Narative:: I discussed with the patient his most likely cause of his discomfort is that ofa mild tendinitis. At this point time we are can place him in a knee immobilizer. He already has naproxen for pain. We recommend he follow-up with the orthopedic team if he is not dramatically improved in the next 7 to 10 days or with his primary care provider. Discharge Plan Admission/Discharge Dx Primary DC Diagnosis: Tendinitis ED Provider: Gin Mooney ED Status: Discharged Time Seen by Provider: 09/03/20 06:56 Triaged At: 09/03/20 06:43 Condition Condition: Good Discharge Detail Disposition: Home, Self-Care Med Rec New Prescriptions: No Action naproxen 500 mg tablet 500 mg PO BID Qty: 60 RF: 0 aspirin 81 MG tablet,delayed release (DR/EC) 1 tab PO DAILY Qty: 30 RF: 11 zonisamide 50 mg capsule 50 mg PO BID RF: 0 metformin 500 mg tablet extended release 24 hr 1,000 mg PO BID Qty: 360 RF: 3 omeprazole 40 mg capsule,delayed release(DR/EC) 40 mg PO DAILY Qty: 90 RF: 3 atorvastatin 10 mg tablet 10 mg PO DAILY Qty: 90 RF: 3 tamsulosin 0.4 mg capsule 0.4 mg PO QDAY Qty: 90 RF: 3 lisinopril 40 mg tablet 40 mg PO DAILY Qty: 90 RF: 3 levocetirizine [Xyzal] 5 mg tablet 5 mg PO DAILY Qty: 90 RF: 3 (DME) blood-glucose meter [Accu-Chek Tabby Plus Meter] Misc See Rx Instructions .ROUTE .MEDSUPPLY Qty: 1 RF: 0 (DME) Accu-Chek Tabby Control Soln Solution See Rx Instructions .ROUTE .MEDSUPPLY Qty: 1 RF: 3 (DME) lancets [Accu-Chek Softclix Lancets] Misc See Rx Instructions .ROUTE .MEDSUPPLY Qty: 100 RF: 5 (DME) lancing device with lancets [Accu-Chek Soft Dev Lancets] Kit See Rx Instructions .ROUTE .MEDSUPPLY Qty: 100 RF: 5 Trulicity 1.5 mg/0.5 mL pen injector 1.5 mg SQ WEEKLY Qty: 2 RF: 5 (DME) Accu-Chek Tabby Plus test strp Strip See Rx I nstructions .ROUTE .MEDSUPPLY Qty: 100 RF: 5 Discharge Education Printouts: Musculoskeletal Pain (ED) Follow Up Visit/Referrals: Silverio Batista M.D. [Primary Care Provider] - (Call for follow-up appointment if not dramatically improved in the next 4 to 5 days) Discharge Problem: Left knee tendonitis, Musculoskeletal strain Follow Up Care/Instructions Diet/Activity/Wound Care..: As we discussed there is no sign of fracture or dislocation of any of the bones of your knee. It would appear that where your discomfort is and the fact that is exacerbated by going up and down stairs that you most likely have a mild tendinitis or muscle strain of the muscles of the knee and surrounding that area. At this point time we recommended to continue the naproxen that was previously prescribed and attempt to take that twice a day if you are having pain. Additionally we have placed you in a knee immobilizer and you can wear there for comfort and support as needed. Once you are not in a two-story building it is very likely that your symptoms will significantly improved. The fact that you anticipate moving today certainly will be helpful with your symptoms. If you are not dramatically improving in the next 4 to 5 days would recommend that you follow-up with Dr. Batista and if he feels that appropriate he would refer you to one of our student finance specialist. *Discharge Patient* Discharge Orders: Discharge Order (Routine); Ordered 09/03/20 Ordered By: Gin Mooney Discharge Date/Time: 09/03/20 09:00 Interventions Interventions: ED Discharge Instructions Last Done: 09/03/20 09:00 Report Signers: <Electronically signed by Gin Mooney > Gin Mooney 09/03/20 0903 Corinne,Gin A SIGNATURE DA Report Cosigners: D: NURIA 09/03/20703 T: NURIA 09/03/20703 CC: Silverio Batista MD Name Value Range Interpretation Code Description Data Radha rce(s) Supporting Document(s) ID Date Data Source [id number] 08/27/2020 06:50:00 PM EDT [facility] 1 OrderSheet [facility] Emergency Department [address] [place] [address] Phone #: ext- [phone] 08/27/2020 18:50 Patient: BRANDI SLOAN Sex: M : 1970 Age: 50yWEIGHT:99.7 kg (S) HEIGHT:67 inches (S) BMI:34.5ALLERGIES: No Known Drug AllergyCHIEF COMPLAINT: back pain, chronic back pain, back injuryDIAGNOSIS: BackacheLAB ORDERSOrder Description Priority Entered Acknowledged InitialedDIAGNOSTIC STUDY ORDERSOrder Description Priority Entered Acknowledged InitialedMEDICATION/IV/DRIP/FLUID ORDERSOrder Description Priority Entered Acknowledged InitialedToradol IM 60 mg 19:45 08/27/2020 19:50 Tanvir Salamanca RN PA;Valium PO 5 mg 19:45 08/27/2020 19:51 Tanvir Salamanca RN PA;predniSONE PO 60 19:45 08/27/2020 19:51 Jyoti Salamanca RN PA;GENERAL ORDERSOrder Description Priority Entered Acknowledged Initialed[Electronically signed by Tarah Marroquin R.N. (20:17 08/27/2020)][Electronically signed by Rich Marie (22:12 08/27/2020)][Electronically locked by Tarah Marroquin R.N. (20:17 08/27/2020)] Name Value Range Interpretation Code Description Data Radha rce(s) Supporting Document(s) ID Date Data Source [id number] 08/27/2020 06:50:00 PM EDT [facility] 1 Medication Reconciliation Report [facility] Emergency Department [address] [place] [address] Phone #: [phone]- [phone] 08/27/2020 18:50 Patient: BRANDI SLOAN Sex: M : 1970 Age: 50yWeight: 99.7 kgHeight/Length: 67 in.BMI: 34.5ALLERGIES: No Known Drug AllergyThe patient's Home Medications are listed below:CONTINUE TAKING THE FOLLOWING MEDICATIONS: Aspirin Adult Low Dose Oral Bupropion SR 150mg daily Lisinopril 20mg daily metFORMIN HCl Oral (500 mg), 2x a day Omeprazole 20mg daily Trulicity Subcutaneous, once a weekThe source(s) of the original Home Medication information:Not obtained.The following Medications were given to the patient in the Emergency Department:Toradol [IM] IM 60 mg, administered: 19:50 08/27/2020Valium [PO] PO 5 mg, administered: 19:51 08/27/2020rednisone [PO] PO 60 mg, administered: 19:51 08/27/2020The following Medications were prescribed to the patient:methocarbamol 500 mg tablet Take 1 tablet three times a day for 10 days -- Dispense 30 tablet. Refills:0. Substitution permitted.Pharmacy - [facility] [id number] [facility] [address] [place] [address] ; [place] [address]. . 2 Medication Reconciliation Report [facility] Emergency Department [address] [place] [address] Phone #: ext- [phone] 08/27/2020 18:50 Patient: BRANDI SLOAN Sex: M : 1970 Age: 50yMedrol (Karlos) 4 mg tablets in a dose pack Take 1 tablet as directed for 6 days -- Dispense 1 pack.Refills: 0. Substitution permitted.Pharmacy - [facility] [address] [place] [address]. .IBU 400 mg tablet Take 1 tablet three times a day for 15 days -- Dispense 45 tablet. Refills: 0.Substitution permitted.Pharmacy [facility] [address] [place] [address]. Phone: . -- [place] Name Value Range Interpretation Code Description Data Radha rce(s) Supporting Document(s) ID Date Data Source [id number] 08/27/2020 06:50:00 PM EDT [facility] 1 Medication Administration Record [facility] Emergency Department [address] [place] [address] Phone #: ext- [phone] 08/27/2020 18:50 Patient: BRANDI SLOAN Sex: M : 1970 Age: 50yWeight: 99.7 kgHeight/Length: 67 inBMI: 34.5ALLERGIES: No Known Drug Allergy Date/Time Medication Administered Medication OrderedGiven TORADOL [IM] (KETOROLAC Toradol IM 60 mg19:50 08/27/2020 TR OMETHAMINE)Tanvir Salamanca RN Dose: 60 mg IMGiven VALIUM [PO] (DIAZEPAM) Valium PO 5 mg19:51 08/27/2020 Dose: 5 mg Zuleika Liu PREDNISONE [PO] predniSONE PO 60 mg19:51 08/27/2020 Dose: 60 mg Nurys Salamanca RN Name Value Range Interpretation Code Description Data Radha rce(s) Supporting Document(s) ID Date Data Source [id number] 08/27/2020 06:50:00 PM EDT [facility] 1 General Instructions [facility] Emergency Department [address] [place] [address] Phone #: ext- [phone] 08/27/2020 18:50 Patient: BRANDI SLOAN Sex: M : 1970 Age: 50yChronic nontraumatic thoracic and lumbar back pain associated with muscle strain.INSTRUCTIONSWarnings: GENERAL WARNINGS: Return or contact your physician immediately if your conditionworsens or changes unexpectedly, if not improving as expected, or if other problems a rise.SPECIFICALLY, return if you develop weakness of the foot or leg, numbness, tingling or incontinence offeces (loss of bowel control) or urine (loss of bladder control); or if there is no improvement in the pain.Your Current Medications: Your current home medications have been reviewed.CONTINUE TAKING THE FOLLOWING MEDICATIONS:Aspirin Adult Low Dose Oral.Bupropion SR 150mg daily*.Lisinopril 20mg daily*.metFORMIN HCl Oral : Tablet 500 mg, 2x a day.Omeprazole 20mg daily*.Trulicity Subcutaneous : once a week.Prescription Medications:methocarbamol 500 mg tablet Take 1 tablet three times a day for 10 days -- Dispense 30 tablet. Refills:0. Substitution permitted.Pharmacy - [facility] [id number] ; [place] [address]. .Medrol (Karlos) 4 mg tablets in a dose pack Take 1 tablet as directed for 6 days -- Dispense 1 pack.Refills: 0. Substitution permitted.Pharmacy - [facility] [id number] [place] [address]. .IBU 400 mg tablet Take 1 tablet three times a day for 15 days -- Dispense 45 tablet. Refills: 0.Substitution permitted.Pharmacy - [facility] [id number] [address]. FaxNumber: [phone].Understanding of the discharge instructions verbalized by patient.Follow-up with: [facility], , , [address] [place] [address], [address] 2 General Instructions [facility] Emergency Department [address] [place] [address] Phone #: ext- [phone] 08/27/2020 18:50 [id number] Sex: M : 1970 Age: 50y Follow up as scheduled. Reason for referral: evaluation and treatment. Summary of care provided topatient. ADDITIONAL INFORMATIONBack Pain (Acute or Chronic)Back pain is one of the most common problems. The good news is that most people feel better in 1 to2 weeks, and most of the rest in 1 to 2 months. Most people can remain active.People who have pain describe it differently--not everyone is the same. The pain can be sharp, stabbing, shooting, aching, cramping or burning. Movement, standing, bending, lifting, sitting, or walking may worsen pain. 3 General Instructions [facility] Emergency Department [address] [place] [address] Phone #: ext- [phone] 08/27/2020 18:50 Patient: BRANDI SLOAN [facility]#: [id number] Sex: M : 1970 Age: 50y It can be limited to one spot or area, or it can be more generalized. It can spread upwards, to the front, or go down your arms or legs (sciatica). It can cause muscle spasm.Most of the time, mechanical problems with the muscles or spine cause the pain. Mechanicalproblems are usually caused by an injury to the muscles or ligaments. Illness can cause back pain,but it's usually not caused by a serious illness. Mechanical problems include: Physical activity such as sports, exercise, work, or normal activity Overexertion, lifting, pushing, pulling incorrectly or too aggressively Sudden twisting, bending, or stretching from an accident, or accidental movement Poor posture Stretching or moving wrong, without noticing pain at the time Poor coordination, lack of regular exercise (check with your doctor about this) Spinal disc disease or arthritis StressPain can also be related to , or illness like appendicitis, bladder or kidney infections, pelvicinfections, and many other things.Acute back pain usually gets better in 1 to 2 weeks. Back pain related to disk disease, arthritis in thespinal joints, or narrowing of the spinal canal (spinal stenosis) can become chronic and last formonths or years.Unless you had a physical injury such as a car accident or fall, X-rays are usually not needed for thefirst assessment of back pain. If pain continues and does not respond to medical treatment, you mayneed X-rays and other tests.Home careTry this home care advice: When in bed, try to find a position of comfort. A firm mattress is best. Try lying flat on your back with pillows under your knees. You can also try lying on your side with your knees bent up toward your chest and a pillow between your knees. At first, don't try to stretch out the sore spots. If there is a strain, it's not like the good soreness you get after exercising without an injury. In this case, stretching may make it worse. Don't sit for long periods, as in a long car ride or during other travel. This puts more stress on 4 General Instructions [facility] Emergency Department [address] [place] [address] Phone #: ext- [phone] 08/27/2020 18:50 Patient: BRANDI SLOAN Sex: M : 1970 Age: 50y the lower back than standing or walking. During the first 24 to 72 hours after an acute injury or flare up of chronic back pain, apply an ice pack to the painful area for 20 minutes and then remove it for 20 minutes. Do this over a period of 60 to 90 minutes or several times a day. This will reduce swelling and pain. Wrap the ice pack in a thin towel or plastic to protect your skin. You can start with ice, then switch to heat. Heat (hot shower, hot bath, or heating pad) reduces pain and works well for muscle spasms. Heat can be applied to the painful area for 20 minutes then remove it for 20 minutes. Do this over a period of 60 to 90 minutes or several times a day. Don't sleep on a heating pad. It can lead to skin lamar or tissue damage. You can alternate ice and heat therapy. Talk with your doctor about the best treatment for your back pain. Therapeutic massage can help relax the back muscles without stretching them. Be aware of safe lifting methods and don't lift anything without stretching first.MedicinesTalk to your doctor before using medicine, especially if you have other medical problems or are takingother medicines. You may use [id number] medicine as directed on the bottle to control pain, unless another pain medicine was prescribed. If you have chronic conditions like diabetes, liver or kidney disease, stomach ulcers, or gastrointestinal bleeding, or are taking blood thinners, talk to your doctor before taking any medicine. Be careful if you are given a p rescription medicines, narcotics, or medicine for muscle spasms. They can cause drowsiness, affect your coordination, reflexes, and judgement. Don't drive or operate heavy machinery.Follow-up careFollow up with your healthcare provider, or as advised.If X-rays were taken, you will be told of any new findings that may affect your careCall [address] [place] [address] if any of the following occur: Trouble breathing Confusion 5 General Instructions [facility] Emergency Department [address] [place] [address] Phone #: ext- [phone] 08/27/2020 18:50 Patient: BRANDI SLOAN Sex: M : 1970 Age: 50y Very drowsy or trouble awakening Fainting or loss of consciousness Rapid or very slow heart rate Loss of bowel or bladder controlWhen to seek medical adviceCall your healthcare provider right away if any of these occur: Pain becomes worse or spreads to your legs Weakness or numbness in one or both legs Numbness in the groin or genital area [phone] [employer]. [address] [place] [address]. All rights reserved. This information is not intended as asubstitute for professional medical care. Always follow your healthcare professional's instructions. You have been given the following additional information: Back Pain (Acute or Chronic)(Electronically signed by CHEYENNE North 08/27/2020 22:12) Name Value Range Interpretation Code Description Data Radha rce(s) Supporting Document(s) ID Date Data Source [id number] 08/27/2020 06:50:00 PM EDT [facility] 1 Clinical Report - Nurses [facility] Emergency Department [address] [place] [address] Phone #: ext- [phone] 08/27/2020 18:50 [id number] Sex: M : 1970 Age: 50yTRIAGEArrived by private vehicle. Historian: patient. Accompanied by family.Acuity: LEVEL 4.Chief Complaint: BACK PAIN.Alert. No acute distress.Onset. (1 weeks). ( PT has history of chronic back pain and 1 week ago injured his lower back whilehelping his neighbor move a bed and couch. He was also seen here for back pain 1.5 weeks ago and wasfeeling better prior to moving the couch.). 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 (flexeril).SEPSIS SCREEN: SIRS SCREEN NEGATIVE. SEPSIS SCREEN NEGATIVE. No suspected or confirmedsigns of infection present.HENRY COMA SCORE: 15- eyes o pen- spontaneous (4); best verbal response- oriented (5); bestmotor response- obeys commands (6). --19:06 08/27/20 Tarah Marroquin R.N.18:58 08/27/20. BP: 147/93. MAP: 111. HR: 81. RR: 18. O2 saturation: 98%. Temp: 98.1 F. Pain levelnow: 10/18. --19:06 08/27/20 Tarah Marroquin R.N.Weight: 99.7 kg stated. Height/Length: 67 inches Per Patient. BMI: 34.5. --19:02 08/27/20 Tarah Marroquin R.N.MedicationsAspirin Adult Low Dose Oral. --19:05 08/27/20 Tarah Marroquin R.N. Bupropion SR 150mg daily. Lisinopril 20mg daily. metFORMIN HCl Oral (Tablet 500 mg), 2x a day. Omeprazole 20mg daily. --19:05 08/27/20 Ra inocente Marroquin R.N. Trulicity Subcutaneous, once a week. --19:05 08/27/20 Tarah Marroquin R.N.AllergiesNo Known Drug Allergy. --19:05 08/27/20 Tarah Marroquin R.N.PROBLEMS:Hypertension. --19:05 08/27/20 Tarah Marroquin R.N. 2 Clinical Report - Nurses [facility] Emergency Department [address] [place] [address] Phone #: [phone] ext- [phone] 08/27/2020 18:50 Patient: BRANDI SLOAN Sex: M : 1970 Age: 50y ADDITIONAL SURGERIES: no known surgeries. History PAST MEDICAL HX: Immunizations: up-to-date. SOCIAL HX: Smoker- current status unknown (quit 5 years ago). No alcohol use or drug use. He was offered HIV testing but declined and hepatitis C testing but declined. He has not traveled outside the [place] Infectious disease exposure: The patient was not exposed to C-diff, MRSA, VRE, CRE or Coronavirus. SELF HARM ASSESSMENT: Self harm assessment was performed. The patient answered "no" to the question(s) "Have you recently felt down, depressed, or hopeless?", "Do you have thoughts of harming or killing yourself?", "Do you have a plan for harming or killing yourself?", "Have you recently had thoughts about harming or killing others?", "Do you have any dangerous items in your possession?", "Have you noticed less interest or pleasure in doing things?", "Are you here because you tried to hurt yourself?" and "Have you ever tried to hurt yourself before today?". ABUSE ASSESSMENT: No report of abuse. NUTRITIONAL RISK ASSESSMENT: The nutritional risk assessment revealed no deficiencies. FUNCTIONAL ASSESSMENT: Functional assessment: no impairments noted. LEARNING NEEDS ASSESSMENT: The learning needs assessment revealed no barriers. FALL RISK ASSESSMENT: Fall risk assessment completed. No risk factors identified. SKIN INTEGRITY ASSESSMENT: Skin integrity risk assessment completed. No skin integrity risk identified. --19:06 08/27/20 Tarah Marroquin R.N. Interventions Identification band on patient. To treatment room. No allergy band on patient. --19:06 08/27/20 Tarah Marroquin R.N.PHYSICAL ASSESSMENTAmbulatory to room.GENERAL / NEURO / PSYCH: Alert. Oriented X 4. Appears in no acute distress. He has numbness ofthe left leg.RESPIRATORY: Respirations not labored. Chest nontender. Breath sounds within normal limits.CVS: Capillary refill less than 2 seconds.GI / : Abdomen soft and nontender. Bowel sounds within normal limits.BACK: Vertebral point tenderness over the lumbar spine. Normal inspection of the neck and back.Limited ROM of the back. Vertebral point tenderness over the lumbar spine. --19:07 08/27/20 Tarah Marroquin R.N. 3 Clinical Report - Nurses [facility] Emergency Department [address] [place] [address] Phone #: ext- [phone] 08/27/2020 18:50 Patient: BRANDI SLOAN Sex: M : 1970 Age: 50yNURSING PROGRESS NOTESPatient gowned. Two patient identifiers checked. Call light placed in reach. Patient ready forevaluation- PA notified. --19:08 08/27/20 Tarah Marroquin R.N. 19:50 08/27/2020 Toradol (Ketorolac Tromethamine) IM 60 mg given. Given in the right deltoid. Allergies verified and confirmed 5 rights. Information reviewed with patient including reason for taking this medication. Verbalizes understanding. --19:50 08/27/20 Tanvir Salamanca RN 19:51 08/27/2020 Valium (diazePAM) PO 5 mg given. Allergies verified and confirmed 5 rights. Information reviewed with patient including reason for taking this medication and sedative warning. Verbalizes understanding. --19:51 08/27/20 Tanvir Salamanca RN 19:51 08/27/2020 Prednisone PO 60 mg given. Allergies verified and confirmed 5 rights. Information reviewed with patient including reason for taking this medication. Verbalizes understanding. --19:51 08/27/20 Tanvir Salamanca RN 19:57 08/27/20. BP: 116/101. MAP: 106. HR: 72. RR: 16. O2 saturation: 96%. --19:57 08/27/20 [facility] Tech1.DISPOSITION / DISCHARGE 20:01 08/27/20. BP: 143/74. MAP: 97. HR: 71. RR: 16. O2 saturation: 98%. Temp: 98.2 F. Pain level now: 0/10. --20:02 08/27/20 [facility] Tech1 20:07 08/27/20. Condition at departure: improved and stable. No learning barriers present. Discharge instructions provided and reviewed with the patient. Reviewed medication(s) side effects, precautions and dosing information. Prescription(s) sent electronically to pharmacy. Reviewed referral to an orthopedic surgeon. Patient verbalized understanding. Written instructions provided in Egyptian. The patient was discharged by the physician public aid eligibility assistant. He was discharged home and accompanied by spouse. He left ambulatory and via private vehicle. Spouse driving. --20:17 08/27/20 Tarah Marroquin R.N.Locked/Released at 08/27/2020 20:17 by Tarah Marroquin R.N. Name Value Range Interpretation Code Description Data Radha rce(s) Supporting Document(s) ID Date Data Source [id number] 08/27/2020 06:50:00 PM EDT [facility] 1 Clinical Report - Physicians/Mid Levels [facility] Emergency Department [address] [place] [address] Phone #: ext- [phone] 08/27/2020 18:50 Patient: BRANDI SLOAN Sex: M : 1970 Age: 50y Time Seen: 19:25 08/27/2020. Arrived- By private vehicle. Historian- patient.HISTORY OF PRESENT ILLNESS Chief Complaint: BACK INJURY, BACK PAIN and CHRONIC BACK PAIN. Onset- 1 1/2 weeks ago; Pt c/o chronic low back pain that exacerbated 2/2 to bending and lifting a couch a week and a half ago. Pt reports that pain radiates to his left hip and L buttock. Pt reports he has chronic low back pain and has an appointment with [facility] on Tuesday. Pt reports heat has minimal relief. Pt reports he has a prescription he is supposed to take for the back pain, but does not recall the name and denies relief from it. and it is still present. It is described as being moderate in degree and in the area of the left SI joint and sacrum and radiating to the left hip and left buttock. The quality is noted to be dull and aching. No bladder dysfunction, bowel dysfunction, sensory loss or motor loss. Patient notes an injury. Mechanism of injury- he was lifting and bending. No injury to the head or neck. Similar symptoms previously. Patient has had similar symptoms several times (Chronic back pain). Recent medical care: The patient was seen recently at this facility. ( For same problem).REVIEW OF SYSTEMSNo fever, chills, eye irritation, difficulty with urination or urinary frequency. No hematuria, headache,depression, sore throat or cough. No difficulty breathing, chest pain, abdominal pain, nausea or vomiting.No diarrhea, black stools or bloody stools.PAST HISTORYSee nurses notes. Problems: Hypertension. Additional Surgeries: no known surgeries. Medications: Trulicity Subcutaneous, once a week. Bupropion SR 150mg daily. Lisinopril 20mg daily. metFORMIN HCl Oral (Tablet 500 mg), 2x a day. Omeprazole 20mg daily. Aspirin Adult Low Dose Oral. Allergies: No Known Drug Allergy. 2 Clinical Report - Physicians/Mid Levels [facility] Emergency Department [address] [place] [address] Phone #: ext- [phone] 08/27/2020 18:50 Patient: BRANDI SLOAN Sex: M : 1970 Age: 50ySOCIAL HISTORYFormer smoker. No alcohol use or drug use.PHYSICAL EXAMVital Signs: 08/27/2020 18:58 BP: 147/93. MAP: 111. HR: 81. RR: 18. O2 saturation: 98%. Temp: 98.1 F.Pain level now: 10/18. Have been reviewed. Hypertensive. Oxygen saturation normal.Appearance: Alert. No acute distress.HEENT: Normal external inspection.Eyes: Pupils equal, round and reactive to light.ENT: Ears normal. Pharynx normal.Neck: Normal inspection. Neck nontender. Painless ROM.CVS: Heart sounds normal. Pulses normal.Respiratory: No respiratory distress. Painless inspiration. Breath sounds normal.Abdomen: No visible injury. Soft and nontender.Back: Painless ROM. Moderate vertebral point tenderness over the mid and lower lumbar spine.Moderate soft tissue tenderness in the left lower and mid and lower central lumbar area.Skin: Skin warm and dry. Normal skin color. No rash. Normal skin turgor.Extremities: Extremities exhibit normal ROM. Extremities nontender.Neuro: Oriented X 3. Mood/affect normal. No motor deficit. No sensory deficit. Reflexes normal.PROGRESS AND PROCEDURESCourse of Care: 19:45 Aug 27 2020. Discussed risks, benefits, and options for treatment plan. Pt isagreeable. Pt reports his drove him to the ED and can drive home. Patient counseled in person regarding the patient's stable condition, diagnosis and need for follow-up. Patient agrees with plan of care. 19:58 Aug 27 2020. Disposition: Discharged home in good and improved condition (19:58 Aug 27 2020).CLINICAL IMPRESSION Chronic nontraumatic thoracic and lumbar back pain associated with muscle strain.INSTRUCTIONS Warnings: GENERAL WARNINGS: Return or contact your physician immediately if your condition worsens or changes unexpectedly, if not improving as expected, or if other problems arise. SPECIFICALLY, return if you develop weakness of the foot or leg, numbness, tingling or incontinence of feces (loss of bowel control) or urine (loss of bladder control); or if there is no improvement in the pain. Your Current Medications: Your current home medications have been reviewed. 3 Clinical Report - Physicians/[facility] Emergency Department [address] [place] [address] Phone #: ext- [phone] 08/27/2020 18:50 [id number] Sex: M : 1970 Age: 50y CONTINUE TAKING THE FOLLOWING MEDICATIONS: Aspirin Adult Low Dose Oral. Bupropion SR 150mg daily*. Lisinopril 20mg daily*. metFORMIN HCl Oral : Tablet 500 mg, 2x a day. Omeprazole 20mg daily*. Trulicity Subcutaneous : once a week. Prescription Medications: methocarbamol 500 mg tablet Take 1 tablet three times a day for 10 days -- Dispense 30 tablet. Refills: 0. Substitution permitted. Pharmacy - [facility] [address] [place] [address]. . Medrol (Karlos) 4 mg tablets in a dose pack Take 1 tablet as directed for 6 days -- Dispense 1 pack. Refills: 0. Substitution permitted. [facility] - [facility] [id number] [place] [address]. . IBU 400 mg tablet Take 1 tablet three times a day for 15 days -- Dispense 45 tablet. Refills: 0. Substitution permitted. [facility] - [facility] [id number] [place] [address]. . Understanding of the discharge instructions verbalized by patient. Follow-up with: [facility], , , [address], [address] Follow up as scheduled. Reason for referral: evaluation and treatment. Summary of care provided to patient.(Electronically signed by CHEYENNE North 08/27/2020 22:12) Name Value Range Interpretation Code Description Data Radha rce(s) Supporting Document(s) ID Date Data Source [id number] 08/18/2020 01:36:00 PM EDT [facility] 1 OrderSheet [facility] Emergency Department [address] [place] [address] Phone #: ext- [phone] 08/18/2020 13:35 Patient: BRANDI SLOAN Sex: M : 1970 Age: 50yWEIGHT:104.3 kg (S) HEIGHT:67 inches (S) BMI:36.0ALLERGIES: No Known Drug AllergyCHIEF COMPLAINT: back painDIAGNOSIS: BackacheLAB ORDERSOrder Description Priority Entered Acknowledged InitialedUrinalysis (Clean STAT 14:34 08/18/2020 14:34 Amalia Swartz) Lynne Swartz R.N.; R.NRadha Verbal order per; Lambert CanalesCDIAGNOSTIC STUDY ORDERSOrder Description Priority Entered Acknowledged InitialedSpine Lumbar STAT 14:06 08/18/2020 Cancelled: Other 14:06 ChristopherComplete Lambert Reddy P.A.-C(Oxygen?(No)) P.A.-C; Reason for Study: Lower Back PainSacrum / Coccyx STAT 14:06 08/18/2020 Cancelled: Other 14:06 Lambert(Oxygen?(No)) Lambert Reddy P.A.-C P.A.-C; Reason for Study: Lower Back Pain, Lower Extremity TinglingSpine Thoracic AP STAT 15:10 08/18/2020 Cancelled: Patient Refusal 15:32 Varsha Swartz R.N.(Oxygen?(No)) P.A.-C; Reason for Study: Mid Back PainMEDICATION/IV/DRIP/FLUID ORDERSOrder Description Priority Entered Acknowledged InitialedTylenol 1 g PO X1 14:06 08/18/2020 Cancelled: Other 14:07 Christopherdose: 1000 mg Lambert Reddy P.A.-C(NOW x1) P.A.- C;diazePAM PO 5 mg 14:08/18/2020 Cancelled: Other 14:07 Lambert Reddy Marino brynn P.A.-C P.A.-C;Toradol IM 30 mg 14:08/18/2020 Cancelled: Other 14:07 Lambert Reddy P.A.-C 2 OrderSheet [facility] Emergency Department [address] [place] [address] Phone #: ext- [phone] 08/18/2020 13:35 Patient: BRANDI SLOAN Sex: M : 1970 Age: 50y P.A.-C;Dexamethasone IM 14:08/18/2020 Cancelled: Other 14:07 Christopher8 mg Lambert Reddy P.A.-C P.A.-C;Lidocaine Patch 14:08/18/2020 Cancelled: Other 14:07 LayoerTopical (Patch 5 %) Lambert Reddy P.A.-C1 Patch (On for 12 P.A.- C;hours, off for 12hours.)Lidocaine Patch 15:08/18/2020 Cancelled: Patient Refusal 15:32 MaximeTopical (Patch 5 %) Lambert Batista R.N.1 Patch (On for 12 P.A.-C;hours, off for 12hours.)GENERAL ORDERSOrder Description Priority Entered Acknowledged Initialed[Electronically signed by Lynne Swartz R.N. (15:35 08/18/2020)][Electronically signed by Lambert ReddyARadha-C (15:30 08/20/2020)][Electronically locked by Lynne Swartz R.N. (15:35 08/18/2020)] Name Value Range Interpretation Code Description Data Radha rce(s) Supporting Document(s) ID Date Data Source [id number] 08/18/2020 01:36:00 PM EDT [facility] 1 Medication Reconciliation Report [facility] Emergency Department [address] [place] [address] Phone #: ext- [phone] 08/18/2020 13:35 Patient: BRANDI SLOAN Sex: M : 1970 Age: 50yWeight: 104.3 kgHeight/Length: 67 in.BMI: 36.0ALLERGIES: No Known Drug AllergyThe patient's Home Medications are listed below:THE FOLLOWING MEDICATIONS NEED TO BE RECONCILED: Aspirin Adult Low Dose Oral Bupropion SR 150mg daily Lisinopril 20mg daily metFORMIN HCl Oral (500 mg), 2x a day Omeprazole 20mg dailyThe source(s) of the original Home Medication information:Not obtained.The following Medications were given to the patient in the Emergency Department:None.The following Medications were prescribed to the patient:None. Name Value Range Interpretation Code Description Data Radha rce(s) Supporting Document(s) ID Date Data Source [id number] 08/18/2020 01:36:00 PM EDT [facility] 1 Medication Administration Record [facility] Emergency Department [address] [place] [address] Phone #: ext- [phone] 08/18/2020 13:35 Patient: BRANDI SLOAN Sex: M : 1970 Age: 50yWeight: 104.3 kgHeight/Length: 67 inBMI: 36ALLERGIES: No Known Drug AllergyDate/Time Medication Administered Medication Ordered Name Value Range Interpretation Code Description Data Radha rce(s) Supporting Document(s) ID Date Data Source [id number] 08/18/2020 01:36:00 PM EDT [facility] 1 General Instructions [facility] Emergency Department [address] [place] [address] Phone #: ext- [phone] 08/18/2020 13:35 Patient: BRANDI SLOAN Sex: M : 1970 Age: 50yAcute traumatic thoracic and lumbar back pain associated with muscle strain.INSTRUCTIONS(You are more thanwelcome to come back. Please take meds that were previoulsy rx'ed.).Follow-up:Return to the emergency department as needed. Follow up with your healthcare provider in about twodays if not better. Call for an appointment.Understanding of the discharge instructions verbalized by patient.AMA warnings: Oriented to person, place, and time. Gives appropriate answers and rational explanationof refusal of care. Speaks coherently. No signs of psychosis, auditory hallucinations, delusional thinking,suicidal ideations or slurred speech. No tangential thinking, visual hallucinations or homicidal ideations.Abstract thinking intact.Clinical Impression: the patient has the capacity to make decisions regarding the medical care offered.Relevant issues reviewed and discussed with the patient. The suspected diagnosis, based upon theinitiated medical screening exam, has been discussed with the patient. Acknowledges understanding ofthe reasons for recommendations regarding medical treatment. The recommended medical care beingrefused has been discussed with the patient. Risks of refusing recommended care- Unknown/unfoundpathology due to not waiting for imiaging resutls.REFUSAL OF CARE STATEMENT (patient to review and sign in discharge instructions):I have read this paragraph. [facility]. The doctor explained that care to me, and I understand what that care is. The doctor also explainedto me what could happen to me if I leave here without having that care, and I understand what he said. [place] that I am welcome to return to this hospital at any time to receive the recommended care or any othercare that I may need at any time, regardless of my ability to pay for such care. 2 General Instructions [facility] Emergency Department [address] [place] [address] Phone #: ext- [phone] 08/18/2020 13:35 Patient: BRANDI SLOAN Sex: M : 1970 Age: 50y(Electronically signed by Lambert Reddy P.A.-C 08/20/2020 15:30) Name Value Range Interpretation Code Description Data Radha rce(s) Supporting Document(s) ID Date Data Source [id number] 08/18/2020 01:36:00 PM EDT [facility] 1 Clinical Report - Nurses [facility] Emergency Department [address] [place] [address] Phone #: [phone]- [phone] 08/18/2020 13:35 Patient: BRANDI SLOAN Sex: M : 1970 Age: 50yTRIAGEArrived by private vehicle. Historian: patient. Accompanied by family. ( fell of couch and hit back on, went to [place] tuesday and ct scan done and it was negative, went to [facility] and xray done andnothing wrong, has not taken any pain medication since injury).Acuity: LEVEL 4.Chief Complaint: BACK PAIN and (low back pain).Alert.Onset. 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 SEPSIS SCREEN NEGATIVE. No suspected or confirmedsigns of infection present. --13:53 08/18/20 Lynne Swartz R.N.13:46 08/18/20. BP: 146/93. MAP: 110. HR: 80. RR: 18. O2 saturation: 97%. Temp: 98.5 F. Pain levelnow: 10/18. --13:53 08/18/20 Lynne Swartz R.N.Weight: 104.3 kg stated. Height/Length: 67 inches Per Patient. BMI: 36. --13:45 08/18/20 Lynne Swartz R.N.MedicationsBupropion SR 150mg daily. Lisinopril 20mg daily. Omeprazole 20mg daily. --13:50 08/18/20 Lynne Swartz R.N. Aspirin Adult Low Dose Oral. --13:50 08/18/20 Lynne Swartz R.N. metFORMIN HCl Oral (Tablet 500 mg), 2x a day. --13:50 08/18/20 Lynne Swartz R.N.AllergiesNo Known Drug Allergy. --13:50 08/18/20 Lynne Swartz R.N.PROBLEMS:Diabetes Mellitus.GI Disease.Back Injury.Hypertension.Sacroiliitis.Lumbar Strain. --13:51 08/18/20 Lynne Swartz R.N. 2 Clinical Report - Nurses [facility] Emergency Department [address] [place] [address] Phone #: ext- [phone] 08/18/2020 13: 35 Patient: BRANDI SLOAN Sex: M : 1970 Age: 50y ADDITIONAL SURGERIES: no known surgeries. History PAST MEDICAL HX: Immunizations: up-to-date. SOCIAL HX: Never smoker. Smoker- current status unknown (chews). No alcohol use or drug use. He was offered HIV testing but declined and hepatitis C testing but declined. He has not traveled outside the [place] Infectious disease exposure: No infectious disease exposure. Patient is not a known carrier of tuberculosis, hepatitis, HIV, MRSA or VRE. Patient is not a known carrier of CRE. SELF HARM ASSESSMENT: Self harm assessment was performed. The patient answered "no" to the question(s) "Have you recently felt down, depressed, or hopeless?", "Do you have thoughts of harming or killing yourself?", "Do you have a plan for harming or killing yourself?", "Have you recently had thoughts about harming or killing others?", "Do you have any dangerous items in your possession?", "Have you noticed less interest or pleasure in doing things?", "Are you here because you tried to hurt yourself?" and "Have you ever tried to hurt yourself before today?". ABUSE ASSESSMENT: Abuse assessment. Abuse denied. No suspicion of abuse. No report of abuse. NUTRITIONAL RISK ASSESSMENT: The nutritional risk assessment revealed no deficiencies. FUNCTIONAL ASSESSMENT: Functional assessment: no impairments noted. LEARNING NEEDS ASSESSMENT: The learning needs assessment revealed no barriers. FALL RISK ASSESSMENT: Fall risk assessment completed. No risk factors identified. SKIN INTEGRITY ASSESSMENT: Skin integrity risk assessment completed. No skin integrity risk identified. --13:53 08/18/20 Lynne Swartz R.N. Interventions Identification band on patient. To treatment room. --13:53 08/18/20 Lynne Swartz RAraceli.PHYSICAL ASSESSMENTGENERAL / NEURO / PSYCH: Alert. Oriented X 4. Appears in no acute distress.RESPIRATORY: Respirations not labored. Chest nontender. Breath sounds within normal limits.CVS: Normal heart rate and rhythm. Capillary refill less than 2 seconds.GI / : Abdomen soft and nontender. Bowel sounds within normal limits.EXTREMITIES: Sensation intact in extremities.BACK: Normal inspection of the neck and back. Soft tissue tenderness in the right mid and left midthoracic paraspinous region and right mid and left mid lumbar paraspinous region. --13:54 08/18/20 Lynne Swartz R.N. 3 Clinical Report - Nurses [facility] Emergency Department [address] [place] [address] Phone #: ext- [phone] 08/18/2020 13:35 Patient: BRANDI SLOAN Sex: M : 1970 Age: 50yNURSING PROGRESS NOTESPatient gowned. Reassurance given. Two patient identifiers checked. Call light placed in reach. Siderails up x 2. Bed placed in lowest position. Brakes of bed on. Patient ready for evaluation. --13:5408/18/20 Lynne Swartz R.N. 13:57 08/18/20. BP: 120/81. MAP: 94. HR: 82. RR: 16. O2 saturation: 94%. --13:57 08/18/20 [employer], Za, [employer] Tech1 14:20 08/18/20. Patient transported to radiology by wheelchair with rim technician. --14:30 08/18/20 Lynne Swartz R.N. Patient returned from radiology by wheelchair with rim technician. --14:30 08/18/20 Lynne Swratz R.N. Patient ID band checked for patient name and birthdate: patient confirmed. Instructions provided to collect clean catch urine and patient verbalized understanding. Clean catch urine collected; sample sent to lab for urinalysis. Specimen labeled in the presence of the patient. --14:34 08/18/20 Lynne Swartz R.N. 15:02 08/18/20. BP: 124/94. MAP: 104. HR: 80. RR: 16. O2 saturation: 96%. --15:02 08/18/20 Mihaela adjunct phlebotomy instructor, [facility] Tech[facility].DISPOSITION / DISCHARGE Condition at departure: unchanged. No learning barriers present. Discharge instructions provided and reviewed with the patient. Patient verbalized understanding. Written instructions not provided in Egyptian. The patient was discharged home and accompanied by family. He left ambulatory and via private vehicle. Family member driving. --15:34 08/18/20 Lynne Swartz R.N. 15:34 08/18/20. BP: unable to obtain. HR: unable to obtain. RR: unable to obtain. O2 saturation: unable to obtain. Temp: unable to obtain. Pain level now: uncertain. --15:34 08/18/20 Lynne Swartz R.N. Departure time: 15:34 08/18/2020. --15:34 08/18/20 Lynne Swartz R.N.Locked/Released at 08/18/2020 15:35 by Lynne Swartz R.N. Name Value Range Interpretation Code Description Data Radha rce(s) Supporting Document(s) ID Date Data Source [id number] 08/18/2020 01:36:00 PM EDT [facility] 1 Clinical Report - Physicians/Mid Levels [facility] Emergency Department [address] [place] [address] Phone #: ext- [phone] 08/18/2020 13:35 Patient: BRANDI SLOAN Sex: M : 1970 Age: 50y Time Seen: 13:58 08/18/2020; initial patient contact, initial documentation. Arrived- By private vehicle. Historian- patient. Disposition decision: 15:29 08/18/2020.HISTORY OF PRESENT ILLNESS Chief Complaint: BACK PAIN. It is described as being mild. The quality is noted to be dull, aching and similar to prior episodes. Onset- about 1 weeks ago. No bladder dysfunction, bowel dysfunction, sensory loss or motor loss. Additional history - Pt sts that fell of couch and hit back on heater, went to [facility] tuesday and ct scan done and it was negative, went to family md and xray done and nothing wrong, has not taken any pain medication since injury. Sts here becasue wanted him to come. Deneis any bladder or bowel dysfucntion/incontenacnce. Patient notes an injury. Mechanism of injury- fell: Occurred at home. No injury to the head or neck or other injury. Similar symptoms previously. None. Recent medical care: Not recently seen/assessed.REVIEW OF SYSTEMSNo fever, chills, eye irritation, difficulty with urination or urinary frequency. No hematuria, skin rash,headache, depression or sore throat. No cough, difficulty breathing, chest pain, abdominal pain ornausea. No vomiting, diarrhea, black stools or bloody stools. All other systems reviewed and arenegative.PAST HISTORYSee nurses notes. Has had back injury. He has had prior back pain. Problems: Other Disease. Diabetes Mellitus. GI Disease. Hypertension. Sacroiliitis. Lumbar Strain. Jhon tional Surgeries: no known surgeries. Medications: metFORMIN HCl Oral (Tablet 500 mg), 2x a day. 2 Clinical Report - Physicians/Mid Levels [facility] Emergency Department [address] [place] [address] Phone #: ext- [phone] 08/18/2020 13:35 Patient: BRANDI SLOAN Sex: M : 1970 Age: 50y Aspirin Adult Low Dose Oral. Bupropion SR 150mg daily. Lisinopril 20mg daily. Omeprazole 20mg daily. Allergies: No Known Drug Allergy.SOCIAL HISTORYSmoker- current status unknown (Chewing tobacco). No alcohol use or drug use.ADDITIONAL NOTESThe nursing notes have been reviewed.PHYSICAL EXAMVital Signs: 08/18/2020 13:46 BP: 146/93. MAP: 110. HR: 80. RR: 18. O2 saturation: 97%. Temp: 98.5 F.Pain level now: 10/18. Have been reviewed. Oxygen saturation normal.Appearance: Alert. No acute distress.ENT: Voice normal.Neck: Normal inspection. Neck nontender. Painless ROM.CVS: Normal heart rate and rhythm. No JVD present. Pulses normal. Capillary refill normal. Strongperipheral pulses. Heart sounds normal. Pulses: right radial 2+; left radial 2+; right dorsalis pedis 2+; leftdorsalis pedis 2+; right posterior tibial 2+; left posterior tibial 2+.Respiratory: Chest normal on inspection. No respiratory distress. Unlabored respirations. Lungs clear.Good chest movement. Breath sounds normal and equal.Back: Muscle spasm of the back. Soft tissue tenderness. No vertebral point tenderness, CVAtenderness or limitation in ROM.Skin: Skin warm and dry.Extremities: Extremities exhibit normal ROM. No lower extremity edema. Extremities nontender. Nocalf tenderness.Neuro: Awake. Mood/affect normal. Speech normal. No motor deficit. No sensory deficit.Psych: Cognition normal. Thought process and content normal. Insight and judgement normal.PROGRESS AND PROCEDURESCourse of Care: Enter room and pt lying peacefully in bed in NAD. Patient stable. Denies any newissues, concerns, or complaints. VSS, NAD, AOx3, interacting well and appropriately, no use ofaccessory muscle, able to speak full sentences, stable, non-toxic looking. Pt sts taht he originally fell out of couch and hit back on heater. Went to [facility] and had CTs and informed all good. Then a few days later saw PCP and had XR and all good. Pt admits he is here now becasue said to get checked out. Pt has no specific new pain. PE demos NV intact b/l UE and LE. ntoed slight loewr mid back/lower bakc pain. No neuro deficits. will obtian previous results and review. 3 Clinical Report - Physicians/Mid Levels [facility] Emergency Department [address] [place] [address] Phone #: ext- [phone] 08/18/2020 13:35 Patient: BRANDI SLOAN Sex: M : 1970 Age: 50y Able to obtiain [facility] ER restuls. 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 There are bilateral L5 pars defects. NO actue fx. No dislocation. Obtian XR of L-Spine by PCP (7May2) that indicates multilevel degenerative changes. Sarah Beth is been no significnat chagnes prior study. Based on results and PE. Will obtina XR of T-Spine for eval. Pending resutls. Infomred that pt needs to leave, ahs appt. Do not have results. Pt will have to leave AMA. Pt expresses he understands, agrees, and will accept responsibilites repercusions. Pt infomred he is welcome to return and expresses he understands and agrees.CLINICAL IMPRESSION Acute traumatic thoracic and lumbar back pain associated with muscle strain.INSTRUCTIONS (You are more thanwelcome to come back. Please take meds that were previoulsy rx'ed.). Follow-up: Return to the emergency department as needed. Follow up with your healthcare provider in about two days if not better. Call for an appointment. Understanding of the discharge instructions verbalized by patient. AMA warnings: Oriented to person, place, and time. Gives appropriate answers and rational explanation of refusal of care. Speaks coherently. No signs of psychosis, auditory hallucinations, delusional thinking, suicidal ideations or slurred speech. No tangential thinking, visual hallucinations or homicidal ideations. Abstract thinking intact. Clinical Impression: the patient has the capacity to make decisions regarding the medical care offered. Relevant issues reviewed and discussed with the patient. The suspected diagnosis, based upon the initiated medical screening exam, has been discussed with the patient. Acknowledges understanding of the reasons for recommendations regarding medical treatment. The recommended medical care being refused has been discussed with the patient. Risks of refusing recommended care- Unknown/unfound pathology due to not waiting for imiaging resutls. REFUSAL OF CARE STATEMENT (patient to review and sign in discharge instructions): I have read this paragraph. I understand that a doctor at this hospital wants to give me certain medical care. The doctor explained that care to me, and I understand what that care is. The doctor also explained to me what could happen to me if I leave here without having that care, and I understand what he said. I know that I am welcome to return to this hospital at any time to receive the recommended care or any other care that I may need at any time, regardless of my ability to pay for such care. 4 Clinical Report - Physicians/Mid Levels [facility] Emergency Department [address] [place] [address] Phone #: ext- [phone] 08/18/2020 13:35 Patient: BRANDI SLOAN Sex: M : 1970 Age: 50y(Electronically signed by Lambert Reddy P.A.-C 08/20/2020 15:30) Name Value Range Interpretation Code Description Data Radha rce(s) Supporting Document(s) ID Date Data Source [id number] 08/19/2020 10:31:00 [place] [address] PHONE: [phone] FAX: [phone] Name .................. : KYLIE PAZ Acct Number.................. : [id number] ROOM. ................. : VT-07 MR Number ................... : [id number] Stay type ............. : E/R Discharge Date......... ... : 08/18/20 Admit Date .... ..... : 08/18/20 Admit Phys .................... : JAIME MCPHERSON Date of ....... : 1970 Family Phys ................... : JARVIS ALDRIDGE Phone .................. : [phone] Age ................................ : 50 Film# .................. .:[id number] Sex ................................. : M Unsigned transcriptions are preliminary reports and do not represent a medical or legal document SPINE THORACIC [id number] COMPLETE:08/18/20 16:11 [facility] [place] [id number] Reas on(s): Trauma/Injury THORACIC SPINE SERIES: COMPARISON: None available. FINDINGS: There is no acute wedge compression fracture or significant spondylolisthesis. There is the loss of height of multiple mid-thoracic vertebral bodies likely on the basis of bony demineralization and degenerative changes. Consider follow up with MRI if clinically warranted. There is otherwise moderate diffuse degenerative changes with interspace narrowing and endplate sclerosis. There is a slight lower thoracic dextroscoliosis. IMPRESSION: Degenerative changes without acute wedge compression fracture. Suggest follow up with nonemergent MRI if clinically warranted. Electronically Reviewed and Signed By Qasim Lay MD , 08/19/20 10:31, AML Transcribe Initials: DENISE , Transcribe Date: 08/18/20 22:46, Dictation Date: Copy for: [facility] via fax Copy for: EMERGENCY DEPT via mode Copy for: 710 MED REC DISCHARGED Page 1 of 1 Name Value Range Interpretation Code Description Data Radha rce(s) Supporting Document(s) ID Date Data Source [id number] 08/18/2020 02:49:00 PM EDT [facility] Name Value Range Interpretation Code Description Data [facility] rce(s) Supporting Document(s) [facility]IS [facility] UR[facility] SOURCE R [facility] COLOR yellow NORMAL: Yellow [facility] CLARITY clear NORMAL: Clear [facility] Specific gravity of Urine by Test strip 1.015 1.001 - 1.030 [facility] pH 8 5 - 9 [facility] Glucose [Mass/volume] in Urine by Test strip NORM NORMAL: Negat [facility] Bilirubin.total [Presence] in Urine by Test strip NEG NORMAL: Negative [facility] Ketones [Presence] in Urine by Test strip NEG NORMAL: Negative [facility] Protein [Mass/volume] in Urine by Test strip NEG NORMAL: Negat [facility] Nitrite [Presence] in Urine by Test strip NEG NORMAL: Negative [facility] BLOOD NEG NORMAL: Negative [facility] Leukocyte esterase [Presence] in Urine by Test strip 25 DAVIN L: Negative [facility] Urobilinogen [Mass/volume] in Urine by Test strip NOR less salena n 1.0 mg/dL [facility] MICROSCOPIC See Below [facility] ital WBC None Seen NORMAL: NONE SEEN [facility] Erythrocytes [#/volume] in Urine by Test strip None Seen NORMAL: NON E SEEN [facility] Mucus [Presence] in Urine sediment by Light microscopy Trace NORMAL: NONE SEEN [facility] ID Date Data Source [id number] 08/16/2020 05:08:[address] [facility] ED Physician Documentation NAME: BRANDI SLOAN : 1970 AGE: 50 MR#: [id number] SERVICE DATE: 08/16/[address]: Kp Baltazar MD PRIMARY CARE DR: Silverio Batista MD ROOM#: HPI (Adult, General) General Chief Complaint: Musculoskeletal Stated Complaint: BLACK AND BLUE ABOVE [facility] Resident [facility], travel outisde home, exposure to hot tubs:: No Time Seen by Provider: 08/16/20 04:58 Source: patient Exam Limitations: no limitations History of Present Illness Narrative: 50 yo man with DM, HTN, chronic back pain, seen in the ER on 08/13/20 for low back pain after a slip and fall at home, had CT scan showing chronic lumbar disease most significant at L5-S1, treated with pain medicine and released, returns this morning because hiswife is concerned about a "black and blue gin" that has been there since the fall. His PMD got him lumbar X-rays yesterday which show L5- S1 anterolisthesis with no fracture. He c/o pain but doesnot want more pain medicine because he still has some from the original ER visit. Allergies/Home Meds Allergies Allergy/AdvReac Type Severity Reaction Status Date / Time No Known Drug Allergies Allergy Verified 08/16/20 04:46 No Known Food Allergies Allergy Verified 08/16/20 04:46 Home Medications Medication Instructions Recorded Confirmed Last Taken Type aspirin 1 tab PO DAILY #30 tab 08/02/16 03/17/20 07/07/19 History zonisamide 50 mg capsule 50 mg PO BID 06/04/19 03/17/20 07/07/19 History atorvastatin 10 mg tablet 10 mg PO DAILY #90 tab 01/07/20 03/17/20 Unknown Rx levocetirizine 5 mg tablet 5 mg PO DAILY #90 tab 01/07/20 03/17/20 Unknown Rx lisinopril 40 mg tablet 40 mg PO DAILY #90 tab 01/07/20 03/17/20 Unknown Rx metformin 500 mg tablet,extended 1,000 mg PO BID #360 tab 01/07/20 03/17/20 Unknown Rx release 24 hr omeprazole 40 mg capsule,delayed 40 mg PO DAILY #90 cap 01/07/20 03/17/20 Unknown Rx release tamsulosin 0.4 mg capsule 0.4 mg PO QDAY #90 cap 01/07/20 03/17/20 Unknown Rx blood glucose control high and low #1 ea 01/28/20 03/17/20 Unknown Rx solution blood-glucose meter #1 ea 01/28/20 03/17/20 Unknown Rx lancets #100 ea 01/28/20 03/17/20 Unknown Rx lancing device with lancets kit #100 ea 01/28/20 03/17/20 Unknown Rx naproxen 500 mg tablet 500 mg PO BID #60 tab 07/02/20 07/02/20 Unknown Rx dulaglutide 1.5 mg/0.5 mL 1.5 mg SQ WEEKLY #2 ml 07/28/20 Unknown Rx subcutaneous pen injector blood sugar diagnostic #100 ea 08/11/20 Unknown Rx PMH (from Triage) Patient Medical History PMH Reviewed/Updated as Needed: Yes PMH/PSH from Triage: Medical History (Updated 07/02/20 @ 13:54 by RICHIE Hernández) Allergic rhinitis due to pollen (Medical) Anxiety disorder (Medical 01/01/11) F41.9 Congenital hydrocele (Medical) Continuous chewing tobacco dependence (Medical 09/20/14) F17.220 Diabetes mellitus (Medical) Essential hypertension (Medical 01/01/11) I10 Learning disability (Medical) Left knee pain (Medical) M25.562 he was offered a wheelchair to be escorted to x-ray, he declined Morbid obesity (Medical) Obesity (Medical) Morbidly obese Tobacco use disorder, continuous (Medical) Type 2 diabetes mellitus without complication, without long-term current use of insulin (Medical 03/16/16) E11.9 Surgical History History of vasectomy (Surgical 12/25/12) Hx Drug Resistant Infections Hx MRSA: (Methicillin-resistant Staphylococcus aureus): No Hx VRE (Vancomycin-resistant enterococci): No Hx C.Diff: No Hx CRKP: No Hx Other Resistant Infection?: No Isolation: Standard precautions Hx Recent Travel Out of the country within 10 days (where): No Hx Fever: No Hx Fever with a rash?: No Nurse screening for coronavirus: Recent Travel outside the No country (where) Has patient experienced No coronavirus symptoms Social History Does patient have suicidal/homicidal thoughts or ideation?: No Are you in a relationship with/Does anyone hit you, yell/swear at you, steal from you?: No Substance Use Hx Alcohol Use: No Hx Substance Use: No Hx Substance Use Treatment: No Second Hand Smoke Exposure: No Smoking Status: Current every day smoker Tobacco Use Tobacco Products:: Chewing Tobacco Years smoked:: 29 Hx Chewing Tobacco Use: Yes Vaccination History Hx/Date of Tetanus, Diphtheria Vaccination: Yes Hx/Date of Influenza Vaccination: Yes Hx/Date of Pneumococcal Vaccination: Yes Immunizations Up to Date: Yes ROS Review of Systems Constitutional: Denies fever ENT: Denies nasal congestion and throat pain Respiratory: Denies cough and SOB Cardiovascular: Denies chest pain Gastrointestinal: Denies nausea, vomiting and abdominal pain Genitourinary-Male: Denies dysuria Musculoskeletal: Reports back pain Skin/Breasts: Denies rash and bruising Neurologic: Denies weakness and numbness Endocrine: Denies Loss of appetite Hematological/Lymphatic: Denies easy bleeding and easy bruising Allergic/Immunologic: Denies rash Physical Exam General Physical Exam Narrative: mildred man, awake and alert, appears comfortable Limitations: no limitations General appearance: alert and in no apparent distress Head Head exam: Present atraumatic, normocephalic and normal inspection Eye Eye exam: Present normal apperance and EOMI; Absent scleral icterus and conjunctival injection ENT ENT exam: Present normal exam, normal orophraynx and mucous membranes moist Neck Neck exam: Present normal inspection and full ROM; Absent tenderness Respiratory Respiratory exam: Present normal lung sounds bilaterally; Absent respiratory distress Cardiovascular Cardiovascular Exam: Present regular rate and normal rhythm GI/Abdominal GI/Abdominal exam: Present Abd soft, bowel sounds present all quadrents and distended; Absent tenderness Extremities Exam Extremities exam: Present normal inspection and full ROM; Absent tenderness Back Exam Back exam: Present normal inspection, full ROM, tenderness (midline lower lumbar tenderness), paraspinal tenderness and vertebral tenderness; Absent rash noted Neurological Exam Neurological exam: Present alert and oriented X3; Absent motor sensory deficit Psychiatric Psychiatric exam: Present normal affect and normal mood Skin Skin exam: Present warm, dry, intact and normal color Vital Signs Vital Signs: Vital Signs 08/16/20 04:49 Temperature 98 F Pulse Rate 73 Respiratory Rate 20 Blood Pressure 134/83 O2 Sat by Pulse Oximetry 96 MDM (comprehensive) Radiology Data Radiology results: report reviewed Medical Decision Making Free Text/Narative:: The patient was evaluated for low back pain. The PE was significant for midline lower lumbar tenderness on palpation with no bruising noted. The patient does not want morepain medicine. [facility] Medical History Allergic rhinitis due to pollen Anxiety disorder (01/01/11) Congenital hydrocele Continuous chewing tobacco dependence (09/20/14) Diabetes mellitus Essential hypertension (01/01/11) Learning disability Left knee pain Morbid obesity Obesity [place] use disorder, continuous Type 2 diabetes mellitus without complication, without long-term current use of insulin (03/16/16) Surgical History History of vasectomy (12/25/12) Family History Mother Chronic low back pain Father Chronic low back pain Sister Mental retardation Brother No problems noted. Social History Does the Patient have a Healthcare Proxy: No Does Patient have a DNR?: No Does Patient have a Living Will?: No Does the Patient have a MOLST?: No Advance Directives on File or in chart?: No household members: spouse housing: apartment marital status: highest education level completed: high school graduate current occupational status: unemployed pets and animals: Yes leisure activities: other Hx Recent Travel (where): No well-balanced diet: about half the time caffeine: Yes high-fat food intake: 2 times daily daily servings fruits/ve-4 daily servings of milk/calcium: 2-4 eating out: rarely or never reads food labels: usually or always during the past year weight has: remained stable what type of physical activity do you participate in?: walking Smoking Status: Current every day smoker a lcohol intake: former details: 06/16/2013 last substance use type: does not use seatbelt use: always water heater temp set < 120 deg: Yes working smoke detector in home: Yes fire extinguisher in home: No carbon monox detector in home: No firearms in home: No victim of physical abuse: No victim of emotional abuse: No Plan Plan Plan: d/c home Plan of care: Plan of care discussed with patient and or family, Patient encouraged to ask questionsabout plan and Patient agrees with plan of care Discharge Plan Admission/Discharge Dx Primary DC Diagnosis: Low Back pain; Bruising resolved ED Provider: Kp Baltazar ED Status: Discharged Time Seen by Provider: 08/16/20 04:58 Triaged At: 08/16/20 04:26 Condition Condition: Stable Discharge Detail Disposition: Home, Self-Care Med Rec New Prescriptions: No Action naproxen 500 mg tablet 500 mg PO BID Qty: 60 RF: 0 aspirin 81 MG tablet,delayed release (DR/EC) 1 tab PO DAILY Qty: 30 RF: 11 zonisamide 50 mg capsule 50 mg PO BID RF: 0 metformin 500 mg tablet extended release 24 hr 1,000 mg PO BID Qty: 360 RF: 3 omeprazole 40 mg capsule,delayed release(DR/EC) 40 mg PO DAILY Qty: 90 RF: 3 atorvastatin 10 mg tablet 10 mg PO DAILY Qty: 90 RF: 3 tamsulosin 0.4 mg capsule 0.4 mg PO QDAY Qty: 90 RF: 3 lisinopril 40 mg tablet 40 mg PO DAILY Qty: 90 RF: 3 levocetirizine [Xyzal] 5 mg tablet 5 mg PO DAILY Qty: 90 RF: 3 (DME) blood-glucose meter [Accu-Chek Tabby Plus Meter] Misc See Rx Instructions .ROUTE .MEDSUPPLY Qty: 1 RF: 0 (DME) Accu-Chek Tabby Control Soln Solution See Rx Instructions .ROUTE .MEDSUPPLY Qty: 1 RF: 3 (DME) lancets [Accu-Chek Softclix Lancets] Misc See Rx Instructions .ROUTE .MEDSUPPLY Qty: 100 RF: 5 (DME) lancing device with lancets [Accu-Chek Soft Dev Lancets] Kit See Rx Instructions .ROUTE .MEDSUPPLY Qty: 100 RF: 5 Trulicity 1.5 mg/0.5 mL pen injector 1.5 mg SQ WEEKLY Qty: 2 RF: 5 (DME) Accu-Chek Tabby Plus test strp Strip See Rx Instructions .ROUTE .MEDSUPPLY Qty: 100 RF: 5 Medications Medication reconciliation performed by provider at discharge: Yes Follow Up Care/Instructions Diet/Activity/Wound Care..: Continue current pain medication, primary care follow-up please, return to ER for increased symptoms *Discharge Patient* Discharge Orders: Discharge Order (Routine); Ordered 08/16/20 Ordered By: Kp Baltazar Discharge Date/Time: 08/16/20 05:25 Interventions Interventions: ED Discharge Instructions Last Done: 08/16/20 05:25 Report Signers: <Electronically signed by Kp Baltazar MD> Kp Baltazar MD 08/16/20 06 Kp Baltazar MD SIGNATURE DA Report Cosigners: D: ARACELIS 08/16/20507 T: ARACELIS 08/16/20507 CC: Silverio Batista MD Name Value Range Interpretation Code Description Data Radha rce(s) Supporting Document(s) ID Date Data Source [id number] 08/15/2020 01:47:00 PM EDT [facility] [address] [place] [address] [phone] NAME SEX PT STATUS ACCOUNT NUMBER BRANDI SLOAN REG REF [id number] ORDERING PHYSICIAN LOCATION MEDICAL RECORD NO. Silverio Batista MD RAD [id number] ATTENDING PHYSICIAN DATE OF DATE OF EXAM/TIME Silverio Batista MD 1970 08/15/201109 TYPE / EXAM Xray Lumbar spine complete REASON FOR EXAM Back injury TECHNIQUE: Frontal, lateral, and coned down lumbosacral views of the lumbar spine were obtained. COMPARISON: 07/22/2017 FINDINGS: There are 5 nonrib-bearing lumbar-type vertebral bodies. Normal lumbar lordosis is present. There are multilevel degenerative disc changes. There are facet arthritic changes of the lower lumbar spine. There is a degenerated disc at L5-S1 with disc space narrowing not significantly changed since prior study. IMPRESSION: Multilevel degenerative changes. There is been no significant changes prior study. Reported By Mary Ching MD on 08/15/20 1347 Signed By Mary Ching MD on 08/15/20 1349 Date Time CC: Silverio Batista MD; Mary Ching MD Techn: [id number] Trans D t/Tm: Trans by: DT Prt Dt/Tm: [id number]: Total DLP = 0.00 mGy-cm Fluoroscopy Time (in secs): Name Value Range Interpretation Code Description Data Radha rce(s) Supporting Document(s) ID Date Data Source [id number] 08/13/2020 01:08:00 AM EDT [facility] [address] [place] [address] [phone] NAME SEX PT STATUS ACCOUNT NUMBER BRANDI SLOAN REG ER [id number] ORDERING PHYSICIAN LOCATION MEDICAL RECORD NO. Abiodun Knox MD [id number] ATTENDING PHYSICIAN DATE OF DATE OF EXAM/TIME Silverio Batista MD 1970 08/13/20 / 0004 TYPE / EXAM CT Abd/pel w/o contrast REASON FOR EXAM hitbackoncouch,painlowback, L-paravertebral Clinical History/Indication for Exam: hit back on couch, pain low back, L-paravertebral CT ABDOMEN AND PELVIS WITHOUT INTRAVENOUS CONTRAST INDICATION: hit back on couch, pain low back, L-paravertebral TECHNIQUE: Axial computed tomography images of the abdomen and pelvis without intravenous contrast. Sagittal and coronal reformatted images were created and reviewed. This CT exam was performed using one or more of the following dose reduction techniques: automated exposure control,adjustment of the mA and/or kV according to patient size, and/or use of iterative reconstruction technique. COMPARISON: 05/09/19 FINDINGS: Lung bases: Unremarkable. No mass. No consolidation. Pleural space: Unremarkable. No significant effusion. No pneumothorax. ABDOMEN: Liver: Unremarkable. Gallbladder and bile ducts: Unremarkable. No calcified stones. No ductal dilation. Pancreas: Unremarkable. No ductal dilation. Spleen: Unremarkable. No splenomegaly. Adrenals: Unremarkable. No mass. Kidneys and ureters: There is a fluid attenuation cyst along the upper pole of the right kidney measuring 1.7 cm. Likely Bosniak class I, for which no follow up is specifically required. There is mild bilateral perinephric stranding, nonspecific. No obstructing stones. Stomach and bowel: Unremarkable. No obstruction. No mucosal thickening. PELVIS: Appendix: No findings to suggest acute appendicitis. Bladder: Unremarkable. No stones. Reproductive: Unremarkable as visualized. ABDOMEN and PELVIS: Intraperitoneal space: Unremarkable. No free air. No significant fluid collection. Bones/joints: There is chronic grade 1 anterolisthesis of L5 on S1. There are bilateral L5 pars defects. No acute fracture. No dislocation. Soft tissues: Unremarkable. Vasculature: Unremarkable. No abdominal aortic aneurysm. Lymph nodes: Unremarkable. No enlarged lymph nodes. IMPRESSION: 1. No acute intra-abdominal process. 2. No acute displaced fracture. Automatic exposure control was used as a dose lowering technique. REPORT SIGNATURE ON FILE 08/13/2020 (01:08 Eastern Time ) Signed by: Monica Snow M.D. Reported By Gwendolyn Anderson MD on 08/13/20 0108 Signed By Gwendolyn Anderson MD on 08/13/20 0108 Date Time CC: Gwendolyn Anderson MD; Silverio Batista MD Techn: [email or web address] Trans Dt/Tm: Trans by: DT Prt Dt/Tm: : Total DLP = 1321.00 mGy-cm : Total Radiation Dose = 19.8150 mSv Lifetime Dose: 35.0250 mSv Name Value Range Interpretation Code Description Data Radha rce(s) Supporting Document(s) ID Date Data Source [id number] 08/13/2020 12:48:[address] [facility] Reason for ordering culture: Abnormal fi ndings UAMethod of Collection:: Voided Name Value Range Interpretation Code Description Data Radha rce(s) Supporting Document(s) Color of Urine [facility] Appearance of Urine CLEAR [facility] pH of Urine by Test strip 6.5 5-8 [facility] Specific gravity of Urine by Refractometry 1.009 1.005-1.030 [facility] Leukocyte esterase [Presence] in Urine by Test strip NEGAT SILVIA [facility] Nitrite [Presence] in Urine by Test strip NEGATIVE [facility] Protein [Presence] in Urine by Test strip NEGATIVE [facility] Glucose [Mass/volume] in Urine by Automated test strip NEGATIVE NEG ATIVE [facility] Ketones [Presence] in Urine by Test strip NEGATIVE [facility] Urobilinogen [Presence] in Urine 0.2-1 EU/dl [facility] Bilirubin.total [Presence] in Urine by Automated test strip NEGATIVE [facility] Erythrocytes [#/volume] in Urine by Test strip NEGATIVE NEGATIVE [facility] URINE MICROSCOPIC? (CIF) NO [facility] ID Date Data Source [id number] 08/13/2020 12:25:[address] [facility] ED Physician Documentation NAME: KYLIEBRANDI Chema : 1970 AGE: 49 MR#: [id number] SERVICE DATE: 08/12/[address]: Abiodun Knox MD PRIMARY CARE DR: Silverio Batista MD ROOM#: [facility] (Adult, General) General Chief Complaint: Musculoskeletal Stated Complaint: BACK PAIN Time Seen by Provider: 08/12/20 23:47 History of Present Illness Narrative: 11:55 PM: C: Low back pain. Patient is a 49-year-old male who states today 8:30 AM while at home he accidentally stumbled and fell backwards striking his back against couch. Patient developed immediate pain in the lower back. Low back pain is worse with motion of the back. Low back pain does not radiate. He took methocarbamol and nabumetone fromold prescriptions for low back pain without relief. drove patient to ED. Allergies/Home Meds Allergies Allergy/AdvReac Type Severity Reaction Status Date / Time No Known Drug Allergies Allergy Verified 08/12/20 23:23 No Known Food Allergies Allergy Verified 08/12/20 23:23 Home Medications Medication Instructions Recorded Confirmed Last Taken Type aspirin 1 tab PO DAILY #30 tab 08/02/16 03/17/20 07/07/19 History zonisamide 50 mg capsule 50 mg PO BID 06/04/19 03/17/20 07/07/19 History atorvastatin 10 mg tablet 10 mg PO DAILY #90 tab 01/07/20 03/17/20 Unknown Rx levocetirizine 5 mg tablet 5 mg PO DAILY #90 tab 01/07/20 03/17/20 Unknown Rx lisinopril 40 mg tablet 40 mg PO DAILY #90 tab 01/07/20 03/17/20 Unknown Rx metformin 500 mg tablet,extended 1,000 mg PO BID #360 tab 01/07/20 03/17/20 Unknown Rx release 24 hr omeprazole 40 mg capsule,delayed 40 mg PO DAILY #90 cap 01/07/20 03/17/20 Unknown Rx release tamsulosin 0.4 mg capsule 0.4 mg PO QDAY #90 cap 01/07/20 03/17/20 Unknown Rx blood glucose control high and low #1 ea 01/28/20 03/17/20 Unknown Rx solution blood-glucose meter #1 ea 01/28/20 03/17/20 Unknown Rx lancets #100 ea 01/28/20 03/17/20 Unknown Rx lancing device with lancets kit #100 ea 01/28/20 03/17/20 Unknown Rx naproxen 500 mg tablet 500 mg PO BID #60 tab 07/02/20 07/02/20 Unknown Rx dulaglutide 1.5 mg/0.5 mL 1.5 mg SQ WEEKLY #2 ml 07/28/20 Unknown Rx subcutaneous pen injector blood sugar diagnostic #100 ea 08/11/20 Unknown Rx PMH (from Triage) Patient Medical History PMH Reviewed/ Updated as Needed: Yes PMH/PSH from Triage: Medical History (Updated 07/02/20 @ 13:54 by RICHIE Hernández) Allergic rhinitis due to pollen (Medical) Anxiety disorder (Medical 01/01/11) F41.9 Congenital hydrocele (Medical) Continuous chewing tobacco dependence (Medical 09/20/14) F17.220 Diabetes mellitus (Medical) Essential hypertension (Medical 01/01/11) I10 Learning disability (Medical) Left knee pain (Medical) M25.562 he was offered a wheelchair to be escorted to x-ray, he declined Morbid obesity (Medical) Obesity (Medical) Morbidly obese Tobacco use disorder, continuous (Medical) Type 2 diabetes mellitus without complication, without long-term current use of insulin (Medical 03/16/16) E11.9 Surgical History History of vasectomy (Surgical 12/25/12) Hx Drug Resistant Infections Hx MRSA: (Methicillin-resistant Staphylococcus aureus): No Hx VRE (Vancomycin-resistant enterococci): No Hx C.Diff: No Hx CRKP: No Hx Other Resistant Infection?: No Isolation: Standard precautions Hx Recent Travel Out of the country within 10 days (where): No Hx Fever: No Hx Fever with a rash?: No Nurse screening for coronavirus: Recent Travel outside the No country (where) Has patient experienced No coronavirus symptoms Social History Does patient have suicidal/homicidal thoughts or ideation?: No Are you in a relationship with/Does anyone hit you, yell/swear at you, steal from you?: No Substance Use Hx Alcohol Use: No Hx Substance Use: No Hx Substance Use Treatment: No Second Hand Smoke Exposure: No Smoking Status: Current every day smoker Tobacco Use Years smoked:: 25-50 yrs Hx Chewing Tobacco Use: Yes Vaccination History Hx/Date of Tetanus, Diphtheria Vaccination: No Hx/Date of Influenza Vaccination: Yes Hx/Date of Pneumococcal Vaccination: No PFSH Medical History Allergic rhinitis due to pollen Anxiety disorder (01/01/11) Congenital hydrocele Continuous chewing tobacco dependence (09/20/14) Diabetes mellitus Essential hypertension (01/01/11) Learning disability Left knee pain Morbid obesity Obesity Tobacco use disorder, continuous Type 2 diabetes mellitus without complication, without long-term current use of insulin (03/16/16) Surgical History History of vasectomy (12/25/12) Family History Mother Chronic low back pain Father Chronic low back pain Sister Mental retardation Brother No problems noted. Social History Does the Patient have a Healthcare Proxy: No Does Patient have a DNR?: No Does Patient have a Living Will?: No Does the Patient have a MOLST?: No Advance Directives on File or in chart?: No household members: spouse housing: apartment marital status: highest education level completed: high school graduate current occupational status: unemployed pets and animals: Yes leisure activities: other Hx Recent Travel (where): No well-balanced diet: about half the time caffe ine: Yes high-fat food intake: 2 times daily daily servings fruits/ve-4 daily servings of milk/calcium: 2-4 eating out: rarely or never reads food labels: usually or always during the past year weight has: remained stable what type of physical activity do you participate in?: walking Smoking Status: Current every day smoker alcohol intake: former details: 06/16/2013 last substance use type: does not use seatbelt use: always water heater temp set < 120 deg: Yes working smoke detector in home: Yes fire extinguisher in home: No carbon monox detector in home: No firearms in home: No victim of physical abuse: No victim of emotional abuse: No ROS Review of Systems Constitutional: Reports malaise; Denies fever, chills, sweats and weakness Eyes: Denies vision change, eye discharge/drng, redness and eye pain ENT: Denies ear pain, hearing loss, tinnitis, ear discharge, nasal pain, nasal discharge, nasal congestion, post nasal drip, epistaxis, throat pain and throat swelling Respiratory: Denies cough and SOB Cardiovascular: Reports hypertension; Denies chest pain, palpitations, light headedness, dyspnea on exertion and syncope Gastrointestinal: Denies vomiting, abdominal pain, diarrhea, black tarry stools and hematochezia Genitourinary-Male: Denies dysuria, frequency and hematuria Musculoskeletal: Reports back pain (+ low back pain.); Denies neck pain and leg pain Skin/Breasts: Denies rash Neurologic: Denies weakness, numbness, headache, incoordination, change in speech, confusion, dizziness, vertigo, lightheadedness, seizures, loss of consciousness and paresthesias Endocrine: Denies Polydipsia and Polyuria Physical Exam General General appearance: other (Obese W M c/o low back pain, but otherwise NAD. No retractions, pallor,cyanosis, icterus, or diaphoresis. Alert. [place] x3.) Head Head exam: Present atraumatic and normocephalic Eye Eye exam: Present PERRL; Absent scleral icterus, conjunctival injection, nystagmus, periorbital swelling and periorbital tenderness ENT ENT exam: Present normal orophraynx Neck Neck exam: Absent tenderness Respiratory Respiratory exam: Present normal lung sounds bilaterally; Absent respiratory distress, wheezes, rales and rhonchi Cardiovascular Cardiovascular Exam: Present regular rate and no murmur; Absent rubs, gallop and JVD GI/Abdominal GI/Abdominal exam: Present Abd soft, bowel sounds present all quadrents and other (Obese.); Absent tenderness and mass Extremities Exam Extremities exam: Present other (No CCE.); Absent tenderness Back Exam Back exam: Present other (There is tenderness over the lower thoracic-lumbar vertebrae midline and left paravertebral soft tissues at the same level. No break in skin, discoloration, swelling, or crepitus.) Ne urological Exam Neurological exam: Present alert, oriented X3 and other (No facial motor paresis. Tongue midline. No nystagmus or diplopia. Gait: Slow, flexed, painful. Motor: Power all 4 extremities +5/5. Sensory: Light touch sensation all 4 extremities WNL. (Continued)) Vital Signs Vital Signs: Vital Signs 08/12/20 23:20 Temperature 97.6 F Pulse Rate 73 Respiratory Rate 18 Blood Pressure 141/83 O2 Sat by Pulse Oximetry 97 MDM (comprehensive) Lab Data Labs: 08/13/20 00:20 08/13/20 00:20 Laboratory Results Last 24 hours 08/13/20 00:20: WBC 7.0, RBC 4.73, Hgb 14.0, Hct 42.5, MCV 90, MCH 30, MCHC 33, RDW 13, Plt Count 202, MPV 9.7, Immature Gran % (Auto) 0.1, Neut % (Auto) 55.9, Lymph % (Auto) 34.1, [place] % (Auto) 8.0, Eos % (Auto) 1.6, Baso % (Auto) 0.3 L, Lymph # (Auto) 2.4, Abs Immat Gran (auto) 0.0, Add Manual Diff No, Absolute Neutrophils 3.9, Monocytes # 0.6, Absolute Eosinophils 0.1, Absolute Basophils 0.0 08/13/20 00:20: Sodium 141, Potassium 4.1, Chloride 110 H, Carbon Dioxide 28, Anion Gap 7 L, BUN 14,Creatinine 1.1, GFR Calculation Greater than 60, Glucose 96, Calcium 8.6, Total Bilirubin 0.4, AST 18, ALT 27, Alkaline Phosphata se 63, Serum Total Protein 6.8, Albumin 3.9 08/13/20 00:35: Urine Color Yellow, Urine Appearance Clear, Urine pH 6.5, Ur Specific [place] 1.009,Urine Protein Negative, Urine Ketones Negative, Urine Blood Negative, Urine Nitrate Negative, Urine Bilirubin Negative, Urine Urobilinogen 0.2 eu/dl, Ur Leukocyte Esterase Negative, Add Ur Microanalysis No, Urine Glucose Negative Medical Decision Making Free Text/Narative:: (Continuation of physical examination) Sensory: Light touch sensation all 4 extremities is present. Light touch sensation over coccyxsacrum is normal. DTRs: Biceps, triceps, patellar, Achilles all absent bilaterally. Babinski negative bilaterally. 12:25 AM: Initial ED management consisted of IV normal saline. Toradol 15 mg IV. Tests. 1:20 AM: Patient states low back pain is improved. Gait: Slow, but no longer flexed. CMP WNL except chloride 110. WBC 7000. Hemoglobin 14.0. Urinalysis: Clear yellow; protein, blood, nitrate, leukocyte esterase: Negative. CT abdomen and pelvis (radiologist): No acute intra-abdominal process. No acute displaced fracture. My working diagnosis: Low back pain. Rx: Home. Rest. Ibuprofen. Methocarbamol. [place] 4 to go. F/u PMD 2 days. Plan Visit Medications Administered ED medications:: Medications Generic Name Dose Route Start Last Admin Trade Name Freq PRN Reason Stop Dose Admin Sodium Chloride 1,000 mls @ 500 mls/hr 08/13/20 00:07 08/13/20 00:40 Ns 0.9% IV Not Given .Q2H VICTORIA Discontinued Medications Generic Name Dose Route Start Last Admin Trade Name Freq PRN Reason Stop Dose Admin Ketorolac Tromethamine 15 mg 08/13/20 00:07 08/13/20 00:40 Ketorolac Tromethamine 30 Mg/Ml Sdv IVP 08/13/20 00:08 Not Given 1T ONE Discharge Plan Admission/Discharge Dx Primary DC Diagnosis: Low back pain ED Provider: Holley Knox ED Status: Ready for Discharge Time Seen by Provider: 08/12/20 23:47 Triaged At: 08/12/20 23:09 Discharge Detail Disposition: Home, Self-Care Med Rec New Prescriptions: No Action naproxen 500 mg tablet 500 mg PO BID Qty: 60 RF: 0 aspirin 81 MG tablet,delayed release (DR/EC) 1 tab PO DAILY Qty: 30 RF: 11 zonisamide 50 mg capsule 50 mg PO BID RF: 0 metformin 500 mg tablet extended release 24 hr 1,000 mg PO BID Qty: 360 RF: 3 omeprazole 40 mg capsule,delayed release(DR/EC) 40 mg PO DAILY Qty: 90 RF: 3 atorvastatin 10 mg tablet 10 mg PO DAILY Qty: 90 RF: 3 tamsulosin 0.4 mg capsule 0.4 mg PO QDAY Qty: 90 RF: 3 lisinopril 40 mg tablet 40 mg PO DAILY Qty: 90 RF: 3 levocetirizine [Xyzal] 5 mg tablet 5 mg PO DAILY Qty: 90 RF: 3 (DME) blood-glucose meter [Accu-Chek Tabby Plus Meter] Misc See Rx Instructions .ROUTE .MEDSUPPLY Qty: 1 RF: 0 (DME) Accu-Chek Tabby Control Soln Solution See Rx Instructions .ROUTE .MEDSUPPLY Qty: 1 RF: 3 (DME) lancets [Accu-Chek Softclix Lancets] Misc See Rx Instructions .ROUTE .MEDSUPPLY Qty: 100 RF: 5 (DME) lancing device with lancets [Accu-Chek Soft Dev Lancets] Kit See Rx Instructions .ROUTE .MEDSUPPLY Qty: 100 RF: 5 Trulicity 1.5 mg/0.5 mL pen injector 1.5 mg SQ WEEKLY Qty: 2 RF: 5 (DME) Accu-Chek Tabby Plus test strp Strip See Rx Instructions .ROUTE .MEDSUPPLY Qty: 100 RF: 5 Follow Up Care/Instructions Diet/Activity/Wound Care..: Rest. Take ibuprofen 400 mg (2, 200 mg [id number]-iya-[id number] tablets) with food every 6 hours for 3 daysor until back pain has resolved. Take methocarbamol from the prescription you already have 1 tabletevery 8 hours as needed. Take [place] (acetaminophen plus hydrocodone) 1 tablet every 8 hours as needed. Methocarbamol may make you sleepy or groggy and may interfere with your ability to function. Hydrocodone may make you sleepy or groggy and may interfere with your ability to function. Do not operate motor vehicle or other dangerous equipment within 24 hours of taking methocarbamol or hydrocodone medication. Follow-up with your doctor in 2 days. If any new or worsening interim symptom occurs return to ED immediately. *Discharge Patient* Discharge Orders: Discharge Order (Routine); Ordered 08/13/20 Ordered By: Holley Knox Interventions Interventions: ED Musculoskeletal Last Done: 08/12/20 23:20 Report Signers: <Electronically signed by Holley Knox MD> Holley Knox MD 08/13/20 0132 Holley Knox MD SIGNATURE DA Report Cosigners: D: ANGE 08/13/20 0025 T: ANGE 08/13/20 002 CC: Silverio Batista MD Name Value Range Interpretation Code Description Data Radha rce(s) Supporting Document(s) ID Date Data Source [id number] 08/13/2020 12:23:[address] [facility] Name Value Range Interpretation Code Description Data Radha rce(s) Supporting Document(s) Leukocytes [#/volume] in Blood by Automated count 7.0 10*3/uL 4.45-[address] [facility] Erythrocytes [#/volume] in Blood by Automated count 4.73 10*6/uL 4.3- 6.[address] [facility] Hemoglobin [Moles/volume] in Blood 14.0 g/dL 13-[address] [facility] Hematocrit [Volume Fraction] of Blood by Automated count 42.5 % 4 2-[address] [facility] Erythrocyte mean corpuscular volume [Ent itic volume] in Cord blood by Automated count 90 fL 80-96 N [facility] ital Erythrocyte mean corpuscular hemoglobin [Entitic mass] by Au tomated count 30 pg 27-[address] [facility] Erythrocyte mean corpuscular hemoglobin concentration [Mass/volume] in Cord blood 33 g/dL 33-37 N [facility] ital Erythrocyte distribution width [Entitic volume] by Automated count 13 % 11-[address] [facility] Platelets [#/volume] in Blood by Automated count 202 10*3/uL 130-[address] [facility] Platelet mean volume [Entitic volume] in Blood 9.7 fL 9.1-13.[address] [facility] Neutrophils/100 leukocytes in Blood by Automated count 55.9 % 41- [address] [facility] Neutrophils [#/volume] in Blood by Automated count 3.9 U 1.7-7.[address] [facility] Lymphocytes/100 leukocytes in Blood by Automated count 34.1 % 14- [address] [facility] Lymphocytes [#/volume] in Blood by Automated count 2.4 U 0.6-4.[address] [facility] Monocytes/100 leukocytes in Blood by Automated count 8.0 % 4-[address] [facility] Monocytes [#/volume] in Blood by Automated count 0.6 U 0.2-1.[address] [facility] Eosinophils/100 leukocytes in Blood by Automated count 1.6 % 0-[address] [facility] Eosinophils [#/volume] in Blood by Automated count 0.1 U 0.0-0.[address] [facility] Basophils/100 leukocytes in Blood by Automated count 0.3 % 0.4-1.[address] [facility] Basophils [#/volume] in Blood by Automated count 0.0 U 0.0-0.[address] [facility] NUCLEATED RED BLOOD CELL 0 % [facility] NUCLEATED RED BLOOD CELL# 0 U [facility] Immature granulocytes [Presence] in Blood by Automated count 0-[address] [facility] Immature granulocytes [#/volume] in Blood by Automated count 0.0 U 0-0.[address] [facility] Manual Differential panel - Blood NO [facility] ID Date Data Source [id number] 08/13/2020 12:45:[address] [facility] Name Value Range Interpretation Code Description Data Radha rce(s) Supporting Document(s) Urea nitrogen [Mass/volume] in Serum or Plasma 14 mg/dL 9-[address] [facility] Sodium [Moles/volume] in Serum or Plasma 141 mmol/L 132-146 [facility] Potassium [Moles/volume] in Serum or Plasma 4.1 mmol/L 3.5-5.5 [facility] Chloride [Moles/volume] in Serum or Plasma 110 mmol/L 99-[address] [facility] Carbon dioxide, total [Moles/volume] in Serum or Plasma 28 mmol/L 20 -31 [facility] Anion gap in Serum or Plasma 7 mmol/L 8-[address] [facility] Glucose [Mass/volume] in Serum or Plasma 96 mg/dL 74-106 [facility] Creatinine 1.1 mg/dL 0.5-1.1 [facility] Glomerular filtration rate/1.73 sq M.pre dicted [Volume Rate/Area] in Serum or Plasma Greater Than [address] [facility] Alanine aminotransferase [Enzymatic acti vity/volume] in Serum or Plasma by With P-5'-P 27 U/L 10-49 [facility] ital Aspartate aminotransferase [Enzymatic ac tivity/volume] in Serum or Plasma by With P-5'-P 18 U/L 0-33 [facility] pital Alkaline phosphatase [Enzymatic activity/volume] in Serum or Plasma 63 U/L 45-[address] [facility] Calcium [Mass/volume] in Serum or Plasma 8.6 mg/dL 8.5-10.[address] [facility] Bilirubin.total [Mass/volume] in Serum or Plasma 0.4 mg/dL 0.3-1.2 [facility] Albumin [Mass/volume] in Serum or Plasma by Bromocresol purple (BCP) dye binding method 3.9 g/dL 3.2-4.8 N [facility] ital Protein [Mass/volume] in Serum or Plasma 6.8 g/dL 5.7-8.2 [facility] ID Date Data Source [id number] 07/02/2020 02:23:00 PM EDT [facility] [address], [place] [id number] [phone] NAME SEX PT STATUS ACCOUNT NUMBER BRANDI SLOAN REG REF [id number] ORDERING PHYSICIAN LOCATION MEDICAL RECORD [facility]. [facility] [id number] ATTENDING PHYSICIAN DATE OF DATE OF EXAM/TIME Silverio Batista MD 1970 07/02/20 / 1399 TYPE / EXAM Xray Knee comp 4 or more LT REASON FOR EXAM left knee pain COMPARISON: 04/10/2007 FINDINGS: There is normal alignment and position of the bones of the knee. No evidence for joint effusion isnoted. No fractures are identified. IMPRESSION: Unremarkable knee x-ray. Reported By Mary Ching MD on 07/02/20 1423 Signed By Mary Ching MD on 07/02/20 1426 Date Time CC: Silverio Batista MD; Mary Ching MD Techn: RADTC Trans Dt/Tm: Trans by: DT Prt Dt/Tm: [id number]: Total DLP = 0.00 mGy-cm Fluoroscopy Time (in secs): Name Value Range Interpretation Code Description Data Radha rce(s) Supporting Document(s) ID Date Data Source [id number] 07/02/2020 01:14:[address] [facility] Patient Name: BRANDI SLOAN : 1970 Sex: M Pt Unit #: [id number] Location:AMB.EXT Provider: Visit Date/Time: 07/02/20 Primary Insurance: HU[employer]NA MEDICARE Secondary Insurance: MEDICAID [facility] 2ND R Intake Vital Signs 07/02/20 13:14 Current Height 5 ft 7 in Current Weight 257 lb 2 oz Weight Measurement Method Standing Scale BMI 40.2 BP 122/82 Blood Pressure Location Lt brachial Position Sitting Respiration 18 Temp 98.9 F Temp Source Oral Intake Visit Reasons: Knee pain Nurse Note: Pt presents today for left knee pain. Pt notes that he fell off a futon and hit his knee on a heater. This happened several weeks ago and is progressively getting worse. His knee it tender to the touch and is worse with standing or walking. It is noted that pt is limping when walking. He has tx with heat, topical icy hot type cream. Pt said that it is not helping. Audio Visual Collections Coordinator Required: No Accompanied by: Self / Same as Patient Is patient in pain?: Yes Allergies No Known Drug Allergies Allergy (Verified 06/26/20 11:45) No Known Food Allergies Allergy (Verified 06/26/20 11:45) Vision Wearing glasses?: Yes Fall Risk History of falls: No Ambulatory Aid:: None Gait/Transferring:: Impaired Medications:: No High Risk Medications HIV Testing Offer - ages 13-64 HIV testing Offer: No Requirement for HIV testing offer been met?: Patient reports past refusal SBIRT Annual Questionnaire Are you currently in recovery for alcohol or substance use?: No How many times in the past year have you had 5 or more drinks in a day?: None How many times in the past year have you used a recreational drug or used a prescription medication for nonmedical reasons?: None Do you need a note to return Do you need a note to return to daycare/school/sports/work: No Coronavirus Screening Screening Are you currently positive or on isolation for COVID ?: No Do you have any NEW signs of one or more of the following?: no symptoms Do you have NEW signs of at least two of the following?: no symptoms HPI Additional HPI HPI Details: HPI as per nurse's intake note. He injured his knee about 10 days ago. He indicates that ithurts in the soft tissues above his knee joint on both sides. He has not treated with OTC pain medications as he does not like to "pop pills." When asked what he hoped I could do for him he indicated he would like to know if he has "bone on bone or if (he) ripped ligaments." He has history of chronic back pain. He sees an orthopedic group in [place]. [facility] Medical History Allergic rhinitis due to pollen Anxiety disorder (01/01/11) Congenital hydrocele Continuous chewing tobacco dependence (09/20/14) Diabetes mellitus Essential hypertension (01/01/11) Learning disability Left knee pain Morbid obesity Obesity Tobacco use disorder, continuous Type 2 diabetes mellitus without complication, without long-term current use of insulin (03/16/16) Surgical History History of vasectomy (12/25/12) Family History Mother Chronic low back pain Father Chronic low back pain Sister Mental retardation Brother No problems noted. Social History Does the Patient have a Healthcare Proxy: No Does Patient have a DNR?: No Does Patient have a Living Will?: No Does the Patient have a MOLST?: No Advance Directives on File or in chart?: No household members: spouse housing: apartment marital status: highest education level completed: high school graduate current occupational status: unemployed pets and animals: Yes leisure activities: other Hx Recent Travel (where): No well-balanced diet: about half the time caffeine: Yes high-fat food intake: 2 times daily daily servings fruits/ve-4 daily servings of milk/calcium: 2-4 eating out: rarely or never reads food labels: usually or always during the past year weight has: remained stable what type of physical activity do you participate in?: walking Smoking Status: Current every day smoker alcohol intake: former details: 06/16/2013 last substance use type: does not use seatbelt use: always water heater temp set < 120 deg: Yes working smoke detector in home: Yes fire extinguisher in home: No carbon monox detector in home: No firearms in home: No victim of physical abuse: No victim of emotional abuse: No Review of Systems Const All systems reviewed are unremarkable except as noted in HPI and below Musc Reports as per HPI Exam Const General: cooperative, healthy appearing, comfortable, well developed and well hydrated Nutritional Appearance: well nourished Orientation: alert and awake [facility] Head: normocephalic Ears: hearing grossly normal bilaterally and external ears normal General nose exam: external nose normal Face and sinus: normal facial exam Eyes General: appearance normal, both eyes and all related structures Eyelids: eyelids normal Conjunctivae: conjunctivae normal Sclera: sclerae normal Resp Other: Respiratory rate normal range. Cardio Other: Heart rate in normal range [facility] Other: Walks in with normal gait Skin Other: General skin appearance normal, warm and dry Extrem General: normal to inspection (bilaterally knee joints) and no edema Other: no redness left knee, no deformity. He complains of pain with flexion of the knee at the medial and lateral sides along lower quadriceps, palpation of this area causes pain. No crepitus. external and internal rotati on causes pain Walked in -limping and moaning. normal sensation to palpation. post tibial pulse left normal. After his x-ray patient was seen by staff returning to his car. I witnessed him exiting his car and returning to the building at a brisk pace with a mild limp. Psych Mental Status: mental status grossly normal Mood: congruent mood Affect: normal affect Attitude: cooperative Thought Process: normal Thought Content: normal Assessment Plan Assessment Plan (1) Left knee pain: Status: Acute Comment: he was offered a wheelchair to be escorted to x-ray, he declined Code(s): M25.562 - Pain in left knee SNOMED Code(s): 52189775 Category: Medical Plan - RICHIE Hernández: I advised patient that left knee x-ray was unremarkable. No effusion noted. No mention on degenerative changes. I recommended Naproxen 500 mg twice a day with food. Heat, topical cream, and avoiding activity that causes pain. I reviewed the side effects with him. He was given this education verbally and in a handout. Follow up with PCP in 10-14 days if still not improving. Orders: Orders: Xray Knee comp 4 or more LT Today Medications: New: naproxen 500 mg PO BID 60 tabs 0RF Coding Level of Care Code 63542 Est Pt Extended Comp Exam Expanded Problem Focused Diagnoses Left knee pain M25.562 Time Spent (min) 42 Comment waited 27 minutes for x-ray result. <Electronically signed by Alma Valle SOFT SUGAR OPERATOR HEAD> 07/02/20 1439 Name Value Range Interpretation Code Description Data Radha rce(s) Supporting Document(s) ID Date Data Source [id number] 06/26/2020 11:32:[address] [facility] Patient Name: BRANDI SLOAN : 1970 Sex: M Pt Unit #: [id number] Location:[facility] Provider: Visit Date/Time: 06/26/20 Primary Insurance: HUMANA MEDICARE Secondary Insurance: Self Pay Intake Vital Signs 06/26/20 11:33 Current Height 5 ft 7 in Current Weight 256 lb Weight Measurement Method Standing Scale BMI 40.1 BP 124/78 Blood Pressure Location Lt brachial Position Sitting Pulse 72 Pulse Strength Normal Pulse Source Pulse Oximeter Pulse Oximetry (%) 97 Oxygen Delivery Method room air Intake Visit Reasons: Annual Physical Nurse Note: Pt fell off his couch 5 days ago and injured his left side/leg. Audio Visual Collections Coordinator Required: No Accompanied by: Self / Same as Patient Is patient in pain?: Yes Allergies No Known Drug Allergies Allergy (Verified 06/26/20 11:45) No Known Food Allergies Allergy (Verified 06/26/20 11:45) Medications - Last Reconciled 06/26/20 by Silverio Batista M.D. aspirin 1 tab PO DAILY atorvastatin 10 mg PO DAILY blood glucose control high,low (Accu- Chek Tabby Control Soln) Use As Directed blood sugar diagnostic (Accu-Chek Tabby Plus test strp) Use 3X Daily blood-glucose meter (Accu-Chek Tabby Plus Meter) Test 3X Daily dulaglutide (Trulicity) 1.5 mg subcut WEEKLY lancets (Accu-Chek Softclix Lancets) Use 3X Daily lancing device with lancets (Accu- Chek Soft Dev Lancets) Use 3X Daily levocetirizine (Xyzal) 5 mg PO DAILY lisinopril 40 mg PO DAILY metformin ER 1,000 mg (2 x 500 mg) PO BID omeprazole 40 mg PO DAILY tamsulosin 0.4 mg PO QDAY zonisamide 50 mg PO BID Vision Wearing glasses?: Yes Fall Risk History of falls: No Ambulatory Aid:: None Gait/Transferring:: Normal Medications:: Antihypertensives PHQ-2/9 Over the last 2 weeks, how often have you been bothered by any of the following problems? 1. Little interest or pleasure in doing things: not at all 2. Feeling down, depressed, or hopeless: not at all Total score: 0 3. Trouble falling or staying asleep, or sleeping too much: not at all 4. Feeling tired or having little energy: not at all 5. Poor appetite or overeating: several days 6. Feeling bad about yourself - or that you are a failure or have let yourself and your family down:several days 7. Trouble concentrating on things, such as reading the newspaper or watching television: not at all 8. Moving or speaking so slowly that other people could have noticed? - Or the opposite - being so fidgety or restless that you have been moving around a lot more than usual: not at all 9. Thoughts that you would be better off or of hurting yourself in some way: not at all Total score: 2 If you checked off any problems, how difficult have these problems made it for you to do your work, take care of things at home, or get along with other people?: not difficult at all Source: Developed by Drs. Florentino Hudson, Paula Givens, Og Oakley and jarrod del toro, with an educational florence from [employer]. HIV Testing Offer - ages 13-64 HIV testing Offer: No Requirement for HIV testing offer been met?: Patient reports past refusal SBIRT Annual Questionnaire Are you currently in recovery for alcohol or substance use?: No How many times in the past year have you had 5 or more drinks in a day?: None How many times in the past year have you used a recreational drug or used a prescription medication for nonmedical reasons?: None Do you need a note to return Do you need a note to return to daycare/school/sports/work: No Coronavirus Screening Screening Are you currently positive or on isolation for COVID ?: No Do you have any NEW signs of one or more of the following?: no symptoms Do you have NEW signs of at least two of the following?: no symptoms HPI Additional HPI HPI Details: Patient with problems including diabetes, anxiety, hypertension, learning disability and morbid obesity came to the office for his annual physical. A few days ago the patient fell off his futon. He injured his left lower extremity. He is recovering nicely. He is not interested in pursuing any further investigations. He admits to compliance with his medications. He continues close follow-up with his back specialist and the diet attendant. [facility] Medical History Allergic rhinitis due to valdemar maureen Anxiety disorder (01/01/11) Congenital hydrocele Continuous chewing tobacco dependence (09/20/14) Diabetes mellitus Essential hypertension (01/01/11) Learning disability Morbid obesity Obesity Tobacco use disorder, continuous Type 2 diabetes mellitus without complication, without long-term current use of insulin (03/16/16) Surgical History History of vasectomy (12/25/12) Family History Mother Chronic low back pain Father Chronic low back pain Sister Mental gabe rdation Brother No problems noted. Social History Does the Patient have a Healthcare Proxy: No Does Patient have a DNR?: No Does Patient have a Living Will?: No Does the Patient have a MOLST?: No Advance Directives on File or in chart?: No household members: spouse housing: apartment marital status: highest education level completed: high school graduate current occupational status: unemployed pets and animals: Yes leisure activities: other Hx Recent Travel (where): No well-balanced diet: about half the time caffeine: Yes high-fat food intake: 2 times daily daily servings fruits/ve-4 daily servings of milk/calcium: 2-4 eating out: rarely or never reads food labels: usually or always during the past year weight has: remained stable what type of physical activity do you participate in?: walking Smoking Status: Current every day smoker alcohol intake: former details: 06/16/2013 last substance use type: does not use seatbelt use: always water heater temp set < 120 deg: Yes working smoke detector in home: Yes fire extinguisher in home: No carbon monox detector in home: No firearms in home: No victim of physical abuse: No victim of emotional abuse: No Review of Systems Const Reports anorexia, Denies fatigue, Denies fever(s), Denies headache(s) and Reports weight loss (8 lb.loss in the past one year) Eyes Denies blurry vision ENT Denies dysphagia and Denies headache(s) Card Denies chest pain, Denies pedal edema, Denies lightheadedness, Denies palpitations and Denies dyspnea Resp Denies dyspnea and Denies wheezing GI Denies abdominal pain, Denies change in bowel habits, Denies dysphagia, Denies early satiety, Deniesheartburn, Denies diarrhea, Denies nausea and Denies vomiting Denies urinary incontinence Musc Reports back pain (Chronic complaint), Denies arthralgias, Denies numbness and Denies tingling Skin/Breast Denies new lesions Neuro Denies headache(s), Denies memory loss, Denies numbness and Denies tingling Psych Denies memory loss Endo Denies fatigue and Denies palpitations Kilo/Lymph Denies easy bleeding and Denies easy bruising Aller/Immun Denies wheezing Exam Const General: cooperative, well developed and well groomed Nutritional Appearance: obese morbidly obese Orientation: alert and awake [facility] Head: normal to inspection Ears: hearing grossly normal bilaterally Eyes Pupils: PERRL Neck Neck: normal visual inspection, full ROM, no lymphadenopathy, supple and no JVD present Carotids: normal carotid upstroke Resp Effort Inspection: normal respiratory effort Auscultation: clear to auscultation bilaterally Percussion: percussion normal Cardio Jugular venous pressure: no JVD Rate: regular rate Rhythm: regular rhythm Heart Sounds: S1 normal and S2 normal GI Inspection: Yes normal to inspection Palpation: soft and nontender Auscultation: normal bowel sounds General: No CVA tenderness Musc Cervical Spine: normal cervical lordosis Thoracic/Lumbar Spine: thoracic and lumbar spine normal to inspection Skin Lesions: no lesions Neuro General: gait normal Extrem General: normal to inspection and no clubbing, cyanosis or edema Psych Appearance: grossly normal Mental Status: mental status grossly normal Quali ty Reporting Depression/Bipolar (159/160/161/169/177) Total score: 2 Assessment Plan Assessment Plan (1) Encounter for annual health examination: Code(s): Z00.00 - Encounter for general adult medical examination without abnormal findings Anitha Batista M.D.: Annual visit today. Personal history was updated. Medication record was updated. Results of the annual blood work were discussed with the patient in detail. Comprehensive review of systems was done. Comprehensive examination was done. Depression questionnaire was reviewed. (2) Diabetes mellitus: SNOMED Code(s): 42490217 Category: Medical Qualifiers: Diabetes mellitus complication status: without complication Diabetes mellitus fdc insulin use: without fdc use Diabetes mellitus type: type 2 Qualified Code(s): E11.9 - Type 2 diabetes mellitus without complications Anitha Batista M.D.: The most recent A1c is 6.1. Patient will continue close follow-up with the diet attendant. (3) Essential hypertension: Status: Chronic Onset Date: 01/01/11 Code(s): I10 - Essential (primary) hypertension SNOMED Code(s): 98443250 Category: Medical Plan - Silverio Batista M.D.: Blood pressure is well controlled on the current regimen. Patient was advised to follow a low-salt diet. Additional time was spent with the patient discussing the hypertension plan of care. (4) Morbid (severe) obesity due to excess calories: Code(s): E66.01 - Morbid (severe) obesity due to excess calories Anitha Batista M.D.: Patient has lost some weight over the past 1 year. (5) Body mass index (BMI) of 40.1-44.9 in adult: Code(s): Z68.41 - Body mass index [BMI]40.0-44.9, adult Anitha - Silverio Batista M.D.: Patient is morbidly obese. Patient was counseled regarding the importance of diet, exercise and weight control. Additional Comments Additional Comments: Patient came for his annual evaluation. He may return at the end of 6 months for his Medicare annual wellness visit. Certain parts of this note may have been carried over from prior notes to maintain accuracy of the patient's pertinent medical history and continuity of care. The details were verified and edited as appropriate. This document was dictated using [employer] speech recognition software. A reasonable attempt to proofread has been made to minimize errors. Please call if you notice any errors or have any questions. Orders Instructions: Obesity (GEN) DASH Eating Plan (GEN) Hypertension (GEN) Follow Up: 6 Months (Annual wellness visit and follow-up) Time spent Total time spent on medical discussion: 30 Coding Level of Care Code 90537 Est Pt Extended Comp Exam Comprehensive Diagnoses Encounter for annual health examination Z00.00 Diabetes mellitus E11.9 Diabetes mellitus complication status: without complication Diabetes mellitus terminal operations manager insulin use: without fdc use Diabetes mellitus type: type 2 Essential hypertension I10 Morbid (severe) obesity due to excess calories E66.01 Body mass index (BMI) of 40.1-44.9 in adult Z68.41 Time Spent (min) 30 Comment Patient with multiple problems including morbid obesity <Electronically signed by Silverio Batista MD> 06/26/202138 Name Value Range Interpretation Code Description Data Radha rce(s) Supporting Document(s) ID Date Data Source [id number] 06/17/2020 11:11:[address] [facility] Method of Collection:: Voided Name Value Range Interpretation Code Description Data Radha rce(s) Supporting Document(s) Color of Urine [facility] Appearance of Urine CLEAR [facility] pH of Urine by Test strip 6.5 5-8 [facility] Specific gravity of Urine by Refractometry 1.019 1.005-1.030 [facility] Leukocyte esterase [Presence] in Urine by Test strip NEGAT SILVIA [facility] Nitrite [Presence] in Urine by Test strip NEGATIVE [facility] Protein [Presence] in Urine by Test strip NEGATIVE [facility] Glucose [Mass/volume] in Urine by Automated test strip NEGATIVE NEG ATIVE [facility] Ketones [Presence] in Urine by Test strip NEGATIVE [facility] Urobilinogen [Presence] in Urine 0.2-1 EU/dl [facility] Bilirubin.total [Presence] in Urine by Automated test strip NEGATIVE [facility] Erythrocytes [#/volume] in Urine by Test strip NEGATIVE NEGATIVE [facility] URINE MICROSCOPIC ADDED NO [facility] ID Date Data Source [id number] 06/17/2020 11:58:[address] [facility] Method of Collection:: Voided Name Value Range Interpretation Code Description Data Radha rce(s) Supporting Document(s) Urine Random Creatinine 196.0 mg/dL [facility] THERE IS NO ESTABLISHED RANGE FOR RANDOM URINE CREATININE Urine Microalbumin 8.3 mg/L 0.0-29.9 N [facility] Ur Malb/Cre Ratio (ACR) 4.2 ug/mg 0.0-30.0 [facility] ID Date Data Source [id number] 06/17/2020 11:09:00 AM [facility] Method of Collection:: Voided Name Value Range Interpretation Code Description Data Radha rce(s) Supporting Document(s) Leukocytes [#/volume] in Blood by Automated count 7.3 10*3/uL 4.45-10 .71 [facility] Erythrocytes [#/volume] in Blood by Automated count 4.94 10*6/uL 4.3- 6.1 [facility] Hemoglobin [Moles/volume] in Blood 14.7 g/dL 13-18 [facility] Hematocrit [Volume Fraction] of Blood by Automated count 44.9 % 4 2-52 [facility] Erythrocyte mean corpuscular volume [Ent itic volume] in Cord blood by Automated count 91 fL 80-96 [facility] ital Erythrocyte mean corpuscular hemoglobin [Entitic mass] by Au tomated count 30 pg 27-31 [facility] Erythrocyte mean corpuscular hemoglobin concentration [Mass/volume] in Cord blood 33 g/dL 33-37 [facility] ital Erythrocyte distribution width [Entitic volume] by Automated count 13 % 11-15 [facility] Platelets [#/volume] in Blood by Automated count 243 10*3/uL 130-472 [facility] Platelet mean volume [Entitic volume] in Blood 10.4 fL 9.1-13.1 [facility] Neutrophils/100 leukocytes in Blood by Automated count 64.3 % 41- 77 [facility] Neutrophils [#/volume] in Blood by Automated count 4.7 U 1.7-7.6 [facility] Lymphocytes/100 leukocytes in Blood by Automated count 27.3 % 14- 46 [facility] Lymphocytes [#/volume] in Blood by Automated count 2.0 U 0.6-4.[address] [facility] Monocytes/100 leukocytes in Blood by Automated count 5.8 % 4-[address] [facility] Monocytes [#/volume] in Blood by Automated count 0.4 U 0.2-1.[address] [facility] Eosinophils/100 leukocytes in Blood by Automated count 1.8 % 0-[address] [facility] Eosinophils [#/volume] in Blood by Automated count 0.1 U 0.0-0.[address] [facility] Basophils/100 leukocytes in Blood by Automated count 0.5 % 0.4-[address] [facility] Basophils [#/volume] in Blood by Automated count 0.0 U 0.0-0.[address] [facility] NUCLEATED RED BLOOD CELL 0 % [facility] NUCLEATED RED BLOOD CELL# 0 U [facility] Immature granulocytes [Presence] in Blood by Automated count 0-[address] [facility] Immature granulocytes [#/volume] in Blood by Automated count 0.0 U 0-0.[address] [facility] Manual Differential panel - Blood NO [facility] ID Date Data Source [id number] 06/17/2020 11:33:[address] [facility] Method of Collection:: Voided Name Value Range Interpretation Code Description Data Radha rce(s) Supporting Document(s) Hemoglobin A1c [Mass/volume] in Blood 6.1 % 3.8-5.6 Above hig h normal [facility] The following ranges may be u sed for interpretation of results: HGBA1C degree of glucose control: Greater than 8%: Action Suggested * Less than 7%: Goal of Diabetic Therapy Less than 5.6%: NormalFactors such as duration of diabetes, adherence to therapyand the age of the patient should also be considered inassessing the degree of blood glucose control.* High risk of developing fdc complications such asretinopathy, nephropathy, neuropathy, cardiopathy, etc. Some danger of hypoglycemic reaction in Type I diabetics.Some glucose intolerant individuals and "Sub Clinical"diabetics may demonstrate HGBA1C levels in this area. Glucose mean value [Moles/volume] in Blood Estimated f rom glycated hemoglobin 128 [facility] An A1C of 7% - the goal of diabetic ther apy - is equivalentto an EAG of 154 mg/dl. ID Date Data Source [id number] 06/17/2020 11:42:[address] [facility] Method of Collection:: Voided Name Value Range Interpretation Code Description Data Radha rce(s) Supporting Document(s) Urea nitrogen [Mass/volume] in Serum or Plasma 12 mg/dL 9-[address] [facility] Sodium [Moles/volume] in Serum or Plasma 143 mmol/L 132-[address] [facility] Potassium [Moles/volume] in Serum or Plasma 4.6 mmol/L 3.5-5.[address] [facility] Chloride [Moles/volume] in Serum or Plasma 110 mmol/L 99-[address] [facility] Carbon dioxide, total [Moles/volume] in Serum or Plasma 31 mmol/L 20 -31 [facility] Anion gap in Serum or Plasma 7 mmol/L 8-[address] [facility] Glucose [Mass/volume] in Serum or Plasma 105 mg/dL 74-[address] [facility] Creatinine 1.2 mg/dL 0.5-1.1 Above high normal [facility] Glomerular filtration rate/1.73 sq M.pre dicted [Volume Rate/Area] in Serum or Plasma Greater Than [address] [facility] Alanine aminotransferase [Enzymatic acti vity/volume] in Serum or Plasma by With P-5'-P 29 U/L 10-49 N [facility] Aspartate aminotransferase [Enzymatic ac tivity/volume] in Serum or Plasma by With P-5'-P 17 U/L 0-33 N [facility] pital Alkaline phosphatase [Enzymatic activity/volume] in Serum or Plasma 67 U/L 45-[address] [facility] Calcium [Mass/volume] in Serum or Plasma 9.2 mg/dL 8.5-10.1 [facility] Bilirubin.total [Mass/volume] in Serum or Plasma 0.5 mg/dL 0.3-1.2 [facility] Albumin [Mass/volume] in Serum or Plasma by Bromocresol purple (BCP) dye binding method 4.1 g/dL 3.2-4.8 N [facility] ital Protein [Mass/volume] in Serum or Plasma 6.8 g/dL 5.7-8.[address] [facility] ID Date Data Source [id number] 06/17/2020 11:42:00 AM [facility] Method of Collection:: Voided Name Value Range Interpretation Code Description Data Radha rce(s) Supporting Document(s) Triglycerides 54 mg/dL 0-150 N [facility] Cholesterol 89 mg/dL 120-200 Below low normal [facility] HDL Cholesterol 35 mg/dL [facility] HDL Less than 40 mg/dL: Major risk for CHDHDL Greater than 59 mg/dL: Low risk for CHD LDL Cholesterol, Calc 44 mg/dL 0-100 N [facility] ID Date Data Source [id number] 03/17/2020 02:02:00 PM [facility] Patient Name: BRANDI SLOAN : 1970 Sex: M Pt Unit #: [id number] Location:[facility] Provider: Visit Date/Time: 03/17/20 Primary Insurance: [employer] MEDICARE Secondary Insurance: Self Pay Intake Vital Signs 03/17/20 14:05 Current Height 5 ft 7 in Current Weight 264 lb Weight Measurement Method Standing Scale BMI 41.3 BP 130/80 Blood Pressure Location Lt brachial Position Sitting Pulse 81 Pulse Strength Normal Pulse Source Pulse Oximeter Pulse Oximetry (%) 96 Oxygen Delivery Method room air Intake-Medicare Annual Visit Reasons: Medicare Annual Wellness - Initial Nurse Note: Pt's here for his Medicare Annual Exam and regular follow up. No active complaints at this time. Audio Visual Collections Coordinator Required: No Accompanied by: Self / Same as Patient Is patient in pain?: No Allergies No Known Allergies Allergy (Verified 12/04/19 10:59) Feel stressed/tense/nervous/anxious/difficulty sleeping: not at all Medications - Last Reconciled 03/17/20 by Silverio Batista M.D. aspirin 1 tab PO DAILY atorvastatin 10 mg PO DAILY blood glucose control high,low (Accu-Chek Tabby Control Soln) Use As Directed blood sugar diagnostic (Accu-Chek Tabby Plus test strp) Use 3X Daily blood-glucose meter (Accu-Chek Tabby Plus Meter) Test 3X Daily cyclobenzaprine 10 mg PO TID PRN doxycycline hyclate 200 mg (2 x 100 mg) PO .once dulaglutide (Trulicity) 1.5 mg subcut WEEKLY lancets (Accu-Chek Softclix Lancets) Use 3X Daily lancing device with lancets (Accu-Chek Soft Dev Lancets) Use 3X Daily levocetirizine (Xyzal) 5 mg PO DAILY lisinopril 40 mg PO DAILY metformin ER 1,000 mg (2 x 500 mg) PO BID omeprazole 40 mg PO DAILY tamsulosin 0.4 mg PO QDAY zonisamide 50 mg PO BID Fall Risk History of falls: No Ambulatory Aid:: None Gait/Transferring:: Normal Medications:: Antihypertensives HIV testing Offer: No Requirement for HIV testing offer been met?: Patient reports past refusal Coronavirus Screening Screening Have you traveled outside of [facility] or [facility] in the last 14 days.: No Has patient experienced coronavirus symptoms: No [facility] Medical History (Updated 03/17/20 @ 18:12 by Silverio Batista M.D.) Allergic rhinitis due to pollen Anxiety disorder (01/01/11) Congenital hydrocele Continuous chewing tobacco dependence (09/20/14) Diabetes mellitus Essential hypertension (01/01/11) Learning disability Morbid obesity Obesity Tobacco use disorder, continuous Type 2 diabetes mellitus without complication, without long-term current use of insulin (03/16/16) Surgical History History of vasectomy (12/25/12) Family History Mother Chronic low back pain Father Chronic low back pain Sister Mental retardation Brother No problems noted. Social History Does the Patient have a Healthcare Proxy: No Does Patient have a DNR?: No Does Patient have a Living Will?: No Does the Patient have a MOLST?: No Advance Directives on File or in chart?: No household members: spouse housing: apartment marital status: highest education level completed: high school graduate current occupational status: unemployed pets and animals: Yes leisure activities: other Hx Recent Travel (where): No well-balanced diet: about half the time caffeine: Yes high-fat food intake: 2 times daily daily servings fruits/ve-4 daily servings of milk/calcium: 2-4 eating out: rarely or never reads food labels: usually or always during the past year weight has: remained stable what type of physical activity do you participate in?: walking Smoking Status: Current every day smoker alcohol intake: former details: 06/16/2013 last substance use type: does not use seatbelt use: always water heater temp set < 120 deg: Yes working smoke detector in home: Yes fire extinguisher in home: No carbon monox detector in home: No firearms in home: No victim of physical abuse: No victim of emotional abuse: No Medicare Annual Wellness Type Of Examation Type of Exam: Initial Wellness Exam EKG EKG Performed: Yes (06/27/19) Medication list Medications aspirin 1 tab PO DAILY atorvastatin 10 mg PO DAILY blood glucose control high,low (Accu-Chek Tabby Control Soln) Use As Directed blood sugar diagnostic (Accu-Chek Tabby Plus test strp) Use 3X Daily blood-glucose meter (Accu-Chek Tabby Plus Meter) Test 3X Daily cyclobenzaprine 10 mg PO TID PRN doxycycline hyclate 200 mg (2 x 100 mg) PO .once dulaglutide (Trulicity) 1.5 mg subcut WEEKLY lancets (Accu- Chek Softclix Lancets) Use 3X Daily lancing device with lancets (Accu-Chek Soft Dev Lancets) Use 3X Daily levocetirizine (Xyzal) 5 mg PO DAILY lisinopril 40 mg PO DAILY metformin ER 1,000 mg (2 x 500 mg) PO BID omeprazole 40 mg PO DAILY tamsulosin 0.4 mg PO QDAY zonisamide 50 mg PO BID Allergies Allergies No Known Allergies Allergy (Verified 12/04/19 10:59) Current Diet Current diet: regular PHQ-2/9 Over the last 2 weeks, how often have you been bothered by any of the following problems? 1. Little interest or pleasure in doing things: not at all 2. Feeling down, depressed, or hopeless: not at all Total score: 0 [facility] - right eye: 20/25 [facility] Far - left eye: 20/20 [facility] Far - bilateral eyes: 20/25 VA Near - right eye: 20/20 VA Near - left eye: 20/20 VA near - bilateral eye: 20/20 Functional Assessment Bathing: Independent Dressing: Independent Toileting: Independent Transferring: Independent Continence: Independent Feeding: Independent Total Score: 6 Home Safety Home Safety: Reports Lighting: Adequate, [place]: No throw rugs and Stairs: Handrail available; DeniesBathroom: Grab bars Hearing Hearing Left Ear: Normal Hearing Right Ear: Normal IADL Assessment Functional abilities: Up Go test, pt steady, Up Go test, within 30 sec, Pt independent w/phone,Pt independent w/transportation, Pt independent w/shopping, Pt independent w/housework, Pt independent w/meal preparation and Pt independent w/laundry; negative for Pt independent w/medication and Pt independent w/finances Cognitive Evaluation Oriented to the date:: No Oriented to time:: Yes Oriented to place:: Yes Mood: grossly normal Affect: Normal Judgement: normal Needs caregiver for assistance: No Clock drawing: No Clock drawing with correct time: No 3 item recall: 1 Next Visit Return to Office:: At the end of 3 months HPI Additional HPI HPI Details: Patient with problems including diabetes, anxiety, hypertension, learning disability and morbid obesity came to the office for a follow-up visit as well as his Medicare annual wellness visit. Patient continues follow-up with the back specialist as well as the diet attendant in [place]. He had no major complaints. Review of Systems Const Denies anorexia, Denies fatigue, Denies fever(s), Denies headache(s) and Reports weight gain (14 pound gain since the November visit) ENT Denies dysphagia, Denies dizziness, Denies headache(s) and Denies disequilibrium Card Denies chest pain, Denies pedal edema, Denies lighthe adedness, Denies palpitations and Denies dyspnea Resp Denies cough, Denies excessive phlegm production, Denies pain on inspiration, Denies dyspnea and Denies wheezing GI Denies abdominal pain, Denies change in bowel habits, Denies dysphagia, Denies early satiety, Deniesheartburn, Denies diarrhea, Denies nausea and Denies vomiting Musc Reports back pain, Denies arthralgias, Denies numbness and Denies tingling Neuro Denies dizziness, Denies headache(s), Denies numbness, Denies tingling, Denies paresthesias and Denies disequilibrium Endo Denies fatigue and Denies palpitations Aller/Immun Denies wheezing Exam Const General: cooperative, well developed and well groomed Nutritional Appearance: obese morbidly obese Orientation: alert and awake Eyes Pupils: PERRL Neck Neck: normal visual inspection, full ROM, no lymphadenopathy, supple and no JVD present Carotids: normal carotid upstroke Resp Effort Inspection: normal respiratory effort Auscultation: clear to auscultation bi laterally Percussion: percussion normal Cardio Jugular venous pressure: no JVD Palpation: normal PMI Rate: regular rate Rhythm: regular rhythm Heart Sounds: S1 normal and S2 normal GI Inspection: Yes normal to inspection Palpation: soft and nontender Auscultation: normal bowel sounds Neuro General: gait normal Extrem General: normal to inspection, full ROM and no clubbing, cyanosis or edema Assessment Plan Assessment Plan (1) Initial Medicare annual wellness visit: Code(s): Z00.00 - Encounter for general adult medical examination without abnormal findings Plan - Silverio Batista M.D.: Patient came for the initial Medicare annual wellness visit. Patient's medical and personal history was updated. I updated the list of patient's current medical providers. Medication regimen was also reviewed. Vital signs were recorded. Patient was subjected to the mini-cog test. There is evidence of cognitive impairment. Some of this may be due to the patient's lifelong learning disability. Health maintenance activity record was updated. Patient was provided with personalized advice regarding lifestyle measures. A printed personalized prevention plan was provided to the patient. Return appointment will be at the end of 3 months for a recheck. (2) Diabetes mellitus: SNOMED Code(s): 84629897 Category: Medical Qualifiers: Diabetes mellitus type: type 2 Diabetes mellitus terminal operations manager insulin use: without terminal operations manager use Diabetes mellitus complication status: without complication Qualified Code(s): E11.9 - Type 2 diabetes mellitus withou t complications Plan - Silverio Batista M.D.: Patient will be following up with the diet attendant for this problem. The most recent A1c is 6.6. (3) Essential hypertension: Status: Chronic Onset Date: 01/01/11 Code(s): I10 - Essential (primary) hypertension SNOMED Code(s): 22267448 Category: Medical Plan - Silverio Batista M.D.: Blood pressure is well controlled on the current regimen. Patient was advised to follow a low-salt diet. Additional time was spent with the patient discussing the hypertension plan of care. (4) Morbid (severe) obesity due to excess calories: Code(s): E66.01 - Morbid (severe) obesity due to excess calories Plan - Silverio Batista M.D.: Patient has regained back all the weight that he had lost. Patient is morbidly obese. Patient was counseled regarding the importance of diet, exercise and weight control. Additional Comments Additional Comments: Patient came to the office for a 3-month checkup as well as his initial Medicare annual wellness visit. Certain parts of this note may have been carried over from prior notes to maintain accuracy of the patient's pertinent medical history and continuity of care. The details were verified and edited asappropriate. This document was dictated using [employer] speech recognition software. A reasonable attempt to proofread has been made to minimize errors. Please call if you notice any errors or have any questions. Orders Follow Up: 3 Months (Diabetes) <Electronically signed by Silverio Batista MD> 03/17/20 1814 Name Value Range Interpretation Code Description Data Radha rce(s) Supporting Document(s) ID Date Data Source [id number] 03/11/2020 03:59:[address] [facility] Name Value Range Interpretation Code Description Data [facility](s) Supporting Document(s) Hemoglobin A1c % 6.6 % 4.0-6.0 Above high normal [facility] The following ranges may be u sed for interpretation of results: HGBA1C degree of glucose control: Greater than 8%: Action Suggested * Less than 7%: Goal of Diabetic Therapy Less than 6%: NormalFactors such as duration of diabetes, adherence to therapyand the age of the patient should also be considered inassessing the degree of blood glucose control.* High risk of developing terminal operations manager complications such asretinopathy, nephropathy, neuropathy, cardiopathy, etc. Some danger of hypoglycemic reaction in Type I diabetics.Some glucose intolerant individuals and "Sub Clinical"diabetics may demonstrate HGBA1C levels in this area. Glucose mean value [Moles/volume] in Blood Estimated f rom glycated hemoglobin 143 mg/dL [facility] An A1C of 7% - the goal of diabetic ther apy - is equivalentto an EAG of 154 mg/dl. ID Date Data Source [id number] 03/11/2020 04:01:00 PM [facility] Name Value Range Interpretation Code Description Data Radha rce(s) Supporting Document(s) Urea nitrogen [Mass/volume] in Serum or Plasma 15 mg/dL 9-[address] [facility] Sodium [Moles/volume] in Serum or Plasma 141 mmol/L 132-146 [facility] Potassium [Moles/volume] in Serum or Plasma 4.3 mmol/L 3.5-5.[address] [facility] Chloride [Moles/volume] in Serum or Plasma 109 mmol/L 99-109 [facility] Carbon dioxide, total [Moles/volume] in Serum or Plasma 30 mmol/L 20 -31 [facility] Anion gap in Serum or Plasma 6 mmol/L 8-[address] [facility] Glucose [Mass/volume] in Serum or Plasma 99 mg/dL 74-106 [facility] Creatinine 1.1 mg/dL 0.5-1.1 [facility] Glomerular filtration rate/1.73 sq M.pre dicted [Volume Rate/Area] in Serum or Plasma Greater Than [address] [facility] Calcium [Mass/volume] in Serum or Plasma 9.2 mg/dL 8.5-10.1 [facility] ID Date Data Source [id number] 03/10/2020 12:00:[address] [facility] Name Value Range Interpretation Code Description Data Radha rce(s) Supporting Document(s) 2019-nCoV RNA XXX SHELBY+probe-Imp [facility] This lab was ordered by [facility] and reported by [employer] ID Date Data Source [id number] 02/29/2020 11:39:00 AM [facility] Patient Name: BRANDI SLOAN : 1970 Sex: M Pt Unit #: [id number] Location:[facility] Provider: Visit Date/Time: 02/29/20 Primary Insurance: [facility] Secondary Insurance: MEDICAID [facility] R Intake Vital Signs 02/29/20 11:39 Current Height 5 ft 7 in Current Weight 261 lb 2 oz Weight Measurement Method Standing Scale BMI 40.8 BP 126/82 Blood Pressure Location Lt brachial Position Sitting Respiration 18 Pulse 75 Pulse Strength Normal Pulse Source Pulse Oximeter Temp 98.2 F Temp Source Oral Pulse Oximetry (%) 96 Oxygen Delivery Method room air Intake Visit Reasons: Back pain Nurse Note: Pt presents today for back pain. It is noted in pt's chart that he has chronic back pain and has been seen for it before. Pt has an xray for review from April 2019. Pt said that his pain is getting worse. Pt has been to pain clinic in the past and has had injections. Pt has been txwith Ibuprofen, Tylenol, and topical analgesic rubs. Also tx with heat. This has not helped. Audio Visual Collections Coordinator Required: No Accompanied by: Self / Same as Patient Is patient in pain?: Yes Allergies No Known Allergies Allergy (Verified 12/04/19 10:59) Vision Wearing glasses?: Yes Fall Risk History of falls: No Ambulatory Aid:: None Gait/Transferring:: Normal Medications:: No High Risk Medications HIV Testing Offer - ages 13-64 HIV testing Offer: No Requirement for HIV testing offer been met?: Patient reports past refusal SBIRT Annual Questionnaire Are you currently in recovery for alcohol or substance use?: Yes How many times in the past year have you had 5 or more drinks in a day?: None How many times in the past year have you used a recreational drug or used a prescription medication for nonmedical reasons?: None Do you need a note to return Do you need a note to return to daycare/school/sports/work: No Coronavirus Screening Screening Have you traveled outside of [facility] or [facility] in the last 14 days.: No Has patient experienced coronavirus symptoms: No [facility] Medical History Allergic rhinitis due to pollen Anxiety disorder (01/01/11) Congenital hydrocele Continuous chewing tobacco dependence (09/20/14) Diabetes mellitus Essential hypertension (01/01/11) Learning disability Morbid obesity Obesity Tobacco use disorder, continuous Type 2 diabetes mellitus without complication, without long-term current use of insulin (03/16/16) Surgical History History of vasectomy (12/25/12) Family History Mother Chronic low back pain Father Chronic low back pain Sister Mental retardation Brother No problems noted. Social History Does the Patient have a Healthcare Proxy: No Does Patient have a DNR?: No Does Patient have a Living Will?: No Does the Patient have a MOLST?: No Advance Directives on File or in chart?: No marital status: highest education level completed: high school graduate current occupational status: unemployed Hx Recent Travel (where): No Smoking Status: Current every day smoker alcohol intake: former details: 06/16/2013 last substance use type: does not use seatbelt use: always water heater temp set < 120 deg: Yes working smoke detector in home: Yes fire extinguisher in home: No carbon monox detector in home: No firearms in home: No victim of physical abuse: No victim of emotional abuse: No HPI Additional HPI HPI Details: HPI per nurses's intake note. He has been under the care of Sports Medicine in [place] for his low back pain. He reports his chonic pain is getting worse there is more pain when first getting up in the am and when sitting on the commode. He has been treated by pain clinic in the past. I could not find any notes from either the orthopedic group or pain management. He was seen inJune of 2019 in the ED for low back pain and was given a medrol dose pack. Review of Systems Const Reports system reviewed and no additional complaints, except as documented Musc Reports as per HPI Exam Const General: cooperative, healthy appearing, comfortable, well developed and well hydrated [facility] Head: normocephalic Ears: hearing grossly normal bilaterally Eyes General: appearance normal, both eyes and all related structures Eyelids: eyelids normal Conjunctivae: conjunctivae normal Sclera: sclerae normal Resp Other: Respiratory rate normal range. Cardio Other: Heart rate in normal range Musc Thoracic/Lumbar Spine: thoracic and lumbar spine normal to inspection and thoraco-lumbar ROM limited(full forward and side to side. Limited backward extension,.) Other: Walks in with normal gait Normal leg flexion from hip. Normal leg muscle strength bilaterally. Skin Other: General skin appearance normal, warm and dry Neuro General: moves all extremities and normal light touch, pain and propioception Psych Mental Status: mental status grossly normal Mood: congruent mood Affect: normal affect Attitude: cooperative Thought Process: normal Thought Content: normal Assessment Plan Assessment Plan (1) Back pain: Status: Acute Code(s): M54.9 - Dorsalgia, unspecified SNOMED Code(s): 457585846 Category: Medical Plan - RICHIE Hernández: I advised patient to make an appointment for follow up with the group in [place] who have all his records, know the history and the most recent treatments. <Electronically signed by Alma QUIROZ> 02/29/20 1217 Name Value Range Interpretation Code Description Data Radha rce(s) Supporting Document(s) ID Date Data Source [id number] 02/06/2020 01:32:[address] [facility] Normal result is "BinaxNow Covid-19 Ag n egative"BinaxNow Covid-19 Ag is a rapid lateral flowimmunochromatographic immunoassayThis test detects both viable(live) and non-viable, SARS-COVand SARS-COV-2.Positive test results do not differentiate between SARS-COVand [id number] results , from patients with symptom onset beyondseven days, should be treated as presumptive andconfirmation with a molecular assay, if necessary, forpatient managementIf the differentiation of specific SARS viruses and strainsis needed, additional testing, in consultation with stateand local public health departments, is required.BinaxNow Covid -19 Ag Negative Name Value Range Interpretation Code Description Data Radha rce(s) Supporting Document(s) ID Date Data Source [id number] 02/06/2020 12:00:[address] [facility] Name Value Range Interpretation Code Description Data Radha rce(s) Supporting Document(s) SARS-CoV2 Rapid Ant[address] [facility] OP and reported by [facility]. ID Date Data Source [id number] 01/14/2020 03:41:00 PM EDT [facility] ([facility]) Name Value Range Interpretation Code Description Data Radha rce(s) Supporting Document(s) Glucose [Mass/volume] in Serum or Plasma 104 [facility] ([facility]) Hemoglobin A1c/Hemoglobin.total in Blood 5.9 [facility] ([facility]) Procedure Social History Code Duration Value Status Description Data Source(s ) 10/31/2020 08:11:36 AM EDT Former smoker completed Former smoker [facility] Smoking 10/31/2020 08:11:00 AM EDT Former smoker completed Former smoker [facility] 09/03/2020 07:11:57 AM EDT No completed No [facility] 09/03/2020 07:11:57 AM EDT No completed No [facility] 09/03/2020 07:11:57 AM EDT No completed No [facility] 09/03/2020 07:11:57 AM EDT No completed No [facility] 09/03/2020 07:11:57 AM EDT Current every day smoker co mpleted Current every day smoker [facility] Smoking 09/03/2020 07:11:00 AM EDT Current every day smoker co mpleted Current every day smoker [facility] 08/16/2020 05:10:05 AM EDT No completed No [facility] 08/16/2020 05:10:05 AM EDT No completed No [facility] 08/16/2020 05:10:05 AM EDT Current every day smoker co mpleted Current every day smoker [facility] Smoking 08/16/2020 05:10:00 AM EDT Current every day smoker co mpleted Current every day smoker [facility] 08/13/2020 12:35:57 AM EDT No completed No [facility] 08/13/2020 12:35:57 AM EDT No completed No [facility] 08/13/2020 12:35:57 AM EDT Current every day smoker co mpleted Current every day smoker [facility] Smoking 08/13/2020 12:35:00 AM EDT Current every day smoker co mpleted Current every day smoker [facility] 03/17/2020 02:46:46 PM EST Current every day smoker co mpleted Current every day smoker [facility] 03/17/2020 02:46:46 PM EST Current every day smoker co mpleted Current every day smoker [facility] 03/17/2020 02:46:46 PM EST Current every day smoker co mpleted Current every day smoker [facility] Smoking 03/17/2020 02:46:00 PM EST Current every day smoker co mpleted Current every day smoker [facility] Smoking 03/17/2020 01:46:00 PM EST Current every day smoker co mpleted Current every day smoker [facility] Smoking 03/17/2020 01:46:00 PM EST Current every day smoker co mpleted Current every day smoker [facility] Smoking 01/14/2020 12:00:00 AM EDT Never Smoked Cigarettes com pleted Never Smoked Cigarettes [facility] ([facility]) Vital Signs ID Date Data Source UNK Name Value Range Interpretation Code Description Data Source(s) Systolic blood pressure 124 mm[Hg] 124 mm[Hg] M [facility] ([facility]) Body height 65 [in_i] 65 [in_i] [facility] ([facility]) 5'5" Body mass index (BMI) [Ratio] 41.3 kg/m2 41.3 k g/m2 [facility] ([facility]) Diastolic blood pressure 84 mm[Hg] 84 mm[Hg] [facility] ([facility]) Heart rate 60 /min 60 /min [facility] ([facility]) Body temperature 97.5 [degF] 97.5 [degF] [facility] ([facility]) Body weight 248.00 [lb_av] 248.00 [lb_av] [facility] T ([facility])
--- OUTSIDE RECORDS SUMMARY | 2021-02-08 05:07 | CCD ---
Author Author [facility] Organization [facility] Address Unknown Phone Unavailable Support Name Relationship Address Phone LINDA SLOAN Next Of Kin Unknown [place] [address] [place] [address] Chema SLOAN Next Of Kin [address] [place] [address] ATILIO HERNANDEZ Next Of Kin Unknown DISABLED Next Of Kin Unknown Unavailable UE Next Of Kin Unknown Unavailable EDUARDO KIM Next Of Kin [address] [place] [address] Chema FELIX Next Of Kin [address] [place] [address] JULY SLOAN Next Of Kin [address] [place] [address] ATILIO FELIX [place] [address] Chema NUÑEZ Next Of Kin [address] [place] [address] Unavailable ЕКАТЕРИНА SLOAN Next Of Kin [address] [place] [address] Aime SLOAN Next Of Kin [address] [place] [address] - SAMMY WEAVER Next Of Kin [address] [place] [address] CHRISTINA SANCHEZ Next Of Kin [address] [place] [address] NONE, PT PER Next Of Kin - -, - - - EDUARDO SLOAN Next Of Kin [address] [address] UN Next Of Kin - -, - - - AMY SLOAN Next Of Kin Unknown EDUARDO PURVIS Next Of Kin [address] [address] SAMMY WEAVER Next Of Kin [address] [place] [address] SloanJuly ECON Unknown Care Team Providers Care Power Hair Clipper Name Role Phone Brannon BALTAZAR MD Unavailable Unavailable Brannon BALTAZAR MD Unavailable Unavailable Brannon BALTAZAR MD Unavailable Unavailable Brannon BALTAZAR MD Unavailable Unavailable Brannon BALTAZAR MD Unavailable Unavailable Clifton, L Lynne PALLIATIVE CARE SPECIALIST Unavailable Unavailable Clifton, L Lynne PALLIATIVE CARE SPECIALIST Unavailable Unavailable Clifton, L Lynne PALLIATIVE CARE SPECIALIST Unavailable Unavailable Clifton, L Lynne PALLIATIVE CARE SPECIALIST Unavailable Unavailable Clifton, L Lynne PALLIATIVE CARE SPECIALIST Unavailable Unavailable Clifton, L Lynne PALLIATIVE CARE SPECIALIST Unavailable Unavailable Clifton, L Lynne PALLIATIVE CARE SPECIALIST Unavailable Unavailable Clifton, L Lynne PALLIATIVE CARE SPECIALIST Unavailable Unavailable Clifton, L Lynne PALLIATIVE CARE SPECIALIST Unavailable Unavailable Clifton, L Lynne PALLIATIVE CARE SPECIALIST Unavailable Unavailable Clifton, L Lynne PALLIATIVE CARE SPECIALIST Unavailable Unavailable Clifton, L Lynne PALLIATIVE CARE SPECIALIST Unavailable Unavailable Clifton, L Lynne PALLIATIVE CARE SPECIALIST Unavailable Unavailable Aldo Pan MD Unavailable Unavailable Holley Knox MD Unavailable Unavailable Holley Knox MD Unavailable Unavailable Holley Knox MD Unavailable Unavailable Valle, L Alma PALLIATIVE CARE SPECIALIST Unavailable Unavailable Valle, L Alma PALLIATIVE CARE SPECIALIST Unavailable Unavailable Valle, L Alma PALLIATIVE CARE SPECIALIST Unavailable Unavailable Valle, L Alma PALLIATIVE CARE SPECIALIST Unavailable Unavailable Valle, L Alma PALLIATIVE CARE SPECIALIST Unavailable Unavailable Valle, L Alma PALLIATIVE CARE SPECIALIST Unavailable Unavailable Valle, L Alma PALLIATIVE CARE SPECIALIST Unavailable Unavailable Valle, L Alma PALLIATIVE CARE SPECIALIST Unavailable Unavailable Valle, L Alma PALLIATIVE CARE SPECIALIST Unavailable Unavailable Valle, L Alma PALLIATIVE CARE SPECIALIST Unavailable Unavailable Valle, L Alma PALLIATIVE CARE SPECIALIST Unavailable Unavailable Valle, L Alma PALLIATIVE CARE SPECIALIST Unavailable Unavailable Valle, L Alma PALLIATIVE CARE SPECIALIST Unavailable Unavailable Valle, L Alma PALLIATIVE CARE SPECIALIST Unavailable Unavailable Valle, L Alma PALLIATIVE CARE SPECIALIST Unavailable Unavailable Valle, L Alma PALLIATIVE CARE SPECIALIST Unavailable Unavailable Valle, L Alma PALLIATIVE CARE SPECIALIST Unavailable Unavailable Valle, L Alma PALLIATIVE CARE SPECIALIST Unavailable Unavailable Valle, L Alma PALLIATIVE CARE SPECIALIST Unavailable Unavailable Valle, L Alma PALLIATIVE CARE SPECIALIST Unavailable Unavailable Valle, L Alma PALLIATIVE CARE SPECIALIST Unavailable Unavailable Valle, L Alma PALLIATIVE CARE SPECIALIST Unavailable Unavailable Valle, L Alma PALLIATIVE CARE SPECIALIST Unavailable Unavailable Valle, L Alma PALLIATIVE CARE SPECIALIST Unavailable Unavailable Valle, L Alma PALLIATIVE CARE SPECIALIST Unavailable Unavailable Valle, L Alma PALLIATIVE CARE SPECIALIST Unavailable Unavailable Valle, L Alma PALLIATIVE CARE SPECIALIST Unavailable Unavailable Valle, L Alma PALLIATIVE CARE SPECIALIST Unavailable Unavailable Valle, L Alma PALLIATIVE CARE SPECIALIST Unavailable Unavailable Valle, L Alma PALLIATIVE CARE SPECIALIST Unavailable Unavailable Valle, L Alma PALLIATIVE CARE SPECIALIST Unavailable Unavailable Valle, L Alma PALLIATIVE CARE SPECIALIST Unavailable Unavailable Valle, L Alma PALLIATIVE CARE SPECIALIST Unavailable Unavailable Valle, L Alma PALLIATIVE CARE SPECIALIST Unavailable Unavailable Valle, L Alma PALLIATIVE CARE SPECIALIST Unavailable Unavailable Valle, L Alma PALLIATIVE CARE SPECIALIST Unavailable Unavailable Valle, L Alma PALLIATIVE CARE SPECIALIST Unavailable Unavailable Valle, L Alma PALLIATIVE CARE SPECIALIST Unavailable Unavailable Valle, L Alma PALLIATIVE CARE SPECIALIST Unavailable Unavailable Valle, L Alma PALLIATIVE CARE SPECIALIST Unavailable Unavailable Valle, L Alma PALLIATIVE CARE SPECIALIST Unavailable Unavailable Valle, L Alma PALLIATIVE CARE SPECIALIST Unavailable Unavailable JarvisMela vides MD Unavailable Unavailable [...] R Silverio MD Unavailable Unavailable Jarvis, R Islverio MD Unavailable Unavailable Jarvis, R Silverio MD [...] Unavailable Jarvis, Mela Silverio MD Unavailable Unavailable Clifton, L Lynne PALLIATIVE CARE SPECIALIST Unavailable Unavailable Clifton, L Lynne PALLIATIVE CARE SPECIALIST Unavailable Unavailable Clifton, L Lynne PALLIATIVE CARE SPECIALIST Unavailable Unavailable Clifton, L Lynne PALLIATIVE CARE SPECIALIST Unavailable Unavailable Clifton, L Lynne PALLIATIVE CARE SPECIALIST Unavailable Unavailable Clifton, L Lynne PALLIATIVE CARE SPECIALIST Unavailable Unavailable Clifton, L Lynne PALLIATIVE CARE SPECIALIST Unavailable Unavailable Clifton, L Lynne PALLIATIVE CARE SPECIALIST Unavailable Unavailable Clifton, L Lynne PALLIATIVE CARE SPECIALIST Unavailable Unavailable Clifton, L Lynne PALLIATIVE CARE SPECIALIST Unavailable Unavailable Clifton, L Lynne PALLIATIVE CARE SPECIALIST Unavailable Unavailable Clifton, L Lynne PALLIATIVE CARE SPECIALIST Unavailable Unavailable Clifton, L Lynne PALLIATIVE CARE SPECIALIST Unavailable Unavailable Pisaniello, Arabella Arriola MD Unavailable [...] KP PA Unavailable Unavailable ADAN, B EARL PALLIATIVE CARE SPECIALIST Unavailable Unavailable ADAN, B EARL PALLIATIVE CARE SPECIALIST Unavailable Unavailable ADAN, B EARL PALLIATIVE CARE SPECIALIST Unavailable Unavailable ADAN, B EARL PALLIATIVE CARE SPECIALIST Unavailable Unavailable ADAN, B EARL PALLIATIVE CARE SPECIALIST Unavailable Unavailable ADAN, B EARL PALLIATIVE CARE SPECIALIST Unavailable Unavailable ADAN, B EARL PALLIATIVE CARE SPECIALIST Unavailable Unavailable ADAN, B EARL PALLIATIVE CARE SPECIALIST Unavailable Unavailable ADAN, B EARL PALLIATIVE CARE SPECIALIST Unavailable Unavailable ADAN, B EARL PALLIATIVE CARE SPECIALIST Unavailable Unavailable ADAN, B EARL PALLIATIVE CARE SPECIALIST Unavailable Unavailable ADAN, B EARL PALLIATIVE CARE SPECIALIST Unavailable Unavailable ADAN, B EARL PALLIATIVE CARE SPECIALIST Unavailable Unavailable ADAN, B EARL PALLIATIVE CARE SPECIALIST Unavailable Unavailable ADAN, B EARL PALLIATIVE CARE SPECIALIST Unavailable Unavailable ADAN, B EARL PALLIATIVE CARE SPECIALIST Unavailable Unavailable ADAN, B EARL PALLIATIVE CARE SPECIALIST Unavailable Unavailable ADAN, B EARL PALLIATIVE CARE SPECIALIST Unavailable Unavailable ADAN, B EARL PALLIATIVE CARE SPECIALIST Unavailable Unavailable ADAN, B EARL PALLIATIVE CARE SPECIALIST Unavailable Unavailable ADAN, B EARL PALLIATIVE CARE SPECIALIST Unavailable Unavailable ADAN, B EARL PALLIATIVE CARE SPECIALIST Unavailable Unavailable ADAN, B EARL PALLIATIVE CARE SPECIALIST Unavailable Unavailable ADAN, B EARL PALLIATIVE CARE SPECIALIST Unavailable Unavailable ADAN, B EARL PALLIATIVE CARE SPECIALIST Unavailable Unavailable ADAN, B EARL PALLIATIVE CARE SPECIALIST Unavailable Unavailable ADAN, B EARL PALLIATIVE CARE SPECIALIST Unavailable Unavailable ADAN, B EARL PALLIATIVE CARE SPECIALIST Unavailable Unavailable ADAN, B EARL PALLIATIVE CARE SPECIALIST Unavailable Unavailable ADAN, B EARL PALLIATIVE CARE SPECIALIST Unavailable Unavailable ADAN, B EARL PALLIATIVE CARE SPECIALIST Unavailable Unavailable ADAN, B EARL PALLIATIVE CARE SPECIALIST Unavailable Unavailable ADAN, B EARL PALLIATIVE CARE SPECIALIST Unavailable Unavailable ADAN, B EARL PALLIATIVE CARE SPECIALIST Unavailable Unavailable ADAN, B EARL PALLIATIVE CARE SPECIALIST Unavailable Unavailable ADAN, B EARL PALLIATIVE CARE SPECIALIST Unavailable Unavailable ADAN, B EARL PALLIATIVE CARE SPECIALIST Unavailable Unavailable ADAN, B EARL PALLIATIVE CARE SPECIALIST Unavailable Unavailable ADAN, B EARL PALLIATIVE CARE SPECIALIST Unavailable Unavailable ADAN, B EARL PALLIATIVE CARE SPECIALIST Unavailable Unavailable ADAN, B EARL PALLIATIVE CARE SPECIALIST Unavailable Unavailable ADAN, B EARL PALLIATIVE CARE SPECIALIST Unavailable Unavailable ADAN, B EARL PALLIATIVE CARE SPECIALIST Unavailable Unavailable ADAN, B EARL PALLIATIVE CARE SPECIALIST Unavailable Unavailable ADAN, B EARL PALLIATIVE CARE SPECIALIST Unavailable Unavailable ADAN, B EARL PALLIATIVE CARE SPECIALIST Unavailable Unavailable ADAN, B EARL PALLIATIVE CARE SPECIALIST Unavailable Unavailable ADAN, B EARL PALLIATIVE CARE SPECIALIST Unavailable Unavailable ADAN, B EARL PALLIATIVE CARE SPECIALIST Unavailable Unavailable ADAN, B EARL PALLIATIVE CARE SPECIALIST Unavailable Unavailable ADAN, B EARL PALLIATIVE CARE SPECIALIST Unavailable Unavailable ADAN, B EARL PALLIATIVE CARE SPECIALIST Unavailable Unavailable ADAN, B EARL PALLIATIVE CARE SPECIALIST Unavailable Unavailable ADAN, B EARL PALLIATIVE CARE SPECIALIST Unavailable Unavailable ADAN, B EARL PALLIATIVE CARE SPECIALIST Unavailable Unavailable ADAN, B EARL PALLIATIVE CARE SPECIALIST Unavailable Unavailable ADAN, B EARL PALLIATIVE CARE SPECIALIST Unavailable Unavailable ADAN, B EARL PALLIATIVE CARE SPECIALIST Unavailable Unavailable ADAN, B EARL PALLIATIVE CARE SPECIALIST Unavailable Unavailable ADAN, B EARL PALLIATIVE CARE SPECIALIST Unavailable Unavailable ADAN, B EARL PALLIATIVE CARE SPECIALIST Unavailable Unavailable ADAN, B EARL PALLIATIVE CARE SPECIALIST Unavailable Unavailable TURRIN, DOMINICK Unavailable Unavailable TURRIN, [...] Unavailable DRAZEK, I GE PA Unavailable Unavailable CHANLIECCO, C JOSE MD [...] is protected by Article 27-F of the [facility] Public Health law. If you continue you may have access to information: Regarding HIV / AIDS; Provided by facilities licensed or operated by the [facility] Office of Mental Health; or Provided by the [facility] Office for People With Developmental Disabilities. If such information is present, then the following [facility] mandated warning applies: This information has [...] law may result in a fine or long term sentence or both. A general authorization for the release of medical or other information is NOT sufficient authorization for further disc losure. Allergies and Adverse Reactions Type Description Substance Reaction Status Data Source(s ) Drug allergy No Known Drug Allergies No Known Drug Allergies [facility] Food allergy No Known Food Allergies No Known Food Allergies [facility] Family History Family Member Name Family Member Gender Family Member Status Date o f Status Description Data Source(s) Unknown Condition [facility] Unknown Condition [facility] Unknown Condition [facility] Unknown Condition [facility] Unknown Condition [facility] Unknown Condition [facility] Unknown Condition [facility] Unknown Condition [facility] Unknown Condition [facility] Unknown Condition [facility] Unknown Condition [facility] Unknown Condition [facility] Unknown Condition [facility] Unknown Condition [facility] Unknown Condition [facility] Unknown Condition [facility] Encounters Encounter Providers Location Date Indications Data Source(s ) Emergency Attender: GIN MOONEY MD 02/07 01:25:00 PM EDT - 02/07/2021 04:37:[address] [facility] SORE THROAT Patient discharged. Emergency Attender: JOSE MESSER MDConsultant: Kristin Nunez NP 02/01/2021 03:23:00 AM EDT - 02/01/2021 06:37:00 AM EDT [facility] Patient discharged. Emergency Attender: DOMINICK Vinsonsultant: Lynne Nunez NP 01/29/2021 02:14:00 AM EDT - 01/29/2021 03:23:00 AM EDT [facility] Patient discharged. Emergency Attender: JOSE MESSER MDConsultant: Kristin Nunez NP 01/27/2021 09:46:00 PM EDT - 01/28/2021 01:40:00 AM EDT [facility] Patient discharged. Emergency Attender: KP BALTAZAR MD 01/09 11:10:00 PM EDT - 01/27/2021 12:50:[address] [facility] BACK PAIN Patient discharged. Emergency Attender: KP BALTAZAR MD 01/09 12:02:00 AM EDT - 01/26/2021 01:15:[address] [facility] BACK PAIN Patient discharged. Outpatient Attender: Lynne Nunez NPReferrer: Silverio Batista MD 12/30/2020 01:53:00 PM EDT - 12/30/2020 02:32:00 PM EDT [facility] Outpatient Attender: KP QUINN Physical Therapy 11/04/2020 01:45:00 PM EDT [facility] Outpatient Attender: Lynne Nunez NPReferrer: Lynne Nunez NP 10/31/2020 08:01:[address] [facility] Office Visit Attender: GE QUINN Physical Therapy 2020 10:00:00 AM EDT [facility] ([facility]) Emergency Attender: GIN MOONEY MDAttender: Aldo reese MD 09/03/2020 06:42:00 AM EDT - 09/03/2020 09:00:00 AM EDT LEFT LEG/KNEE PAIN [facility] LEFT LEG/KNEE PAIN Patient discharged. Emergency Attender: DOMINCIK Vinsonsultant: Silverio Batista MD 08/27/2020 06:50:00 PM EDT - 08/27/2020 08:10:00 PM EDT [facility] Patient admitted. Emergency Attender: DOMINICK Vinson sultant: Silverio Batista MDConsultant: Flako Steele MD 08/18/2020 01:36:00 PM EDT - 08/18/2020 03:35:00 PM EDT [facility] Patient discharged. Emergency Attender: KP BALTAZAR MD 11/2020 04:25:00 AM EDT - 08/16/2020 05:25:00 AM EDT [facility] Patient discharged. Outpatient Attender: Silverio Batista MD 08/15/2020 11:06:00 AM EDT M54.5 [facility] M54.5 Emergency Attender: Holley Knox MD 08/12 11:08:00 PM EDT - 08/13/2020 01:40:00 AM EDT [facility] Patient discharged. Outpatient Attender: Alma Valle NP 07/02/2020 01:42:0 0 PM EDT M25.562 [facility] M25.562 Outpatient Attender: Alma Valle NPReferrer: Silverio Batista MD 07/02/2020 01:16:00 PM EDT - 07/02/2020 01:38:00 PM EDT [facility] Outpatient Attender: Silverio Batista MDReferrer: Silverio Batista MD 06/26/2020 11:11:00 AM EDT - 06/26/2020 01:15:00 PM EDT [facility] Outpatient Attender: Silverio Batista MD 06/17/2020 10:22:00 AM EST E11.9,I10 [facility] E11.9,I10 Outpatient Attender: Silverio Batista MDReferrer: Silverio Batista MD 03/17/2020 02:07:00 PM EST - 03/17/2020 02:48:00 PM EST [facility] Outpatient Attender: Silverio Batista MD 03/11/2020 03:00:00 PM EST E11.9 [facility] E11.9 Outpatient Attender: Alma Valle NPReferrer: Silverio Batista MD 02/29/2020 11:45:00 AM EST - 02/29/2020 12:05:00 PM EST [facility] Outpatient Attender: Maty Bradley MD 02/06/2020 12:56:00 PM EDT [facility] Outpatient Attender: EARL ARELLANO NP Physical Therapy 03:45:00 PM EDT [facility] ([facility]) Outpatient Attender: CLAUDE QUINN Physical Therapy 12/11 02:45:00 PM EDT [facility] ([facility]) Immunizations Vaccine Date Status Description Data Source(s) COVID-19 Moderna 07/04/2020 12:00:00 AM EDT completed [facility] COVID-19 VACCINE Moderna 07/04/2020 12:00:00 AM EDT completed [facility] Vaccine Series Complete: YESThis Data wa s Submitted to [facility] Via agreement24 [email or web address]. COVID-19 Moderna 06/06/2020 12:00:00 AM EST completed [facility] COVID-19 Moderna 06/06/2020 12:00:00 AM EST completed COVID-19 M oderna [facility] COVID-19 VACCINE Moderna 06/06/2020 12:00:00 AM EST completed [facility] Vaccine Series Complete: NOThis Data was Submitted to [facility] Via agreement24 [email or web address]. Tdap 02/02/2020 12:00:00 AM EDT completed [facility] Tdap 02/02/2020 12:00:00 AM EDT completed tetan us, diphtheria, acell pertussis 7yrs &up [facility] Tdap 02/02/2020 12:00:00 AM EDT completed tetan us, diphtheria, acell pertussis 7yrs &up [facility] Tdap 02/02/2020 12:00:00 AM EDT completed tetan us, diphtheria, acell pertussis 7yrs &up [facility] DIPHTHERIA,PERTUSSIS(ACELLULAR),TETANUS VACCINE 02/02/2020 1 2:00:00 AM EDT completed [facility] pneumococcal polysaccharide PPV23 01/19/2020 12:00:00 AM EDT comple reginaldo [facility] IIV3. This is one of two codes replacing CVX 15, which is being retired. 01/19/2020 12:00:00 AM EDT completed [facility] pneumococcal polysaccharide PPV23 01/19/2020 12:00:00 AM EDT com pleted pneumococcal polysaccharide PPV23 vaccine [facility] IIV3. This is one of two codes replacing CVX 15, which is being retired. 01/19/2020 12:00:00 AM EDT completed influenza vaccine, inactivated [facility] pneumococcal polysaccharide PPV23 01/19/2020 12:00:00 AM EDT com pleted pneumococcal polysaccharide PPV23 vaccine [facility] IIV3. This is one of two codes replacing CVX 15, which is being retired. 01/19/2020 12:00:00 AM EDT completed influenza vaccine, inactivated [facility] pneumococcal polysaccharide PPV23 01/19/2020 12:00:00 AM EDT com pleted pneumococcal polysaccharide PPV23 vaccine [facility] IIV3. This is one of two codes replacing CVX 15, which is being retired. 01/19/2020 12:00:00 AM EDT completed influenza vaccine, inactivated [facility] pneumococcal polysaccharide PPV23 01/19/2020 12:00:00 AM EDT com pleted pneumococcal polysaccharide PPV23 vaccine [facility] IIV3. This is one of two codes replacing CVX 15, which is being retired. 01/19/2020 12:00:00 AM EDT completed influenza vaccine, inactivated [facility] Medications Medication Brand Name Start Date Product Form Dose Route Admi nistrative Instructions Pharmacy Instructions Status Indications Reaction Description Data Source(s) Diclofenac Sodium 75 MG Delayed Release Oral Tablet Diclofen ac Sodium 10/31/2020 08:26:10 AM EDT 75 MG active [facility] Methylprednisolone Methylprednisolone 10/31/2020 08:25:12 AM EDT 0 active [facility] 0.5 ML dulaglutide 3 MG/ML Auto-Injector Dulaglutide (Trulicity) 1.5 mg/0.5 mL pen injector Dulaglutide (Trulicity) 1.5 mg/0.5 mL pen injector 11:41:04 AM EDT 1.5 MG active [facility] Blood Sugar Diagnostic (Accu-Chek Tabby Plus Test Strp) stri p 08/11/2020 10:27:54 AM EDT 0 active [facility] 0.5 ML dulaglutide 3 MG/ML Auto-Injector Dulaglutide (Trulicity) 1.5 mg/0.5 mL pen injector Dulaglutide (Trulicity) 1.5 mg/0.5 mL pen injector 07:44:41 AM EDT 1.5 MG completed [facility] Naproxen 500 MG Oral Tablet Naproxen 07/02/2020 02:31:52 PM EDT 500 MG active [facility] 500 mg 07/02/2020 12:00:00 AM EDT tablet 60 TAKE ONE TABLET BY MOUTH TWICE A DAY TAKE ONE TABLET BY MOUTH TWICE A DAY SOLD: 07/02/2020 [facility] Lancing Device With Lancets (Accu-Chek Soft Dev Lancets) kit 01/28/2020 03:53:24 PM EDT 0 active [facility] Lancing Device With Lancets (Accu-Chek Soft Dev Lancets) kit 01/28/2020 03:53:24 PM EDT 0 active [facility] Lancing Device With Lancets (Accu-Chek Soft Dev Lancets) kit 01/28/2020 03:53:24 PM EDT 0 active [facility] Lancing Device With Lancets (Accu-Chek Soft Dev Lancets) kit 01/28/2020 03:53:24 PM EDT 0 active [facility] Lancing Device With Lancets (Accu-Chek Soft Dev Lancets) kit 01/28/2020 03:53:24 PM EDT 0 active [facility] Lancets (Accu-Chek Softclix Lancets) [facility] 01/28/2020 03:52:00 PM EDT 0 active [facility] Lancets (Accu-Chek Softclix Lancets) [facility] 01/28/2020 03:52:00 PM EDT 0 active [facility] Lancets (Accu-Chek Softclix Lancets) [facility] 01/28/2020 03:52:00 PM EDT 0 active [facility] Lancets (Accu-Chek Softclix Lancets) [facility] 01/28/2020 03:52:00 PM EDT 0 active [facility] Lancets (Accu-Chek Softclix Lancets) [facility] 01/28/2020 03:52:00 PM EDT 0 active [facility] Blood Glucose Control High,Low (Accu-Chek Tabby Control Soln ) solution 01/28/2020 03:50:57 PM EDT 0 active [facility] Blood Glucose Control High,Low (Accu-Chek Tabby Control Soln ) solution 01/28/2020 03:50:57 PM EDT 0 active [facility] Blood Glucose Control High,Low (Accu-Chek Tabby Control Soln ) solution 01/28/2020 03:50:57 PM EDT 0 active [facility] Blood Glucose Control High,Low (Accu-Chek Tabby Control Soln ) solution 01/28/2020 03:50:57 PM EDT 0 active [facility] Blood Glucose Control High,Low (Accu-Chek Tabby Control Soln ) solution 01/28/2020 03:50:57 PM EDT 0 active [facility] Blood Sugar Diagnostic (Accu-Chek Tabby Plus Test Strp) stri p 01/28/2020 03:50:12 PM EDT 0 active [facility] Blood Sugar Diagnostic (Accu-Chek Tabby Plus Test Strp) stri p 01/28/2020 03:50:12 PM EDT 0 active [facility] Blood Sugar Diagnostic (Accu-Chek Tabby Plus Test Strp) stri p 01/28/2020 03:50:12 PM EDT 0 completed [facility] Blood Sugar Diagnostic (Accu-Chek Tabby Plus Test Strp) stri p 01/28/2020 03:50:12 PM EDT 0 active [facility] Blood Sugar Diagnostic (Accu-Chek Tabby Plus Test Strp) stri p 01/28/2020 03:50:12 PM EDT 0 active [facility] Blood-Glucose Meter (Accu-Chek Tabby Plus Meter) [facility] 01/28/2020 03:48:53 PM EDT 0 active [facility] Blood-Glucose Meter (Accu-Chek Tabby Plus Meter) [facility] 01/28/2020 03:48:53 PM EDT 0 active [facility] Blood-Glucose Meter (Accu-Chek Tabby Plus Meter) [facility] 01/28/2020 03:48:53 PM EDT 0 active [facility] Blood-Glucose Meter (Accu-Chek Tabby Plus Meter) [facility] 01/28/2020 03:48:53 PM EDT 0 active [facility] Blood-Glucose Meter (Accu-Chek Tabby Plus Meter) [facility] 01/28/2020 03:48:53 PM EDT 0 active [facility] levocetirizine dihydrochloride 5 MG Oral Tablet Levocetirizine (Xyzal) 5 mg tablet Levocetirizine (Xyzal) 5 mg tablet 01/07/2020 01:24:53 PM EDT 5 MG active [facility] levocetirizine dihydrochloride 5 MG Oral Tablet Levocetirizine (Xyzal) 5 mg tablet Levocetirizine (Xyzal) 5 mg tablet 01/07/2020 01:24:53 PM EDT 5 MG active [facility] levocetirizine dihydrochloride 5 MG Oral Tablet Levocetirizine (Xyzal) 5 mg tablet Levocetirizine (Xyzal) 5 mg tablet 01/07/2020 01:24:53 PM EDT 5 MG active [facility] levocetirizine dihydrochloride 5 MG Oral Tablet Levocetirizine (Xyzal) 5 mg tablet Levocetirizine (Xyzal) 5 mg tablet 01/07/2020 01:24:53 PM EDT 5 MG active [facility] levocetirizine dihydrochloride 5 MG Oral Tablet Levocetirizine (Xyzal) 5 mg tablet Levocetirizine (Xyzal) 5 mg tablet 01/07/2020 01:24:53 PM EDT 5 MG completed [facility] Lisinopril 40 MG Oral Tablet Lisinopril 01/07/2020 01:24:48 PM EDT 40 MG active [facility] Lisinopril 40 MG Oral Tablet Lisinopril 01/07/2020 01:24:48 PM EDT 40 MG active [facility] Lisinopril 40 MG Oral Tablet Lisinopril 01/07/2020 01:24:48 PM EDT 40 MG completed [facility] Lisinopril 40 MG Oral Tablet Lisinopril 01/07/2020 01:24:48 PM EDT 40 MG active [facility] Lisinopril 40 MG Oral Tablet Lisinopril 01/07/2020 01:24:48 PM EDT 40 MG active [facility] Tamsulosin hydrochloride 0.4 MG Oral Capsule Tamsulosin 01/07/2020 01:24:38 PM EDT 0.4 MG active [facility] Tamsulosin hydrochloride 0.4 MG Oral Capsule Tamsulosin 01/07/2020 01:24:38 PM EDT 0.4 MG active [facility] Tamsulosin hydrochloride 0.4 MG Oral Capsule Tamsulosin 01/07/2020 01:24:38 PM EDT 0.4 MG active [facility] Tamsulosin hydrochloride 0.4 MG Oral Capsule Tamsulosin 01/07/2020 01:24:38 PM EDT 0.4 MG active [facility] Tamsulosin hydrochloride 0.4 MG Oral Capsule Tamsulosin 01/07/2020 01:24:38 PM EDT 0.4 MG completed [facility] atorvastatin 10 MG Oral Tablet Atorvastatin Atorvastatin 01/07/2020 01:24:27 PM EDT 10 MG active [facility] atorvastatin 10 MG Oral Tablet Atorvastatin Atorvastatin 01/07/2020 01:24:27 PM EDT 10 MG active [facility] atorvastatin 10 MG Oral Tablet Atorvastatin Atorvastatin 01/07/2020 01:24:27 PM EDT 10 MG active [facility] atorvastatin 10 MG Oral Tablet Atorvastatin Atorvastatin 01/07/2020 01:24:27 PM EDT 10 MG active [facility] atorvastatin 10 MG Oral Tablet Atorvastatin Atorvastatin 01/07/2020 01:24:27 PM EDT 10 MG completed [facility] Omeprazole 40 MG Delayed Release Oral Capsule Omeprazole 01/07/2020 01:24:22 PM EDT 40 MG active [facility] Omeprazole 40 MG Delayed Release Oral Capsule Omeprazole 01/07/2020 01:24:22 PM EDT 40 MG active [facility] Omeprazole 40 MG Delayed Release Oral Capsule Omeprazole 01/07/2020 01:24:22 PM EDT 40 MG completed [facility] Omeprazole 40 MG Delayed Release Oral Capsule Omeprazole 01/07/2020 01:24:22 PM EDT 40 MG active [facility] Omeprazole 40 MG Delayed Release Oral Capsule Omeprazole 01/07/2020 01:24:22 PM EDT 40 MG active [facility] 24 HR Metformin hydrochloride 500 MG Extended Release Oral T ablet Metformin 01/07/2020 01:24:15 PM EDT 1000 MG completed [facility] 24 HR Metformin hydrochloride 500 MG Extended Release Oral T ablet Metformin 01/07/2020 01:24:15 PM EDT 1000 MG active [facility] 24 HR Metformin hydrochloride 500 MG Extended Release Oral T ablet Metformin 01/07/2020 01:24:15 PM EDT 1000 MG active [facility] 24 HR Metformin hydrochloride 500 MG Extended Release Oral T ablet Metformin 01/07/2020 01:24:15 PM EDT 1000 MG active [facility] 24 HR Metformin hydrochloride 500 MG Extended Release Oral T ablet Metformin 01/07/2020 01:24:15 PM EDT 1000 MG active [facility] 24 HR Metformin hydrochloride 500 MG Extended Release Oral T ablet Metformin 12/03/2019 01:51:13 PM EDT 1000 MG completed [facility] 24 HR Metformin hydrochloride 500 MG Extended Release Oral T ablet Metformin 12/03/2019 01:51:13 PM EDT 1000 MG completed [facility] 24 HR Metformin hydrochloride 500 MG Extended Release Oral T ablet Metformin 12/03/2019 01:51:13 PM EDT 1000 MG completed [facility] 24 HR Metformin hydrochloride 500 MG Extended Release Oral T ablet Metformin 12/03/2019 01:51:13 PM EDT 1000 MG completed [facility] 24 HR Metformin hydrochloride 500 MG Extended Release Oral T ablet Metformin 12/03/2019 01:51:13 PM EDT 1000 MG completed [facility] Omeprazole 40 MG Delayed Release Oral Capsule Omeprazole 08/16/2019 12:30:02 PM EDT 40 MG completed [facility] Omeprazole 40 MG Delayed Release Oral Capsule Omeprazole 08/16/2019 12:30:02 PM EDT 40 MG completed [facility] Omeprazole 40 MG Delayed Release Oral Capsule Omeprazole 08/16/2019 12:30:02 PM EDT 40 MG completed [facility] Omeprazole 40 MG Delayed Release Oral Capsule Omeprazole 08/16/2019 12:30:02 PM EDT 40 MG completed [facility] Omeprazole 40 MG Delayed Release Oral Capsule Omeprazole 08/16/2019 12:30:02 PM EDT 40 MG completed [facility] doxycycline hyclate 100 MG Oral Capsule Doxycycline Hyclate Doxycycline Hyclate 2019 01:37:01 PM EDT 200 MG completed [facility] doxycycline hyclate 100 MG Oral Capsule Doxycycline Hyclate Doxycycline Hyclate 2019 01:37:01 PM EDT 200 MG completed [facility] doxycycline hyclate 100 MG Oral Capsule Doxycycline Hyclate Doxycycline Hyclate 2019 01:37:01 PM EDT 200 MG completed [facility] 0.5 ML dulaglutide 3 MG/ML Auto-Injector Dulaglutide (Trulicity) 1.5 mg/0.5 mL pen injector Dulaglutide (Trulicity) 1.5 mg/0.5 mL pen injector 11:11:25 AM EDT 1.5 MG completed [facility] Cyclobenzaprine hydrochloride 10 MG Oral Tablet Cyclobenzapr ine 05/09/2019 12:56:19 PM EST 10 MG completed [facility] Cyclobenzaprine hydrochloride 10 MG Oral Tablet Cyclobenzapr ine 05/09/2019 12:56:19 PM EST 10 MG completed [facility] Cyclobenzaprine hydrochloride 10 MG Oral Tablet Cyclobenzapr ine 05/09/2019 12:56:19 PM EST 10 MG completed [facility] Tamsulosin hydrochloride 0.4 MG Oral Capsule Tamsulosin 04/13/2019 08:45:26 AM EST 0.4 MG completed [facility] Tamsulosin hydrochloride 0.4 MG Oral Capsule Tamsulosin 04/13/2019 08:45:26 AM EST 0.4 MG completed [facility] Tamsulosin hydrochloride 0.4 MG Oral Capsule Tamsulosin 04/13/2019 08:45:26 AM EST 0.4 MG completed [facility] Tamsulosin hydrochloride 0.4 MG Oral Capsule Tamsulosin 04/13/2019 08:45:26 AM EST 0.4 MG completed [facility] Tamsulosin hydrochloride 0.4 MG Oral Capsule Tamsulosin 04/13/2019 08:45:26 AM EST 0.4 MG completed [facility] atorvastatin 10 MG Oral Tablet Atorvastatin Atorvastatin 04/13/2019 08:12:56 AM EST 10 MG completed [facility] atorvastatin 10 MG Oral Tablet Atorvastatin Atorvastatin 04/13/2019 08:12:56 AM EST 10 MG completed [facility] atorvastatin 10 MG Oral Tablet Atorvastatin Atorvastatin 04/13/2019 08:12:56 AM EST 10 MG completed [facility] atorvastatin 10 MG Oral Tablet Atorvastatin Atorvastatin 04/13/2019 08:12:56 AM EST 10 MG completed [facility] atorvastatin 10 MG Oral Tablet Atorvastatin Atorvastatin 04/13/2019 08:12:56 AM EST 10 MG completed [facility] Lisinopril 40 MG Oral Tablet Lisinopril 04/02/2019 03:24:40 PM EST 40 MG completed [facility] Lisinopril 40 MG Oral Tablet Lisinopril 04/02/2019 03:24:40 PM EST 40 MG completed [facility] Lisinopril 40 MG Oral Tablet Lisinopril 04/02/2019 03:24:40 PM EST 40 MG completed [facility] Lisinopril 40 MG Oral Tablet Lisinopril 04/02/2019 03:24:40 PM EST 40 MG completed [facility] Lisinopril 40 MG Oral Tablet Lisinopril 04/02/2019 03:24:40 PM EST 40 MG completed [facility] levocetirizine dihydrochloride 5 MG Oral Tablet Levocetirizine (Xyzal) 5 mg tablet Levocetirizine (Xyzal) 5 mg tablet 04/02/2019 03:24:21 PM EST 5 MG completed [facility] levocetirizine dihydrochloride 5 MG Oral Tablet Levocetirizine (Xyzal) 5 mg tablet Levocetirizine (Xyzal) 5 mg tablet 04/02/2019 03:24:21 PM EST 5 MG completed [facility] levocetirizine dihydrochloride 5 MG Oral Tablet Levocetirizine (Xyzal) 5 mg tablet Levocetirizine (Xyzal) 5 mg tablet 04/02/2019 03:24:21 PM EST 5 MG completed [facility] levocetirizine dihydrochloride 5 MG Oral Tablet Levocetirizine (Xyzal) 5 mg tablet Levocetirizine (Xyzal) 5 mg tablet 04/02/2019 03:24:21 PM EST 5 MG completed [facility] levocetirizine dihydrochloride 5 MG Oral Tablet Levocetirizine (Xyzal) 5 mg tablet Levocetirizine (Xyzal) 5 mg tablet 04/02/2019 03:24:21 PM EST 5 MG completed [facility] Insurance Providers Payer name Policy type / Coverage type Policy ID Covered green party ID Covered green party's relationship to huber Policy Huber Plan Information UHC UNITED MEDICARE COMPLETE G [id number] Self [id number] MEDICARE [id number] Michelle [id number] A MEDICARE A [id number] Self [id number] A ASSIGNED MEDICARE (81) [id number] 1 [id number] Medicaid [place] Med[place] Part [place] [id number] Self [id number] [place] [id number] Self [id number] Medicare [facility] Medicare Primary [id number] Self [id number] [place] [id number] Self [id number] [place] [id number] Self [id number] [place] [id number] Self [id number] [place] [id number] Self [id number] [place] [id number] Self [id number] Medicare [facility] Medicare Primary [id number] Self [id number] Medicare [facility] Medicare Primary [id number] Self [id number] [place] [id number] Self [id number] MEDICAID [id number] Michelle [id number] MEDICAID M [id number] Self [id number] MEDICAID -O/P [id number] 18 [id number] [facility] MEDICAID [id number] MEDICARE -O/P [id number] 18 [id number] MEDICARE [id number] SP [id number] A MEDICAID -O/P EMERGENCY ROOM [id number] 18 [id number] [employer] -O/P [id number] 18 [id number] MEDICARE PART A -O/P [id number] 18 [id number] MEDICAID -O/P [id number] MEDICAID -PHYSICIAN [id number] [employer] GOLD PLUS -PHYSICIAN [id number] MEDICAID - O/P EMERGENCY ROOM [id number] 18 [id number] MEDICARE PART A-O/P [id number] 18 [id number] [facility] Medicare Dual Complet Commercial [id number] Self [id number] MEDICAID (101) [id number] MEDICAID [id number] SP [id number] MEDICAID M [id number] S [id number] MEDICARE C [id number] S [id number] A Medicaid [facility] Other 0 [id number] Self 0 Medicare Part B [facility] Other 0 [id number] elf [id number] Problems, Conditions, and Diagnoses Code Display Name Description Problem Type Effective Dates Data Source(s) Y929 [address] or not applicable Unspecified place or not applicable Diagnosis 02/01/2021 03:23:00 AM EDT [facility] [id number] Exposure to other specified factors, ini tial encounter Exposure to other specified factors, initial encounter Diagnosis 02/01/2021 03:23:00 AM EDT [facility] [id number] Personal history of other (healed) physi leonides injury and trauma Personal history of other (healed) physical injury and trauma Diagnosis 1 03:23:[address] 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 E119 Type 2 diabetes mellitus without complic ations Type 2 diabetes mellitus without complications Diagnosis 02/01/2021 03:23:[address] [facility] I10 Essential (primary) hypertension Essential (primary) h ypertension Diagnosis 02/01/2021 03:23:[address] [facility] [id number] Strain of muscle, fascia and tendon of l ower back, initial encounter Strain of muscle, fascia and tendon of lower back, initial encounter Diagnosis 02/01/2021 03:23:[address] [facility] M5450 Low back pain, unspecified Low back pain, unspecified Diagnosis 02/01/2021 03:23:[address] [facility] S15826 Personal history of nicotine dependence Personal history of nicotine dependence Diagnosis 01/29/2021 02:14:[address] [facility] Z6836 Body mass index [BMI] 36.0-36.9, adult B mandeep mass index [BMI] 36.0-36.9, adult Diagnosis 01/29/2021 02:14:[address] [facility] E669 Obesity, unspecified Obesity, unspecified Diagnosis 01/29/2021 02:14:[address] [facility] K122 Cellulitis and abscess of mouth Cellulitis and abscess of mouth Diagnosis 01/29/2021 02:14:[address] [facility] J029 Acute pharyngitis, unspecified Acute pharyngitis, unsp ecified Diagnosis 01/29/2021 02:14:[address] 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 [id number] Overexertion from prolonged static or awkward postures, initial encounter Overexertion from prolonged static or aw kward postures, initial encounter Diagnosis 08/27/2020 06:50:[address] [facility] G15925 Unspecified place in unspeci fied non-institutional (private) residence as the place of occurrence of the external cause Unspecified place in unspecified non-institutional (private) residence as the place of occurrence of the external cause Diagnosis 08/18/2020 01:36:[address] [facility] [id number] Fall from other furniture, initial encou nter Fall from other furniture, initial encounter Diagnosis 08/18/2020 01:36:[address] [facility] [id number] Strain of muscle and tendon of back wall of thorax, initial encounter Strain of muscle and tendon of back wall of thorax, initial encounter Diagnosis 08/18/2020 01:36:[address] [facility] Q6011PC Unspecified injury of lower back, initia l encounter Unspecified injury of lower back, initial encounter Diagnosis 08/18/2020 01:36:[address] [facility] Surgeries/Procedures Procedure Description Date Indications Data Source(s) THERAPEUTIC PX 1/> AREAS EACH 15 MIN EXERCISES 021 12:00:00 AM EDT [facility] ([facility]) MANUAL THERAPY TQS 1/> REGIONS EACH 15 MINUTES 021 12:00:00 AM EDT [facility] ([facility] THERAPEUTIC PX 1/> AREAS EACH 15 MIN EXERCISES 021 12:00:00 AM EDT [facility] ([facility] ) THERAPEUTIC PX 1/> AREAS EACH 15 MIN EXERCISES 12:00:00 AM EDT [facility] ([facility]) MANUAL THERAPY TQS 1/> REGIONS EACH 15 MINUTES 021 12:00:00 AM EDT [facility] ([facility] ) Physical Therapy Eval - Low Complexity 11/18/2020 12:0 0:00 AM EDT [facility] ([facility] ) OFFICE OUTPATIENT VISIT 25 MINUTES 11/04/2020 12:00:00 AM [facility] PHYSICIAN TELEPHONE EVALUATION 5-10 MIN 09/04/2020 12: 00:00 AM EDT [facility] ([facility]) X-ray of left knee (procedure) 09/03/2020 07:28:00 AM [facility] Xray Lumbar spine complete 08/15/2020 11:10:[address] [facility] [address] Abd/pel w/o contrast 08/13/2020 12:04:00 AM [facility] X-ray of left knee (procedure) 07/02/2020 02:00:00 PM [facility] Viral antigen assay (procedure) 02/06/2020 12:00:00 AM [facility] Viral antigen assay (procedure) 02/06/2020 12:00:00 AM [facility] Viral antigen assay (procedure) 02/06/2020 12:00:00 AM [facility] Severe acute respiratory syndrome coronavirus 2 (SARS-CoV-2) antigen assay 02/06[facility] coronavirus 2 (SARS-CoV-2) antigen assay 02/06/2020 12:00:00 AM [facility] al Results ID Date Data Source [id number] 02/07/2021 04:00:00 PM [facility] [address] [place] [address] [phone] NAME SEX PT STATUS ACCOUNT NUMBER BRANDI SLOAN [facility] [id number] ORDERING PHYSICIAN LOCATION MEDICAL RECORD NO. Gin Mooney MD ER [id number] ATTENDING PHYSICIAN DATE OF DATE OF EXAM/TIME [...] Trans Dt/Tm: Trans by: DT Prt Dt/Tm: 4634-7316: Total DLP = 0.00 mGy-cm Fluoroscopy Time (in secs): Name Value Range Interpretation Code Description Data Radha rce(s) Supporting Document(s) ID Date Data Source [id number] 02/07/2021 03:43:00 PM EDT [facility] ED Physician Documentation NAME: BRANDI SLOAN : 1970 AGE: 50 MR#: [id number] SERVICE DATE: 02/07/[address]: Gin Mooney MD PRIMARY CARE DR: Lynne Nunez NP ROOM#: HPI HEENT [facility] Chief Complaint: HEENT Stated Complaint: SORE THROAT [...] 10/23/20 01/27/21 01/26/21 Rx subcutaneous pen injector ([facility]) blood sugar diagnostic (Accu-Chek #100 ea 11/12/20 [...] % (Auto) 67.9, Lymph % (Auto) 22.3, Porter % (Auto) 7.4, Eos % (Auto) 1.8, [...] rce(s) Supporting Document(s) ID Date Data Source [id number] 02/07/2021 03:07:00 PM EDT [facility] Name Value Range Interpretation Code Description Data Radha rce(s) Supporting Document(s) Leukocytes [#/volume] in Blood by Automated count 8.3 10*3/uL 4.45-10 .71 N [facility] Erythrocytes [#/volume] in Blood by Automated count 4.73 10*6/uL 4.3- 6.1 N [facility] Hemoglobin [Moles/volume] in Blood 14.4 g/dL 13-18 N [facility] Hematocrit [Volume Fraction] of Blood by Automated count 42.8 % 4 2-52 N [facility] Erythrocyte mean corpuscular volume [Ent itic volume] in Cord blood by Automated count 91 fL 80-96 N [facility] Erythrocyte mean corpuscular hemoglobin [Entitic mass] by Au tomated count 30 pg 27-31 N [facility] Erythrocyte mean corpuscular hemoglobin concentration [Mass/volume] in Cord blood 34 g/dL 33-37 N [facility] Erythrocyte distribution width [Entitic volume] by Automated count 13 % 11-15 N [facility] Platelets [#/volume] in Blood by Automated count 201 10*3/uL 130-472 N [facility] Platelet mean volume [Entitic volume] in Blood 9.7 fL 9.1-13.1 N [facility] Neutrophils/100 leukocytes in Blood by Automated count 67.9 % 41- 77 N [facility] Neutrophils [#/volume] in Blood by Automated count 5.7 U 1.7-7.6 N [facility] Lymphocytes/100 leukocytes in Blood by Automated count 22.3 % 14- 46 N [facility] Lymphocytes [#/volume] in Blood by Automated count 1.9 U 0.6-4.6 N [facility] Monocytes/100 leukocytes in Blood by Automated count 7.4 % 4-12 N [facility] Monocytes [#/volume] in Blood by Automated count 0.6 U 0.2-1.2 N [facility] Eosinophils/100 leukocytes in Blood by Automated count 1.8 % 0-7 N [facility] Eosinophils [#/volume] in Blood by Automated count 0.2 U 0.0-0.5 N [facility] Basophils/100 leukocytes in Blood by Automated count 0.2 % 0.4-1.3 Below low normal [facility] Basophils [#/volume] in Blood by Automated count 0.0 U 0.0-0.2 N [facility] NUCLEATED RED BLOOD CELL 0 % [facility] NUCLEATED RED BLOOD CELL# [address] [facility] Immature granulocytes [Presence] in Blood by Automated count 0-2 N [facility] Immature granulocytes [#/volume] in Blood by Automated count 0.0 U 0-0.1 N [facility] Manual Differential panel - Blood NO [facility] ID Date Data Source [id number] 02/07/2021 03:26:00 PM EDT [facility] Name Value Range Interpretation Code Description Data Radha rce(s) Supporting Document(s) Urea nitrogen [Mass/volume] in Serum or Plasma 14 mg/dL 9-23 N [facility] Sodium [Moles/volume] in Serum or Plasma 142 mmol/L 132-146 N [facility] Potassium [Moles/volume] in Serum or Plasma 4.0 mmol/L 3.5-5.5 N [facility] Chloride [Moles/volume] in Serum or Plasma 110 mmol/L 99-109 Above high normal [facility] Carbon dioxide, total [Moles/volume] in Serum or Plasma 27 mmol/L 20 -31 N [facility] Anion gap in Serum or Plasma 9 mmol/L 8-[address] [facility] Glucose [Mass/volume] in Serum or Plasma 177 mg/dL 74-106 Above high normal [facility] Creatinine 1.1 mg/dL 0.5-1.1 N [facility] Glomerular filtration rate/1.73 sq M.pre dicted [Volume Rate/Area] in Serum or Plasma Greater Than 60 ABOVE 60 [facility] Alanine aminotransferase [Enzymatic acti vity/volume] in Serum or Plasma by With P-5'-P 29 U/L 10-49 N [facility] Aspartate aminotransferase [Enzymatic ac tivity/volume] in Serum or Plasma by With P-5'-P 18 U/L 0-33 N [facility] pital Alkaline phosphatase [Enzymatic activity/volume] in Serum or Plasma 62 U/L 45-129 N [facility] Calcium [Mass/volume] in Serum or Plasma 8.8 mg/dL 8.5-10.1 N [facility] Bilirubin.total [Mass/volume] in Serum or Plasma 0.4 mg/dL 0.3-1.2 N [facility] Albumin [Mass/volume] in Serum or Plasma by Bromocresol purple (BCP) dye binding method 3.7 g/dL 3.2-4.8 N [facility] Protein [Mass/volume] in Serum or Plasma 6.7 g/dL 5.7-8.2 N [facility] ID Date Data Source [id number] 02/01/2021 11:35:00 AM EDT [facility] [address] [place] [address] PHONE: [phone] FAX: [phone] Name .................. : KYLIE PAZ Acct Number.................. : [id number] ROOM. ................. : [facility]-03 Number ................... : [id number] Stay type ............. : E/R Discharge Date......... ... : 02/01/21 Admit Date ......... : 02/01/21 Admit Phys .................... : JUWAN Date of ....... : 1970 Family Phys ................... : ARMANDO AMAYA Phone . ................. : [phone] Age ................................ : 50 Film# .................. .:[id number] Sex ................................. : M Unsigned transcriptions are preliminary reports and do not represent a medical or legal document SPINE LS COMPLETE [id number] COMPLETE:02/01/21 07:30 AML [id number] Reason(s): Lower Back Pain LUMBOSACRAL SPINE 5 [...] rce(s) Supporting Document(s) ID Date Data Source [id number] 02/01/2021 03:23:00 AM EDT [facility] 1 OrderSheet [facility] Emergency Department [address] [place] [address] Phone #: [phone] 02/01/2021 03:21 Patient: BRANDI SLOAN Sex: M : 1970 Age: 50yWEIGHT:104.3 kg (S) HEIGHT:67 inches (S) BMI:36.0ALLERGIES: No Known Drug AllergyCHIEF COMPLAINT: back painDIAGNOSIS: Lumbar sprainLAB ORDERSOrder Description Priority Entered Acknowledged InitialedDIAGNOSTIC STUDY ORDERSOrder Description Priority Entered Acknowledged InitialedSpine Lumbar STAT 05:25 02/01/2021 05:26 Evette Eugene Victoria Katelyn(Oxygen?(No)) ; Reason for Study: Lower Back PainMEDICATION/IV/DRIP/FLUID ORDERSOrder Description Priority Entered Acknowledged InitialedGENERAL ORDERSOrder Description Priority Entered Acknowledged Initialed[Electronically signed by Marlene Peters R.N. (06:37 02/01/2021)][Electronically signed by Jose Messer (06:42 02/01/2021)][Electronically locked by Marlene Peters R.N. (06:37 02/01/2021)] Name Value Range Interpretation Code Description Data Radha rce(s) Supporting Document(s) ID Date Data Source [id number] 02/01/2021 03:23:00 AM EDT [facility] Center 1 Medication Reconciliation Report [facility] Emergency Department [address] [place] [address] Phone #: ext- [phone] 02/01/2021 03:21 Patient: [...] e(s) Supporting Document(s) ID Date Data Source [id number] 02/01/2021 03:23:00 AM EDT [place] [address] Medication Administration Record [facility] Emergency Department [address] [place] [address] Phone #: ext- [phone] 02/01/2021 03:21 Patient: BRANDI SLOAN Sex: M : 1970 Age: 50yWeight: 104.3 kgHeight/Length: 67 inBMI: 36ALLERGIES: No Known Drug AllergyDate/Time Medication Administered Medication Ordered Name Value Range Interpretation Code Description Data Radha rce(s) Supporting Document(s) ID Date Data Source [id number] 02/01/2021 03:23:00 AM EDT [facility] 1 General Instructions [facility] Emergency Department [address] [place] [address] Phone #: ext- [phone] 02/01/2021 03:21 [facility]LO[id number] Sex: M : 1970 Age: 50yAcute lumbar [...] pressure management. ADDITIONAL INFORMATIONSciatica 2 General Instructions [facility] Emergency Department [address] [place] [address] Phone #: ext- [phone] 02/01/2021 03:21 Patient: [facility]LOAN [id number] Sex: M : 1970 Age: 50ySciatica is [...] for yourself at home: 3 General Instructions [facility] Emergency Department [address] [place] [address] Phone #: ext- [phone] 02/01/2021 03:21 Patient: [...] or swelling over your back or spine [id number] [employer]. [address] [place] [address]. All rights reserved. This information is not intended as asubstitute for professional medical care. Always follow your healthcare professional's instructions. 4 General Instructions [facility] Emergency Department [address] [place] [address] Phone #: ext- [phone] 02/01/2021 03:21 Patient: BRANDI SLOAN Sex: M : 1970 Age: 50yYou have been given the following additional information:Sciatica(Electronically signed by Jose Messer 02/01/2021 06:42) Name Value Range Interpretation Code Description Data Radha rce(s) Supporting Document(s) ID Date Data Source [id number] 02/01/2021 03:23:00 AM EDT [facility] 1 Clinical Report - Nurses [facility] Emergency Department [address] [place] [address] Phone #: ext- [phone] 02/01/2021 03:21 Patient: [...] with cane to stretcher with steady gait.).Treatment MANAGER OPERATIONS AND PROCUREMENT:(IBU and flexiril last dose 2300 01/31/21). --05:21 [...] Pain.Other Disease.Sacroiliitis. 2 Clinical Report - Nurses [facility] Emergency Department [address] [place] [address] Phone #: ext- [phone] 02/01/2021 03:21 Patient: [...] normal limits. 3 Clinical Report - Nurses [facility] Emergency Department [address] [place] [address] Phone #: ext- [phone] 02/01/2021 03:21 Patient: [...] Patient verbalized understanding. Written instructions provided in Tuvaluan. The patient was discharged by the physician. [...] rce(s) Supporting Document(s) ID Date Data Source [id number] 02/01/2021 03:23:00 AM EDT [facility] 1 Clinical Report - Physicians/Mid Levels [facility] Emergency Department [address] [place] [address] Phone #: ext- [phone] 02/01/2021 03:21 Patient: [...] day. 2 Clinical Report - Physicians/Mid Levels [facility] Emergency Department [address] [place] [address] Phone #: ext- [phone] 02/01/2021 03:21 Patient: [...] is 3 Clinical Report - Physicians/Mid Levels [facility] Emergency Department [address] [place] [address] Phone #: [phone] mrz- [phone] 02/01/2021 03:21 Patient: BRANDI SLOAN [facility]#: [id number] Sex: M : 1970 Age: 50y available; [...] rce(s) Supporting Document(s) ID Date Data Source [id number] 01/29/2021 02:14:00 AM EDT [facility] 1 OrderSheet [facility] Emergency Department [address] [place], [place] [address] Phone #: [phone]- [phone] 01/29/2021 02:14 Patient: BRANDI SLOAN Sex: M [...] rce(s) Supporting Document(s) ID Date Data Source [id number] 01/29/2021 02:14:00 AM EDT [facility] 1 Medication Reconciliation Report [facility] Emergency Department [address] [place] [address] Phone #: caz- [phone] 01/29/2021 02:14 Patient: BRANDI SLOAN Sex: M [...] Dispense 14 tablet. Refills: 0.Substitution permitted.Pharmacy - [facility] [address] [place] [address]. [phone] .prednisone 20 mg tablet Take 2 tablet once a day for 5 days -- Dispense 10 tablet. Refills: 0.Substitution permitted.Pharmacy - [facility] [address] [place] [address]. Phone: 2 Medication Reconciliation Report [facility] Emergency Department [address] [place] [address] Phone #: ext- [phone] 01/29/2021 02:14 Patient: BRANDI SLOAN Sex: M : 1970 Age: [phone] . -- Dominick Uriarte M.D. Name Value Range Interpretation Code Description Data [facility] Supporting Document(s) ID Date Data Source [id number] 01/29/2021 02:14:00 AM EDT [facility] 1 Medication Administration Record [facility] Emergency Department [address] [place] [address] Phone #: ext- [phone] 01/29/2021 02:14 Patient: [...] Name Value Range Interpretation Code Description Data [facility](s) Supporting Document(s) ID Date Data Source [id number] 01/29/2021 02:14:00 AM EDT [facility] 1 General Instructions [facility] Emergency Department [address] [place] [address] Phone #: ext- [phone] 01/29/2021 02:14 Patient: [...] days -- Dispense 14 tablet. Refills: 0.Substitution permitted.[facility] [address] [place] [address]. [phone] .prednisone 20 mg tablet Take 2 tablet once a day for 5 days -- Dispense 10 tablet. Refills: 0.Substitution permitted.[facility] [address] [place] [address]. .Follow-up:Return to the emergency department as needed. Follow up with your healthcare provider in three dayseven if well. Call for an appointment. Reason for referral: evaluation and treatment. Summary of careprovided to patient via paper.Understanding of the discharge instructions verbalized by patient. Expected course of illness, dischargeinstructions, activity level, diet, prescriptions x2, follow-up appointment and risks and benefits of treatment 2 General Instructions [facility] Emergency Department [address] [place] [address] Phone #: ext- [phone] 01/29/2021 02:14 -------- Patient: BRANDI SLOAN Sex: M : 1970 Age: 50yreviewed with patient and understanding verbalized. Agrees to plan of care.(Electronically signed by Dominick Uriarte M.D. 01/29/2021 03:36) Name Value Range Interpretation Code Description Data Radha rce(s) Supporting Document(s) ID Date Data Source [id number] 01/29/2021 02:14:00 AM EDT [facility] 1 Clinical Report - Nurses [facility] Emergency Department [address] [place] [address] Phone #: ext- [phone] 01/29/2021 02:14 Patient: BRANDI SLOAN Sex: M : 1970 Age: 50yTRIAGEArrived by private vehicle. Historian: patient.Triage time: 02:12 01/29/2021.Chief Complaint: SORE THROAT.Onset. (1 1/2 hours ago). ( states that his "made him come in" that he thinks that it is his acid reflux.States that he "coughed a little bit of blood once" ate some spicy meatballs 4-5 hrs ago).Treatment MANAGER OPERATIONS AND PROCUREMENT:(mouthwash gargle). --02:01/29/21 Madeleine Salamanca R.N.Acuity: LEVEL 5.SEPSIS [...] R.N.PROBLEMS:GERD.Lumbar Strain.Hypertension.Sacroiliitis. 2 Clinical Report - Nurses [facility] Emergency Department [address] [place] [address] Phone #: ext- [phone] 01/29/2021 02:14 Patient: [...] Verbalizes understanding. --03:15 01/29/21 Madeleine Salamanca R.N. 3 Clinical Report - Nurses [facility] Emergency Department [address] [place] [address] Phone #: ext- [phone] 01/29/2021 02:14 Patient: [...] rce(s) Supporting Document(s) ID Date Data Source [id number] 01/29/2021 02:14:00 AM EDT [facility] 1 Clinical Report - Physicians/Mid Levels [facility] Emergency Department [address] [place] [address] Phone #: ext- [phone] 01/29/2021 02:14 Patient: [...] week. 2 Clinical Report - Physicians/Mid Levels [facility] Emergency Department [address] [place] [address] Phone #: ext- [phone] 01/29/2021 02:14 Patient: [...] PROCEDURAL CONTROL VALID ){ KIT LOT # [id number] ){ KIT EXP DATE 05-08-22 )The Strep [...] agrees. 3 Clinical Report - Physicians/Mid Levels [facility] Emergency Department [address] [place] [address] Phone #: ext- [phone] 01/29/2021 02:14 Patient: [...] tablet. Refills: 0. Substitution permitted. Pharmacy - [facility] [address] [place] [address]. . prednisone 20 mg tablet Take 2 tablet once a day for 5 days -- Dispense 10 tablet. Refills: 0. Substitution permitted. Pharmacy - [facility] [address] [place] [address]. Phone: 4 Clinical Report - Physicians/Mid Levels [facility] Emergency Department [address] [place] [address] Phone #: ext- [phone] 01/29/2021 02:14 Patient: BRANDI SLOAN Sex: M [...] rce(s) Supporting Document(s) ID Date Data Source [id number] 01/29/2021 02:50:00 AM EDT [facility] Name Value Range Interpretation Code Description Data [facility] Supporting Document(s) RAPID STREP NEGATIVE NORMAL: NEGATIVE [facility] RAPID STREP REENTER NEGATIVE NORMAL: NEGATIVE [facility] { PROCEDURAL CONTROL VALID ){ KIT LOT # [id number] ){ KIT EXP DATE 05-08-22 )The Strep [...] basis for treatment. ID Date Data Source [id number] 01/28/2021 10:28:00 AM EDT [facility] [address] [place] [address] PHONE: [phone] FAX: [phone] Name .................. : KYLIE PAZ Acct Number.................. : [id number] ROOM. ................. : VT-31 MR Number ................... : [id number] Stay type ............. : E/R Discharge Date......... ... : 01/28/21 Admit Date ......... : 01/27/21 Admit Phys .................... : JUWAN Date of ....... : 1970 Family Phys ................... : ARMANDO BeneChill Phone .................. : [phone] Age ................................ : 50 Film# .................. .:[id number] Sex ................................. : M Unsigned transcriptions are preliminary reports and do not represent a medical or legal document CT LUMBAR SP W/O CONT 55327 COMPLETE:01/28/21 03:13 MWB 66600 Reason(s): low back pain to both lower [...] bilateral foraminal stenosis. Page 1 of 2 [facility] [address] [place] [address] PHONE: [phone] FAX: [phone] Name .................. : KYLIE PAZ Acct Number.................. : [id number] [facility]......... [facility] Number [facility]... : [id number] Stay type ............. : E/R Discharge Date......... ... : 01/28/21 Admit Date ......... : 01/27/21 Admit Phys .................... : JUWAN Date of ....... : 1970 Family Phys ................... : ARMANDO AMAYA Phone .................. : [phone] Age ................................ : 50 Film# .................. .:[id number] Sex ................................. : M Unsigned transcriptions are preliminary reports and do not represent a medical or legal document CT LUMBAR SP W/O CONT 73083 COMPLETE:01/28/21 03:13 MWB 53692 Reason(s): low back pain to both lower extremities Electronically Reviewed and Signed By Iain Sanchez MD , 01/28/21 10:28, GRAEME Transcribe Initials: SSR, Transcribe Date: 01/28/21 10:06, Dictation Date: Copy for: EMERGENCY DEPT via modem Copy for: 710 MED REC DISCHARGED Page 2 of 2 Name Value Range Interpretation Code Description Data Radha rce(s) Supporting Document(s) ID Date Data Source [id number] 01/27/2021 09:46:00 PM EDT [facility] 1 OrderSheet [facility] Emergency Department [address] [place] [address] Phone #: ext- [phone] 01/27/2021 21:45 Patient: [...] rce(s) Supporting Document(s) ID Date Data Source [id number] 01/27/2021 09:46:00 PM EDT [facility] 1 Medication Reconciliation Report [facility] Emergency Department [address] [place] [address] Phone #: [phone] brt- [phone] 01/27/2021 21:45 Patient: BRANDI SLOAN Sex: M [...] Dispense 45 tablet.Refills: 0. Substitution permitted.Pharmacy - [facility] [address] [place] [address]. Phone: .cyclobenzaprine 10 mg tablet Take 1 tablet three times a day for 7 days -- prn muscle spasms. Vssctlji00 tablet. Refills: 0. Substitution permitted.Pharmacy - [facility] [address] [place] [address]. Phone: 2 Medication Reconciliation Report [facility] Emergency Department [address] [place] [address] Phone #: ext- [phone] 01/27/2021 21:45 Patient: BRANDI SLOAN Sex: M : 1970 Age: [phone] .prednisone 10 mg tablet Take 4 tablet once a day -- for 2 days then 3 tabs daily x 2 days then 2 tabsdaily x 2 days then 1 tab daily x 2 days. Dispense 20 tablet. Refills: 0. Substitution pe rmitted.Pharmacy - [facility] [address] [place] [address]. . -- Jose Messer Name Value Range Interpretation Code Description Data Radha rce(s) Supporting Document(s) ID Date Data Source [id number] 01/27/2021 09:46:00 PM EDT [facility] 1 Medication Administration Record [facility] Emergency Department [address] [place] [address] Phone #: ext- [phone] 01/27/2021 21:45 Patient: [...] rce(s) Supporting Document(s) ID Date Data Source [id number] 01/27/2021 09:46:00 PM EDT [facility] 1 General Instructions [facility] Emergency Department [address] [place] [address] Phone #: ext- [phone] 01/27/2021 21:45 Patient: [...] Dispense 45 tablet.Refills: 0. Substitution permitted.Pharmacy - [facility] [address] [place] [address]. FaxNumber: .cyclobenzaprine 10 mg tablet Take 1 tablet three times a day for 7 days -- prn muscle spasms. Idwtiaph02 tablet. Refills: 0. Substitution permitted.[facility] [address] [place] [address]. .prednisone 10 mg tablet Take 4 tablet once a day -- for 2 days then 3 tabs daily x 2 days then 2 tabsdaily x 2 days then 1 tab daily x 2 days. Dispense 20 tablet. Refills: 0. Substitution permitted.[facility] [address] [place] [address]. .Follow-up:Follow up with your healthcare provider in two days. Reason for referral: evaluation. Summary of careprovided to patient.Follow-up with: [facility], , , [address] [place] [address] 201, , 2 General [facility] Emergency Department [address] [place] [address] Phone #: ext- [phone] 01/27/2021 21:45 Patient: BRANDI SLOAN Sex: M : 1970 [place], [address] Follow up in two days. Call for [...] walking may worsen pain. 3 General Instructions [facility] Emergency Department [address] [place] [address] Phone #: ext- [phone] 01/27/2021 21:45 Patient: [facility]AND[facility] SLOAN [id number] Sex: M : 1970 Age: 50y It [...] puts more stress on 4 General Instructions [facility] Emergency Department [address] [place] [address] Phone #: ext- [phone] 01/27/2021 21:45 Patient: [...] or are takingother medicines. You may use xvyn-nyh-rhtpisq medicine as directed on the bottle to [...] occur: Trouble breathing Confusion 5 General Instructions [facility] Emergency Department [address] [place] [address] Phone #: ext- [phone] 01/27/2021 21:45 Patient: [...] Numbness in the groin or genital area [id number] [employer] [place] [address]. All rights reserved. This information is not intended as asubstitute for professional medical care. Always follow your healthcare professional's instructions. You have been given the following additional information: Back Pain (Acute or Chronic) No strenuous activity.(Electronically signed by Jose Messer 01/28/2021 02:48) Name Value Range Interpretation Code Description Data Radha rce(s) Supporting Document(s) ID Date Data Source [id number] 01/27/2021 09:46:00 PM EDT [facility] 1 Clinical Report - Nurses [facility] Emergency Department [address] [place] [address] Phone #: ext- [phone] 01/27/2021 21:45 Patient: BRANDI SLOAN Sex: M : 1970 Age: 50yTRIAGEArrived by private vehicle. Historian: patient.Acuity: LEVEL 4.Chief Complaint: BACK PAIN and NUMBNESS (L lower x3 days, seen at [facility] recently for same.Numbness to LLE. Ambulates w/cane.).Alert. No acute distress.The patient has had numbness (LLE). History of recent trauma- lifting injury (Moving and has beenlifting.).Treatment MANAGER OPERATIONS AND PROCUREMENT:None.SEPSIS SCREEN: SIRS SCREEN NEGATIVE. SEPSIS SCREEN NEGATIVE. [...] Reason - other. Unknown. --22:05 01/27/21 Rita Sanhcez R.N. .AllergiesNo Known Drug Allergy. --22:04 01/27/21 Rita Sanchez R.N.PROBLEMS:GI Disease.Back Injury.Lumbar Strain.Diabetes Mellitus. 2 Clinical Report - Nurses [facility] Emergency Department [address] [place] [address] Phone #: ext- [phone] 01/27/2021 21:45 Patient: [...] physician notified. 3 Clinical Report - Nurses [facility] Emergency Department [address] [place] [address] Phone #: ext- [phone] 01/27/2021 21:45 Patient: [...] Patient verbalized understanding. Written instructions provided in Tuvaluan. The patient was discharged by the physician. He was discharged home. He left ambulatory and via private vehicle. Patient driving. --01:38 01/28/21 Marlene Peters R.N.Locked/Released at 01/28/2021 01:40 by Marlene Peters R.N. Name Value Range Interpretation Code Description Data Radha rce(s) Supporting Document(s) ID Date Data Source [id number] 01/27/2021 09:46:00 PM EDT [facility] 1 Clinical Report - Physicians/Mid Levels [facility] Emergency Department [address] [place] [address] Phone #: ext- [phone] 01/27/2021 21:45 Patient: [facility]ANDI SLOAN [id number] Sex: M : 1970 Age: 50y Time [...] on the lower back. was seen at [place] 2 days ago and was given 2 [...] daily. 2 Clinical Report - Physicians/Mid Levels [facility] Emergency Department [address] [place] [address] Phone #: ext- [phone] 01/27/2021 21:45 Patient: BRANDI SLOAN Sex: M [...] to 3 Clinical Report - Physicians/Mid Levels [facility] Emergency Department [address] [place] [address] Phone #: ext- [phone] 01/27/2021 21:45 Patient: [facility]I SLOAN [facility] [id number] Sex: M : 1970 Age: 50y [facility] and given 2 shots for pain and [...] Dispense 45 tablet. Refills: 0. Substitution permitted. [facility] [address] [place] [address]. . cyclobenzaprine 10 mg tablet Take 1 tablet three times a day for 7 days -- prn muscle spasms. Dispense 21 tablet. Refills: 0. Substitution permitted. 4 Clinical Report - Physicians/Mid Levels [facility] Emergency Department [address] [place] [address] Phone #: ext- [phone] 01/27/2021 21:45 Patient: BRANDI SLOAN Sex: M : 1970 Age: 50y Pharmacy [facility] [place] [facility] [address] [place] [address]. . prednisone 10 mg tablet Take 4 tablet once a day -- for 2 days then 3 tabs daily x 2 days then 2 tabs daily x 2 days then 1 tab daily x 2 days. Dispense 20 tablet. Refills: 0. Substitution permitted. [facility] [address] [place] [address]. . Follow-up: Follow up with your healthcare provider in two days. Reason for referral: evaluation. Summary of care provided to patient. Follow-up with: [facility], , , [address], [address] Follow up in two days. Call for an appointment. Reason for referral: evaluation. Summary of care provided to patient via paper.(Electronically signed by Jose Messer 01/28/2021 02:48) Name Value Range Interpretation Code Description Data Radha rce(s) Supporting Document(s) ID Date Data Source [id number] 01/27/2021 12:45:00 AM EDT [facility] ED Physician Documentation NAME: BRANDI LSOAN : 1970 AGE: 50 MR#: [id number] SERVICE DATE: 01/26/[address]: Kp Baltazar MD PRIMARY CARE DR: Lynne Nunez NP ROOM#: HPI (Adult, General) General Chief Complaint: Musculoskeletal Stated Complaint: BACK PAIN Resident [facility], travel outisde home, exposure to hot [...] care to schedule one as an outpatient. [facility] Medical History Allergic rhinitis due to pollen [...] rce(s) Supporting Document(s) ID Date Data Source [id number] 01/26/2021 12:27:00 AM EDT [facility] ED Physician Documentation NAME: BRANDI SLOAN : 1970 AGE: 50 MR#: [id number] SERVICE DATE: 01/26/[address]: Kp Baltazar [...] 10/23/20 12/30/20 Unknown Rx [facility] blood sugar diagnostic (Accu-Chek #100 ea 11/12/20 [...] treated with toradol and Decadron with imrpovement. 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 is controlled at home, followed by computer sciences professor or other History of retinopathy: No History [...] Left foot: normal and Right foot: normal [facility] Medical History Allergic rhinitis due to pollen [...] Assessment Plan (1) Diabetes mellitus: SNOMED Code(s): 83465459 Category: Medical Qualifiers: Diabetes mellitus complication status: without complication Diabetes mellitus buttermaker insulin use: without jail use Diabetes mellitus type: type 2 Qualified Code(s): E11.9 - Type 2 diabetes mellitus without complications (2) Essential hypertension: Status: Chronic Onset Date: 01/01/11 Code(s): I10 - Essential (primary) hypertension SNOMED Code(s): 58731929 Category: Medical Plan: Stable. Refill sent. Labs ordered (3) Type 2 diabetes mellitus without complication, without long-term current use of insulin: Status: Chronic Onset Date: 03/16/16 Code(s): E11.9 - Type 2 diabetes mellitus without complications SNOMED Code(s): 895790313 Category: Medical Plan: Labs ordered. Refill sent. Has been stable for a long time and home BG readings are good. (4) Chronic low back pain: Status: Acute Code(s): M54.5 - Low back pain; G89.29 - Other chronic pain SNOMED Code(s): 636362678 Category: Medical Qualifiers: Back pain laterality: midline [...] Dorsalgia, unspecified Coding Level of Care Code 53180 Est Pt Intermediate Comp Diagnoses Diabetes mellitus E11.9 Diabetes mellitus complication status: without complication Diabetes mellitus buttermaker insulin use: without buttermaker use Diabetes mellitus type: type 2 Essential [...] rce(s) Supporting Document(s) ID Date Data Source [id number] 10/31/2020 08:03:00 AM EDT [facility] Patient Name: BRANDI SLOAN : 1970 Sex: M Pt Unit #: [id number] Location:[facility] Provider: Visit Date/Time: 10/31/20 Primary Insurance: [employer] MEDICARE Secondary Insurance: [place] [facility] R Intake Vital Signs 10/31/20 [...] Medications - Last Reconciled 10/31/20 by Lynne Nunez NP aspirin 1 tab [...] back issues. Has been seeing someone in [place] for PT. Has had previous cortisone shots [...] lower extremity, tingling of leg or other [facility] Medical History Allergic rhinitis due to pollen [...] Code(s): M54.9 - Dorsalgia, unspecified SNOMED Code(s): 724482068 Category: Medical Plan: Will send in steroids [...] tabs 0RF Coding Level of Care Code 51349 Est Pt Intermediate Comp Diagnoses Back pain M54.9 <Electronically signed by Lynne Nunez PALLIATIVE CARE SPECIALIST> 10/31/20 0833 Name Value Range Interpretation Code Description Data Radha rce(s) Supporting Document(s) ID Date Data Source [id number] 09/03/2020 08:45:00 AM EDT [facility] [address] [place] [id number] [phone] NAME SEX PT STATUS ACCOUNT NUMBER BRANDI SLOAN [facility] ER [id number] ORDERING PHYSICIAN LOCATION MEDICAL RECORD NO. Gin Mooney MD ER [id number] ATTENDING PHYSICIAN DATE OF DATE OF EXAM/TIME Silverio Batista MD 1970 09/03/20727 TYPE / EXAM Xray Knee comp 4 or more LT REASON FOR EXAM knee pain CLINICAL HISTORY: [facility] knee pain TECHNIQUE: Weightbearing frontal views of [...] Trans Dt/Tm: Trans by: DT Prt Dt/Tm: 6044-7004: Total DLP = 0.00 mGy-cm Fluoroscopy Time (in secs): Name Value Range Interpretation Code Description Data Radha rce(s) Supporting Document(s) ID Date Data Source [id number] 09/03/2020 07:04:00 AM EDT [facility] ED Physician Documentation NAME: BRANDI SLOAN : 1970 AGE: 50 MR#: [id number] SERVICE DATE: 09/03/[address]: Gin Mooney [...] He states he feels like he has vkyn-ek-xotq as he feels a grinding motion sometimes [...] weight loss, Decreased sexual desire or Other [facility] Medical History Allergic rhinitis due to pollen [...] would refer you to one of our research support specialist. *Discharge Patient* Discharge Orders: Discharge Order (Routine); Ordered 09/03/20 Ordered By: Gin Mooney Discharge Date/Time: 09/03/20 09:00 Interventions Interventions: ED Discharge Instructions Last Done: 09/03/20 09:00 Report Signers: <Electronically signed by Gin Mooney > Gin Mooney 09/03/20 0903 Oden,Gin A SIGNATURE DA Report Cosigners: D: NURIA 09/03/20703 T: NURIA 09/03/20703 CC: Silverio Batista MD Name Value Range Interpretation Code Description Data Radha rce(s) Supporting Document(s) ID Date Data Source [id number] 08/27/2020 06:50:00 PM EDT [facility] 1 OrderSheet [facility] Emergency Department [address] [place] [address] Phone #: ext- [phone] 08/27/2020 18:50 Patient: [...] rce(s) Supporting Document(s) ID Date Data Source [id number] 08/27/2020 06:50:00 PM EDT [facility] 1 Medication Reconciliation Report [facility] Emergency Department [address] [place] [address] Phone #: cbp- [phone] 08/27/2020 18:50 Patient: BRANDI SLOAN Sex: M [...] Dispense 30 tablet. Refills:0. Substitution permitted.Pharmacy - [facility] [address] [facility] [address] [place] [address] ; [place] [address]. . 2 Medication Reconciliation Report [facility] Emergency Department [address] [place] [address] Phone #: ext- [phone] 08/27/2020 18:50 Patient: BRANDI SLOAN Sex: M : 1970 Age: 50yMedrol (Karlos) 4 mg tablets in a dose pack Take 1 tablet as directed for 6 days -- Dispense 1 pack.Refills: 0. Substitution permitted.Pharmacy - [facility] [address] [place] [address]. .IBU 400 mg tablet Take 1 tablet three times a day for 15 days -- Dispense 45 tablet. Refills: 0.Substitution permitted.Pharmacy [facility] 4[address] [place] [address]. Phone: . -- [place] Name Value Range Interpretation Code Description Data Radha rce(s) Supporting Document(s) ID Date Data Source [id number] 08/27/2020 06:50:00 PM EDT [facility] 1 Medication Administration Record [facility] Emergency Department [address] [place] [address] Phone #: ext- [phone] 08/27/2020 18:50 Patient: BRANDI SLOAN Sex: M [...] rce(s) Supporting Document(s) ID Date Data Source [id number] 08/27/2020 06:50:00 PM EDT [facility] 1 General Instructions [facility] Emergency Department [address] [place] [address] Phone #: ext- [phone] 08/27/2020 18:50 Patient: BRANDI SLOAN Sex: M [...] Dispense 30 tablet. Refills:0. Substitution permitted.Pharmacy - [facility] [address] ; [place] [address]. .Medrol (Karlos) 4 mg tablets in a dose pack Take 1 tablet as directed for 6 days -- Dispense 1 pack.Refills: 0. Substitution permitted.Pharmacy - [facility] [address] [place] [address]. .IBU 400 mg tablet Take 1 tablet three times a day for 15 days -- Dispense 45 tablet. Refills: 0.Substitution permitted.Pharmacy - [facility] 93[address] - [address] [address]. FaxNumber: .Understanding of the discharge instructions verbalized by patient.Follow-up with: [facility], , , [address] [place] [address], [address] 2 General Instructions [facility] Emergency Department [address] [place] [address] Phone #: ext- [phone] 08/27/2020 18:50 [id number] Sex: M : 1970 Age: 50y Follow [...] walking may worsen pain. 3 General Instructions [facility] Emergency Department [address] [place] [address] Phone #: ext- [phone] 08/27/2020 18:50 Patient: BRANDI SLOAN [facility]#: [id number] Sex: M : 1970 Age: 50y It [...] puts more stress on 4 General Instructions [facility] Emergency Department [address] [place] [address] Phone #: ext- [phone] 08/27/2020 18:50 Patient: [...] or are takingother medicines. You may use pbqs-xmp-fwzucnf medicine as directed on the bottle to [...] new findings that may affect your careCall [address] [place] [address] if any of the following occur: Trouble breathing Confusion 5 General Instructions [facility] Emergency Department [address] [place] [address] Phone #: ext- [phone] 08/27/2020 18:50 Patient: [...] Numbness in the groin or genital area [id number] [place] [address]. All rights reserved. This information is not intended as asubstitute for professional medical care. Always follow your healthcare professional's instructions. You have been given the following additional information: Back Pain (Acute or Chronic)(Electronically signed by [place] 08/27/2020 22:12) Name Value Range Interpretation Code Description Data Radha rce(s) Supporting Document(s) ID Date Data Source [id number] 08/27/2020 06:50:00 PM EDT [facility] 1 Clinical Report - Nurses [facility] Emergency Department [address] [place] [address] Phone #: ext- [phone] 08/27/2020 18:50 [facility]LOAN [id number] Sex: M : 1970 Age: 50yTRIAGEArrived by [...] has had numbness of the left foot.Treatment MANAGER OPERATIONS AND PROCUREMENT:Seen within the last 30 days at this [...] Marroquin R.N. 2 Clinical Report - Nurses [facility] Emergency Department [address] [place] [address] Phone #: [phone] ext- [phone] 08/27/2020 18:50 Patient: BRANDI SLOAN Sex: M [...] Marroquin R.N. 3 Clinical Report - Nurses [facility] Emergency Department [address] [place] [address] Phone #: ext- [phone] 08/27/2020 18:50 Patient: BRANDI SLOAN Sex: M [...] RR: 16. O2 saturation: 96%. --19:57 08/27/20 [facility] Tech1.DISPOSITION / DISCHARGE 20:01 08/27/20. BP: 143/74. MAP: 97. HR: 71. RR: 16. O2 saturation: 98%. Temp: 98.2 F. Pain level now: 0/10. --20:02 08/27/20 [facility] Tech1 20:07 08/27/20. Condition at departure: improved and stable. No learning barriers present. Discharge instructions provided and reviewed with the patient. Reviewed medication(s) side effects, precautions and dosing information. Prescription(s) sent electronically to pharmacy. Reviewed referral to an orthopedic surgeon. Patient verbalized understanding. Written instructions provided in Tuvaluan. The patient was discharged by the physician library circulation assistant. He was discharged home and accompanied by spouse. He left ambulatory and via private vehicle. Spouse driving. --20:17 08/27/20 Tarah Marroquin R.N.Locked/Released at 08/27/2020 20:17 by Tarah Marroquin R.N. Name Value Range Interpretation Code Description Data Radha rce(s) Supporting Document(s) ID Date Data Source [id number] 08/27/2020 06:50:00 PM EDT [facility] 1 Clinical Report - Physicians/Mid Levels [facility] Emergency Department [address] [place] [address] Phone #: ext- [phone] 08/27/2020 18:50 Patient: BRANDI SLOAN Sex: M [...] back pain and has an appointment with [facility] on Tuesday. Pt reports heat has [...] Allergy. 2 Clinical Report - Physicians/Mid Levels [facility] Emergency Department [address] [place] [address] Phone #: ext- [phone] 08/27/2020 18:50 Patient: BRANDI SLOAN Sex: M [...] have been reviewed. 3 Clinical Report - Physicians/[facility] Emergency Department [address] [place] [address] Phone #: ext- [phone] 08/27/2020 18:50 Patient[facility]LOAN [id number] Sex: M : 1970 Age: 50y CONTINUE [...] tablet. Refills: 0. Substitution permitted. Pharmacy - [facility] [address] [place] [address]. . Medrol (Karlos) 4 mg tablets in a dose pack Take 1 tablet as directed for 6 days -- Dispense 1 pack. Refills: 0. Substitution permitted. [facility] 7[address] [place] [address]. . IBU 400 mg tablet Take 1 tablet three times a day for 15 days -- Dispense 45 tablet. Refills: 0. Substitution permitted. [facility] [address] [place] [address]. . Understanding of the discharge instructions verbalized by patient. Follow-up with: [facility], , , [address], [address] Follow up as scheduled. Reason for referral: evaluation and treatment. Summary of care provided to patient.(Electronically signed by [place]NE North 08/27/2020 22:12) Name Value Range Interpretation Code Description Data Radha rce(s) Supporting Document(s) ID Date Data Source [id number] 08/18/2020 01:36:00 PM EDT [facility] 1 OrderSheet [facility] Emergency Department [address] [place] [address] Phone #: ext- [phone] 08/18/2020 13:35 Patient: BRANDI SLOAN Sex: M : 1970 Age: 50yWEIGHT:104.3 kg (S) HEIGHT:67 inches (S) BMI:36.0ALLERGIES: No Known Drug AllergyCHIEF COMPLAINT: back painDIAGNOSIS: BackacheLAB ORDERSOrder Description Priority Entered Acknowledged InitialedUrinalysis (Clean STAT 14:34 08/18/2020 14:34 Amalia Swartz) Lynne Swartz R.N.; R.NRadha Verbal order per; Lambret CanalesCDIAGNOSTIC STUDY ORDERSOrder Description Priority Entered Acknowledged [...] Other 14:07 Lambert Reddy P.A.-C 2 OrderSheet [facility] Emergency Department [address] [place] [address] Phone #: ext- [phone] 08/18/2020 13:35 Patient: [...] rce(s) Supporting Document(s) ID Date Data Source [id number] 08/18/2020 01:36:00 PM EDT [facility] 1 Medication Reconciliation Report [facility] Emergency Department [address] [place] [address] Phone #: ext- [phone] 08/18/2020 13:35 Patient: [...] rce(s) Supporting Document(s) ID Date Data Source [id number] 08/18/2020 01:36:00 PM EDT [facility] 1 Medication Administration Record [facility] Emergency Department [address] [place] [address] Phone #: ext- [phone] 08/18/2020 13:35 Patient: BRANDI SLOAN Sex: M : 1970 Age: 50yWeight: 104.3 kgHeight/Length: 67 inBMI: 36ALLERGIES: No Known Drug AllergyDate/Time Medication Administered Medication Ordered Name Value Range Interpretation Code Description Data Radha rce(s) Supporting Document(s) ID Date Data Source [id number] 08/18/2020 01:36:00 PM EDT [facility] 1 General Instructions [facility] Emergency Department [address] [place] [address] Phone #: ext- [phone] 08/18/2020 13:35 Patient: [...] I understand that a doctor at this [facility] wants to give me certain medicalcare. The [...] pay for such care. 2 General Instructions [facility] Emergency Department [address] [place] [address] Phone #: ext- [phone] 08/18/2020 13:35 Patient: BRANDI SLOAN Sex: M : 1970 Age: 50y(Electronically signed by Lambert Reddy P.A.-C 08/20/2020 15:30) Name Value Range Interpretation Code Description Data Radha rce(s) Supporting Document(s) ID Date Data Source [id number] 08/18/2020 01:36:00 PM EDT [facility] 1 Clinical Report - Nurses [facility] Emergency Department [address] [place] [address] Phone #: [phone]- [phone] 08/18/2020 13:35 Patient: BRANDI SLOAN Sex: M : 1970 Age: 50yTRIAGEArrived by private vehicle. Historian: patient. Accompanied by family. ( fell of couch and hit back on, went to [place] tuesday and ct scan done and it was negative, went to family [facility] and xray done andnothing wrong, has not taken any pain medication since injury).Acuity: LEVEL 4.Chief Complaint: BACK PAIN and (low back pain).Alert.Onset. (tuesday).Treatment MANAGER OPERATIONS AND PROCUREMENT:None.SEPSIS SCREEN: SIRS SCREEN NEGATIVE. SEPSIS SCREEN NEGATIVE. [...] Swartz R.N. 2 Clinical Report - Nurses [facility] Emergency Department [address] [place] [address] Phone #: ext- [phone] 08/18/2020 13: 35 Patient: BRANDI SLOAN Sex: [...] Swartz R.N. 3 Clinical Report - Nurses [facility] Emergency Department [address] [place] [address] Phone #: ext- [phone] 08/18/2020 13:35 Patient: BRANDI SLOAN Sex: M : 1970 Age: 50yNURSING PROGRESS NOTESPatient gowned. Reassurance given. Two patient identifiers checked. Call light placed in reach. Siderails up x 2. Bed placed in lowest position. Brakes of bed on. Patient ready for evaluation. --13:5408/18/20 Lynne Swartz R.N. 13:57 08/18/20. BP: 120/81. MAP: 94. HR: 82. RR: 16. O2 saturation: 94%. --13:57 08/18/20 [employer], Za, [place] Tech1 14:20 08/18/20. Patient transported to radiology by wheelchair with library technician. --14:30 08/18/20 Lynne Swartz R.N. Patient returned from radiology by wheelchair with library technician. --14:30 08/18/20 Lynne Swartz R.N. Patient ID band checked for patient name and birthdate: patient confirmed. Instructions provided to collect clean catch urine and patient verbalized understanding. Clean catch urine collected; sample sent to lab for urinalysis. Specimen labeled in the presence of the patient. --14:34 08/18/20 Lynne Swartz R.N. 15:02 08/18/20. BP: 124/94. MAP: 104. HR: 80. RR: 16. O2 saturation: 96%. --15:02 08/18/20 Mihaela mortgage accounting clerk, [facility]Little [facility] Tech1.DISPOSITION / DISCHARGE Condition at departure: unchanged. No learning barriers present. Discharge instructions provided and reviewed with the patient. Patient verbalized understanding. Written instructions not provided in Tuvaluan. The patient was discharged home and accompanied [...] rce(s) Supporting Document(s) ID Date Data Source [id number] 08/18/2020 01:36:00 PM EDT [facility] 1 Clinical Report - Physicians/Mid Levels [facility] Emergency Department [address] [place] [address] Phone #: ext- [phone] 08/18/2020 13:35 Patient: BRANDI SLOAN Sex: M [...] and hit back on heater, went to [facility] tuesday and ct scan done and it [...] day. 2 Clinical Report - Physicians/Mid Levels [facility] Emergency Department [address] [place] [address] Phone #: ext- [phone] 08/18/2020 13:35 Patient: BRANDI SLOAN Sex: M [...] and hit back on heater. Went to [facility] and had CTs and informed all good. [...] review. 3 Clinical Report - Physicians/Mid Levels [facility] Emergency Department [address] [place] [address] Phone #: ext- [phone] 08/18/2020 13:35 Patient: BRANDI SLOAN Sex: M : 1970 Age: 50y Able to obtiain [facility] ER restuls. A CT Abd/Pelvis () was [...] care. 4 Clinical Report - Physicians/Mid Levels [facility] Emergency Department [address] [place] [address] Phone #: ext- [phone] 08/18/2020 13:35 Patient: BRANDI SLOAN Sex: M : 1970 Age: 50y(Electronically signed by Lambert Reddy P.A.-C 08/20/2020 15:30) Name Value Range Interpretation Code Description Data Radha rce(s) Supporting Document(s) ID Date Data Source [id number] 08/19/2020 10:31:[place] [address] PHONE: [phone] FAX: [phone] Name .................. : KYLIE PAZ Acct Number.................. : [id number] ROOM. ................. : VT-07 MR Number ................... : [id number] Stay type ............. : E/R Discharge Date......... ... : 08/18/20 Admit Date .... ..... : 08/18/20 Admit Phys .................... : JAIME MCPHERSON Date of ....... : 1970 Family Phys ................... : JARVIS ALDRIDGE Phone .................. : [phone] Age ................................ : 50 Film# .................. .:[id number] Sex ................................. : M Unsigned transcriptions are preliminary reports and do not represent a medical or legal document SP[facility]ACIC [id number] COMPLETE:08/18/20 16:11 [facility] [id number] Reas on(s): Trauma/Injury THORACIC SPINE SERIES: COMPARISON: [...] rce(s) Supporting Document(s) ID Date Data Source [id number] 08/18/2020 02:49:00 PM EDT [facility] Name Value Range Interpretation Code Description Data [facility] rce(s) Supporting Document(s) [facility]IS [facility] UR[facility] SOURCE R [facility] COLOR yellow NORMAL: Yellow [facility] CLARITY clear NORMAL: Clear [facility] Specific gravity of Urine by Test strip 1.015 1.001 - 1.030 [facility] pH 8 5 - 9 [facility] Glucose [Mass/volume] in Urine by Test strip NORM NORMAL: Negat [facility] Bilirubin.total [Presence] in Urine by Test strip NEG NORMAL: Negative [facility] Ketones [Presence] in Urine by Test strip NEG NORMAL: Negative [facility] Protein [Mass/volume] in Urine by Test strip NEG NORMAL: Negat [facility] Nitrite [Presence] in Urine by Test strip NEG NORMAL: Negative [facility] BLOOD NEG NORMAL: Negative [facility] Leukocyte esterase [Presence] in Urine by Test strip 25 DAVIN L: Negative [facility] Urobilinogen [Mass/volume] in Urine by Test strip NOR less salena n 1.0 mg/dL [facility] MICROSCOPIC See Below [facility] ital WBC None Seen NORMAL: NONE SEEN [facility] Erythrocytes [#/volume] in Urine by Test strip None Seen NORMAL: NON E SEEN [facility] Mucus [Presence] in Urine sediment by Light microscopy Trace NORMAL: NONE SEEN [facility] ID Date Data Source [id number] 08/16/2020 05:08:00 AM EDT [facility] ED Physician Documentation NAME: BRANDI SLOAN : 1970 AGE: 50 MR#: [id number] SERVICE DATE: 08/16/[address]: Kp Baltazar MD PRIMARY CARE DR: Silverio Batista MD ROOM#: HPI (Adult, General) General Chief Complaint: Musculoskeletal Stated Complaint: BLACK AND BLUE ABOVE [facility] Resident [facility], travel outisde home, exposure to hot [...] The patient does not want morepain medicine. [facility] Medical History Allergic rhinitis due to pollen [...] rce(s) Supporting Document(s) ID Date Data Source [id number] 08/15/2020 01:47:00 PM EDT [facility] [address] [place] [address] [phone] NAME SEX PT STATUS ACCOUNT NUMBER BRANDI SLOAN REG REF [id number] ORDERING PHYSICIAN LOCATION MEDICAL RECORD NO. Silverio Batista MD RAD [id number] ATTENDING PHYSICIAN DATE OF DATE OF EXAM/TIME [...] D t/Tm: Trans by: DT Prt Dt/Tm: 5180-5148: Total DLP = 0.00 mGy-cm Fluoroscopy Time (in secs): Name Value Range Interpretation Code Description Data Radha rce(s) Supporting Document(s) ID Date Data Source [id number] 08/13/2020 01:08:00 AM EDT [facility] [address] [place] [address] [phone] NAME SEX PT STATUS ACCOUNT NUMBER BRANDI SLOAN REG ER [id number] ORDERING PHYSICIAN LOCATION MEDICAL RECORD NO. Abiodun Knox MD [id number] ATTENDING PHYSICIAN DATE OF DATE OF EXAM/TIME [...] rce(s) Supporting Document(s) ID Date Data Source [id number] 08/13/2020 12:48:00 AM EDT [facility] Reason for ordering culture: Abnormal fi ndings UAMethod of Collection:: Voided Name Value Range Interpretation Code Description Data Radha rce(s) Supporting Document(s) Color of Urine [facility] Appearance of Urine CLEAR [facility] pH of Urine by Test strip 6.5 5-8 [facility] Specific gravity of Urine by Refractometry 1.009 1.005-1.030 [facility] Leukocyte esterase [Presence] in Urine by Test strip NEGAT SILVIA [facility] Nitrite [Presence] in Urine by Test strip NEGATIVE [facility] Protein [Presence] in Urine by Test strip NEGATIVE [facility] Glucose [Mass/volume] in Urine by Automated test strip NEGATIVE NEG ATIVE [facility] Ketones [Presence] in Urine by Test strip NEGATIVE [facility] Urobilinogen [Presence] in Urine 0.2-1 EU/dl [facility] Bilirubin.total [Presence] in Urine by Automated test strip NEGATIVE [facility] Erythrocytes [#/volume] in Urine by Test strip NEGATIVE NEGATIVE [facility] URINE MICROSCOPIC? (CIF) NO [facility] ID Date Data Source [id number] 08/13/2020 12:25:00 AM EDT [facility] ED Physician Documentation NAME: KYLIEBRANDI Chema : 1970 AGE: 49 MR#: [id number] SERVICE DATE: 08/12/[address]: Abiodun Knox MD PRIMARY CARE DR: Silverio Batista MD ROOM#: [facility] (Adult, General) General Chief Complaint: [...] No retractions, pallor,cyanosis, icterus, or diaphoresis. Alert. [place] x3.) Head Head exam: Present atraumatic and [...] % (Auto) 55.9, Lymph % (Auto) 34.1, Porter % (Auto) 8.0, Eos % (Auto) 1.6, [...] Appearance Clear, Urine pH 6.5, Ur Specific [place] 1.009,Urine Protein Negative, Urine Ketones Negative, Urine [...] back pain. Rx: Home. Rest. Ibuprofen. Methocarbamol. Charlotte 4 to go. F/u PMD 2 days. [...] Take ibuprofen 400 mg (2, 200 mg vtur-bor-oemdlyx tablets) with food every 6 hours for 3 daysor until back pain has resolved. Take methocarbamol from the prescription you already have 1 tabletevery 8 hours as needed. Take [place] (acetaminophen plus hydrocodone) 1 tablet every 8 [...] rce(s) Supporting Document(s) ID Date Data Source [id number] 08/13/2020 12:23:00 AM EDT [facility] Name Value Range Interpretation Code Description Data Radha rce(s) Supporting Document(s) Leukocytes [#/volume] in Blood by Automated count 7.0 10*3/uL 4.45-10 .71 [address] [facility] [facility] Erythrocytes [#/volume] in Blood by Automated count 4.73 10*6/uL 4.3- 6.1 [facility] Hemoglobin [Moles/volume] in Blood 14.0 g/dL 13-18 [facility] Hematocrit [Volume Fraction] of Blood by Automated count 42.5 % 4 2-52 [facility] Erythrocyte mean corpuscular volume [Ent itic volume] in Cord blood by Automated count 90 fL 80-96 N [facility] Erythrocyte mean corpuscular hemoglobin [Entitic mass] by Au tomated count 30 pg 27-31 N [facility] Erythrocyte mean corpuscular hemoglobin concentration [Mass/volume] in Cord blood 33 g/dL 33-37 N [facility] Erythrocyte distribution width [Entitic volume] by Automated count 13 % 11-15 N [facility] Platelets [#/volume] in Blood by Automated count 202 10*3/uL 130-472 N [facility] Platelet mean volume [Entitic volume] in Blood 9.7 fL 9.1-13.1 N [facility] Neutrophils/100 leukocytes in Blood by Automated count 55.9 % 41- 77 N [facility] Neutrophils [#/volume] in Blood by Automated count 3.9 U 1.7-7.6 N [facility] Lymphocytes/100 leukocytes in Blood by Automated count 34.1 % 14- 46 N [facility] Lymphocytes [#/volume] in Blood by Automated count 2.4 U 0.6-4.6 N [facility] Monocytes/100 leukocytes in Blood by Automated count 8.0 % 4-12 N [facility] Monocytes [#/volume] in Blood by Automated count 0.6 U 0.2-1.2 N [facility] Eosinophils/100 leukocytes in Blood by Automated count 1.6 % 0-7 N [facility] Eosinophils [#/volume] in Blood by Automated count 0.1 U 0.0-0.5 N [facility] Basophils/100 leukocytes in Blood by Automated count 0.3 % 0.4-1.3 Below low normal [facility] Basophils [#/volume] in Blood by Automated count 0.0 U 0.0-0.2 N [facility] NUCLEATED RED BLOOD CELL 0 % [facility] NUCLEATED RED BLOOD CELL# [address] [facility] Immature granulocytes [Presence] in Blood by Automated count 0-2 N [facility] Immature granulocytes [#/volume] in Blood by Automated count 0.0 U 0-0.1 N [facility] Manual Differential panel - Blood NO [facility] ID Date Data Source [id number] 08/13/2020 12:45:00 AM EDT [facility] Name Value Range Interpretation Code Description Data Radha rce(s) Supporting Document(s) Urea nitrogen [Mass/volume] in Serum or Plasma 14 mg/dL 9-23 N [facility] Sodium [Moles/volume] in Serum or Plasma 141 mmol/L 132-146 [facility] Potassium [Moles/volume] in Serum or Plasma 4.1 mmol/L 3.5-5.5 [facility] Chloride [Moles/volume] in Serum or Plasma 110 mmol/L 99-109 Above high normal [facility] Carbon dioxide, total [Moles/volume] in Serum or Plasma 28 mmol/L 20 -31 [facility] Anion gap in Serum or Plasma 7 mmol/L 8-16 Below low normal [facility] Glucose [Mass/volume] in Serum or Plasma 96 mg/dL 74-106 [facility] Creatinine 1.1 mg/dL 0.5-1.1 [facility] Glomerular filtration rate/1.73 sq M.pre dicted [Volume Rate/Area] in Serum or Plasma Greater Than 60 ABOVE 60 [facility] Alanine aminotransferase [Enzymatic acti vity/volume] in Serum or Plasma by With P-5'-P 27 U/L 10-49 [facility] ital Aspartate aminotransferase [Enzymatic ac tivity/volume] in Serum or Plasma by With P-5'-P 18 U/L 0-33 [facility] pital Alkaline phosphatase [Enzymatic activity/volume] in Serum or Plasma 63 U/L 45-129 N [facility] Calcium [Mass/volume] in Serum or Plasma 8.6 mg/dL 8.5-10.1 N [facility] Bilirubin.total [Mass/volume] in Serum or Plasma 0.4 mg/dL 0.3-1.2 [facility] Albumin [Mass/volume] in Serum or Plasma by Bromocresol purple (BCP) dye binding method 3.9 g/dL 3.2-4.8 N [facility] ital Protein [Mass/volume] in Serum or Plasma 6.8 g/dL 5.7-8.2 [facility] ID Date Data Source [id number] 07/02/2020 02:23:00 PM EDT [facility] [address], [place] [id number] [phone] NAME SEX PT STATUS ACCOUNT NUMBER BRANDI SLOAN REG REF [id number] ORDERING PHYSICIAN LOCATION MEDICAL RECORD NO. [id number] ATTENDING PHYSICIAN DATE OF DATE OF EXAM/TIME [...] MD on 07/02/20 1423 Signed By Mary Cihng MD on 07/02/20 1426 Date Time CC: Silverio Batista MD; Mary Ching MD Techn: RADTC Trans Dt/Tm: Trans by: DT Prt Dt/Tm: [phone]: Total DLP = 0.00 mGy-cm Fluoroscopy Time (in secs): Name Value Range Interpretation Code Description Data Radha rce(s) Supporting Document(s) ID Date Data Source [id number] 07/02/2020 01:14:00 PM EDT [facility] Patient Name: BRANDI SLOAN : 1970 Sex: M Pt Unit #: [id number] Location:AMB.EXT Provider: Visit Date/Time: 07/02/20 Primary Insurance: [employer] MEDICARE Secondary Insurance: MEDICAID [facility] 2ND R Intake Vital Signs 07/02/20 13:14 [...] Pt said that it is not helping. Field Specialist Required: No Accompanied by: Self / Same [...] pain. He sees an orthopedic group in [place]. [facility] Medical History Allergic rhinitis due to pollen [...] Appearance: well nourished Orientation: alert and awake [facility] Head: normocephalic Ears: hearing grossly normal bilaterally and external ears normal General nose exam: external nose normal Face and sinus: normal facial exam Eyes General: appearance normal, both eyes and all related structures Eyelids: eyelids normal Conjunctivae: conjunctivae normal Sclera: sclerae normal Resp Other: Respiratory rate normal range. Cardio Other: Heart rate in normal range [facility] Other: Walks in with normal gait Skin [...] - Pain in left knee SNOMED Code(s): 98022605 Category: Medical Plan - RICHIE Hernández: I [...] tabs 0RF Coding Level of Care Code 22852 Est Pt Extended Comp Exam Expanded Problem Focused Diagnoses Left knee pain M25.562 Time Spent (min) 42 Comment waited 27 minutes for x-ray result. <Electronically signed by Alma Valle ASPHALT SMOOTHER> 07/02/20 1439 Name Value Range Interpretation Code Description Data Radha rce(s) Supporting Document(s) ID Date Data Source [id number] 06/26/2020 11:32:00 AM EDT [facility] Patient Name: BRANDI SLOAN : 1970 Sex: M Pt Unit #: [id number] Location:[facility] Provider: Visit Date/Time: 06/26/20 Primary Insurance: HUMANA [...] days ago and injured his left side/leg. Field Specialist Required: No Accompanied by: Self / Same [...] [place], with an educational florence from [employer]. HIV Testing Offer - ages 13-64 HIV [...] follow-up with his back specialist and the audio/video technician. [facility] Medical History Allergic rhinitis due to valdemar [...] Father Chronic low back pain Sister Mental agbe rdation Brother No problems noted. Social History [...] obese morbidly obese Orientation: alert and awake [facility] Head: normal to inspection Ears: hearing grossly [...] was reviewed. (2) Diabetes mellitus: SNOMED Code(s): 39656159 Category: Medical Qualifiers: Diabetes mellitus complication status: without complication Diabetes mellitus jail insulin use: without jail use Diabetes mellitus type: type 2 Qualified Code(s): E11.9 - Type 2 diabetes mellitus without complications Anitha Batista M.D.: The most recent A1c is 6.1. Patient will continue close follow-up with the audio/video technician. (3) Essential hypertension: Status: Chronic Onset Date: 01/01/11 Code(s): I10 - Essential (primary) hypertension SNOMED Code(s): 37086332 Category: Medical Plan - Silverio Batista M.D.: [...] as appropriate. This document was dictated using [employer] speech recognition software. A reasonable attempt to proofread has been made to minimize errors. Please call if you notice any errors or have any questions. Orders Instructions: Obesity (GEN) DASH Eating Plan (GEN) Hypertension (GEN) Follow Up: 6 Months (Annual wellness visit and follow-up) Time spent Total time spent on medical discussion: 30 Coding Level of Care Code 02315 Est Pt Extended Comp Exam Comprehensive Diagnoses Encounter for annual health examination Z00.00 Diabetes mellitus E11.9 Diabetes mellitus complication status: without complication Diabetes mellitus buttermaker insulin use: without jail use Diabetes mellitus type: type 2 Essential hypertension I10 Morbid (severe) obesity due to excess calories E66.01 Body mass index (BMI) of 40.1-44.9 in adult Z68.41 Time Spent (min) 30 Comment Patient with multiple problems including morbid obesity <Electronically signed by Silverio Batista MD> 06/26/202138 Name Value Range Interpretation Code Description Data Radha rce(s) Supporting Document(s) ID Date Data Source [id number] 06/17/2020 11:11:00 AM EST [facility] Method of Collection:: Voided Name Value Range Interpretation Code Description Data Radha rce(s) Supporting Document(s) Color of Urine [facility] Appearance of Urine CLEAR [facility] pH of Urine by Test strip 6.5 5-8 [facility] Specific gravity of Urine by Refractometry 1.019 1.005-1.030 [facility] Leukocyte esterase [Presence] in Urine by Test strip NEGAT SILVIA [facility] Nitrite [Presence] in Urine by Test strip NEGATIVE [facility] Protein [Presence] in Urine by Test strip NEGATIVE [facility] Glucose [Mass/volume] in Urine by Automated test strip NEGATIVE NEG ATIVE [facility] Ketones [Presence] in Urine by Test strip NEGATIVE [facility] Urobilinogen [Presence] in Urine 0.2-1 EU/dl [facility] Bilirubin.total [Presence] in Urine by Automated test strip NEGATIVE [facility] Erythrocytes [#/volume] in Urine by Test strip NEGATIVE NEGATIVE [facility] URINE MICROSCOPIC ADDED NO [facility] ID Date Data Source [id number] 06/17/2020 11:58:00 AM EST [facility] Method of Collection:: Voided Name Value Range Interpretation Code Description Data Radha rce(s) Supporting Document(s) Urine Random Creatinine 196.0 mg/dL [facility] THERE IS NO ESTABLISHED RANGE FOR RANDOM URINE CREATININE Urine Microalbumin 8.3 mg/L 0.0-29.9 N [facility] Ur Malb/Cre Ratio (ACR) 4.2 ug/mg 0.0-30.0 [facility] ID Date Data Source [id number] 06/17/2020 11:09:00 AM [facility] Method of Collection:: Voided Name Value Range Interpretation Code Description Data Radha rce(s) Supporting Document(s) Leukocytes [#/volume] in Blood by Automated count 7.3 10*3/uL 4.45-10 .71 [facility] Erythrocytes [#/volume] in Blood by Automated count 4.94 10*6/uL 4.3- 6.1 [facility] Hemoglobin [Moles/volume] in Blood 14.7 g/dL 13-18 [facility] Hematocrit [Volume Fraction] of Blood by Automated count 44.9 % 4 2-52 [facility] Erythrocyte mean corpuscular volume [Ent itic volume] in Cord blood by Automated count 91 fL 80-96 N [facility] ital Erythrocyte mean corpuscular hemoglobin [Entitic mass] by Au tomated count 30 pg 27-31 [facility] Erythrocyte mean corpuscular hemoglobin concentration [Mass/volume] in Cord blood 33 g/dL 33-37 N [facility] ital Erythrocyte distribution width [Entitic volume] by Automated count 13 % 11-15 [facility] Platelets [#/volume] in Blood by Automated count 243 10*3/uL 130-472 [facility] Platelet mean volume [Entitic volume] in Blood 10.4 fL 9.1-13.1 [facility] Neutrophils/100 leukocytes in Blood by Automated count 64.3 % 41- 77 [facility] Neutrophils [#/volume] in Blood by Automated count 4.7 U 1.7-7.6 [facility] Lymphocytes/100 leukocytes in Blood by Automated count 27.3 % 14- 46 [facility] Lymphocytes [#/volume] in Blood by Automated count 2.0 U 0.6-4.6 N [facility] Monocytes/100 leukocytes in Blood by Automated count 5.8 % 4-12 N [facility] Monocytes [#/volume] in Blood by Automated count 0.4 U 0.2-1.2 N [facility] Eosinophils/100 leukocytes in Blood by Automated count 1.8 % 0-7 N [facility] Eosinophils [#/volume] in Blood by Automated count 0.1 U 0.0-0.5 N [facility] Basophils/100 leukocytes in Blood by Automated count 0.5 % 0.4-1 .3 N [facility] Basophils [#/volume] in Blood by Automated count 0.0 U 0.0-0.2 N [facility] NUCLEATED RED BLOOD CELL 0 % [facility] NUCLEATED RED BLOOD CELL# [address] [facility] Immature granulocytes [Presence] in Blood by Automated count 0-2 N [facility] Immature granulocytes [#/volume] in Blood by Automated count 0.0 U 0-0.1 N [facility] Manual Differential panel - Blood NO [facility] ID Date Data Source [id number] 06/17/2020 11:33:00 AM EST [facility] Method of Collection:: Voided Name Value Range Interpretation Code Description Data Radha rce(s) Supporting Document(s) Hemoglobin A1c [Mass/volume] in Blood 6.1 % 3.8-5.6 Above hig h normal [facility] The following ranges may be u sed for interpretation of results: HGBA1C degree of glucose control: Greater than 8%: Action Suggested * Less than 7%: Goal of Diabetic Therapy Less than 5.6%: NormalFactors such as duration of diabetes, adherence to therapyand the age of the patient should also be considered inassessing the degree of blood glucose control.* High risk of developing jail complications such asretinopathy, nephropathy, neuropathy, cardiopathy, etc. Some danger of hypoglycemic reaction in Type I diabetics.Some glucose intolerant individuals and "Sub Clinical"diabetics may demonstrate HGBA1C levels in this area. Glucose mean value [Moles/volume] in Blood Estimated f rom glycated hemoglobin 128 mg/dL [facility] An A1C of 7% - the goal of diabetic ther apy - is equivalentto an EAG of 154 mg/dl. ID Date Data Source [id number] 06/17/2020 11:42:00 AM EST [facility] Method of Collection:: Voided Name Value Range Interpretation Code Description Data Radha rce(s) Supporting Document(s) Urea nitrogen [Mass/volume] in Serum or Plasma 12 mg/dL 9-23 N [facility] Sodium [Moles/volume] in Serum or Plasma 143 mmol/L 132-146 N [facility] Potassium [Moles/volume] in Serum or Plasma 4.6 mmol/L 3.5-5.5 N [facility] Chloride [Moles/volume] in Serum or Plasma 110 mmol/L 99-109 Above high normal [facility] Carbon dioxide, total [Moles/volume] in Serum or Plasma 31 mmol/L 20 -31 [facility] Anion gap in Serum or Plasma 7 mmol/L 8-16 Below low normal [facility] Glucose [Mass/volume] in Serum or Plasma 105 mg/dL 74-106 N [facility] Creatinine 1.2 mg/dL 0.5-1.1 Above high normal [facility] Glomerular filtration rate/1.73 sq M.pre dicted [Volume Rate/Area] in Serum or Plasma Greater Than 60 ABOVE 60 [facility] Alanine aminotransferase [Enzymatic acti vity/volume] in Serum or Plasma by With P-5'-P 29 U/L 10-49 N [facility] Aspartate aminotransferase [Enzymatic ac tivity/volume] in Serum or Plasma by With P-5'-P 17 U/L 0-33 N [facility] pital Alkaline phosphatase [Enzymatic activity/volume] in Serum or Plasma 67 U/L 45-129 N [facility] Calcium [Mass/volume] in Serum or Plasma 9.2 mg/dL 8.5-10.1 [facility] Bilirubin.total [Mass/volume] in Serum or Plasma 0.5 mg/dL 0.3-1.2 [facility] Albumin [Mass/volume] in Serum or Plasma by Bromocresol purple (BCP) dye binding method 4.1 g/dL 3.2-4.8 N [facility] Protein [Mass/volume] in Serum or Plasma 6.8 g/dL 5.7-8.2 N [facility] ID Date Data Source [id number] 06/17/2020 11:42:00 AM [facility] Method of Collection:: Voided Name Value Range Interpretation Code Description Data Radha rce(s) Supporting Document(s) Triglycerides 54 mg/dL 0-150 N [facility] Cholesterol 89 mg/dL 120-200 Below low normal [facility] HDL Cholesterol 35 mg/dL [facility] HDL Less than 40 mg/dL: Major risk for CHDHDL Greater than 59 mg/dL: Low risk for CHD LDL Cholesterol, Calc 44 mg/dL 0-100 N [facility] ID Date Data Source [id number] 03/17/2020 02:02:00 PM [facility] Patient Name: BRANDI SLOAN : 1970 Sex: M Pt Unit #: [id number] Location:[facility] Provider: Visit Date/Time: 03/17/20 Primary Insurance: HUMANA [...] up. No active complaints at this time. Field Specialist Required: No Accompanied by: Self / Same [...] Screening Screening Have you traveled outside of [facility] or [facility] in the last 14 days.: No Has patient experienced coronavirus symptoms: No [facility] Medical History (Updated 03/17/20 @ 18:12 by [...] Home Safety Home Safety: Reports Lighting: Adequate, [facility]: No throw rugs and Stairs: Handrail available; [...] the back specialist as well as the audio/video technician in [place]. He had no major complaints. Review of [...] a recheck. (2) Diabetes mellitus: SNOMED Code(s): 83015847 Category: Medical Qualifiers: Diabetes mellitus type: type 2 Diabetes mellitus buttermaker insulin use: without buttermaker use Diabetes mellitus complication status: without complication Qualified Code(s): E11.9 - Type 2 diabetes mellitus withou t complications Plan - Silverio Batista M.D.: Patient will be following up with the audio/video technician for this problem. The most recent A1c is 6.6. (3) Essential hypertension: Status: Chronic Onset Date: 01/01/11 Code(s): I10 - Essential (primary) hypertension SNOMED Code(s): 71292531 Category: Medical Plan - Silverio Batista M.D.: [...] edited asappropriate. This document was dictated using [employer] speech recognition software. A reasonable attempt to proofread has been made to minimize errors. Please call if you notice any errors or have any questions. Orders Follow Up: 3 Months (Diabetes) <Electronically signed by Silverio Batista MD> 03/17/20 1814 Name Value Range Interpretation Code Description Data Radha rce(s) Supporting Document(s) ID Date Data Source [id number] 03/11/2020 03:59:00 PM EST [facility] Name Value Range Interpretation Code Description Data [facility](s) Supporting Document(s) Hemoglobin A1c % 6.6 % 4.0-6.0 Above high normal [facility] The following ranges may be u sed for interpretation of results: HGBA1C degree of glucose control: Greater than 8%: Action Suggested * Less than 7%: Goal of Diabetic Therapy Less than 6%: NormalFactors such as duration of diabetes, adherence to therapyand the age of the patient should also be considered inassessing the degree of blood glucose control.* High risk of developing buttermaker complications such asretinopathy, nephropathy, neuropathy, cardiopathy, etc. Some danger of hypoglycemic reaction in Type I diabetics.Some glucose intolerant individuals and "Sub Clinical"diabetics may demonstrate HGBA1C levels in this area. Glucose mean value [Moles/volume] in Blood Estimated f rom glycated hemoglobin 143 mg/dL [facility] An A1C of 7% - the goal of diabetic ther apy - is equivalentto an EAG of 154 mg/dl. ID Date Data Source [id number] 03/11/2020 04:01:00 PM [facility] Name Value Range Interpretation Code Description Data Radha rce(s) Supporting Document(s) Urea nitrogen [Mass/volume] in Serum or Plasma 15 mg/dL 9-23 N [facility] Sodium [Moles/volume] in Serum or Plasma 141 mmol/L 132-146 [facility] Potassium [Moles/volume] in Serum or Plasma 4.3 mmol/L 3.5-5.5 N [facility] Chloride [Moles/volume] in Serum or Plasma 109 mmol/L 99-109 [facility] Carbon dioxide, total [Moles/volume] in Serum or Plasma 30 mmol/L 20 -31 [facility] Anion gap in Serum or Plasma 6 mmol/L 8-16 Below low normal [facility] Glucose [Mass/volume] in Serum or Plasma 99 mg/dL 74-106 [facility] Creatinine 1.1 mg/dL 0.5-1.1 [facility] Glomerular filtration rate/1.73 sq M.pre dicted [Volume Rate/Area] in Serum or Plasma Greater Than 60 ABOVE 60 [facility] Calcium [Mass/volume] in Serum or Plasma 9.2 mg/dL 8.5-10.1 [facility] ID Date Data Source [id number] 03/10/2020 12:00:00 AM [facility] Name Value Range Interpretation Code Description Data Radha rce(s) Supporting Document(s) 2019-nCoV RNA XXX SHELBY+probe-Imp [facility] This lab was ordered by [facility] and reported by [employer] ID Date Data Source [id number] 02/29/2020 11:39:00 AM [facility] Patient Name: BRANDI SLOAN : 1970 Sex: M Pt Unit #: [id number] Location:[facility] Provider: Visit Date/Time: 02/29/20 Primary Insurance: [facility] Secondary Insurance: [facility] R Intake Vital Signs 02/29/20 [...] tx with heat. This has not helped. Field Specialist Required: No Accompanied by: Self / Same [...] Screening Screening Have you traveled outside of [facility] or [facility] in the last 14 days.: No Has patient experienced coronavirus symptoms: No [facility] Medical History Allergic rhinitis due to pollen [...] under the care of Sports Medicine in [place] for his low back pain. He reports [...] appearing, comfortable, well developed and well hydrated [facility] Head: normocephalic Ears: hearing grossly normal bilaterally [...] Code(s): M54.9 - Dorsalgia, unspecified SNOMED Code(s): 465724885 Category: Medical Plan - RICHIE Hernández: I advised patient to make an appointment for follow up with the group in [place] who have all his records, know the history and the most recent treatments. <Electronically signed by Alma QUIROZ> 02/29/20 1217 Name Value Range Interpretation Code Description Data Radha rce(s) Supporting Document(s) ID Date Data Source [id number] 02/06/2020 01:32:00 PM EDT [facility] Normal result is "[employer] Covid-19 Ag n egative"[employer] Covid-19 Ag is a rapid lateral flowimmunochromatographic immunoassayThis test detects both viable(live) and non-viable, SARS-COVand SARS-COV-2.Positive test results do not differentiate between SARS-COVand [id number] results , from patients with symptom onset beyondseven days, should be treated as presumptive andconfirmation with a molecular assay, if necessary, forpatient managementIf the differentiation of specific SARS viruses and strainsis needed, additional testing, in consultation with stateand local public health departments, is required.[employer] Covid -19 Ag Negative Name Value Range Interpretation Code Description Data Radha rce(s) Supporting Document(s) ID Date Data Source [id number] 02/06/2020 12:00:00 AM EDT [facility] Name Value Range Interpretation Code Description Data Radha rce(s) Supporting Document(s) SARS-CoV2 Rapid Antigen [facility]. ID Date Data Source [id number] 01/14/2020 03:41:00 PM EDT [facility] ([facility]) Name Value Range Interpretation Code Description Data Radha rce(s) Supporting Document(s) Glucose [Mass/volume] in Serum or Plasma 104 [facility] ([facility]) Hemoglobin A1c/Hemoglobin.total in Blood 5.9 [facility] ([facility]) Procedure Social History Code Duration Value Status Description Data Source(s ) 10/31/2020 08:11:36 AM EDT Former smoker completed Former smoker [facility] Smoking 10/31/2020 08:11:00 AM EDT Former smoker completed Former smoker [facility] 09/03/2020 07:11:57 AM EDT No completed No [facility] 09/03/2020 07:11:57 AM EDT No completed No [facility] [facility] 09/03/2020 07:11:57 AM EDT No completed No [facility] 09/03/2020 07:11:57 AM EDT No completed No [facility] 09/03/2020 07:11:57 AM EDT Current every day smoker co mpleted Current every day smoker [facility] Smoking 09/03/2020 07:11:00 AM EDT Current every day smoker co mpleted Current every day smoker [facility] 08/16/2020 05:10:05 AM EDT No completed No [facility] 08/16/2020 05:10:05 AM EDT No completed No [facility] 08/16/2020 05:10:05 AM EDT Current every day smoker co mpleted Current every day smoker [facility] Smoking 08/16/2020 05:10:00 AM EDT Current every day smoker co mpleted Current every day smoker [facility] 08/13/2020 12:35:57 AM EDT No completed No [facility] 08/13/2020 12:35:57 AM EDT No completed No [facility] 08/13/2020 12:35:57 AM EDT Current every day smoker co mpleted Current every day smoker [facility] Smoking 08/13/2020 12:35:00 AM EDT Current every day smoker co mpleted Current every day smoker [facility] 03/17/2020 02:46:46 PM EST Current every day smoker co mpleted Current every day smoker [facility] 03/17/2020 02:46:46 PM EST Current every day smoker co mpleted Current every day smoker [facility] 03/17/2020 02:46:46 PM EST Current every day smoker co mpleted Current every day smoker [facility] Smoking 03/17/2020 02:46:00 PM EST Current every day smoker co mpleted Current every day smoker [facility] Smoking 03/17/2020 01:46:00 PM EST Current every day smoker co mpleted Current every day smoker [facility] Smoking 03/17/2020 01:46:00 PM EST Current every day smoker co mpleted Current every day smoker [facility] Smoking 01/14/2020 12:00:00 AM EDT Never Smoked Cigarettes com pleted Never Smoked Cigarettes [facility] ([facility]) Vital Signs ID Date Data Source UNK Name Value Range Interpretation Code Description Data Source(s) Body height 65 [in_i] 65 [in_i] [facility] ([facility]) 5'5" Body mass index (BMI) [Ratio] 41.3 kg/m2 41.3 k g/m2 [facility] ([facility]) Systolic blood pressure 124 mm[Hg] 124 mm[Hg] M [facility] ([facility]) Diastolic blood pressure 84 mm[Hg] 84 mm[Hg] [facility] ([facility]) Heart rate 60 /min 60 /min [facility] ([facility]) Body temperature 97.5 [degF] 97.5 [degF] [facility] ([facility]) Body weight 248.00 [lb_av] 248.00 [lb_av] [facility] T ([facility])
== END 2021-02-08 05:19 | disposition left against medical advice (07) ==
LOC: M ED 02:07
DX: Z53.21 Procedure and treatment not carried out due to patient leaving prior to being seen by health care provider (principal)

== ENCOUNTER 2023-02-03 20:16 | Emergency (ER) | payer MEDICARE, MEDICAID ==
[~2023-02-03] VITALS: Ht 171.4 cm; Wt 125.4 kg
[~2023-02-03 20:16] MED LIST changes: +METF500T13 PO; +TRUL0.5I SC
[2023-02-04 03:55] VITALS: BP 142/110; TEMP 97.5; O2SAT 98
== END 2023-02-04 08:18 | disposition home or self-care (01) ==
LOC: M ED 20:16
DX: Z53.9 Procedure and treatment not carried out, unspecified reason (principal); Z79.4 Long term (current) use of insulin; Z79.899 Other long term (current) drug therapy

== ENCOUNTER 2024-07-23 10:06 | Emergency (ER) | payer OTHER, MEDICAID ==
[~2024-07-23] VITALS: Ht 180.3 cm; Wt 108.6 kg
[2024-07-23 14:11] VITALS: BP 140/84; TEMP 97.7; O2SAT 99
[2024-07-23] MEDS: MUPIROCIN 2% OINT 22 GM TUBE TOP ONE (14:42)
== END 2024-07-23 14:44 | disposition home or self-care (01) ==
LOC: M ED 10:06
DX: L72.0 Epidermal cyst (principal); E11.9 Type 2 diabetes mellitus without complications; I10 Essential (primary) hypertension; E78.5 Hyperlipidemia, unspecified; K21.9 Gastro-esophageal reflux disease without esophagitis; Z79.84 Long term (current) use of oral hypoglycemic drugs; Z79.899 Other long term (current) drug therapy